=== PATIENT | male | born 1965 | race Caucasian/White ===

== ENCOUNTER 2021-02-03 18:02 | Emergency (ER) | payer BC ==
--- OUTSIDE RECORDS SUMMARY | 2021-02-03 18:05 | XMS REPORT | Continuity of Care Document ---
:1965 Author Organization [facility] t Address [address] [place] [address] Care Team Providers Name Role Phone Estela Mccabe Attending Clinician Problems This patient has no known problems. Allergies, Adverse Reactions, Alerts This patient has no known allergies or adverse reactions. Medications This patient has no known medications. Procedures This patient has no known procedures. Encounters Start End Encounter Admission Attending Care Care Encounter Source Date/Time Date/Time Type Type Clinicians Facility Department ID 2021-02-02 2021-02-02 Emergency Patrick Liao [facility] [id number] 11:56:00 13:57:00 Estela Leone [id number] [place] [id number] [place] [id number] Results This patient has no known results.
--- NOTE | 2021-02-03 22:14 | RAD REPORT ---
EXAM DESCRIPTION: RAD - Knee Left 3 View - 02/03/2021 9:54 pm CLINICAL HISTORY: PAIN COMPARISON: No comparisons FINDINGS: Small knee effusion. Mild medial greater than lateral joint space narrowing. Mild patellof emoral compartment spurring. No fracture is seen. IMPRESSION: No acute osseus abnormality involving the left knee. Mild tricompartmental degenerative changes and small nonspecific knee effusion.
--- NOTE | 2021-02-04 00:06 | EDPHYS ---
Physician Documentation [facility] Name: Jean Claude Gonzalez Age: 55 yrs Sex: Male : 1965 Arrival Date: 02/03/2021 Time: 18:05 Bed 13 Private MD: JUAREZ Physician Michele Rodrigues HPI: 02/04 00:01 This 55 yrs old Male presents to ER via Wheelchair with complaints of Knee keshav Pain, Knee Swelling. 00:01 This 55 yrs old Male presents to ER via Wheelchair with complaints of Knee keshav Pain, Knee Swelling. 00:01 The patient presents with decreased range of motion, pain, swelling, tenderness. The keshav complaints affect the lateral aspect of left knee, medial aspect of left knee and left knee. Context: The problem was sustained at an unknown site, resulted from an unknown cause. Onset: The symptoms/episode began/occurred 3 day(s) ago. Modifying factors: The symptoms are alleviated by nothing. elevating leg, the symptoms are aggravated by movement, weight bearing, bending knee. Associated signs and symptoms: The patient has no apparent associated signs or symptoms. Treatment prior to arrival includes: elevation of the extremity, icing the affected extremity. Severity of symptoms: At their worst the symptoms were moderate, in the emergency department the symptoms are unchanged. The patient has not experienced similar symptoms in the past. Historical: - Allergies: 02/03 18:37 No Known Allergies; iw - Immunization history:: Adult Immunizations unknown. - Family history:: not pertinent. - Social history:: Smoking status: unknown. ROS: 02/04 00:01 Constitutional: Negative for fever, chills, and weight loss, Eyes: Negative for injury, keshav pain, redness, and discharge, ENT: Negative for injury, pain, and discharge, Neck: Negative for injury, pain, and swelling, Cardiovascular: Negative for chest pain, palpitations, and edema, Respiratory: Negative for shortness of breath, cough, wheezing, and pleuritic chest pain, Abdomen/GI: Negative for abdominal pain, nausea, vomiting, diarrhea, and constipation, Back: Negative for injury and pain, : Negative for injury, bleeding, discharge, and swelling, Skin: Negative for injury, rash, and discoloration, Neuro: Negative for headache, weakness, numbness, tingling, and seizure, Psych: Negative for depression, anxiety, suicide ideation, homicidal ideation, and hallucinations, Allergy/Immunology: Negative for hives, rash, and allergies, Endocrine: Negative for neck swelling, polydipsia, polyuria, polyphagia, and marked weight changes, Hematologic/Lymphatic: Negative for swollen nodes, abnormal bleeding, and unusual bruising. MS/extremity: Positive for decreased range of motion, pain, swelling, tenderness, of the lateral aspect of left knee, medial aspect of left knee and left knee. Exam: 00:01 Constitutional: This is a well developed, well nourished patient who is awake, alert, keshav and in no acute distress. Head/Face: Normocephalic, atraumatic. Eyes: Pupils equal round and reactive to light, extra-ocular motions intact. Lids and lashes normal. Conjunctiva and sclera are non-icteric and not injected. Cornea within normal limits. Periorbital areas with no swelling, redness, or edema. ENT: Nares patent. No nasal discharge, no septal abnormalities noted. Tympanic membranes are normal and external auditory canals are clear. Oropharynx with no redness, swelling, or masses, exudates, or evidence of obstruction, uvula midline. Mucous membranes moist. Neck: Trachea midline, no thyromegaly or masses palpated, and no cervical lymphadenopathy. Supple, full range of motion without nuchal rigidity, or vertebral point tenderness. No Meningismus. Chest/axilla: Normal chest wall appearance and motion. Nontender with no deformity. No lesions are appreciated. Cardiovascular: Regular rate and rhythm with a normal S1 and S2. No gallops, murmurs, or rubs. Normal PMI, no JVD. No pulse deficits. Respiratory: Lungs have equal breath sounds bilaterally, clear to auscultation and percussion. No rales, rhonchi or wheezes noted. No increased work of breathing, no retractions or nasal flaring. Abdomen/GI: Soft, non-tender, with normal bowel sounds. No distension or tympany. No guarding or rebound. No evidence of tenderness throughout. Back: No spinal tenderness. No costovertebral tenderness. Full range of motion. Male : Normal genitalia with no discharge or lesions. Skin: Warm, dry with normal turgor. Normal color with no rashes, no lesions, and no evidence of cellulitis. Neuro: Awake and alert, GCS 15, oriented to person, place, time, and situation. Cranial nerves II-XII grossly intact. Motor strength 5/5 in all extremities. Sensory grossly intact. Cerebellar exam normal. Normal gait. Psych: Awake, alert, with orientation to person, place and time. Behavior, mood, and affect are within normal limits. 00:01 Musculoskeletal/extremity: ROM: limited active range of motion, limited passive range of motion, limited active range of motion due to pain, limited passive range of motion due to pain, Circulation is intact in all extremities. Sensation intact. Compartment Syndrome exam of affected extremity: is normal. DVT Exam: pain, swelling, tenderness, of the left leg, of the left knee. Vital Signs: 01:40 BP 148 / 106; Pulse 103; Resp 16 S; Temp 97.7(TE); Pulse Ox 99% on R/A; Pain 5/10; bb Procedures: 00:46 Joint Treatment: of left knee using 18 gauge needle, Removed cloudy fluid, yellow keshav fluid, Specimen sent to lab. Dressed with band aid, Patient tolerated well. MDM: 02/03 23:23 Patient medically screened. [facility] 02/04 00:04 Differential diagnosis: closed fracture, contusion, tendonitis. Data reviewed: vital keshav signs, nurses notes, radiologic studies. Data interpreted: tax investigator: rate is 89 beats/min, rhythm is regular, Pulse oximetry: on room air is 98 %. Test interpretation: by ED physician or midlevel provider: plain radiologic studies. Counseling: I had a detailed discussion with the patient and/or guardian regarding: the historical points, exam findings, and any diagnostic results supporting the discharge/admit diagnosis, lab results, radiology results, the need for outpatient follow up, for definitive care, a family practitioner, a orthopedic surgeon. 02/04 00:34 Order name: Body Fluid Culture [facility] 02/04 00:34 Order name: Lactic Dehydrogenase [facility] 02/04 00:34 Order name: Protein, Total [facility] 02/04 00:34 Order name: Gram Stain [facility] 02/04 00:34 Order name: Body Fluid Cell Count [facility] 02/03 20:31 Order name: XRAY Knee LEFT 3 view; Complete Time: 23:10 bb 02/03 23:58 Order name: Dressing - Wound; Complete Time: 00:04 keshav 02/04 00:34 Order name: Body Fluid Crystals [facility] 02/04 00:34 Order name: Uric Acid [facility] 02/03 23:58 Order name: Gloves, Sterile; Complete Time: 00:04 [facility] 02/03 23:58 Order name: Setup Suture Tray; Complete Time: 00:04 [facility] 02/03 23:58 Order name: Crutches; Complete Time: 01:44 [facility] 02/03 23:58 Order name: Knee Immobilizer; Complete Time: 01:15 keshav Administered Medications: 00:05 Drug: Motrin (ibuprofen) 800 mg Route: PO; bb 01:37 Follow up: Response: No adverse reaction bb 00:05 Drug: [place] (HYDROcodone-acetaminophen) 10 mg-325 mg 1 tabs Route: PO; bb 01:37 Follow up: Response: No adverse reaction; RASS: Alert and Calm (0) bb 00:35 Drug: Lidocaine-Epinephrine -1%: (1:100,000) 8 ml {Note: administered by Dr Rodrigues to bb affected area.} Volume: 20 ml; Route: Infiltration; 01:38 Follow up: Response: No adverse reaction bb 01:37 Drug: KeFLEX (cephalexin) 500 mg Route: PO; bb 06:45 Follow up: Response: No adverse reaction; Medication administered at discharge. bb Disposition Summary: 02/04/21 00:06 Discharge Ordered Location: Home keshav Problem: new keshav Symptoms: have improved keshav Condition: Stable keshav Diagnosis - Effusion, knee keshav - Pain in left knee keshav Followup: keshav - With: Private Physician - When: 2 - 3 days - Reason: Recheck today's complaints, Continuance of care, Re-evaluation by your physician Followup: keshav - With: Karel Edmondson MD - When: 2 - 3 days - Reason: Recheck today's complaints, Re-evaluation by your physician Discharge Instructions: - Discharge Summary Sheet keshav - Joint Pain keshav - Arthritis keshav - Knee Effusion keshav - Acute Knee Pain, Adult keshav - How to Use Cold Therapy, Gflm-kz-Gbvx keshav - Knee Effusion, Lwux-of-Sybf keshav - Arthritis, Qtsk-gv-Bfpc keshav - How to Use Cold Therapy keshav - Acute Knee Pain, Adult, Iird-sl-Ixtd keshav - Joint Pain, Insg-fd-Lnom keshav Forms: - Medication Reconciliation Form keshav - Thank You Letter keshav - Antibiotic Education keshav - Prescription Opioid Use keshav Prescriptions: - acetaminophen-codeine 300-15 mg Oral tablet - take 2 tablet by ORAL route every 4-6 hours; 24 tablet; Refills: 0, Product keshav Selection Permitted - cephalexin 500 mg Oral capsule - take 1 capsule by ORAL route 4 times per day; 28 capsule; Refills: 0, Product keshav Selection Permitted - Ibuprofen 600 mg Oral Tablet - take 1 tablet by ORAL route every 6 hours As needed take with food; 30 tablet; keshav Refills: 0, Product Selection Permitted Signatures: Dispatcher [employer] EDMS Michele Rodrigues MD MD cha Mickail, Joel, PA PA jmm Ballard, Brenda, RN RN Diana Melara RN RN iw Corrections: (The following items were deleted from the chart) 01:23 00:34 Body Fluid Cell Count ordered. EDMS EDMS 00:34 Body Fluid Culture ordered. EDMS EDMS 00:34 CSF Glucose ordered. EDMS EDMS : 00:34 Lactic Dehydrogenase ordered. EDMS EDMS 00:34 Protein, Total ordered. EDMS EDMS 00:34 Gram Stain ordered. EDMS EDMS : 00:34 Body Fluid Crystals ordered. EDMS EDMS : 00:34 Uric Acid ordered. EDMS EDMS
--- NOTE | 2021-02-04 00:06 | ER ---
Nurse's Notes [facility] Name: Jean Claude Gonzalez Age: 55 yrs Sex: Male : 1965 Arrival Date: 02/03/2021 Time: 18:05 Bed 13 Private MD: Diagnosis: Effusion, knee;Pain in left knee Presentation: 02/03 18:34 Chief complaint: Patient states: left knee pain and swelling since Friday , was seen at [facility] and [facility], was initially diagnosed with a sprain but did not have an injury, then was told he has arthritis and given anti inflammatories , no his knee is more swollen and is warm to touch , has pain radiating to left foot. Coronavirus screen: At this time, the client does not indicate any symptoms associated with coronavirus-19. Ebola Screen: Patient negative for fever greater than or equal to 101.5 degrees Fahrenheit, and additional compatible Ebola Virus Disease symptoms Patient denies exposure to infectious person. Patient denies travel to an Ebola-affected area in the 21 days before illness onset. No symptoms or risks identified at this time. Initial Sepsis Screen: Does the patient meet any 2 criteria? No. Patient's initial sepsis screen is negative. Does the patient have a suspected source of infection? No. Patient's initial sepsis screen is negative. Risk Assessment: Do you want to hurt yourself or someone else? Patient reports no desire to harm self or others. Onset of symptoms was January 28, 2021. 18:34 Method Of Arrival: Wheelchair 18:34 Acuity: TAMARA 3 iw Triage Assessment: 23:10 General: Appears uncomfortable, Behavior is cooperative. bb Historical: - Allergies: 18:37 No Known Allergies; iw - Immunization history:: Adult Immunizations unknown. - Family history:: not pertinent. - Social history:: Smoking status: unknown. Screenin:10 Abuse screen: Denies threats or abuse. Nutritional screening: No deficits noted. bb Tuberculosis screening: No symptoms or risk factors identified. Fall Risk None identified. Assessment: 23:10 General: Appears in no apparent distress. uncomfortable, Behavior is calm, cooperative. bb Pain: Complains of pain in left knee. Neuro: Level of Consciousness is awake, alert, obeys commands, Oriented to person, place, time, situation. Cardiovascular: Capillary refill < 3 seconds Patient's skin is warm and dry. Respiratory: Respiratory effort is even, unlabored, Respiratory pattern is regular. GI: No signs and/or symptoms were reported involving the gastrointestinal system. Derm: Skin is pink, warm \T\ dry. Musculoskeletal: Circulation, motion, and sensation intact. Swelling present in left knee Reports pain in left knee. 08 01:40 Reassessment: Patient is alert, oriented x 3, equal unlabored respirations, skin bb warm/dry/pink. pt verbalized understanding of and agrees to plan of care states he has used crutches in the past, discharge instructions given pt assisted to car via wheelchair by plant facilities technician with family. Vital Signs: 01:40 BP 148 / 106; Pulse 103; Resp 16 S; Temp 97.7(TE); Pulse Ox 99% on R/A; Pain 5/10; bb ED Course: 02/03 18:05 Patient arrived in ED. mr 18:37 Triage completed. iw 18:37 Arm band placed on. iw 21:53 XRAY Knee LEFT 3 view In Process Unspecified. EDMS 23:10 Patient has correct armband on for positive identification. Call light in reach. bb 23:10 Patient did not have IV access during this emergency room visit. bb 23:23 Michele Rodrigues MD is Attending Physician. [facility] 02/04 00:06 Karel Edmondson MD is Referral Physician. [facility] 00:09 Maria Elena Garcia, JOEL is Primary Nurse. bb 00:30 Assist provider with aspiration of left knee Set up for procedure. Performed by Michele Rodrigues MD Patient tolerated well. Administered Medications: 00:05 Drug: Motrin (ibuprofen) 800 mg Route: PO; bb 01:37 Follow up: Response: No adverse reaction bb 00:05 Drug: [place] (HYDROcodone-acetaminophen) 10 mg-325 mg 1 tabs Route: PO; bb 01:37 Follow up: Response: No adverse reaction; RASS: Alert and Calm (0) bb 00:35 Drug: Lidocaine-Epinephrine -1%: (1:100,000) 8 ml {Note: administered by Dr Rodrigues to bb affected area.} Volume: 20 ml; Route: Infiltration; 01:38 Follow up: Response: No adverse reaction bb 01:37 Drug: KeFLEX (cephalexin) 500 mg Route: PO; bb 06:45 Follow up: Response: No adverse reaction; Medication administered at discharge. chandan Outcome: 00:06 Discharge ordered by . keshav 01:44 Patient left the ED. ole 06:50 Discharged to home via wheelchair, with family. chandan 06:50 Condition: stable 06:50 Discharge instructions given to patient, Instructed on discharge instructions, follow up and referral plans. medication usage, Demonstrated understanding of instructions, follow-up care, medications, Prescriptions given X 3. Signatures: Dispatcher [employer] EDDE Michele Rodrigues MD MD cha Rivera, Maria Elena Walton, RN RN Diana Melara RN RN Hola Smith ds4
[2021-02-04] MEDS ORDERED: HYDROCODONE/APAP 10/325 TAB ONE (00:29)
[2021-02-04] MEDS ORDERED: IBUPROFEN 400 MG TAB ONE (00:29)
[2021-02-04] MEDS ORDERED: LIDOCAINE 1% 20 ML MDV ONE (00:29)
[2021-02-04] MEDS ORDERED: LIDOCAINE 1% W/EPI 1:100,000 MDV 20 ML VIAL ONE (00:29)
[2021-02-04] MEDS ORDERED: CEPHALEXIN 250 MG CAP ONE (01:59)
[2021-02-04 02:13] LABS: Uric Acid 6.5 mg/dL (3.5-7.2)
[2021-02-04 02:32] LABS: Body Fluid WBC 622 /mm^3
[2021-02-04 02:47] LABS: Protein, Total 5.2 g/dL (6.4-8.2)
[2021-02-04 02:56] LABS: Glucose Level 15 mg/dL (74-106)
[2021-02-04 03:38] LABS: Appearance SLT. TURBID (CLEAR); Body Fluid Source PERITONEAL; Color of fluid Yellow (COLORLESS)
== END 2021-02-04 01:44 | disposition home or self-care (01) ==
LOC: ER 18:02
PROC: 0S9D3ZX Drainage of Left Knee Joint, Percutaneous Approach, Diagnostic (ICD-10-PCS; principal; 2021-02-04)
DX: M25.462 Effusion, left knee (principal)
CPT/HCPCS: 36415; 82947; 83615; 84155; 84550; 87070; 87077; 87186; 87205; 89050; 89060; 99284

== ENCOUNTER 2021-02-15 03:39 | Emergency (ER) | payer BC ==
--- OUTSIDE RECORDS SUMMARY | 2021-02-15 03:41 | XMS REPORT | Continuity of Care Document ---
:1965 Author Organization [facility] t Address [address] [place] [address] Care Team Providers Name Role Phone Estela [...] Department ID 2021-02-02 2021-02-02 Emergency Patrick Liao [facility] [id number] 11:56:00 13:57:00 Estela Leone [id number] [place] [id number] [place] [phone] [id number] Results This patient has no known results.
--- NOTE | 2021-02-15 04:58 | ER ---
Nurse's Notes [facility] Name: Jean Claude Gonzalez Age: 55 yrs Sex: Male : 1965 Arrival Date: 02/15/2021 Time: 04:26 Bed DIS11 Private MD: Diagnosis: Effusion, left knee Presentation: 02/15 04:28 Chief complaint: Patient states: Left sided knee pain worse this morning. I am waiting tl1 for approval for an MRI. The pain today is overwhelming. Coronavirus screen: Client denies travel out of the [place] in the last 14 days. At this time, the client does not indicate any symptoms associated with coronavirus-19. Ebola Screen: Patient negative for fever greater than or equal to 101.5 degrees Fahrenheit, and additional compatible Ebola Virus Disease symptoms Patient denies exposure to infectious person. Patient denies travel to an Ebola-affected area in the 21 days before illness onset. Initial Sepsis Screen: Does the patient meet any 2 criteria? No. Patient's initial sepsis screen is negative. Does the patient have a suspected source of infection? No. Patient's initial sepsis screen is negative. Risk Assessment: Do you want to hurt yourself or someone else? Patient reports no desire to harm self or others. Onset of symptoms was February 15, 2021. 04:28 Method Of Arrival: Other tl1 04:28 Acuity: TAMARA 4 tl1 Historical: - Allergies: 04:30 No Known Allergies; tl1 - Home Meds: 04:30 Keflex Oral [Active]; Lisinopril Oral [Active]; tl1 - PMHx: 04:30 hypertension; tl1 - PSHx: 04:30 None; tl1 - Immunization history:: Adult Immunizations up to date, Client reports having NOT received the Covid vaccine. - Social history:: Smoking status: Patient denies any tobacco usage or history of. Patient uses alcohol, but reports only rare drinking. - Family history:: not pertinent. - Hospitalizations: : No recent hospitalization is reported. Screenin:38 Abuse screen: Denies threats or abuse. Denies injuries from another. Has been tl1 threatened or abused. Nutritional screening: No deficits noted. Tuberculosis screening: No symptoms or risk factors identified. Fall Risk Ambulatory Aid- Crutches/Cane/Walker (15 pts). Assessment: 04:37 General: Appears uncomfortable, Behavior is calm, cooperative, appropriate for age. tl1 Pain: Complains of pain in left knee Pain currently is 10 out of 10 on a pain scale. Neuro: Level of Consciousness is awake, alert, obeys commands. Cardiovascular: Reports None. Respiratory: No deficits noted. Airway is patent Trachea midline. GI: No signs and/or symptoms were reported involving the gastrointestinal system. : No signs and/or symptoms were reported regarding the genitourinary system. EENT: No signs and/or symptoms were reported regarding the EENT system. Musculoskeletal: Swelling present in left knee Tenderness present in left knee. 05:22 Reassessment: Patient and/or family updated on plan of care and expected duration. Pain bb level reassessed. Patient is alert, oriented x 3, equal unlabored respirations, skin warm/dry/pink. pt states pain has improved now 6/10 Pt verbalized understanding of and agrees to plan of care discharge instructions given pt to exit via crutches. Vital Signs: 04:32 BP 136 / 105; Pulse 110; Resp 17; Temp 98; Pulse Ox 97% on R/A; Weight 110.68 kg; tl1 Height 6 ft. 2 in. (187.96 cm); Pain 10/10; 05:23 BP 134 / 91; Pulse 109; Resp 18 S; Temp 96.6(TE); Pulse Ox 98% on R/A; Pain 6/10; bb 04:32 Body Mass Index 31.33 (110.68 kg, 187.96 cm) tl1 ED Course: 04:26 Patient arrived in ED. bp1 04:30 Triage completed. tl1 04:31 Arm band placed on right wrist. tl1 04:38 No provider procedures requiring assistance completed. Patient did not have IV access tl1 during this emergency room visit. 04:45 Malcolm Carey MD is Attending Physician. rn 05:22 Maria Elena Garcia RN is Primary Nurse. bb 05:24 Patient has correct armband on for positive identification. bb Administered Medications: 04:52 Drug: Demerol (meperidine) 50 mg Route: IM; Site: right vastus lateralis; tl1 05:22 Follow up: Response: No adverse reaction; Pain is decreased; RASS: Alert and Calm (0) bb 04:52 Drug: Ketorolac 15 mg Route: IM; Site: left vastus lateralis; tl1 05:22 Follow up: Response: No adverse reaction bb 04:52 Drug: Zofran (Ondansetron) 4 mg Route: PO; tl1 05:22 Follow up: Response: No adverse reaction bb Outcome: 04:58 Discharge ordered by . rn 05:24 Discharged to home ambulatory. bb 05:24 Condition: stable 05:24 Discharge instructions given to patient, Instructed on discharge instructions, follow up and referral plans. Demonstrated understanding of instructions, follow-up care. 05:24 Patient left the ED. bb Signatures: Maria Elena Garcia RN RN Malcolm Lafleur MD MD rn Lasagna, Tonya RN RN tl1 Caitlin Ramos
--- NOTE | 2021-02-15 04:58 | EDPHYS ---
Physician Documentation [facility] Name: Jean Claude Gonzalez Age: 55 yrs Sex: Male : 1965 Arrival Date: 02/15/2021 Time: 04:26 Bed DIS11 Private MD: ED Physician Malcolm Carey HPI: 02/15 04:51 This 55 yrs old Male presents to ER via Other with complaints of Knee Pain. rn 04:51 The patient presents with pain. The complaints affect the left knee. Context: resulted rn from an unknown cause, the patient can partially bear weight, the patient is able to ambulate. Onset: The symptoms/episode began/occurred 9 day(s) ago. Modifying factors: The symptoms are alleviated by remaining still, the symptoms are aggravated by movement, weight bearing, bending knee. Associated signs and symptoms: Pertinent positives: swelling, Pertinent negatives fever, warmth, weakness. Severity of symptoms: At their worst the symptoms were moderate, in the emergency department the symptoms have improved. The patient has experienced a previous episode. The patient has been recently seen at the [facility]. Patient reports seen on the third year for swollen left knee, had fluid aspirated and feels much better. Told to follow-up with orthopedics and that the fluid appeared well. Seen by orthopedics a few days ago, discussed results of knee aspiration with orthopedics per patient and told no signs of infection or gout. Ortho recommended MRI but patient waiting on approval from insurance. Reports still having pain but not as bad as originally. No new injury. Historical: - Allergies: 04:30 No Known Allergies; tl1 - Home Meds: 04:30 Keflex Oral [Active]; Lisinopril Oral [Active]; tl1 - PMHx: 04:30 hypertension; tl1 - PSHx: 04:30 None; tl1 - Immunization history:: Adult Immunizations up to date, Client reports having NOT received the Covid vaccine. - Social history:: Smoking status: Patient denies any tobacco usage or history of. Patient uses alcohol, but reports only rare drinking. - Family history:: not pertinent. - Hospitalizations: : No recent hospitalization is reported. ROS: 04:51 Constitutional: Negative for fever, chills, and weight loss, MS/Extremity: Negative for rn injury, positive left knee pain Skin: Negative for injury, rash, and discoloration, Neuro: Negative for weakness, numbness, tingling Exam: 04:51 Constitutional: This is a well developed, well nourished patient who is awake, alert rn MS/ Extremity: Pulses equal, no cyanosis. Neurovascular intact. Minimal left knee effusion. No overlying warmth or redness of knee joint. Mild pain with range of motion, both active and passive. Vital Signs: 04:32 BP 136 / 105; Pulse 110; Resp 17; Temp 98; Pulse Ox 97% on R/A; Weight 110.68 kg; tl1 Height 6 ft. 2 in. (187.96 cm); Pain 10/10; 05:23 BP 134 / 91; Pulse 109; Resp 18 S; Temp 96.6(TE); Pulse Ox 98% on R/A; Pain 6/10; bb 04:32 Body Mass Index 31.33 (110.68 kg, 187.96 cm) tl1 MDM: 04:45 Patient medically screened. rn 04:51 Differential diagnosis: Knee effusion, inflammatory arthritis. Data reviewed: vital rn signs, nurses notes, old medical records, Synovial fluid reviewed from last visit, Gram stain states no organisms and no WBCs and distribution more consistent with inflammatory arthritis. Sensitivities do show staph but unclear if contaminant from skin given no white blood cells and no organisms seen on Gram stain. Does show resistance to cephalosporins and patient is currently on Keflex. and as a result, I will discharge patient. Counseling: I had a detailed discussion with the patient and/or guardian regarding: the historical points, exam findings, and any diagnostic results supporting the discharge/admit diagnosis, the need for outpatient follow up, to return to the emergency department if symptoms worsen or persist or if there are any questions or concerns that arise at home. Response to treatment: the patient's symptoms have mildly improved after treatment, and as a result, I will discharge patient. Special discussion: I discussed with the patient/guardian in detail that at this point there is no indication for admission to the hospital. It is understood, however, that if the symptoms persist or worsen the patient needs to return immediately for re-evaluation. Based on the history and exam findings, there is no indication for further emergent testing or inpatient evaluation. I discussed with the patient/guardian the need to see the orthopedic surgeon for further evaluation of the symptoms. ED course: We will change antibiotics to Bactrim given sensitivities reported, even though might be contaminant given negative Gram stain for organisms or WBC. Patient also states orthopedist went over fluid results with him and did not believe there was infection. Will DC home with Ortho follow-up once again.. Administered Medications: 04:52 Drug: Demerol (meperidine) 50 mg Route: IM; Site: right vastus lateralis; tl1 05:22 Follow up: Response: No adverse reaction; Pain is decreased; RASS: Alert and Calm (0) bb 04:52 Drug: Ketorolac 15 mg Route: IM; Site: left vastus lateralis; tl1 05:22 Follow up: Response: No adverse reaction bb 04:52 Drug: Zofran (Ondansetron) 4 mg Route: PO; tl1 05:22 Follow up: Response: No adverse reaction bb Disposition Summary: 02/15/21 04:58 Discharge Ordered Location: Home rn Problem: an ongoing problem rn Symptoms: have improved rn Condition: Stable rn Diagnosis - Effusion, left knee rn Followup: rn - With: Private Physician - When: 2 - 3 days - Reason: Recheck today's complaints, Re-evaluation by your physician Discharge Instructions: - Discharge Summary Sheet rn - Knee Effusion rn Forms: - Medication Reconciliation Form rn - Thank You Letter rn - Antibiotic international first officer - Prescription Opioid Use rn Prescriptions: - Bactrim DS 800-160 mg Oral Tablet - take 1 tablet by ORAL route every 12 hours for 10 days; 20 tablet; Refills: 0, rn Product Selection Permitted Signatures: Malcolm Carey MD MD rn Lasagna, Tonya RN RN tl1 Maria Elena Garcia RN bb
[2021-02-15] MEDS ORDERED: KETOROLAC 30 MG/ML INJ ONE (05:09)
[2021-02-15] MEDS ORDERED: MEPERIDINE HCL 50 MG/ML ONE (05:09)
[2021-02-15] MEDS ORDERED: ONDANSETRON 4 MG (ODT) TAB ONE (05:09)
[2021-02-15 05:31] VITALS: BP 134/91; TEMP 96.6; O2SAT 98
== END 2021-02-15 05:24 | disposition home or self-care (01) ==
LOC: ER 03:39
DX: M25.462 Effusion, left knee (principal); I10 Essential (primary) hypertension
CPT/HCPCS: 96372; 99283; J2175

== ENCOUNTER 2021-07-03 18:28 | Emergency (ER) | payer BC ==
--- OUTSIDE RECORDS SUMMARY | 2021-07-03 18:30 | XMS REPORT | Continuity of Care Document ---
:1965 Author Organization [facility] t Address [address] [place] [address] Care Team Providers Name Role Phone Barby Burnett Primary Care Physician Tonny ANTON Attending Clinician Unavailable TRI Attending Clinician Unavailable Barby DE LA ROSA Attending Clinician Unavailable Barby Burnett Attending Clinician LUCIUS Attending Clinician Unavailable Cricket MALDONADO Attending Clinician Unavailable Rashad REID Attending Clinician Unavailable Rogelio Attending Clinician Unavailable KNOW Admitting Clinician Unavailable Payers Payer Name Policy Type Policy Number Effective Date Expiration Date S pat [employer] [id number] 2017 [facility] 00:00:00 [employer] HE[employer] SELECT [id number] 2017 00:00:00 Problems Condition Condition Condition Status Onset Resolution Last Treating Co mments Source Name Details Category Date Date Treatment Clinician Date Pyogenic Pyogenic Disease Active Unive rs bacterial bacterial 03-14 [place] of [place] Medical patella, patella, Branch left left Allergies, Adverse Reactions, Alerts Allergy Allergy Status Severity Reaction(s) Onset Inactive Treating Comm ents Source Name Type Date Date Clinician Gabapent Allergy Active Hallucinatio U T in to ns 03-25 Health substan 00:00: e 00 No Known DA Active U [facility] Allergie 8-15 [place] [facility] No Known DA Active U [facility] Allergie 8-15 [place] [facility] Nsaids Allergy Active Other [facility] to 02-03 reaction( Health substan 00:00: s): e 00 NSAIDs ([id number]) ASPIRIN DA Active ID NAUSEA 2008-07 [facility] 07-29 [place] [facility]: d [facility] Aspirin Allergy Active 2008-07 [facility] to 07-29 Health substan 00:00: e 00 NO KNOWN Drug Active Univers ALLERGIE Class ity of S [facility] Social History Social Habit Start Date Stop Date Quantity Comments Source Exposure to Not sure [facility] SARS-CoV-2 (event) Medica l Branch Tobacco use and 2021-02-23 2021-02-23 Never used Universit y [facility] exposure 00:00:00 00:00:00 Medical Branch Sex [facility][birth year] At [birth year] [facility] 00:[facility] 00:[facility]:00 Smoking Status Start Date Stop Date Source Tobacco smoking consumption [facility] Never smoker [facility] Medications Ordered Filled Start Stop Current Ordering Indication Dosage Frequency Signature Comments Components Source Medication Medication Date Date Medication? Clinician (SIG) Name Name TIZANIDINE 2020-07 Yes [id number] 4mg TAKE 1 U nivers 4 mg 2-17 CAPSULE BY ity of capsule 00:00: MOUTH 2 00 (TWO) Medical TIMES Branch DAILY NEEDED FOR MUSCLE SPASMS. pregabalin 2020-07 Yes [id number] 75mg Take 1 U nivers (LYRICA) 75 2-14 capsule by it y of mg capsule 00:00[place] (three) Medical times Branch daily. amitriptyli 2020-07 Yes [id number] 50mg Take 1 Univers ne 50 mg 2-14 tablet by ity of tablet 00:00: mouth at [place] 00 bedtime. Medical Branch AMITRIPTYLI 2020-07- No [id number] TAKE 1 Univers NE 10 mg 08-15 TABLET BY ity o f tablet 00:00: 00:00 MOUTH [place] 00 :00 EVERYDAY Medical AT BEDTIME Branch pregabalin 2020-07- No [id number] 75mg Take 1 Univers 75 mg 07-30 07 capsule by ity of capsule 00:00: 00:00 mouth 2 [place] 00 :00 (two) Medical times Branch daily. tiZANidine 2020-07- No [id number] 4mg Take 1 Univers 4 mg 07-22 capsule by ity of capsule 00:00: 00:00 mouth 2 [place] 00 :00 (two) Medical times Branch daily as needed for Muscle Spasms. gabapentin 2020-07- No [id number] Take four Univers 100 mg 07-09 07 tablets ity of capsule 00:00: 00:00 bid [place] 00 :00 Medical Branch gabapentin 2020-07 Yes [id number] 600mg Q.[id number] Take 1 UT (Neurontin) 0 62672 [id number] tablet Health 600 MG 00:00: 3D (600 mg tablet 00 total) by mouth 3 (three) times a day for 14 days. gabapentin 2020-07- Yes [id number] 600mg Q.[id number] Take 1 UT (Neurontin) 0-05-11 31374 [id number] tablet Health 600 MG 00:00: 04:59 3D (600 mg tablet 00 :00 total) by mouth 3 (three) times a day for 14 days. gabapentin 2020-07- Yes [id number] 600mg Q.[id number] Take 1 UT (Neurontin) 0-05-11 51438 [id number] tablet Health 600 MG 00:00: 04:59 3D (600 mg tablet 00 :00 total) by mouth 3 (three) times a day for 14 days. gabapentin 2020-07- Yes [id number] 600mg Q.[id number] Take 1 UT (Neurontin) 0-05-11 66562 [id number] tablet Health 600 MG 00:00: 04:59 3D (600 mg tablet 00 :00 total) by mouth 3 (three) times a day for 14 days. tiZANidine 2020-07 Yes [id number] 2mg Take 1 UT (Zanaflex) 0-11 02962 tablet (2 Hea lth 2 MG tablet 00:00: mg total) 00 by mouth every 8 (eight) hours if needed for muscle spasms for up to 10 days. gabapentin 2020-07 Yes [id number] 600mg Q.[id number] Take 1 UT (Neurontin) 0-11 02078 [id number] tablet Health 600 MG 00:00: 3D (600 mg tablet 00 total) by mouth 3 (three) times a day for 5 days. tiZANidine 2020-07 Yes [id number] 2mg Take 1 UT (Zanaflex) 0-11 57195 tablet (2 Hea lth 2 MG tablet 00:00: mg total) 00 by mouth every 8 (eight) hours if needed for muscle spasms for up to 10 days. gabapentin 2020-07 Yes [id number] 600mg Q.[id number] Take 1 UT (Neurontin) 0-11 64815 [id number] tablet Health 600 MG 00:00: 3D (600 mg tablet 00 total) by mouth 3 (three) times a day for 5 days. tiZANidine 2020-07 Yes [id number] 2mg Take 1 UT (Zanaflex) 0-11 63387 tablet (2 Hea lth 2 MG tablet 00:00: mg total) 00 by mouth every 8 (eight) hours if needed for muscle spasms for up to 10 days. gabapentin 2020-07 Yes [id number] 600mg Q.[id number] Take 1 UT (Neurontin) 0-11 80534 [id number] tablet Health 600 MG 00:00: 3D (600 mg tablet 00 total) by mouth 3 (three) times a day for 5 days. tiZANidine 2020-07 Yes [id number] 2mg Take 1 UT (Zanaflex) 0-11 81723 tablet (2 Hea lth 2 MG tablet 00:00: mg total) 00 by mouth every 8 (eight) hours if needed for muscle spasms for up to 10 days. gabapentin 2020-07 Yes [id number] 600mg Q.[id number] Take 1 UT (Neurontin) 0-11 21794 [id number] tablet Health 600 MG 00:00: 3D (600 mg tablet 00 total) by mouth 3 (three) times a day for 5 days. tiZANidine 2020-07- Yes [id number] 2mg Take 1 UT (Zanaflex) 04-27 tablet (2 He alth 2 MG tablet 00:00: 04:59 mg total) 00 :00 by mouth every 8 (eight) hours if needed for muscle spasms for up to 10 days. gabapentin 2020-07- Yes [id number] 600mg Q.[id number] Take 1 UT (Neurontin) 04-22 [id number] tablet Health 600 MG 00:00: 04:59 3D (600 mg tablet 00 :00 total) by mouth 3 (three) times a day for 5 days. LISINOPRIL 2020-07 Yes [id number] TAKE 1 U nivers 20 mg 0-05 TABLET BY ity of tablet 00:00: MOUTH [place] 00 EVERY DAY Medical Branch LISINOPRIL 2020-07 Yes [id number] TAKE 1 U nivers 20 mg 0-05 TABLET BY ity of tablet 00:00: MOUTH [place] 00 EVERY DAY Medical Branch naloxone 2021- Yes [id number] .4mg Administer UT (Narcan) 2 04-05 0.4 mL Health MG/2ML 00:00: 04:59 (0.4 mg injection 00 :00 total) into affected nostril(s) if needed for opioid reversal. May repeat every 2-3 minutes as needed until medical assistance available. naloxone 2021- Yes [id number] .4mg Administer UT (Narcan) 2 04-05 0.4 mL Health MG/2ML 00:00: 04:59 (0.4 mg injection 00 :00 total) into affected nostril(s) if needed for opioid reversal. May repeat every 2-3 minutes as needed until medical assistance available. naloxone 2021- Yes [id number] .4mg Administer UT (Narcan) 2 04-05- 0.4 mL Health MG/2ML 00:00: 04:59 (0.4 mg injection 00 :00 total) into affected nostril(s) if needed for opioid reversal. May repeat every 2-3 minutes as needed until medical assistance available. naloxone 2021- Yes [id number] .4mg Administer UT (Narcan) 2 04-05- 0.4 mL Health MG/2ML 00:00: 04:59 (0.4 mg injection 00 :00 total) into affected nostril(s) if needed for opioid reversal. May repeat every 2-3 minutes as needed until medical assistance available. naloxone 2021- Yes [id number] .4mg Administer UT (Narcan) 2 04-05- 0.4 mL Health MG/2ML 00:00: 04:59 (0.4 mg injection 00 :00 total) into affected nostril(s) if needed for opioid reversal. May repeat every 2-3 minutes as needed until medical assistance available. naloxone 2021- Yes [id number] .4mg Administer UT (Narcan) 2 04-05- 0.4 mL Health MG/2ML 00:00: 04:59 (0.4 mg injection 00 :00 total) into affected nostril(s) if needed for opioid reversal. May repeat every 2-3 minutes as needed until medical assistance available. naloxone 2021- Yes [id number] .4mg Administer UT (Narcan) 2 04-05- 0.4 mL Health MG/2ML 00:00: 04:59 (0.4 mg injection 00 :00 total) into affected nostril(s) if needed for opioid reversal. May repeat every 2-3 minutes as needed until medical assistance available. naloxone 2021- Yes [id number] .4mg Administer UT (Narcan) 2 04-05- 0.4 mL Health MG/2ML 00:00: 04:59 (0.4 mg injection 00 :00 total) into affected nostril(s) if needed for opioid reversal. May repeat every 2-3 minutes as needed until medical assistance available. tiZANidine 2020- Yes [id number] 2mg Take 1 UT (Zanaflex) 04-05-11 tablet (2 Hea lth 2 MG tablet 00:00: 04:59 mg total) 00 :00 by mouth every 8 (eight) hours if needed for muscle spasms for up to 10 days. tiZANidine 2020- Yes [id number] 2mg Take 1 UT (Zanaflex) 9-30 10-11 tablet (2 Hea lth 2 MG tablet 00:00: 04:59 mg total) 00 :00 by mouth every 8 (eight) hours if needed for muscle spasms for up to 10 days. tiZANidine 2020- No [id number] 2mg Take 1 UT (Zanaflex) 9-30 10-11 tablet (2 Hea lth 2 MG tablet 00:00: 00:00 mg total) 00 :00 by mouth every 8 (eight) hours if needed for muscle spasms for up to 10 days. tiZANidine 2020- Yes [id number] 2mg Take 1 UT (Zanaflex) 9-30 10-11 tablet (2 Hea lth 2 MG tablet 00:00: 04:59 mg total) 00 :00 by mouth every 8 (eight) hours if needed for muscle spasms for up to 10 days. HYDROcodone 2020- Yes [id number] 1{tbl} Q6H Take 1 UT -acetaminop 9-30 10-08 tablet by He alth hen ([place]) 00:00: 04:59 mouth 5-325 MG 00 :00 every 6 tablet (six) hours if needed for severe pain for up to 7 days. HYDROcodone 2020- Yes [id number] 1{tbl} Q6H Take 1 UT -acetaminop 9-30 10-08 tablet by He alth hen ([place]) 00:00: 04:59 mouth 5-325 MG 00 :00 every 6 tablet (six) hours if needed for severe pain for up to 7 days. HYDROcodone 2020- Yes [id number] 1{tbl} Q6H Take 1 UT -acetaminop 9-30 10-08 tablet by He alth hen ([place]) 00:00: 04:59 mouth 5-325 MG 00 :00 every 6 tablet (six) hours if needed for severe pain for up to 7 days. gabapentin 2020- No [id number] 600mg Q.[id number] Take 1 UT (Neurontin) 9-28 10-13 45469 [id number] tablet Health 600 MG 00:00: 04:59 3D (600 mg tablet 00 :00 total) by mouth 3 (three) times a day for 14 days. gabapentin 2020- No [id number] 600mg Q.[id number] Take 1 UT (Neurontin) 04-03 23145 [id number] tablet Health 600 MG 00:00: 04:59 3D (600 mg tablet 00 :00 total) by mouth 3 (three) times a day for 14 days. gabapentin 2020- No [id number] 600mg Q.[id number] Take 1 UT (Neurontin) 04-03 30455 [id number] tablet Health 600 MG 00:00: 04:59 3D (600 mg tablet 00 :00 total) by mouth 3 (three) times a day for 14 days. gabapentin 2020- No [id number] 600mg Q.[id number] Take 1 UT (Neurontin) 04-03 97414 [id number] tablet Health 600 MG 00:00: 04:59 3D (600 mg tablet 00 :00 total) by mouth 3 (three) times a day for 14 days. gabapentin 2020- No [id number] 600mg Q.[id number] Take 1 UT (Neurontin) 04-03 94762 [id number] tablet Health 600 MG 00:00: 04:59 3D (600 mg tablet 00 :00 total) by mouth 3 (three) times a day for 14 days. acetaminoph 2020- No [id number] 1{tbl} Q6H Take 1 UT en-codeine 04-03 tablet by Kody alth (Tylenol w/ 00:00: 04:59 mouth Codeine #3) 00 :00 every 6 300-30 MG (six) tablet hours if needed for severe pain for up to 5 days. acetaminoph 2020- No [id number] 1{tbl} Q6H Take 1 UT en-codeine 04-03 [id number] tablet by Kody alth (Tylenol w/ 00:00: 04:59 mouth Codeine #3) 00 :00 every 6 300-30 MG (six) tablet hours if needed for severe pain for up to 5 days. acetaminoph 2020- No [id number] 1{tbl} Q6H Take 1 UT en-codeine 04-03 03892 tablet by Kody alth (Tylenol w/ 00:00: 04:59 mouth Codeine #3) 00 :00 every 6 300-30 MG (six) tablet hours if needed for severe pain for up to 5 days. acetaminoph 2020- No [id number] 1{tbl} Q6H Take 1 UT en-codeine 04-03 [id number] tablet by Kody alth (Tylenol w/ 00:00: 04:59 mouth Codeine #3) 00 :00 every 6 300-30 MG (six) tablet hours if needed for severe pain for up to 5 days. HYDROcodone 2020- No [id number] 1{tbl} Q6H Take 1 UT -acetaminop 03-2904 tablet by Anil pelayo ([place]) 00:00: 04:59 mouth 5-325 MG 00 :00 every 6 tablet (six) hours if needed for severe pain for up to 7 days. ondansetron 2020- No [id number] 4mg Take 1 UT ODT (Zofran 9-23 10-01 tablet (4 He alth ODT) 4 MG 00:00: 04:59 mg total) disintegrat 00 :00 by mouth ing tablet every 8 (eight) hours if needed for nausea or vomiting for up to 7 days. ondansetron 2020- No [id number] 4mg Take 1 UT ODT (Zofran 9-23 10-01 tablet (4 He alth ODT) 4 MG 00:00: 04:59 mg total) disintegrat 00 :00 by mouth ing tablet every 8 (eight) hours if needed for nausea or vomiting for up to 7 days. ondansetron 2020- No [id number] 4mg Take 1 UT ODT (Zofran 9-23 10-01 tablet (4 He alth ODT) 4 MG 00:00: 04:59 mg total) disintegrat 00 :00 by mouth ing tablet every 8 (eight) hours if needed for nausea or vomiting for up to 7 days. ondansetron 2020- No [id number] 4mg Take 1 UT ODT (Zofran 9-23 10-01 tablet (4 He alth ODT) 4 MG 00:00: 04:59 mg total) disintegrat 00 :00 by mouth ing tablet every 8 (eight) hours if needed for nausea or vomiting for up to 7 days. HYDROcodone 2020- No [id number] 1{tbl} Q6H Take 1 UT -acetaminop 9-23 10- 34561 tablet by H [employer]altQuantapore hen (Reqlut) 00:00: 04:59 mouth 5-325 MG 00 :00 every 6 tablet (six) hours if needed for severe pain for up to 7 days. ondansetron 2020- No [id number] 4mg Take 1 UT ODT (Zofran 9-23 10-01 tablet (4 He alth ODT) 4 MG 00:00: 04:59 mg total) disintegrat 00 :00 by mouth ing tablet every 8 (eight) hours if needed for nausea or vomiting for up to 7 days. HYDROcodone 2020- No [id number] 1{tbl} Q6H Take 1 UT -acetaminop 9-23 -30 [id number] tablet by H [employer] hen (Reqlut) 00:00: 00:00 mouth 5-325 MG 00 :00 every 6 tablet (six) hours if needed for severe pain for up to 7 days. HYDROcodone 2020- No [id number] 1{tbl} Q6H Take 1 UT -acetaminop 9-23 -30 [id number] tablet by H eaOonair hen (Reqlut) 00:00: 00:00 mouth 5-325 MG 00 :00 every 6 tablet (six) hours if needed for severe pain for up to 7 days. HYDROcodone 2020- No [id number] 1{tbl} Q6H Take 1 UT -acetaminop 9-23 -30 [id number] tablet by H [employer] hen (Reqlut) 00:00: 00:00 mouth 5-325 MG 00 :00 every 6 tablet (six) hours if needed for severe pain for up to 7 days. HYDROcodone 2020- No [id number] 1{tbl} Take 1 UT -acetaminop -03-26 52478 tablet by H ealth hen (Reqlut) 00:00: 04:59 mouth 10-325 MG 00 :00 every 8 tablet (eight) hours if needed for severe pain for up to 10 days. HYDROcodone 2020- No [id number] 1{tbl} Take 1 UT -acetaminop 03-15 [id number] tablet by H ealth hen (Reqlut) 00:00: 04:59 mouth 10-325 MG 00 :00 every 8 tablet (eight) hours if needed for severe pain for up to 10 days. HYDROcodone 2020- No [id number] 1{tbl} Q6H Take 1 UT -acetaminop 9-03-15 tablet by He alth hen (Reqlut) 00:00: 04:59 mouth 5-325 MG 00 :00 every 6 tablet (six) hours if needed for severe pain for up to 5 days. HYDROcodone 2020- No [id number] 1{tbl} Q6H Take 1 UT -acetaminop 9-03-15 tablet by He alth hen (Reqlut) 00:00: 04:59 mouth 5-325 MG 00 :00 every 6 tablet (six) hours if needed for severe pain for up to 5 days. traMADol 2020- No [id number] 50mg Q6H Take 1 UT (Ultram) 50 03-05 [id number] tablet (50 Health MG tablet 00:00: 04:59 mg total) 00 :00 by mouth every 6 (six) hours if needed for severe pain for up to 7 days. traMADol 2020- No [id number] 50mg Q6H Take 1 UT (Ultram) 50 -03-13 89930 tablet (50 Health MG tablet 00:00: 04:59 mg total) 00 :00 by mouth every 6 (six) hours if needed for severe pain for up to 7 days. ONETOUCH Yes USE Univers ULTRA TEST 8 DIRECTED ity o f strip 00:00: MISC TID [place] 00 BEFORE Medical MEALS Branch LANTUS 2021-0 Yes 25U 25 Units Univers U-100 8-27 at ity of INSULIN 100 00:00[place]time. [place] unit/mL 00 Medical solution Branch ONETOUCH Yes USE Univers DELICA 8-27 DIRECTED ity of LANCETS 30 00:00: MISC DAILY [place] gauge Misc 00 Medical Branch TRUEPLUS Yes Univers INSULIN 1 8-27 ity of mL 31 gauge 00:00: [place] x /16 Syrg 00 Medical Branch ONETOUCH Yes USE Univers ULTRA TEST 8-27 DIRECTED ity o f strip 00:00: MISC TID [place] 00 BEFORE Medical MEALS Branch LANTUS Yes 25U 25 Units Univers U-100 8-27 at ity of INSULIN 100 00:00: bedtime. [place] unit/mL 00 Medical solution Branch [facility] Yes USE Univers DELICA 8-27 DIRECTED ity of LANCETS 30 00:00: MISC DAILY [place] gauge Misc Medical Branch TRUEPLUS Yes Univers INSULIN 1 8-27 ity of mL 31 gauge 00:00: [place] x 5/16 Syrg 00 Medical Branch HUMALOG Yes INJECT 8 Univer s U-100 8-26 UNIT SUB Q ity of INSULIN 100 00:00: THREE [place] unit/mL 00 TIMES A Medical solution DAY BEFORE Branc h MEALS HUMALOG Yes INJECT 8 Univer s U-100 8-26 UNIT SUB Q ity of INSULIN 100 00:00: THREE [place] unit/mL 00 TIMES A Medical solution DAY BEFORE Branc h MEALS ELIQUIS 5 0 2020- No TAKE 1 Unive rs mg tablet 03-01 12-14 TABLET BY ity of 00:00: 00:00 MOUTH [place] 00 :00 EVERY 12 Medical HOURS FOR Branch 77 DAYS ,INSTR FOR DEEP VENOUS THROMBOSIS Immunizations Ordered Filled Immunization Date Status Comments Sourc e Immunization Name Name Influenza Virus 2021-05-22 Completed Universit y of Vaccine Quad IM, 00:00:00 [place] Me dical Preserv and ABX Branch Free 6 MO-64 YRS Influenza Virus 2021-05-22 Completed Universit y of Vaccine Quad IM, 00:00:00 [place] Me dical Preserv and ABX Branch Free 6 MO-64 YRS Vital Signs Vital Name Observation Time Observation Value Comments Source Systolic blood 2021-06-19 15:13:00 144 mm[Hg] Univer sity of pressure [facility] Diastolic blood 2021-06-19 15:13:00 95 mm[Hg] Unive rsity of [facility] Heart rate 2021-06-19 15:12:00 114 /min [facility] Respiratory rate 2021-06-19 15:12:00 16 /min [facility] height 2021-06-19 15:12:00 188 cm Universi [facility] Body weight 2021-06-19 15:12:00 100.699 kg [facility] BMI 2021-06-19 15:12:00 28.50 kg/m2 [facility] Body height 2021-05-17 17:31:00 188 cm [facility] Body weight 2021-05-17 17:31:00 105.235 kg [facility] BMI 2021-05-17 17:31:00 29.79 kg/m2 [facility] Systolic blood 2021-05-01 14:03:00 101 mm[Hg] [facility] pressure Diastolic blood 2021-05-01 14:03:00 64 mm[Hg] [facility]th pressure Heart rate 2021-05-01 14:03:00 134 /min [facility] Body temperature 2021-05-01 14:03:00 36.33 [facility]pc[facility] Body height 2021-05-01 14:03:00 188 cm [facility] Body weight 2021-05-01 14:03:00 102.967 kg [facility] BMI 2021-05-01 14:03:00 29.15 kg/m2 [facility] Body height 2021-03-15 18:27:00 188 cm [facility] Body weight 2021-03-15 18:27:00 105.235 kg [facility] BMI 2021-03-15 18:27:00 29.79 kg/m2 [facility] Procedures This patient has no known procedures. Encounters Start End Encounter Admission Attending Care Care Encounter Source Date/Time Date/Time Type Type Clinicians Facility Department ID 2021-06-19 Outpatient DESEAN [facility] [id number] [place] 01:04:40 [facility] 2021-06-17 Outpatient TRI, [facility] [id number] [place] 01:01:35 [facility] 2021-05-25 Outpatient DESEAN, [facility] [id number] [place] 01:03:24 [facility] 2021-05-23 [facility] [id number] [place] 01:03:56 [facility] 2021-05-17 Outpatient DESEAN [facility] [id number] [place] 11:53:10 [facility] 2021-06-19 2021-06-19 Outpatient Chelsy DE LA ROSA [facility] [id number] Univers 09:00:00 10:08:45 [place] [address] of [facility] 2021-06-19 2021-06-19 Office Estrella [facility] 1.2.840.114 [id number] Univers 08:59:26 10:08:45 Visit Palmira Dior FRIENDSWO 350.1.13.10 ity of [place] 4.2.7.2.686 [place] [id number] [facility] AND ADULT [address] [place] [address] SPECIALTY CARE CLINICS 2021-06-16 2021-06-16 [facility] 1.2.840.114 [id number] Univers 00:00:00 00:00:00 [place] Dior FRIENDSWO 350.1.13.10 ity of [place] 4.2.7.2.686 [place] [id number] [facility] AND ADULT [address] [place] [address] [facility] 2021-05-17 2021-05-17 Office Desean [facility] 1.2.840.114 [id number] [place] 10:55:20 11:52:11 Visit Sagar Tonny TRAUMA [id number] Health CLINIC 9.2.7.2.686 [id number] 1 2021-05-01 2021-05-01 Office SUZANNE KAN 6410 1.2.840.114 [id number] [place] 08:46:04 09:16:04 Visit MICHI GRIFFIN 350.1.13.58 Health 9.2.7.2.686 [id number] 2021 2021 Telephone Azra Harley 6410 1.2.84 0.114 [id number] [place] 00:00:00 00:00:[address] 350.1.13.58 Health 9.2.7.2.686 [id number] 2021-04-25 2021-04-25 Refill Desean [facility] 1.2.840.114 [id number] [place] 00:00:00 00:00:00 Sagar [place] TRAUMA 350.1.13.58 Health CLINIC 9.2.7.2.686 [id number] 1 2021-04-16 2021-04-16 Refill Desean [facility] 1.2.840.114 [id number] [place] 00:00:00 00:00:00 Sagar [place] TRAUMA 350.1.13.58 Health CLINIC 9.2.7.2.686 [id number] 1 2021-04-05 2021-04-05 Office SUZANNE Anton 1.2.840.114 [id number] 13:59:26 14:51:50 Visit Sagar [place] TRAUMA 350.1.13.58 CLINIC 9.2.7.2.686 [id number] 1 2021-04-05 2021-04-05 Office Desean [facility] 1.2.840.114 [id number] UT 13:59:26 14:51:50 Visit Sagar [place] TRAUMA 350.1.13.58 Health CLINIC 9.2.7.2.686 [id number] 1 2021-04-03 2021-04-03 Refill Diogo Solorzanomichael [facility] 1.2.840.114 [id number] [place] 00:00:00 00:00:00 Solorzano, Aura TRAUMA 350.1.13.58 Health CLINIC 9.2.7.2.686 [id number] 1 2021-03-29 2021-03-29 Refill Diogo Solorzanoa [facility] 1.2.840.114 [id number] UT 00:00:00 00:00:00 Solorzano, Aura TRAUMA 350.1.13.58 Health CLINIC 9.2.7.2.686 [id number] 1 2021-03-16 2021-03-16 Maskim Harley Azra [facility] 6410 1.2.840. 114 [id number] [place] 00:00:00 00:00:[address] 350.1.13.58 Health 9.2.7.2.686 [id number] 2021-03-15 2021-03-15 Office Desean [facility] 1.2.840.114 [id number] UT 12:41:34 13:47:49 Visit Sagar [place] TRAUMA 350.1.13.58 Health CLINIC 9.2.7.2.686 [id number] 1 2021-03-14 2021-03-14 Telephone Azra Harley [facility] 6410 1.2.84 0.114 [id number] UT 00:00:00 00:00:[address] 350.1.13.58 Health 9.2.7.2.686 [id number] 9 2021-03-09 2021-03-09 Refill Kitty Solorzano [facility] 1.2.840.114 [id number] [place] 00:00:00 00:00:00 Rashad Aurmichael TRAUMA 350.1.13.58 Health CLINIC 9.2.7.2.686 [id number] 1 2021-03-05 2021-03-05 Refill Kitty Solorzano [facility] 1.2.840.114 [id number] [place] 00:00:00 00:00:00 Kitty Solorzano TRAUMA 350.1.13.58 Health CLINIC 9.2.7.2.686 [id number] 1 2021-02-18 2021-02-18 Emergency EM Daniel Mercado [facility] YEISON [id number] [facility] 15:01:00 18:16:00 [id number] [facility] 2021-02-06 2021-02-06 Office LUIS De La Rosa 1.2.840.114 [id number] 13:12:38 14:36:39 Visit Palmira ELIZABETH 350.1.13.10 OD 4.2.7.2.686 PEDIATRIC [id number] AND ADULT [facility] SPECIALTY CARE CLINICS Results This patient has no known results.
[2021-07-03 20:54] LABS: Absolute Lymphocytes (CBC) 1.9 K/uL (0.7-4.9); Hematocrit 35.9 % (39.6-49.0); Lymphocytes % 14.7 % (15.3-44.8); MPV 7.4 fL (7.6-11.3); RBC Red Blood Cell Count 4.31 M/uL (4.33-5.43)
[2021-07-03 21:04] LABS: Protime INR 1.03
--- NOTE | 2021-07-03 21:09 | RAD REPORT ---
EXAM DESCRIPTION: RAD - Chest Single View - 07/03/2021 8:34 pm CLINICAL HISTORY: COUGH COMPARISON: None TECHNIQUE: AP portable chest image was obtained 07/03/2021 8:34 pm . FINDINGS: Lungs are clear. Heart and vasculature are normal. No measurable pleural effusion and no p neumothorax. No acute bony abnormality seen. No acute aortic findings suspected. IMPRESSION: No acute cardiopulmonary process.
--- NOTE | 2021-07-03 21:10 | RAD REPORT ---
EXAM DESCRIPTION: CT - Head Brain Wo Cont - 07/03/2021 8:34 pm CLINICAL HISTORY: DIZZINESS COMPARISON: No comparisons TECHNIQUE: Axial 5 mm thick images of the head were obtained without IV contrast. All CT scans are performed using dose optimization technique as appropriate and may include automated exposure control or mA/KV adjustment according to patient size. FINDINGS: No intracranial hemorrhage, mass, edema or shift of mid-line structures. No acute infarcti on changes seen. No abnormal extra-axial fluid collections. Ventricles are normal. Mastoid air cells are clear. Air-fluid level is present in the right maxillary sinus. Sphenoid and et hmoid air cell mucosal thickening changes are present. No acute bony findings. IMPRESSION: Negative non-contrast CT head examination for acute or significant intracranial finding. Paranasal sinus disease including an acute air-fluid level in the right maxillary sinus
[2021-07-03 21:11] LABS: Potassium 3.4 mmol/L (3.5-5.1); Sodium Level 138 mmol/L (136-145)
[2021-07-03 21:39] LABS: ALT/SGPT 27 U/L (12-78); AST/SGOT 12 U/L (15-37); Alkaline Phosphatase 97 U/L (45-117); BUN Blood Urea Nitrogen 15 mg/dL (7-18); Bicarbonate 27 mmol/L (21-32); Bilirubin Direct < 0.1 mg/dL (0-0.2); Bilirubin Total 0.3 mg/dL (0.2-1.0); Glucose Level 74 mg/dL (74-106); Magnesium 1.8 mg/dL (1.8-2.4); NT PRO-BNP 273 pg/mL (<125); Troponin (Emerg Dept Use Only) < 0.02 ng/mL (0.0-0.045)
[2021-07-03 23:41] LABS: Urine Blood Negative (Negative); Urine Glucose Negative (Negative); Urine Protein Negative (Negative); Urine pH 6.5 (5.0-7.0)
--- NOTE | 2021-07-04 00:17 | EDPHYS ---
Physician Documentation [facility] Name: Jean Claude Gonzalez Age: 56 yrs Sex: Male : 1965 Arrival Date: 07/03/2021 Time: 19:32 Bed 17 Private MD: ED Physician Sean Kate HPI: 07/03 20:20 This 56 yrs old Male presents to ER via Unassigned with complaints of Dizziness. mh7 20:20 The patient presents with dizziness, feeling faint, lightheadedness. Onset: The mh7 symptoms/episode began/occurred today, at 1730. Context: occurred at work, occurred while the patient was standing, just prior to the episode the patient experienced no apparent symptoms. Modifying factors: The symptoms are alleviated by nothing, the symptoms are aggravated by nothing. Associated signs and symptoms: Pertinent negatives: abdominal pain, agitation, ataxia, blurred vision, chest pain, combativeness, confusion, diaphoresis, focal weakness, head injury, headache, nausea, numbness, palpitations, seizure, shortness of breath, syncope, tingling, vomiting. Severity of symptoms: At their worst the symptoms were moderate today, in the emergency department the symptoms have resolved and did so just prior to arrival. Patient's baseline: Neuro: alert and fully oriented, Motor: no deficits, Ambulation: walks without assistance, Speech: normal. Historical: - Home Meds: 23:04 lisinopril Oral [Active]; sv1 - PMHx: 23:04 Hypertension; sv1 - Immunization history:: Adult Immunizations up to date. - Social history:: Smoking status: Patient denies any tobacco usage or history of. ROS: 20:20 Constitutional: Negative for fever, chills, and weight loss, Eyes: Negative for injury, mh7 pain, redness, and discharge, ENT: Negative for injury, pain, and discharge, Neck: Negative for injury, pain, and swelling, Cardiovascular: Negative for chest pain, palpitations, and edema. 20:20 Respiratory: Negative for shortness of breath, cough, wheezing, and pleuritic chest pain, Abdomen/GI: Negative for abdominal pain, nausea, vomiting, diarrhea, and constipation, Back: Negative for injury and pain, : Negative for injury, bleeding, discharge, and swelling, MS/Extremity: Negative for injury and deformity, Skin: Negative for injury, rash, and discoloration, Neuro: Negative for headache, weakness, numbness, tingling, and seizure, Psych: Negative for depression, anxiety, suicide ideation, homicidal ideation, and hallucinations, Allergy/Immunology: Negative for hives, rash, and allergies, Endocrine: Negative for neck swelling, polydipsia, polyuria, polyphagia, and marked weight changes, Hematologic/Lymphatic: Negative for swollen nodes, abnormal bleeding, and unusual bruising. 20:20 Respiratory: Positive for cough, with clear sputum, Negative for dyspnea on exertion, hemoptysis, orthopnea, pleurisy, shortness of breath, wheezing. Exam: 20:20 Constitutional: This is a well developed, well nourished patient who is awake, alert, mh7 and in no acute distress. Head/Face: Normocephalic, atraumatic. Eyes: Pupils equal round and reactive to light, extra-ocular motions intact. Lids and lashes normal. Conjunctiva and sclera are non-icteric and not injected. Cornea within normal limits. Periorbital areas with no swelling, redness, or edema. Neck: Trachea midline, no thyromegaly or masses palpated, and no cervical lymphadenopathy. Supple, full range of motion without nuchal rigidity, or vertebral point tenderness. No Meningismus. Chest/axilla: Normal chest wall appearance and motion. Nontender with no deformity. No lesions are appreciated. Cardiovascular: Regular rate and rhythm with a normal S1 and S2. No gallops, murmurs, or rubs. Normal PMI, no JVD. No pulse deficits. Respiratory: Lungs have equal breath sounds bilaterally, clear to auscultation and percussion. No rales, rhonchi or wheezes noted. No increased work of breathing, no retractions or nasal flaring. Abdomen/GI: Soft, non-tender, with normal bowel sounds. No distension or tympany. No guarding or rebound. No evidence of tenderness throughout. Back: No spinal tenderness. No costovertebral tenderness. Full range of motion. Skin: Warm, dry with normal turgor. Normal color with no rashes, no lesions, and no evidence of cellulitis. MS/ Extremity: Pulses equal, no cyanosis. Neurovascular intact. Full, normal range of motion. Neuro: Awake and alert, GCS 15, oriented to person, place, time, and situation. Cranial nerves II-XII grossly intact. Motor strength 5/5 in all extremities. Sensory grossly intact. Cerebellar exam normal. Normal gait. Psych: Awake, alert, with orientation to person, place and time. Behavior, mood, and affect are within normal limits. Vital Signs: 19:40 BP 118 / 79; Pulse 97; Resp 17; Temp 98.2; Pulse Ox 98% ; Weight 98.88 kg; Height 6 ft. ae4 2 in. (187.96 cm); Pain 4/10; 23:11 BP 125 / 109; Pulse 100; Resp 16; Pulse Ox 100% 0 lpm ; sv1 07/04 00:41 BP 125 / 105; Pulse 103; Resp 16; Pulse Ox 97% 0 lpm ; Pain 0/10; sv1 07/03 19:40 Body Mass Index 27.99 (98.88 kg, 187.96 cm) ae4 MDM: 00:10 Differential diagnosis: cardiac arrhythmia, CVA, generalized weakness, mh7 hyperventilation, hypovolemia, idiopathic dizziness, near-syncope, , sepsis, syncope, TIA, vertigo. Data reviewed: vital signs, nurses notes, EMS record, old medical records, lab test result(s), cardiac enzymes, CBC, electrolytes, urinalysis, EKG, radiologic studies, CT scan, plain films. Data interpreted: Pulse oximetry: on room air is 100 %. Interpretation: normal. Counseling: I had a detailed discussion with the patient and/or guardian regarding: the historical points, exam findings, and any diagnostic results supporting the discharge/admit diagnosis, the presence of at least one elevated blood pressure reading (>120/80) during this emergency department visit, lab results, radiology results, the need for outpatient follow up, to return to the emergency department if symptoms worsen or persist or if there are any questions or concerns that arise at home. Response to treatment: the patient's symptoms have resolved after treatment, the patient's blood pressure is in an acceptable range, mental status has returned to baseline, the patient no longer shows bradycardia, the patient is not short of breath, the patient is not tachycardic, the patient's pain is gone, the patient's temperature has normalized, the patient is now symptom free, patient is well hydrated. 00:16 Patient medically screened. [facility] 07/03 20:17 Order name: Basic Metabolic Panel [facility] 07/03 20:17 Order name: CBC with Diff [facility] 07/03 20:17 Order name: LFT's [facility] 07/03 20:17 Order name: Magnesium [facility] 07/03 20:17 Order name: NT PRO-BNP; Complete Time: 21:46 [facility] 07/03 20:17 Order name: PT-INR; Complete Time: 21:08 [facility] 07/03 20:17 Order name: Troponin (emerg Dept Use Only); Complete Time: 21:46 [facility] 07/03 20:18 Order name: Basic Metabolic Panel; Complete Time: 21:46 [facility] 07/03 20:18 Order name: CBC with Automated Diff; Complete Time: 21:08 [facility] 07/03 20:18 Order name: Liver (Hepatic) Function; Complete Time: 21:46 [facility] 07/03 20:18 Order name: Magnesium; Complete Time: 21:46 [facility] 07/03 20:20 Order name: COVID-19 (Coronavirus) Document "Date of Onset" if Symptomatic [facility] 07/03 20:48 Order name: SARS-COV-2 RT PCR; Complete Time: 21:46 [facility] 07/03 19:36 Order name: EKG - Nurse/Tech; Complete Time: 19:36 [facility] 07/03 20:17 Order name: XRAY Chest (1 view); Complete Time: 21:22 [facility] 07/03 20:17 Order name: EKG; Complete Time: 20:18 [facility] 07/03 20:17 Order name: Cardiac monitoring; Complete Time: 21:21 [facility] 07/03 20:17 Order name: IV Saline Lock; Complete Time: 21:21 [facility] 07/03 20:17 Order name: Labs collected and sent; Complete Time: 21:21 [facility] 07/03 20:17 Order name: O2 Per Protocol; Complete Time: 21:21 [facility] 07/03 20:17 Order name: O2 Sat Monitoring; Complete Time: 21:21 [facility] 07/03 20:17 Order name: Urine Dipstick-Ancillary (obtain specimen) [facility] 07/03 20:18 Order name: CT Head Brain wo Cont; Complete Time: 21:22 [facility] 07/03 20:24 Order name: Orthostatics [facility] 07/03 23:24 Order name: Troponin (emerg Dept Use Only); Complete Time: 00:08 [facility] 07/03 23:40 Order name: Urine Dipstick-Ancillary; Complete Time: 23:55 EDMS Administered Medications: No medications were administered Disposition Summary: 07/04/21 00:16 Discharge Ordered Location: Home [facility] Problem: new [facility] Symptoms: have improved [facility] Condition: Stable [facility] Diagnosis - Dizziness and giddiness [facility] - Acute sinusitis, unspecified 7 Followup: [facility] - With: Private Physician - When: 1 - 2 days - Reason: Worsening of condition, Recheck today's complaints, Continuance of care, Re-evaluation by your physician Followup: [facility] - With: Dana Louis MD - When: 1 - 2 days - Reason: Worsening of condition, Recheck today's complaints Discharge Instructions: - Discharge Summary Sheet [facility] - Sinusitis, Adult, [id number] [facility] - Dizziness, [id number] [facility] Forms: - Medication Reconciliation Form [facility] - Thank You Letter [facility] - Antibiotic Education [facility] - Prescription Opioid Use [facility] Prescriptions: - guaifenesin 200 mg Oral tablet - take 1 tablet by ORAL route every 4 hours As needed as needed; 15 tablet; [facility] Refills: 0, Product Selection Permitted - Augmentin 875-125 mg Oral Tablet - take 1 tablet by ORAL route every 12 hours for 10 days; 20 tablet; Refills: 0, 7 Product Selection Permitted Signatures: Dispatcher [employer] EDWilliam Ryan RN RN ae4 Sean Kate MD MD 7 Karel Bacon RN RN sv1 Corrections: (The following items were deleted from the chart) 07/03 20:48 20:20 CORONAVIRUS ordered. EDDC EDMS
--- NOTE | 2021-07-04 00:17 | ER ---
Nurse's Notes [facility] Name: Jean Claude Gonzalez Age: 56 yrs Sex: Male : 1965 Arrival Date: 07/03/2021 Time: 19:32 Bed 17 Private MD: Diagnosis: Dizziness and giddiness;Acute sinusitis, unspecified Presentation: 07/03 23:02 Chief complaint: Patient states: weakness, dizziness. Coronavirus screen: Vaccine sv1 status: Patient reports being unvaccinated. Client denies travel out of the [place] in the last 14 days. At this time, the client does not indicate any symptoms associated with coronavirus-19. Ebola Screen: No symptoms or risks identified at this time. Initial Sepsis Screen: Does the patient meet any 2 criteria? No. Patient's initial sepsis screen is negative. Risk Assessment: Do you want to hurt yourself or someone else? Patient reports no desire to harm self or others. Onset of symptoms was July 03, 2021 at 18:00. 23:02 Method Of Arrival: EMS: [facility] 1 23:02 Acuity: TAMARA 3 sv1 07/04 00:40 Initial Sepsis Screen: Does the patient have a suspected source of infection? No. sv1 Patient's initial sepsis screen is negative. Triage Assessment: 07/03 19:40 General: Appears ill, well groomed, well developed, well nourished. General: Behavior ae4 is calm, cooperative, appropriate for age. Pain: Complains of pain in left leg. Historical: - Home Meds: 23:04 lisinopril Oral [Active]; sv1 - PMHx: 23:04 Hypertension; sv1 - Immunization history:: Adult Immunizations up to date. - Social history:: Smoking status: Patient denies any tobacco usage or history of. Screenin:05 Abuse screen: none. Nutritional screening: No deficits noted. Tuberculosis screening: sv1 No symptoms or risk factors identified. Fall Risk None identified. Assessment: 23:12 Reassessment: Labs collected and sent. Waiting on the urine dip because the patient is sv1 unable to void. . 07/04 00:41 Reassessment: Lbs and imaging completed. Denies pain. Cleared for discharge to home by sv1 the provider.. Vital Signs: 07/03 19:40 BP 118 / 79; Pulse 97; Resp 17; Temp 98.2; Pulse Ox 98% ; Weight 98.88 kg; Height 6 ft. ae4 2 in. (187.96 cm); Pain 4/10; 23:11 BP 125 / 109; Pulse 100; Resp 16; Pulse Ox 100% 0 lpm ; sv1 07/04 00:41 BP 125 / 105; Pulse 103; Resp 16; Pulse Ox 97% 0 lpm ; Pain 0/10; sv1 07/03 19:40 Body Mass Index 27.99 (98.88 kg, 187.96 cm) ae4 ED Course: 07/03 19:32 Patient arrived in ED. cs9 19:36 William Rowan, JOEL is Primary Nurse. ae4 19:39 EKG done, by instructional technology teacher. reviewed by Sean Kate MD. oe 20:04 Sean Kate MD is Attending Physician. mh7 20:34 XRAY Chest (1 view) In Process Unspecified. EDMS 20:34 CT Head Brain wo Cont In Process Unspecified. EDMS 21:20 SARS-COV-2 RT PCR Sent. sv1 21:20 COVID-19 (Coronavirus) Document "Date of Onset" if Symptomatic Sent. sv1 21:20 Magnesium Sent. sv1 21:21 Liver (Hepatic) Function Sent. sv1 21:21 Basic Metabolic Panel Sent. sv1 21:21 CBC with Diff Sent. sv1 21:21 LFT's Sent. sv1 21:21 Magnesium Sent. sv1 21:21 NT PRO-BNP Sent. sv1 21:22 Troponin (emerg Dept Use Only) Sent. sv1 23:04 Triage completed. sv1 23:04 Arm band placed on right wrist. sv1 23:05 Maintain EMS IV. Dressing intact. Good blood return noted. Site clean \\T\\ dry. Gauge \\T\\ sv 1 site: 18 ga left hand 18 ga right acf. 23:05 Patient has correct armband on for positive identification. Bed in low position. Call sv1 light in reach. Side rails up X2. 07/04 00:14 Dana Louis MD is Referral Physician. mh7 00:40 No provider procedures requiring assistance completed. sv1 00:40 IV discontinued. sv1 Administered Medications: No medications were administered Outcome: 00:16 Discharge ordered by . mh7 00:40 Discharged to home via wheelchair, with family. sv1 00:40 Condition: good sv1 00:40 Discharge instructions given to patient. 00:43 Patient left the ED. sv1 Signatures: Dispatcher [employer] EDMS Ole Grimm Andrea, RN RN ae4 Sean Kate MD MD 7 Kaley Gabriel [facility] Karel Bacon RN RN sv1
[2021-07-04 01:02] VITALS: TEMP 98.2
[2021-07-04 01:06] VITALS: BP 125/105; O2SAT 97
== END 2021-07-04 00:43 | disposition home or self-care (01) ==
LOC: ER 18:28
DX: J01.90 Acute sinusitis, unspecified (principal); I10 Essential (primary) hypertension; Z20.822 Contact with and (suspected) exposure to COVID-19
CPT/HCPCS: 93005; 85025; 80048; 36415; 83735; 85610; 80076; 81003; 84484 ×2; 83880; 70450; 71045; 99284; U0003

== ENCOUNTER 2021-07-18 21:03 | Observation (INO) | payer BC ==
--- OUTSIDE RECORDS SUMMARY | 2021-07-18 21:08 | XMS REPORT | Continuity of Care Document ---
:1965 Author Organization [facility] t Address [address] [place] [address] Care Team Providers Name Role Phone Barby DE LA ROSA Primary Care Physician Unavailable Tonny ANTON Attending Clinician Unavailable TRI Attending Clinician Unavailable ELKIN Attending Clinician Unavailable Isaac ODEN Attending Clinician Barby DE LA ROSA Attending Clinician Unavailable Barby Burnett Attending Clinician LUCIUS Attending Clinician Unavailable Cricket MALDONADO Attending Clinician Unavailable Rashad REID Attending Clinician Unavailable Rogelio Attending Clinician Unavailable KNOW Admitting Clinician Unavailable Payers Payer Name Policy Type Policy Number Effective Date Expiration Date S pat [employer] [id number] 2017 [facility] 00:00:00 [employer] [facility] [id number] 2017 00:00:00 Problems Condition Condition Condition Status [...] Active Hallucinatio U T in to ns 9 Health substanc 00:00: e 00 No Known DA Active U [facility] Allergie 8-15 [place] [facility] No Known DA Active [facility] All[facility]ie 8-15 [place] [facility] Nsaids Allergy Active Other [facility] to 02-03 reaction( Health substanc 00:00: s): e 00 NSAIDs ([id number]) ASPIRIN DA Active [place] NAUSEA 2008-07 [facility] 07-29 [place] 00:[facility]: d [facility] Aspirin Allergy Active 2008-07 Other [facility] to 07-29 reaction( Health substanc 00:00: s): e 00 NAUSEA NO KNOWN Drug Active [facility] [place] [facility] ALLERGIE Class ity of S [facility] Social History Social Habit Start Date Stop Date Quantity Comments Source Exposure to Not sure [facility] SARS-CoV-2 (event) Tobacco use and 2021-02-23 2021-02-23 Never used [facility] [place] exposure 00:00:00 00:00:00 [facility] Sex Ass[birth year] At [birth year] [place] [facility] 00:00:00 00:00:00 Smoking Status Start Date Stop Date Source Tobacco smoking consumption [facility] unknown Never smoker [facility] Medications Ordered Filled Start Stop Current Ordering Indication Dosage Frequency Signature Comments Components Source Medication Medication Date Date Medication? Clinician (SIG) Name Name TIZANIDINE 2020-07 Yes [id number] 4mg TAKE 1 U nivers 4 mg 2-17 CAPSULE BY ity of capsule 00:00: MOUTH 2 00 (TWO) Medical TIMES Branch DAILY NEEDED FOR MUSCLE SPASMS. pregabalin 2020-07 Yes [id number] 75mg Take 1 U nivers (LYRICA) 75 2-14 capsule by it y of mg capsule 00:00[place] (three) Medical times Branch daily. amitriptyli 2020-07 Yes [id number] 50mg Take 1 Univers ne 50 mg 2-14 tablet by ity of tablet 00:00: mouth at [place] 00 bedtime. Medical Branch AMITRIPTYLI 2020-07- No [id number] TAKE 1 Univers NE 10 mg 08-15 TABLET BY ity o f tablet 00:00: 00:00 MOUTH [place] 00 :00 EVERYDAY Medical AT BEDTIME Branch pregabalin 2020-07- No [id number] 75mg Take 1 Univers 75 mg 07-30 07 capsule by ity of capsule 00:00: 00:00 mouth 2 [place] 00 :00 (two) Medical times Branch daily. tiZANidine 2020-07- No [id number] 4mg Take 1 Univers 4 mg 07-22 capsule by ity of capsule 00:00: 00:00 mouth 2 [place] 00 :00 (two) Medical times Branch daily as needed for Muscle Spasms. gabapentin 2020-07- No [id number] Take four Univers 100 mg 07-09 07 tablets ity of capsule 00:00: 00:00 bid [place] 00 :00 Medical Branch gabapentin 2020-07 Yes [id number] 600mg Q.[id number] Take 1 UT (Neurontin) 0-21 62810 [id number] tablet Health 600 MG 00:00: 3D (600 mg tablet 00 total) by mouth 3 (three) times a day for 14 days. gabapentin 2020-07 Yes [id number] 600mg Q.[id number] Take 1 UT (Neurontin) 0-21 28953 [id number] tablet Health 600 MG 00:00: 3D (600 mg tablet 00 total) by mouth 3 (three) times a day for 14 days. gabapentin 2020-07- Yes [id number] 600mg Q.[id number] Take 1 UT (Neurontin) 0-21 11-05 08922 [id number] tablet Health 600 MG 00:00: 04:59 3D (600 mg tablet 00 :00 total) by mouth 3 (three) times a day for 14 days. gabapentin 2020-07- Yes [id number] 600mg Q.[id number] Take 1 UT (Neurontin) 0-21 11-05 36483 [id number] tablet Health 600 MG 00:00: 04:59 3D (600 mg tablet 00 :00 total) by mouth 3 (three) times a day for 14 days. gabapentin 2020-07- Yes [id number] 600mg Q.[id number] Take 1 UT (Neurontin) 0-21 11-05 97746 [id number] tablet Health 600 MG 00:00: 04:59 3D (600 mg tablet 00 :00 total) by mouth 3 (three) times a day for 14 days. tiZANidine 2020-07 Yes [id number] 2mg Take 1 UT (Zanaflex) 0-11 11467 tablet (2 Hea lth 2 MG tablet 00:00: mg total) 00 by mouth every 8 (eight) hours if needed for muscle spasms for up to 10 days. gabapentin 2020-07 Yes [id number] 600mg Q.[id number] Take 1 UT (Neurontin) 0-11 82988 [id number] tablet Health 600 MG 00:00: 3D (600 mg tablet 00 total) by mouth 3 (three) times a day for 5 days. tiZANidine 2020-07 Yes [id number] 2mg Take 1 UT (Zanaflex) 0-11 10928 tablet (2 Hea lth 2 MG tablet 00:00: mg total) 00 by mouth every 8 (eight) hours if needed for muscle spasms for up to 10 days. gabapentin 2020-07 Yes [id number] 600mg Q.[id number] Take 1 UT (Neurontin) 0-11 54331 [id number] tablet Health 600 MG 00:00: 3D (600 mg tablet 00 total) by mouth 3 (three) times a day for 5 days. tiZANidine 2020-07 Yes [id number] 2mg Take 1 UT (Zanaflex) 0-11 97071 tablet (2 Hea lth 2 MG tablet 00:00: mg total) 00 by mouth every 8 (eight) hours if needed for muscle spasms for up to 10 days. gabapentin 2020-07 Yes [id number] 600mg Q.[id number] Take 1 UT (Neurontin) 0-11 04807 [id number] tablet Health 600 MG 00:00: 3D (600 mg tablet 00 total) by mouth 3 (three) times a day for 5 days. tiZANidine 2020-07 Yes [id number] 2mg Take 1 UT (Zanaflex) 0-11 03159 tablet (2 Hea lth 2 MG tablet 00:00: mg total) 00 by mouth every 8 (eight) hours if needed for muscle spasms for up to 10 days. gabapentin 2020-07 Yes [id number] 600mg Q.[id number] Take 1 UT (Neurontin) 0-11 37331 [id number] tablet Health 600 MG 00:00: 3D (600 mg tablet 00 total) by mouth 3 (three) times a day for 5 days. tiZANidine 2020-07 Yes [id number] 2mg Take 1 UT (Zanaflex) 0-11 51244 tablet (2 Hea lth 2 MG tablet 00:00: mg total) 00 by mouth every 8 (eight) hours if needed for muscle spasms for up to 10 days. gabapentin 2020-07 Yes [id number] 600mg Q.[id number] Take 1 UT (Neurontin) 0-11 74930 [id number] tablet Health 600 MG 00:00: 3D (600 mg tablet 00 total) by mouth 3 (three) times a day for 5 days. tiZANidine 2020-07- No [id number] 2mg Take 1 UT (Zanaflex) 004-27 [id number] tablet (2 He alth 2 MG tablet 00:00: 04:59 mg total) 00 :00 by mouth every 8 (eight) hours if needed for muscle spasms for up to 10 days. gabapentin 2020-07- No [id number] 600mg Q.[id number] Take 1 UT (Neurontin) 0-04-22 19101 [id number] tablet Health 600 MG 00:00: 04:59 3D (600 mg tablet 00 :00 total) by mouth 3 (three) times a day for 5 days. LISINOPRIL 2020-07 Yes [id number] TAKE 1 U nivers 20 mg 0-05 TABLET BY ity of tablet 00:00: MOUTH [place] 00 EVERY DAY Medical Branch LISINOPRIL 2020-07 Yes [id number] TAKE 1 U nivers 20 mg 0-05 TABLET BY ity of tablet 00:00: MOUTH [place] 00 EVERY DAY Medical Branch naloxone 2021- No [id number] .4mg Administer UT (Narcan) 2 04-05 0.4 mL Health MG/2ML 00:00: 04:59 (0.4 mg injection 00 :00 total) into affected nostril(s) if needed for opioid reversal. May repeat every 2-3 minutes as needed until medical assistance available. naloxone 2021- No [id number] .4mg Administer UT (Narcan) 2 04-05- 0.4 mL Health MG/2ML 00:00: 04:59 (0.4 mg injection 00 :00 total) into affected nostril(s) if needed for opioid reversal. May repeat every 2-3 minutes as needed until medical assistance available. naloxone 2021- No [id number] .4mg Administer UT (Narcan) 2 04-05- 0.4 mL Health MG/2ML 00:00: 04:59 (0.4 mg injection 00 :00 total) into affected nostril(s) if needed for opioid reversal. May repeat every 2-3 minutes as needed until medical assistance available. naloxone 2021- No [id number] .4mg Administer UT (Narcan) 2 04-05 0.4 mL Health MG/2ML 00:00: 04:59 (0.4 mg injection 00 :00 total) into affected nostril(s) if needed for opioid reversal. May repeat every 2-3 minutes as needed until medical assistance available. naloxone 2021- No [id number] .4mg Administer UT (Narcan) 2 04-05- 0.4 mL Health MG/2ML 00:00: 04:59 (0.4 mg injection 00 :00 total) into affected nostril(s) if needed for opioid reversal. May repeat every 2-3 minutes as needed until medical assistance available. naloxone 2021- No [id number] .4mg Administer UT (Narcan) 2 04-05- 0.4 mL Health MG/2ML 00:00: 04:59 (0.4 mg injection 00 :00 total) into affected nostril(s) if needed for opioid reversal. May repeat every 2-3 minutes as needed until medical assistance available. naloxone 2021- No [id number] .4mg Administer UT (Narcan) 2 04-05- 0.4 mL Health MG/2ML 00:00: 04:59 (0.4 mg injection 00 :00 total) into affected nostril(s) if needed for opioid reversal. May repeat every 2-3 minutes as needed until medical assistance available. naloxone 2021- No [id number] .4mg Administer UT (Narcan) 2 9- 10- 0.4 mL Health MG/2ML 00:00: 04:59 (0.4 mg injection 00 :00 total) into affected nostril(s) if needed for opioid reversal. May repeat every 2-3 minutes as needed until medical assistance available. naloxone 2021- No [id number] .4mg Administer UT (Narcan) 2 04-05 10- 0.4 mL Health MG/2ML 00:00: 04:59 (0.4 mg injection 00 :00 total) into affected nostril(s) if needed for opioid reversal. May repeat every 2-3 minutes as needed until medical assistance available. tiZANidine 2020- No [id number] 2mg Take 1 UT (Zanaflex) 9-30 10-11 tablet (2 Hea lth 2 MG tablet 00:00: 04:59 mg total) 00 :00 by mouth every 8 (eight) hours if needed for muscle spasms for up to 10 days. tiZANidine 2020- No [id number] 2mg Take 1 UT (Zanaflex) 9-30 10-11 tablet (2 Hea lth 2 MG tablet 00:00: 04:59 mg total) 00 :00 by mouth every 8 (eight) hours if needed for muscle spasms for up to 10 days. tiZANidine 2020- No [id number] 2mg Take 1 UT (Zanaflex) 9-30 10-11 tablet (2 Hea lth 2 MG tablet 00:00: 00:00 mg total) 00 :00 by mouth every 8 (eight) hours if needed for muscle spasms for up to 10 days. tiZANidine 2020- No [id number] 2mg Take 1 UT (Zanaflex) 9-30 10-11 tablet (2 Hea lth 2 MG tablet 00:00: 04:59 mg total) 00 :00 by mouth every 8 (eight) hours if needed for muscle spasms for up to 10 days. HYDROcodone 2020- No [id number] 1{tbl} Q6H Take 1 UT -acetaminop 9-30 10-08 tablet by He alth hen ([place]) 00:00: 04:59 mouth 5-325 MG 00 :00 every 6 tablet (six) hours if needed for severe pain for up to 7 days. HYDROcodone 2020- No [id number] 1{tbl} Q6H Take 1 UT -acetaminop 9-30 10-08 tablet by He alth hen ([place]) 00:00: 04:59 mouth 5-325 MG 00 :00 every 6 tablet (six) hours if needed for severe pain for up to 7 days. HYDROcodone 2020- No [id number] 1{tbl} Q6H Take 1 UT -acetaminop 9-30 10-08 tablet by He alth hen ([place]) 00:00: 04:59 mouth 5-325 MG 00 :00 every 6 tablet (six) hours if needed for severe pain for up to 7 days. gabapentin 2020- No [id number] 600mg Q.[id number] Take 1 UT (Neurontin) 04-03 83814 [id number] tablet Health 600 MG 00:00: 04:59 3D (600 mg tablet 00 :00 total) by mouth 3 (three) times a day for 14 days. gabapentin 2020- No [id number] 600mg Q.[id number] Take 1 UT (Neurontin) 04-03 69027 [id number] tablet Health 600 MG 00:00: 04:59 3D (600 mg tablet 00 :00 total) by mouth 3 (three) times a day for 14 days. gabapentin 2020- No [id number] 600mg Q.[id number] Take 1 UT (Neurontin) 04-03 39541 [id number] tablet Health 600 MG 00:00: 04:59 3D (600 mg tablet 00 :00 total) by mouth 3 (three) times a day for 14 days. gabapentin 2020- No [id number] 600mg Q.[id number] Take 1 UT (Neurontin) 04-03 17470 [id number] tablet Health 600 MG 00:00: 04:59 3D (600 mg tablet 00 :00 total) by mouth 3 (three) times a day for 14 days. gabapentin No [id number] 600mg Q.[id number] Take 1 UT (Neurontin) 04-03 24878 [id number] tablet Health 600 MG 00:00: 04:59 3D (600 mg tablet 00 :00 total) by mouth 3 (three) times a day for 14 days. acetaminoph 2020- No [id number] 1{tbl} Q6H Take 1 UT en-codeine 04-03 [id number] tablet by Kody alth (Tylenol w/ 00:00: 04:59 mouth Codeine #3) 00 :00 every 6 300-30 MG (six) tablet hours if needed for severe pain for up to 5 days. acetaminoph 2020- No [id number] 1{tbl} Q6H Take 1 UT en-codeine 04-03 28538 tablet by Kody alth (Tylenol w/ 00:00: 04:59 mouth Codeine #3) 00 :00 every 6 300-30 MG (six) tablet hours if needed for severe pain for up to 5 days. acetaminoph 2020- No [id number] 1{tbl} Q6H Take 1 UT en-codeine 04-03 78855 tablet by Kody alth (Tylenol w/ 00:00: 04:59 mouth Codeine #3) 00 :00 every 6 300-30 MG (six) tablet hours if needed for severe pain for up to 5 days. acetaminoph 2020- No [id number] 1{tbl} Q6H Take 1 UT en-codeine 04-03 [id number] tablet by Kody alth (Tylenol w/ 00:00: 04:59 mouth Codeine #3) 00 :00 every 6 300-30 MG (six) tablet hours if needed for severe pain for up to 5 days. HYDROcodone 2020- No [id number] 1{tbl} Q6H Take 1 UT -acetaminop 9-23 10- 04944 tablet by H ealth hen ([facility]) 00:00: 04:59 mouth 5-325 MG 00 :00 every 6 tablet (six) hours if needed for severe pain for up to 7 days. ondansetron 2020- No [id number] 4mg Take 1 UT ODT (Zofran 9-23 10-01 tablet (4 He alth ODT) 4 MG 00:00: 04:59 mg total) disintegrat 00 :00 by mouth ing tablet every 8 (eight) hours if needed for nausea or vomiting for up to 7 days. ondansetron 2020-2020- No [id number] 4mg Take 1 UT ODT (Zofran 9-23 10-01 tablet (4 He alth ODT) 4 MG 00:00: 04:59 mg total) disintegrat 00 :00 by mouth ing tablet every 8 (eight) hours if needed for nausea or vomiting for up to 7 days. ondansetron 2020- No [id number] 4mg Take 1 UT ODT (Zofran 9-23 10-01 tablet (4 He alth ODT) 4 MG 00:00: 04:59 mg total) disintegrat 00 :00 by mouth ing tablet every 8 (eight) hours if needed for nausea or vomiting for up to 7 days. ondansetron 2020- No [id number] 4mg Take 1 UT ODT (Zofran 9-23 10-01 tablet (4 He alth ODT) 4 MG 00:00: 04:59 mg total) disintegrat 00 :00 by mouth ing tablet every 8 (eight) hours if needed for nausea or vomiting for up to 7 days. HYDROcodone 2020- No [id number] 1{tbl} Q6H Take 1 UT -acetaminop 9-23 10- 47845 tablet by H ealth hen ([facility]) 00:00: 04:59 mouth 5-325 MG 00 :00 every 6 tablet (six) hours if needed for severe pain for up to 7 days. ondansetron 2020- No [id number] 4mg Take 1 UT ODT (Zofran 9-23 10-01 tablet (4 He alth ODT) 4 MG 00:00: 04:59 mg total) disintegrat 00 :00 by mouth ing tablet every 8 (eight) hours if needed for nausea or vomiting for up to 7 days. HYDROcodone 2020- No [id number] 1{tbl} Q6H Take 1 UT -acetaminop -04-05 92721 tablet by H ealth hen ([facility]) 00:00: 00:00 mouth 5-325 MG 00 :00 every 6 tablet (six) hours if needed for severe pain for up to 7 days. HYDROcodone 2020- No [id number] 1{tbl} Q6H Take 1 UT -acetaminop 9-29 03- 32619 tablet by H ealt hen ([facility]) 00:00: 00:00 mouth 5-325 MG 00 :00 every 6 tablet (six) hours if needed for severe pain for up to 7 days. HYDROcodone 2020- No [id number] 1{tbl} Q6H Take 1 UT -acetaminop -04-05 52919 tablet by H ealt hen ([facility]) 00:00: 00:00 mouth 5-325 MG 00 :00 every 6 tablet (six) hours if needed for severe pain for up to 7 days. HYDROcodone 2020- No [id number] 1{tbl} Take 1 UT -acetaminop 03-15 63045 tablet by H ealt hen ([facility]) 00:00: 04:59 mouth 10-325 MG 00 :00 every 8 tablet (eight) hours if needed for severe pain for up to 10 days. HYDROcodone 2020- No [id number] 1{tbl} Take 1 UT -acetaminop -03-26 31760 tablet by H ealt hen ([facility]) 00:00: 04:59 mouth 10-325 MG 00 :00 every 8 tablet (eight) hours if needed for severe pain for up to 10 days. HYDROcodone 2020- No [id number] 1{tbl} Q6H Take 1 UT -acetaminop 03-09 tablet by luiz hen ([facility]) 00:00: 04:59 mouth 5-325 MG 00 :00 every 6 tablet (six) hours if needed for severe pain for up to 5 days. HYDROcodone 2020- No [id number] 1{tbl} Q6H Take 1 UT -acetaminop 03-09 tablet by He luiz pelayo ([place]) 00:00: 04:59 mouth 5-325 MG 00 :00 every 6 tablet (six) hours if needed for severe pain for up to 5 days. traMADol 2020- No [id number] 50mg Q6H Take 1 UT (Ultram) 50 03-05 00072 tablet (50 Health MG tablet 00:00: 04:59 mg total) 00 :00 by mouth every 6 (six) hours if needed for severe pain for up to 7 days. traMADol 2020- No [id number] 50mg Q6H Take 1 UT (Ultram) 50 03-05 33445 tablet (50 Health MG tablet 00:00: 04:59 mg total) 00 :00 by mouth every 6 (six) hours if needed for severe pain for up to 7 days. [facility] Yes USE Univers ULTRA TEST 8-27 DIRECTED ity o f strip 00:00: MISC TID [place] BEFORE Medical MEALS Branch [facility] Yes 25U 25 Units Univers U-100 8-27 at ity of INSULIN 100 00:00[place]time. [place] unit/mL 00 Medical solution [facility] Yes USE Univers DELICA 8-27 DIRECTED ity of LANCETS 30 00:00: MISC DAILY [place] gauge Misc 00 Medical Branch TRUEPLUS Yes Univers INSULIN 1 8-27 ity of mL 31 gauge 00:00: [place] x 5/16 Syrg 00 Medical Branch [facility] Yes USE Univers ULTRA TEST 8-27 DIRECTED ity o f strip 00:00: MISC TID [place] BEFORE Medical [facility] 25 Units Univers U-100 8-27 at ity of INSULIN 100 00:00: [place]. [place] unit/mL 00 Medical solution [facility] Yes USE Univers DELICA 8-27 DIRECTED ity of LANCETS 30 00:00: MISC DAILY [place] gauge Misc 00 Medical Branch TRUEPLUS Yes Univers INSULIN 1 8-27 ity of mL 31 gauge 00:00: [place] x 11/19 Syrg 00 Medical Branch HUMALOG Yes INJECT [...] DAY BEFORE Branc h MEALS ELIQUIS 5 2020- No TAKE 1 Unive rs mg tablet 03-0114 TABLET BY ity of 00:00: 00:00 MOUTH [place] 00 :00 EVERY 12 Medical HOURS FOR Branch 77 DAYS ,INSTR FOR DEEP VENOUS THROMBOSIS Immunizations Ordered Filled Immunization Date Status Comments Sour e Immunization Name Name Influenza Virus 2021-05-22 Completed Universit y of Vaccine Quad IM, 00:00:00 [place] Me dical Preserv and ABX Branch Free 6 MO-64 YRS Influenza Virus 2021-05-22 Completed Universit y of Vaccine Quad IM, 00:00:00 [place] Me dical Preserv and ABX Branch Free 6 MO-64 YRS Vital Signs Vital Name Observation Time Observation Value Comments Source Systolic blood 2021-06-19 15:13:00 144 mm[Hg] Univer sity of pressure [facility] Diastolic blood 2021-06-19 15:13:00 95 mm[Hg] Unive rsity of pressure [facility] Heart rate 2021-06-19 15:12:00 114 /min [facility] Respiratory rate 2021-06-19 15:12:00 16 /min Univ ersity of [facility] Body height 2021-06-19 15:12:00 188 cm [facility] Body weight 2021-06-19 15:12:00 100.699 kg [facility] BMI 2021-06-19 15:12:00 28.50 kg/m2 [facility] Body height 2021-05-17 17:31:00 188 cm [place] [facility] Body weight 2021-05-17 17:31:00 105.235 kg [facility] BMI 2021-05-17 17:31:00 29.79 kg/m2 [facility] Systolic blood 2021-05-01 14:03:00 101 mm[Hg] [facility] He[facility] lt pressure Diastolic blood 2021-05-01 14:03:00 64 mm[Hg] [...] Clinicians Facility Department ID 2021-06-19 Outpatient [facility] [id number] [place] 01:04:40 Critical access hospital 2021-06-17 Outpatient [facility] [id number] [place] 01:01:35 [facility] 2021-05-25 Outpatient [facility] [id number] [place] 01:03:24 Critical access hospital 2021-05-23 Outpatient [facility] [id number] [place] 01:03:56 Critical access hospital 2021-05-17 Outpatient [facility] [id number] [place] 11:53:10 Critical access hospital 2021-07-18 2021-07-[address] [facility] [id number] Univers 19:45:00 19:45:00 Shantell cabral of [facility] 2021-07-18 2021-07-[address] [facility] [id number] Univers 19:45:00 19:45:00 DEANA tripathi [facility] 2021-07-12 2021-07-12 Office IsaacSUZANNE 6414 1.2.840.114 [id number] [place] 12:45:00 13:54:23 Visit Kendra GRIFFIN [id number] [facility] 9.2.7.2.686 [id number] 1 2021-07-11 2021-07-[address] DE LA [facility] [id number] Univers 09:00:00 09:00:00 PAL[place] [id number] ity [facility] 2021-07-11 2021-07-11 [address] [facility] [id number] Univers 09:00:00 09:00:00 PALMIRA cabral [facility] 2021-06-19 2021-06-19 [address] DE [facility] [id number] Univers 09:00:00 10:08:45 PALMIRA cabral [facility] 2021-06-19 2021-06-19 [facility] 1.2.840.114 [id number] [facility] [place] [facility] 08:59:26 10:08:45 Visit Palmira BURGOSO 350.1.13.10 ity of [place] 4[place]2.[place].2.686 [place] [id number] Ia dical AND ADULT [facility] 2021-06-16 2021-06-16 [facility] 1.2.840.114 [id number] Univers 00:00:00 00:00:00 Palmira D FRIENDSWO 350.1.13.10 ity of [place] 4.2.7.2.686 [place] [id number] Ia dical AND ADULT 314 Branch [facility] 2021-05-17 2021-05-17 Office SUZANNE Anton 1.2.840.114 [id number] [place] 10:55:20 11:52:11 Visit Sagar [place] TRAUMA [id number] Health CLINIC 9.2.7.2.686 [id number] 1 2021-05-01 2021-05-01 Office SUZANNE KAN 6410 1.2.840.114 [id number] [place] 08:46:04 09:16:[address] [id number] Health 9.2.7.2.686 [id number] 2021 2021 Telephone Azra Harley UTP 6410 1.2.84 0.114 [id number] [place] 00:00:00 00:00:[address] [id number] Health 9.2.7.2.686 [id number] 9 2021-04-25 2021-04-25 Refill Desean UTP 1.2.840.114 [id number] [place] 00:00:00 00:00:00 Sagar [place] TRAUMA [id number] Health CLINIC 9.2.7.2.686 [id number] 1 2021-04-16 2021-04-16 Refill Desean UTP 1.2.840.114 [id number] [place] 00:00:00 00:00:00 Sagar [place] TRAUMA [id number] Health CLINIC 9.2.7.2.686 [id number] 1 2021-04-05 2021-04-05 Office SUZANNE Anton 1.2.840.114 [id number] 13:59:26 14:51:50 Visit Sagar [place] TRAUMA [id number] CLINIC 9.2.7.2.686 [id number] 1 2021-04-05 2021-04-05 Office Desean UTP 1.2.840.114 [id number] [place] 13:59:26 14:51:50 Visit Sagar [place] TRAUMA [id number] Health CLINIC 9.2.7.2.686 [id number] 1 2021-04-03 2021-04-03 Refill SolorzanoKitty justice UTP 1.2.840.114 [id number] [place] 00:00:00 00:00:00 Kitty Solorzano TRAUMA 350.1.13.58 Health CLINIC 9.2.7.2.686 [id number] 1 2021-03-29 2021-03-29 Refill Kitty Solorzano UTP 1.2.840.114 [id number] [place] 00:00:00 00:00:00 Kitty Solorzano TRAUMA [id number] Health CLINIC 9.2.7.2.686 [id number] 1 2021-03-16 2021-03-16 Orders Azra Harley UTP 6410 1.2.840. 114 [id number] [place] 00:00:00 00:00:[address] [id number] Health 9.2.7.2.686 [id number] 2021-03-15 2021-03-15 Office Desean SUZANNE 1.2.840.114 [id number] [place] 12:41:34 13:47:49 Visit Sagar [place] TRAUMA [id number] Health CLINIC 9.2.7.2.686 [id number] 1 2021-03-14 2021-03-14 Telephone Azra Harley UTP 6410 1.2.84 0.114 [id number] [place] 00:00:00 00:00:[address] 350.1.13.58 Health 9.2.7.2.686 [id number] 9 2021-03-09 2021-03-09 Refill Kitty Solorzano UTP 1.2.840.114 [id number] [place] 00:00:00 00:00:00 Solorzano, Aura TRAUMA [id number] Health CLINIC 9.2.7.2.686 [id number] 1 2021-03-05 2021-03-05 Refill Kitty Solorzano UTP 1.2.840.114 [id number] [place] 00:00:00 00:00:00 Solorzano, Aura TRAUMA 350.1.13.58 Health CLINIC 9.2.7.2.686 [id number] 1 2021-02-18 2021-02-18 Emergency EM Daniel Mercado [facility] E123 [id number] [facility] 15:01:00 18:16:00 [id number] [facility] 2021-02-06 2021-02-06 Office LUIS De La Rosa 1.2.840.114 [id number] 13:12:38 14:36:39 Visit Palmira D FRIENDSWO 350.1.13.10 OD 4.2.7.2.686 PEDIATRIC [id number] AND ADULT 314 [facility] Results This patient has no known results.
[2021-07-18] MEDS ORDERED: ONDANSETRON 4 MG/2 ML VIAL ONE (21:33)
[2021-07-18] MEDS ORDERED: HYDROMORPHONE HCL 1 MG/ML INJ ONE (21:33)
[2021-07-18] MEDS ORDERED: NA CHLORIDE 0.9% 1,000 ML ONE ×2 (21:34→22:54)
[2021-07-18 21:41] LABS: Absolute Lymphocytes (CBC) 2.8 K/uL (0.7-4.9); Hematocrit 40.1 % (39.6-49.0); Lymphocytes % 24.7 % (15.3-44.8); MPV 8.4 fL (7.6-11.3); RBC Red Blood Cell Count 4.77 M/uL (4.33-5.43)
[2021-07-18 21:59] LABS: Protime INR 0.93
[2021-07-18 22:00] LABS: Albumin 3.7 g/dL (3.4-5.0); Bilirubin Direct 0.1 mg/dL (0-0.2); Bilirubin Total 0.6 mg/dL (0.2-1.0); Potassium 3.6 mmol/L (3.5-5.1); Protein, Total 7.7 g/dL (6.4-8.2); Troponin High Sensitivity 6.4 pg/mL (<58.9)
--- NOTE | 2021-07-18 22:13 | RAD REPORT ---
EXAM DESCRIPTION: CTAngio Aorta For Dissection - 07/18/2021 9:53 pm CLINICAL HISTORY: PAIN COMPARISON: No comparisonsNo comparisons TECHNIQUE: CT of the chest, abdomen, and pelvis was performed. All CT scans are performed using dose optimization technique as appropriate and may include automated exposure control or mA/KV adjustment according to patient size. FINDINGS: Thorax: Chest Wall: No abnormal mass Lungs: No acute abnormality. Pleura: No effusions or pneumothorax. Mirta/Mediastinum: No lymphadenopathy. Aorta/Pulmonary Arteries: No aneurysm or dissection. Heart: Normal size. Multi-vessel coronary artery disease. Abdomen/Pelvis: Liver: No acute abnormality or suspicious lesions. Biliary: Cholecystectomy. Stomach: No significant focal abnormality. Duodenum: No significant focal abnormality. Pancreas: No significant abnormality. Spleen: No significant abnormality. Adrenal: No suspicious lesions. Kidney/ureter: Large right renal lesions, the largest is along the lower pole measuring 9.8 cm and is consistent with a minimally complicated cyst. Upper pole lesion is also likely a cyst. No suspicious renal lesions. No renal calculi. Retroperitoneum: Reactive sized retroperitoneal lymph nodes. Vascular: Mild atherosclerosis. No aortic aneurysm or dissection. Bowel: Mild colonic wall thickening involving the descending and proximal sigmoid colon. Normal appen monika. Peritoneum: No ascites or free air. Bladder: Circumferential bladder wall thickening. Reproductive: No adnexal masses. Bones: Fused right sacroiliac joint. No fracture is seen. Sebaceous cyst in the right posterior chest wall. Other: n/a IMPRESSION: 1. No evidence of aortic aneurysm or dissection. Mild atherosclerotic changes including multi-vessel coronary artery disease. 2. Multiple air-fluid levels in the colon with wall thickening extending from the splenic flexure to the proximal sigmoid. This is suspicious for colitis, possibly chronic. 3. Circumferential bladder wall thickening which may be secondary to chronic bladder outlet obstructi on. Correlate with urinalysis to exclude cystitis. 4. No acute findings are present within the chest.
[2021-07-18] MEDS ORDERED: Levofloxacin500mg IV 500 MG/100 ML BAG IV ONE (23:03)
[2021-07-18] MEDS ORDERED: METRONIDAZOLE 500mg IVPB 500 MG/100 ML BAG IV ONE (23:03)
--- NOTE | 2021-07-18 23:45 | EDPHYS ---
Physician Documentation [facility] Name: Jean Claude Gonzalez Age: 56 yrs Sex: Male : 1965 Arrival Date: 07/18/2021 Time: 21:14 Bed 20 Private MD: ED Physician Ozzy Wilson HPI: 07/18 21:39 This 56 yrs old Male presents to ER via Unassigned with complaints of Doesn't Feel sp3 Right. 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 Patient denies fever, headache, URI symptoms, chest pain, shortness of breath, nausea, vomiting, diarrhea, rash, known sick contacts, extremity pain, or any other symptoms on ROS at this time. He did say he feels "cool and clammy" and feels like he is going to pass out if he stands up. He activated EMS to transport him to him here. Per EMS, his blood pressure was "all over the place". Pain is described as deep and constant. Patient has no pertinent surgical history. Approximately 6 months ago he did have knee surgery in the left side which gave him MRSA infection but he is no longer on any treatment for that.. Historical: - Allergies: 21:30 No Known Allergies; kd3 - Home Meds: 21:30 lisinopril 20 mg oral tab 1 tab once daily for hypertension [Active]; gabapentin 600 mg kd3 oral tab 1 tab 3 times per day [Active]; - PMHx: 21:30 Hypertension; kd3 - PSHx: 21:30 None; kd3 - Immunization history:: Adult Immunizations up to date. - Social history:: Smoking status: Patient denies any tobacco usage or history of. ROS: 21:43 Constitutional: Negative for fever, chills, and weight loss, Eyes: Negative for injury, sp3 pain, redness, and discharge, ENT: Negative for injury, pain, and discharge, Neck: Negative for injury, pain, and swelling, Respiratory: Negative for shortness of breath, cough, wheezing, and pleuritic chest pain, MS/Extremity: Negative for injury and deformity, Skin: Negative for injury, rash, and discoloration, Neuro: Negative for headache, weakness, numbness, tingling, and seizure, Psych: Negative for depression, anxiety, suicide ideation, homicidal ideation, and hallucinations, Allergy/Immunology: Negative for hives, rash, and allergies, Endocrine: Negative for neck swelling, polydipsia, polyuria, polyphagia, and marked weight changes. 21:43 All other systems are negative. Exam: 21:43 Constitutional: This is a well developed, well nourished patient who is awake, alert, sp3 and in no acute distress. Head/Face: Normocephalic, atraumatic. Eyes: Pupils equal round and reactive to light, extra-ocular motions intact. Lids and lashes normal. Conjunctiva and sclera are non-icteric and not injected. Cornea within normal limits. Periorbital areas with no swelling, redness, or edema. ENT: Nares patent. No nasal discharge, no septal abnormalities noted. External auditory canals are clear. Oropharynx with no redness, swelling, or masses, exudates, or evidence of obstruction, uvula midline. Mucous membranes moist. Neck: Trachea midline, no thyromegaly or masses palpated, and no cervical lymphadenopathy. Supple, full range of motion without nuchal rigidity, or vertebral point tenderness. No Meningismus. Chest/axilla: Normal chest wall appearance and motion. Nontender with no deformity. No lesions are appreciated. Respiratory: Lungs have equal breath sounds bilaterally, clear to auscultation and percussion. No rales, rhonchi or wheezes noted. No increased work of breathing, no retractions or nasal flaring. Back: No spinal tenderness. No costovertebral tenderness. Full range of motion. Skin: Warm, dry with normal turgor. Normal color with no rashes, no lesions, and no evidence of cellulitis. MS/ Extremity: Pulses equal, no cyanosis. Neurovascular intact. Full, normal range of motion. Neuro: Awake and alert, GCS 15, oriented to person, place, time, and situation. Cranial nerves II-XII grossly intact. Motor strength 5/5 in all extremities. Sensory grossly intact. Cerebellar exam normal. Normal gait. Psych: Awake, alert, with orientation to person, place and time. Behavior, mood, and affect are within normal limits. 21:43 Cardiovascular: Patient is hypotensive with mean arterial pressures ranging in the 60-70 range. Heart rate is 110 bpm. Patient does say that he is still producing urine and he denies any fever.. 21:43 Abdomen/GI: SupraAbdomen is tender to palpation weekly which also yields pain radiating straight through to the back. Patient states that his back pain starts from his mid upper back and extends down to his lower back. No rebound or tenderness or other peritoneal signs noted. Bowel sounds are present.. Vital Signs: 23:57 BP 91 / 61; Pulse 98; Resp 16; Temp 97.2; Pulse Ox 100% on R/A; kd3 07/19 00:34 BP 107 / 58; Pulse 99; Resp 18; Pulse Ox 99% ; kd3 01:11 Weight 98.88 kg; Height 6 ft. 2 in. (187.96 cm); kd3 01:35 BP 105 / 57; Pulse 93; Resp 16; Pulse Ox 100% ; kd3 01:11 Body Mass Index 27.99 (98.88 kg, 187.96 cm) kd3 MDM: 07/18 21:18 Patient medically screened. sp3 21:45 Data reviewed: vital signs, nurses notes. ED course: At this time we will extensively sp3 worked this patient up with laboratory values, CT scan of the chest abdomen and pelvis, urine analysis, administer Dilaudid and Zofran for his pain as well as 2 L normal saline. We will treat this as a sepsis resuscitation and work patient up accordingly. COVID is pending as well.. 22:48 ED course: Stool sample was negative for guaiac. CT scan demonstrates colitis type sp3 pattern in the descending and sigmoid colon consistent with where the patient is having pain. Blood pressure continues to be low. We will fluid resuscitate to urine output and then add secondary pressor if needed. Renal blood work is not significantly remarkable the exact cause of the patient's dramatic hypotension is not yet fully appreciated. Large renal cysts are also noted on his CT but are simple in nature and do not explain patient's symptoms. No other significant findings were noted in the chest and vasculature. I reviewed the images myself as well and do not see any other abnormalities. We will start antibiotics, continue fluid resuscitation, and and admit patient to the hospital.. 07/18 21:17 Order name: Basic Metabolic Panel sp3 07/18 21:17 Order name: CBC with Diff; Complete Time: 22:13 sp3 07/18 21:17 Order name: LFT's sp3 07/18 21:17 Order name: Magnesium sp3 07/18 21:17 Order name: NT PRO-BNP; Complete Time: 22:13 sp3 07/18 21:17 Order name: PT-INR; Complete Time: 22:13 sp3 07/18 21:17 Order name: Troponin HS; Complete Time: 22:13 3 07/18 21:17 Order name: SARS-COV-2 RT PCR (Document "Date of Onset" if Symptomatic); Complete Time: sp3 22:44 07/18 21:17 Order name: Procalcitonin 3 07/18 21:17 Order name: Lactate; Complete Time: 22:13 sp3 07/18 21:18 Order name: Basic Metabolic Panel; Complete Time: 22:13 EDMS 07/18 21:18 Order name: Liver (Hepatic) Function; Complete Time: 22:13 EDMS 07/18 21:18 Order name: Magnesium; Complete Time: 22:13 EDMS 07/18 23:21 Order name: Glucose, Ancillary Testing EDMS 07/18 21:17 Order name: XRAY Chest (1 view) 3 07/18 21:17 Order name: EKG; Complete Time: 21:18 sp3 07/18 21:17 Order name: Cardiac monitoring; Complete Time: 22:19 3 07/18 21:17 Order name: EKG - Nurse/Tech; Complete Time: 22:19 3 07/18 21:17 Order name: IV Saline Lock; Complete Time: 22:19 3 07/18 21:17 Order name: Labs collected and sent; Complete Time: 22:19 sp3 07/18 21:49 Order name: Angio Aorta For Dissection; Complete Time: 22:44 EDMS 07/18 21:17 Order name: O2 Per Protocol; Complete Time: 22:19 sp3 07/18 21:17 Order name: O2 Sat Monitoring; Complete Time: 22:19 sp3 07/18 22:51 Order name: Misc. Order: Strict I's and O's; Complete Time: 23:56 sp3 Administered Medications: 22:18 Drug: NS 0.9% 1000 ml Route: IV; Rate: 1 bolus; Site: left antecubital; kd3 22:18 Drug: Dilaudid (HYDROmorphone) 1 mg Route: IVP; Site: left forearm; kd3 22:18 Drug: Zofran (Ondansetron) 4 mg Route: IVP; Site: left forearm; kd3 22:18 Drug: NS 0.9% 1000 ml Route: IV; Rate: 1 bolus; Site: right forearm; kd3 22:52 Not Given (Physician Discretion): Zosyn (piperacillin-tazobactam) 3.375 grams IVPB once sp3 over 60 mins; (mix in NS 100 mL) 23:11 Drug: NS 0.9% 1000 ml Route: IV; Rate: 1 bolus; Site: left antecubital; kd3 23:22 Drug: Flagyl (metroNIDAZOLE) 500 mg Volume: 100 ml; Route: IVPB; Rate: 200 ml/hr; kd3 Infused Over: 30 mins; Site: right antecubital; 07/19 01:37 Follow up: IV Status: Completed infusion kd3 07/18 23:44 Drug: levofloxacin 500 mg Volume: 100 ml; Route: IVPB; Infused Over: 60 mins; Site: kd3 right antecubital; 07/19 01:37 Follow up: IV Status: Completed infusion kd3 Disposition Summary: 07/18/21 23:44 Hospitalization Ordered Hospitalization Status: Inpatient Admission sp3 Provider: Bennie Nolen sp3 [facility] sp[facility] Condition: Stable sp3 Problem: new sp3 Symptoms: are unchanged sp3 Bed/Room Type: Standard sp3 Room Assignment: 220(07/19/21 00:51) eb1 Diagnosis - Colitis, dehydration, hypoperfusion, sepsis sp3 Forms: - Medication Reconciliation Form sp3 - SBAR form sp3 Signatures: Dispatcher [employer] EDMS Christine Grimes RN RN eb1 Ozzy Wilson MD MD sp3 Diana Li RN RN kd3 Corrections: (The following items were deleted from the chart) 07/18 21:49 21:29 Chest Abdomen Pelvis W Con+CT.RAD.BRZ ordered. EDMS EDMS 07/19 00:03 07/18 21:30 Allergies: gabapentin [Inactive]; kd3 kd3 07/19 00:03 00:00 Immunization history: Adult Immunizations up to date, kd3 kd3 00:35 07/18 23:44 sp3 eb1 07/19 00:51 00:35 219 eb1 eb1
[2021-07-19] MEDS ORDERED: NA CHLORIDE 0.9% 1,000 ML ONE ×2 (00:15→01:14)
--- NOTE | 2021-07-19 01:58 | ER ---
Nurse's Notes [facility] Name: Jean Claude Gonzalez Age: 56 yrs Sex: Male : 1965 Arrival Date: 07/18/2021 Time: 21:14 Bed 20 Private MD: Diagnosis: Colitis, dehydration, hypoperfusion, sepsis Presentation: 07/18 23:57 Chief complaint: EMS states: abdominal pain, dizziness, nausea and vomiting. exposed to kd3 COVID. zofran given in route. Coronavirus screen: Vaccine status: Patient reports being unvaccinated. Ebola Screen: No symptoms or risks identified at this time. Initial Sepsis Screen: Does the patient meet any 2 criteria? RR > 20 per min. Systolic BP < 90 mmHg. Mean Arterial Pressure (MAP) < 65. HR > 90 bpm. Does the patient have a suspected source of infection? No. Patient's initial sepsis screen is negative. Risk Assessment: Do you want to hurt yourself or someone else? Patient reports no desire to harm self or others. Onset of symptoms was July 19, 2021. 23:57 Method Of Arrival: EMS: [facility] kd3 23:57 Acuity: TAMARA 3 kd3 Triage Assessment: 21:30 General: Appears uncomfortable, ill, Behavior is calm, cooperative, appropriate for kd3 age. Pain: Complains of pain in right lower quadrant and left lower quadrant. 21:30 EENT: No deficits noted. Neuro: Level of Consciousness is awake, alert, obeys commands, kd3 Oriented to person, place, time, situation. Cardiovascular: Heart tones S1 S2 present Capillary refill < 3 seconds diaphoresis . Respiratory: No deficits noted. Airway is patent Respiratory effort is even, unlabored. GI: Bowel sounds hyperactive in right upper quadrant, left upper quadrant, right lower quadrant and left lower quadrant. : No deficits noted. Derm: Skin is clammy, diaphoretic, Skin is pale. Musculoskeletal: No deficits noted. Historical: - Allergies: 21:30 No Known Allergies; kd3 - Home Meds: 21:30 lisinopril 20 mg oral tab 1 tab once daily for hypertension [Active]; gabapentin 600 mg kd3 oral tab 1 tab 3 times per day [Active]; - PMHx: 21:30 Hypertension; kd3 - PSHx: 21:30 None; kd3 - Immunization history:: Adult Immunizations up to date. - Social history:: Smoking status: Patient denies any tobacco usage or history of. Screenin:30 Abuse screen: Denies threats or abuse. Denies injuries from another. Nutritional kd3 screening: No deficits noted. Tuberculosis screening: No symptoms or risk factors identified. Fall Risk Assessment: 21:30 Reassessment: see triage notes. kd3 07/19 00:07 Reassessment: Patient and/or family updated on plan of care and expected duration. Pain kd3 level reassessed. PT REPORTS FEELING BETTER. 3 LITERS FLUID ADMINISTERED. ALERT AND ORIENTED. General: Appears in no apparent distress. comfortable, Behavior is calm, cooperative, appropriate for age. Neuro: Level of Consciousness is awake, alert, obeys commands. Respiratory: Airway is patent Respiratory effort is even, unlabored. GI: Stools are reported to be diarrhea. Vital Signs: 07/18 23:57 BP 91 / 61; Pulse 98; Resp 16; Temp 97.2; Pulse Ox 100% on R/A; kd3 07/19 00:34 BP 107 / 58; Pulse 99; Resp 18; Pulse Ox 99% ; kd3 01:11 Weight 98.88 kg; Height 6 ft. 2 in. (187.96 cm); kd3 01:35 BP 105 / 57; Pulse 93; Resp 16; Pulse Ox 100% ; kd3 01:11 Body Mass Index 27.99 (98.88 kg, 187.96 cm) kd3 ED Course: 07/18 21:14 Patient arrived in ED. bb 21:15 Ozzy Wilson MD is Attending Physician. sp3 21:21 Diana Li, JOEL is Primary Nurse. kd3 21:30 Arm band placed on right wrist. kd3 21:53 Angio Aorta For Dissection In Process Unspecified. EDMS 22:19 Basic Metabolic Panel Sent. kd3 22:19 LFT's Sent. kd3 22:19 Magnesium Sent. kd3 22:28 XRAY Chest (1 view) In Process Unspecified. EDMS 23:44 Bennie Nolen is Hospitalizing Provider. sp3 07/19 00:00 Triage completed. kd3 00:06 Patient has correct armband on for positive identification. Bed in low position. Call kd3 light in reach. Side rails up X2. Administered Medications: 07/18 22:18 Drug: NS 0.9% 1000 ml Route: IV; Rate: 1 bolus; Site: left antecubital; kd3 22:18 Drug: Dilaudid (HYDROmorphone) 1 mg Route: IVP; Site: left forearm; kd3 22:18 Drug: Zofran (Ondansetron) 4 mg Route: IVP; Site: left forearm; kd3 22:18 Drug: NS 0.9% 1000 ml Route: IV; Rate: 1 bolus; Site: right forearm; kd3 22:52 Not Given (Physician Discretion): Zosyn (piperacillin-tazobactam) 3.375 grams IVPB once sp3 over 60 mins; (mix in NS 100 mL) 23:11 Drug: NS 0.9% 1000 ml Route: IV; Rate: 1 bolus; Site: left antecubital; kd3 23:22 Drug: Flagyl (metroNIDAZOLE) 500 mg Volume: 100 ml; Route: IVPB; Rate: 200 ml/hr; kd3 Infused Over: 30 mins; Site: right antecubital; 07/19 01:37 Follow up: IV Status: Completed infusion kd3 07/18 23:44 Drug: levofloxacin 500 mg Volume: 100 ml; Route: IVPB; Infused Over: 60 mins; Site: kd3 right antecubital; 07/19 01:37 Follow up: IV Status: Completed infusion kd3 Intake: 00:34 PO: 841ml; IV: 3000ml; Total: 3841ml. kd3 01:38 PO: 850ml (Juice); IV: 1000ml; Total: 5691ml. kd3 Output: 00:34 Stool: 1500 (Loose Stool) ; Total: 0ml. kd3 01:38 Stool: 800 (Loose Stool) ; Total: 0ml. kd3 Outcome: 07/18 23:44 Decision to Hospitalize by Provider. sp3 07/19 01:57 Patient left the ED. kd3 Signatures: Dispatcher [employer] EDMS Maria Elena Garcia RN RN Ozzy Batista MD MD sp3 Diana Li RN RN kd3 Corrections: (The following items were deleted from the chart) 00:03 07/18 21:30 Allergies: gabapentin [Inactive]; kd3 kd3 01/13 00:03 00:00 Immunization history: Adult Immunizations up to date, kd3 kd3
[2021-07-19 02:04] VITALS: O2SAT 100
[2021-07-19] MEDS ORDERED: FENTANYL CITR 100 MCG/2 ML IV PRN (02:05)
[2021-07-19] MEDS ORDERED: ACETAMINOPHEN 500 MG TAB PO PRN (02:05)
[2021-07-19] MEDS ORDERED: NA CHLORIDE 0.9% 500 ML IV ONE (02:05)
[2021-07-19 02:32] VITALS: BMI 28.0
[2021-07-19] MEDS: NA CHLORIDE 0.9% 1,000 ML IV SCH ×5 (02:46→16:14)
[2021-07-19] MEDS ORDERED: ONDANSETRON 4 MG/2 ML VIAL IV PRN (03:00)
--- NOTE | 2021-07-19 03:16 | P.HP ---
Certification for Inpatient Patient admitted to: Inpatient With expected LOS: <2 Midnights Patient will require the following post-hospital care: None Practitioner: I am a practitioner with admitting privileges, knowledge of patient current condition, hospital course, and medical plan of care. Services: Services provided to patient in accordance with Admission requirements found in Title 42 Section 412.3 of the Code of Federal Regulations Patient History Date of Service: 07/19/21 Reason for admission: colitis, dehydration History of Present Illness: Mr. Gonzalez is a 56 yo M with HTN who presents with lower abdominal pain and back pain beginning today. He says he trejo to feel dizzy, fuzzy, and like he was 'dehydrated'. He had a cool and clammy sensation. He also reports malaise, diarrhea today. He says this last happened two weeks ago and he was told he was dehydrated. CTAP showed colitis. He received 4L of normal saline in the ED for low blood pressure. He received levaquin and flagyl. At bedside, pain has improved and he is asymptomatic. WBC 11.5 BUN 22 Cr 1.41 GFR 52 Allergies No Known Allergies Allergy (Unverified 02/04/21 00:04) Home Medications: Gabapentin 600 mg PO DAILY 07/19/21 Lisinopril [Zestril] 20 mg PO DAILY 07/19/21 - Past Medical/Surgical History Has patient received pneumonia vaccine in the past: No Diabetic: No -: HTN -: Left knee sx 03/2021 - Family History Father Notes: Parkinson Mother -: Cancer Notes: Brain - Social History Smoking Status: Never smoker Alcohol use: No CD- Drugs: No Caffeine use: No Place of Residence: Home Review of Systems 10-point ROS is otherwise unremarkable General: Malaise Eyes: Unremarkable ENT: Unremarkable Respiratory: Unremarkable Cardiovascular: Unremarkable Gastrointestinal: Abdominal Pain, Diarrhea Genitourinary: Unremarkable Musculoskeletal: Back Pain Integumentary: Unremarkable Neurological: Unremarkable Lymphatics: Unremarkable Physical Examination - Vital Signs Temperature: 97.2 F Blood Pressure: 105/57 Pulse: 93 Respirations: 16 - Physical Exam General: Alert, In no apparent distress HEENT: Atraumatic, PERRLA, Mucous membr. moist/pink, EOMI, Sclerae nonicteric Neck: Supple, 2+ carotid pulse no bruit, No LAD, Without JVD or thyroid abnormality Respiratory: Clear to auscultation bilaterally, Normal air movement Cardiovascular: No edema, Regular rate/rhythm, Normal S1 S2 Gastrointestinal: Normal bowel sounds, Soft and benign, Non-distended, No ascites, No masses, No rebound, No guarding, Tenderness Musculoskeletal: No tenderness Integumentary: No rashes Neurological: Normal speech, Normal strength at 5/5 x4 extr, Normal tone, Normal affect Lymphatics: No axilla or inguinal lymphadenopathy - Studies Laboratory Data (last 24 hrs) 07/18/21 21:10: PT 10.7, INR 0.93 07/18/21 21:10: WBC 11.50 H, Hgb 13.5 L, Hct 40.1, Plt Count 337 07/18/21 21:10: Sodium 138, Potassium 3.6, BUN 22 H, Creatinine 1.41 H, Glucose 128 H, Magnesium 3.0 H D, Total Bilirubin 0.6, AST 14 L, ALT 26, Alkaline Phosphatase 95 Assessment and Plan - Problems (Diagnosis) (1) Colitis Current Visit: Yes Status: Acute (2) Dehydration Current Visit: Yes Status: Acute (3) SHAD (acute kidney injury) Current Visit: Yes Status: Acute - Plan on tele continue IV fluid hydration continue levaquin and flagyl monitor BP, monitor BMP for improvement continue pain management as needed UA pending, CPK and uric acid pending DVT ppx Discharge Plan: Home Plan to discharge in: 24 Hours - Advance Directives Does patient have a Living Will: No Does patient have a Durable POA for Healthcare: No - Code Status/Comfort Care Code Status Assessed: Yes (full code ) Critical Care: No Time Spent Managing Pts Care (In Minutes): 70
[2021-07-19 03:33] LABS: Thyroid Stimulating Hormone 2.92 uIU/mL (0.360-3.740); Uric Acid 5.6 mg/dL (3.5-7.2)
[2021-07-19] MEDS ORDERED: POTASSIUM 25 MEQ EFFERV TAB PO ONE (05:36)
[2021-07-19 05:37] LABS: Urine Appearance CLEAR (Clear); Urine Bilirubin NEGATIVE (Negative); Urine Blood NEGATIVE (Negative); Urine Color YELLOW (Yellow); Urine Glucose NEGATIVE (Negative); Urine Microscopic Reflex NO UMIC; Urine Protein NEGATIVE (Negative); Urine Specific Gravity 1.025 (1.005-1.030)
[2021-07-19 06:09] LABS: Phosphorus 3.1 mg/dL (2.5-4.9)
[2021-07-19] MEDS ORDERED: ENOXAPARIN 40 MG/0.4 ML SQ SCH (09:00)
[2021-07-19] MEDS ORDERED: METRONIDAZOLE 500mg IVPB 500 MG/100 ML BAG IV SCH (09:00)
--- NOTE | 2021-07-19 09:57 | RAD REPORT ---
EXAM DESCRIPTION: RAD - Chest Single View - 07/18/2021 10:29 pm CLINICAL HISTORY: SOB Chest pain. COMPARISON: Chest Single View dated 07/03/2021 FINDINGS: Portable technique limits examination quality. Mild interstitial lung opacities are present bilaterally likely representing a mild viral infection. The heart is upper limit of normal in size. No displaced fractures.
--- NOTE | 2021-07-19 10:23 | P.DS ---
Admission Date: 07/19/21 Discharge Date: 07/19/21 Disposition: ROUTINE DISCHARGE Discharge Condition: FAIR Reason for Admission: colitis, dehydration - Problems (1) SHAD (acute kidney injury) Current Visit: Yes Status: Acute (2) Colitis Current Visit: Yes Status: Acute (3) Dehydration Current Visit: Yes Status: Acute Brief History of Present Illness: Mr. Gonzalez is a 56 yo M with HTN who presented with lower abdominal pain and back pain beginning today. He reported feel dizziness. He also reported malaise, diarrhea today. He says this last happened two weeks ago and he was told he was dehydrated. CTAP showed colitis. He received 4L of normal saline in the ED for low blood pressure. He received levaquin and flagyl. Patient became asymptomatic. WBC 11.5 BUN 22 Cr 1.41 GFR 52. He was admitted for further m anagement. Hospital Course: Patient admitted to the medical floor and treated with IV Levaquin and Flagyl. He was asymptomatic during period of stay in the hospital. Blood pressure was stable. Patient tolerated diet, denied any abdominal pain. Stated the diarrhea has stopped. No nausea or vomiting. Patient is discharged with oral antibiotics to continue treatment for the colitis. Vital Signs/Physical Exam: Temp Pulse Resp BP Pulse Ox 97.6 F 91 H 20 100/63 100 07/19/21 08:00 07/19/21 08:00 07/19/21 08:00 07/19/21 08:00 07/19/21 08:00 General: Alert, In no apparent distress, Oriented x3 HEENT: Mucous membr. moist/pink Neck: JVD not distended Respiratory: Clear to auscultation bilaterally, Normal air movement Cardiovascular: No edema, Regular rate/rhythm, Normal S1 S2, No murmurs Gastrointestinal: Normal bowel sounds, Soft and benign, Non-distended, No tenderness Musculoskeletal: No swelling Integumentary: No rashes Neurological: Normal strength at 5/5 x4 extr Laboratory Data at Discharge: WBC 11.50 K/uL (4.3-10.9) H 07/18/21 21:10 Hgb 13.5 g/dL (13.6-17.9) L 07/18/21 21:10 Hct 40.1 % (39.6-49.0) 07/18/21 21:10 Plt Count 337 K/uL (152-406) 07/18/21 21:10 PT 10.7 SECONDS (9.5-12.5) 07/18/21 21:10 INR 0.93 07/18/21 21:10 Sodium 138 mmol/L (136-145) 07/18/21 21:10 Potassium 3.6 mmol/L (3.5-5.1) 07/18/21 21:10 BUN 22 mg/dL (7-18) H 07/18/21 21:10 Creatinine 1.41 mg/dL (0.55-1.3) H 07/18/21 21:10 Glucose 128 mg/dL (74-106) H 07/18/21 21:10 Uric Acid 5.6 mg/dL (3.5-7.2) 07/19/21 02:34 Phosphorus 3.1 mg/dL (2.5-4.9) 07/19/21 02:34 Magnesium 3.0 mg/dL (1.8-2.4) H D 07/18/21 21:10 Total Bilirubin 0.6 mg/dL (0.2-1.0) 07/18/21 21:10 AST 14 U/L (15-37) L 07/18/21 21:10 ALT 26 U/L (12-78) 07/18/21 21:10 Alkaline Phosphatase 95 U/L (45-117) 07/18/21 21:10 Triglycerides 254 mg/dL (<150) H 07/19/21 02:34 Cholesterol 163 mg/dL (<200) 07/19/21 02:34 HDL Cholesterol 26 mg/dL (40-60) L 07/19/21 02:34 Cholesterol/HDL Ratio 6.27 07/19/21 02:34 Home Medications: Ciprofloxacin HCl 500 mg PO BID #10 tablet 07/19/21 Gabapentin 600 mg PO DAILY 07/19/21 Lisinopril [Zestril] 20 mg PO DAILY 07/19/21 metroNIDAZOLE [Flagyl] 500 mg PO Q8H #15 tablet 07/19/21 New Medications: Ciprofloxacin HCl 500 mg PO BID #10 tablet metroNIDAZOLE [Flagyl] 500 mg PO Q8H #15 tablet Followup: Unknown,U [Primary Care Provider] - Time spent managing pt's care (in minutes): 28
[2021-07-19] MEDS ORDERED: metroNIDAZOLE 500 MG TABLET PO SCH (14:00)
[2021-07-19 16:03] VITALS: BP 141/79; TEMP 97.9
[2021-07-19] MEDS ORDERED: levoFLOXacin 750 MG TAB PO SCH (21:00)
[2021-07-19] MEDS ORDERED: Levofloxacin 750mg IV 750 MG/150 ML BAG IV SCH (23:00)
== END 2021-07-19 17:44 | disposition home or self-care (01) ==
LOC: ER 21:03 → ERHOLD 07-19 00:14 → INTOOBSV 07-19 00:14 → 2ND 07-19 01:44
PROVIDERS: ADMIT Internal Medicine; ATTEND Internal Medicine
DX: K52.9 Noninfective gastroenteritis and colitis, unspecified (principal); E86.0 Dehydration; N17.9 Acute kidney failure, unspecified; I10 Essential (primary) hypertension; Z20.822 Contact with and (suspected) exposure to COVID-19; Z80.8 Family history of malignant neoplasm of other organs or systems; Z82.0 Family history of epilepsy and other diseases of the nervous system
CPT/HCPCS: 96365; 93005; 87040 ×2; 85025; 80048; 36415; 83735; 82550; 84100; 85610; 80061; 82565; 82947 ×4; 80076; 84550; 83605; 84443; 81003; 84484; 84439; 84145; 83880 ×2; 71275; 74175; 71045; 94760 ×2; 96375; 99284; U0003; Q9967; J1650; J1170; J7030 ×6; J2405; G0378 ×2; J7040

== ENCOUNTER 2024-08-02 14:52 | Emergency (ER) | payer BC ==
[2024-08-02 15:27] LABS: Absolute Eosinophils 0.1 K/uL (0-0.5); Absolute Lymphocytes (CBC) 0.6 K/uL (0.7-4.9); Absolute Monocytes 0.7 K/uL (0.1-1.3); Absolute Neutrophil 8.9 K/uL (1.8-8.0); Basophils % 0.2 % (0-1.3); Eosinophils % 0.9 % (0-4.4); Hematocrit 52.5 % (39.6-49.0); Hemoglobin 18.3 g/dL (13.6-17.9); Lymphocytes % 6.1 % (15.3-44.8); MCH 30.6 pg (27.0-35.0); MCHC 34.9 g/dL (32.0-36.0); MCV 87.7 fL (80-100); MPV 7.6 fL (7.6-11.3); Monocytes % 6.5 % (3.3-12.3); Neutrophils % 86.3 % (41.7-73.7); Nucleated Red Blood Cells % 0.2 % (0-0); Platelets 276 thou/uL (152-406); RBC Red Blood Cell Count 5.98 M/uL (4.33-5.43); Red Cell Distribution Width 12.9 % (12.1-15.2)
[2024-08-02 15:41] LABS: Albumin 3.5 g/dL (3.4-5.0); Albumin/Globulin Ratio 0.7 (1.1-1.8); Anion Gap 13.3 mEq/L (5.0-15.0); Bilirubin Total 0.9 mg/dL (0.2-1.0); Globulin 4.8 g/dL (2.3-3.5); Potassium 4.3 mEq/L (3.5-5.1); Protein, Total 8.3 g/dL (6.4-8.2)
[2024-08-02] MEDS ORDERED: ONDANSETRON 4 MG/2 ML VIAL ONE (16:36)
[2024-08-02] MEDS ORDERED: NA CHLORIDE 0.9% 1,000 ML ONE ×2 (16:36→17:31)
[2024-08-02] MEDS ORDERED: KETOROLAC 30 MG/ML INJ ONE (16:36)
[2024-08-02 16:37] LABS: SARS-CoV-2 Antigen CONTROL BLUE LINE VIS/BG OK; SARS-CoV-2 Antigen Rapid Res Negative (Negative)
[2024-08-02 17:27] LABS: Blood Morphology Comment NOT SEEN (NOT SEEN); Platelet Estimate ADEQ; White Blood Cell Scan OK (OK)
[2024-08-02 17:50] LABS: Specific Gravity > 1.030 (1.005-1.030); Sqamous Epithelial None Seen /HPF (None Seen); Urine Bacteria None Seen /HPF (<20); Urine Bilirubin NEGATIVE (Negative); Urine Blood Negative (Negative); Urine Clarity Clear (Clear); Urine Color Yellow (Yellow); Urine Culture Reflex Order NOT NEEDED; Urine Glucose TRACE (Negative); Urine Ketones 1+ (Negative); Urine Microscopic Reflex YN ORDER UMIC; Urine Mucus Slight /HPF (None Seen); Urine Nitrite NEGATIVE (Negative); Urine Protein 1+ (Negative); Urine RBC <5 /HPF (None Seen); Urine Urobilinogen Normal (Normal); Urine WBC <5 /HPF (<5); Urine pH 5.5 (5.0-7.0)
--- NOTE | 2024-08-02 17:56 | EDPHYS ---
Physician Documentation [facility] Name: Jean Claude Gonzalez Age: 59 yrs Sex: Male : 1965 Arrival Date: 08/02/2024 Time: 14:52 Bed DX1 Private MD: ED Physician Michele Rodrigues HPI: 08/02 19:24 This 59 yrs old Male presents to ER via Ambulatory with complaints of dr5 Vomiting/Diarrhea - Body aches. 19:24 The patient presents to the emergency department with nausea, that is mild, vomiting, 3 dr5 times today. Onset: The symptoms/episode began/occurred acutely. Patient is a 59-year-old male with history of hypertension coming in with nausea and vomiting that occurred after eating oysters yesterday. Patient denies chest pain, shortness of breath, fever. Patient denies abdominal pain, diarrhea, or melena. Historical: - Allergies: 15:03 No Known Allergies; ap3 - Home Meds: 15:03 lisinopril 20 mg Oral tab 1 tab once daily for Hypertension [Active]; ap3 - PMHx: 15:03 Hypertension; ap3 - Immunization history:: Client reports having NOT received the Covid vaccine. Flu vaccine is not up to date. - Infectious Disease History:: Denies. - Social history:: Smoking status: Patient denies any tobacco usage or history of. ROS: 19:24 Constitutional: as per hpi dr5 Exam: 19:24 Constitutional: This is a well developed, well nourished patient who is awake, alert, dr5 and in no acute distress. Head/Face: Normocephalic, atraumatic. Eyes: Pupils equal round and reactive to light, extra-ocular motions intact. Lids and lashes normal. Conjunctiva and sclera are non-icteric and not injected. Cornea within normal limits. Periorbital areas with no swelling, redness, or edema. Chest/axilla: Normal chest wall appearance and motion. Nontender with no deformity. No lesions are appreciated. Cardiovascular: Regular rate and rhythm with a normal S1 and S2. Normal PMI, no JVD. No pulse deficits. Respiratory: Lungs have equal breath sounds bilaterally, clear to auscultation. No rales, rhonchi or wheezes noted. No increased work of breathing, no retractions or nasal flaring. Abdomen/GI: Soft, non-tender, non-distended Skin: Warm, dry with normal turgor. Normal color with no rashes, no lesions, and no evidence of cellulitis. MS/ Extremity: Pulses equal, no cyanosis. Neurovascular intact. Full, normal range of motion. Neuro: Awake and alert, GCS 15, oriented to person, place, time, and situation. Cranial nerves II-XII grossly intact. Motor strength 5/5 in all extremities. Sensory grossly intact. Cerebellar exam normal. Normal gait. Vital Signs: 15:02 BP 129 / 93; Pulse 130; Resp 17; Temp 98.6; Pulse Ox 100% on R/A; Weight 106.59 kg; ap3 Height 6 ft. 2 in. ; Pain 10/10; 18:14 Pulse 108; ss 15:02 Body Mass Index 30.17 (106.59 kg, 187.96 cm) ap3 15:02 Pain Scale: Adult ap3 MDM: 14:58 Medical Screening Exam initiated dr5 19:24 Differential diagnosis: Nonspecific abd pain, gastritis, cholecystitis, viral dr5 gastroenteritis, gastroenteritis. Data reviewed: vital signs, nurses notes, lab test result(s). I considered the following discharge prescriptions or medication management in the emergency department Medications were administered in the Emergency Department. See MAR. Care significantly affected by the following chronic conditions: Hypertension. Care significantly affected by the following Social Determinants of Health: Poor access to healthcare and/or lack of insurance, Poor access to transportation, Problems related to employment. Counseling: I had a detailed discussion with the patient and/or guardian regarding the historical points, exam findings, and any diagnostic results supporting the discharge/admit diagnosis, the presence of at least one elevated blood pressure reading (>120/80) during this emergency department visit, lab results, the need for outpatient follow up, for definitive care, a family practitioner, to return to the emergency department if symptoms worsen or persist or if there are any questions or concerns that arise at home. Medication response: Zofran relieved the patient's nausea. Response to treatment: the patient's symptoms have resolved after treatment. ED course: 2 L of fluid given to patient in ER. Zofran IV given. Patient reports resolution of nausea. Will have patient follow with primary care doctor this week. Will send patient home with Zofran to take as needed for nausea. Alternate Tylenol Motrin as needed for pain. Return to ER for worsening conditions.. 08/02 15:10 Order name: CBC with Diff; Complete Time: 17:28 [facility] 08/02 15:10 Order name: CMP; Complete Time: 15:55 [facility] 08/02 15:10 Order name: Lipase; Complete Time: 15:55 [facility] 08/02 15:10 Order name: Urinalysis w/ reflexes; Complete Time: 17:55 [facility] 08/02 15:21 Order name: SARS RAPID; Complete Time: 16:38 [facility] 08/02 15:21 Order name: Influenza Screen (a \T\ B); Complete Time: 16:38 [facility] 08/02 17:28 Order name: CBC Smear Scan; Complete Time: 17:28 [facility] 08/02 15:10 Order name: IV Saline Lock; Complete Time: 15:17 [facility] 08/02 15:10 Order name: Labs collected and sent; Complete Time: 15:17 dr5 Administered Medications: 16:44 Drug: Ondansetron IVP 4 mg IVP once; over 2 minutes Route: IVP; Site: left antecubital; ss 18:18 Follow up: Response: No adverse reaction; Nausea is decreased ss 16:45 Drug: NS 0.9% IV 1000 ml IV at 1 bolus Per protocol; to be given as a bolus over 60 ss minutes Route: IV; Rate: 1 bolus; Site: left antecubital; 18:15 Follow up: IV Status: Completed infusion ss 16:49 Not Given (Other Intervention Used): [id number] mg IVP once ss 16:49 Drug: Ketorolac IVP 15 mg IVP once Route: IVP; Site: left antecubital; ss 18:15 Follow up: Response: No adverse reaction; Pain is decreased ss Disposition: 08/03 14:20 Co-signature as Attending Physician, Michele Rodrigues MD I agree with the assessment and keshav plan of care. Disposition Summary: 08/02/24 17:56 Discharge Ordered Notes: Location: Home dr5 Condition: Stable dr5 Diagnosis - Dehydration dr5 - Other specified noninfective gastroenteritis and colitis dr5 Followup: dr5 - With: Emergency Department - When: As needed - Reason: Worsening of condition Followup: dr5 - With: Private Physician - When: 1 - 2 days - Reason: Recheck today's complaints, Continuance of care, Re-evaluation by your physician Discharge Instructions: - Discharge Summary Sheet dr5 - Dehydration, Adult dr5 Forms: - Work release form dr5 - Medication Reconciliation Form dr5 - Patient Portal Instructions dr5 - Leadership Thank You Letter dr5 Prescriptions: - Zofran 4 mg Oral Tablet - take 1 tablet ORAL route every 12 hours As needed; 20 tablet; Refills: 0, dr5 Product Selection Permitted Signatures: Dispatcher [employer] EDMS Michele Rodrigues MD MD cha Blanchard, Shelby, RN RN ss Jeri Mckeon RN RN ap3 Sherman Kang, BATCHER OPERATOR-C BATCHER OPERATOR-Cdr5 Corrections: (The following items were deleted from the chart) 08/02 15:10 15:10 CBC+H.LAB.BRZ ordered. EDMS EDMS 15:10 15:10 COMPREHENSIVE METABOLIC PANEL+C.LAB.BRZ ordered. EDMS EDMS 15:10 15:10 LIPASE+C.LAB.BRZ ordered. EDMS EDMS 15:10 15:10 Urinalysis+U.LAB.BRZ ordered. EDMS EDMS
--- NOTE | 2024-08-02 17:56 | ER ---
Nurse's Notes [facility] Name: Jean Claude Gonzalez Age: 59 yrs Sex: Male : 1965 Arrival Date: 08/02/2024 Time: 14:52 Bed DX1 Private MD: Diagnosis: Dehydration;Other specified noninfective gastroenteritis and colitis Presentation: 08/02 15:02 Chief complaint: Patient states: he has been having nausea, vomiting and diarrhea that ap3 started yesterday. patient also reports body aches and a headache. patient currently rates his pain as a 10/10 on the pain scale. Coronavirus screen: Client presents with at least one sign or symptom that may indicate coronavirus-19. Ebola Screen: No symptoms or risks identified at this time. Initial Sepsis Screen: Does the patient meet any 2 criteria? HR > 90 bpm. Does the patient have a suspected source of infection? No. Patient's initial sepsis screen is negative. Risk Assessment: Do you want to hurt yourself or someone else? Patient reports no desire to harm self or others. Onset of symptoms was August 01, 2024. 15:02 Method Of Arrival: Ambulatory ap3 15:02 Acuity: TAMARA 3 ap3 Triage Assessment: 15:04 General: Appears ill, Behavior is calm, cooperative, appropriate for age, Reports ap3 feeling ill for. Pain: Complains of pain in abdomen. Pain: Complains of pain in generalized body aches. Neuro: Level of Consciousness is awake, alert, obeys commands, Oriented to person, place, time, situation. Cardiovascular: Patient's skin is warm and dry. Respiratory: Airway is patent Respiratory effort is even, unlabored, Respiratory pattern is regular, symmetrical. GI: Reports diarrhea, nausea, vomiting. Historical: - Allergies: 15:03 No Known Allergies; ap3 - Home Meds: 15:03 lisinopril 20 mg Oral tab 1 tab once daily for Hypertension [Active]; ap3 - PMHx: 15:03 Hypertension; ap3 - Immunization history:: Client reports having NOT received the Covid vaccine. Flu vaccine is not up to date. - Infectious Disease History:: Denies. - Social history:: Smoking status: Patient denies any tobacco usage or history of. Screenin:04 [facility] ED Fall Risk Assessment (Adult) History of falling in the last 3 months, ap3 including since admission No falls in past 3 months (0 pts) Confusion or Disorientation No (0 pts) Intoxicated or Sedated No (0 pts) Impaired Gait No (0 pts) Mobility Assist Device Used No (0 pt) Altered Elimination No (0 pt) Score/Fall Risk Level 0 - 2 = Low Risk Oriented to surroundings, Maintained a safe environment, Educated pt \T\ family on fall prevention, incl call for assistance when getting out of bed, Assessed \T\ reinforced patient's understanding of fall precautions, Hourly rounding (assess needs \T\ fall precautionary measures) done, Used ambulatory aids as needed (educated on \T\ assisted with), Used gait belt as appropriate. Abuse screen: Denies threats or abuse. Nutritional screening: No deficits noted. Tuberculosis screening: No symptoms or risk factors identified. Assessment: 18:12 Reassessment: Patient appears in no apparent distress at this time. Patient and/or ss family updated on plan of care and expected duration. Pain level reassessed. Patient is alert, oriented x 3, equal unlabored respirations, skin warm/dry/pink. Patient states feeling better. Patient states symptoms have improved. Vital Signs: 15:02 BP 129 / 93; Pulse 130; Resp 17; Temp 98.6; Pulse Ox 100% on R/A; Weight 106.59 kg; ap3 Height 6 ft. 2 in. ; Pain 10/10; 18:14 Pulse 108; ss 15:02 Body Mass Index 30.17 (106.59 kg, 187.96 cm) ap3 15:02 Pain Scale: Adult ap3 ED Course: 14:55 Patient arrived in ED. ra3 14:57 Sherman Kang FNP-C [facility] dr5 14:57 Michele Rodrigues MD is Attending Physician. dr5 15:03 Triage completed. ap3 15:05 Arm band placed on right wrist. ap3 15:17 Initial lab(s) drawn, by me, sent to lab. Inserted saline lock: 20 gauge in left ld1 antecubital area, using aseptic technique. Blood collected. Flushed with 10 mL NS. 15:17 CBC with Diff Sent. ld1 15:17 CMP Sent. ld1 15:17 Lipase Sent. ld1 16:48 Neena Sterling, RN is Primary Nurse. ss 18:12 Patient has correct armband on for positive identification. ss 18:12 No provider procedures requiring assistance completed. IV discontinued, intact, ss bleeding controlled, No redness/swelling at site. Pressure dressing applied. Administered Medications: 16:44 Drug: Ondansetron IVP 4 mg IVP once; over 2 minutes Route: IVP; Site: left antecubital; ss 18:18 Follow up: Response: No adverse reaction; Nausea is decreased ss 16:45 Drug: NS 0.9% IV 1000 ml IV at 1 bolus Per protocol; to be given as a bolus over 60 ss minutes Route: IV; Rate: 1 bolus; Site: left antecubital; 18:15 Follow up: IV Status: Completed infusion ss 16:49 Not Given (Other Intervention Used): [id number] mg IVP once ss 16:49 Drug: Ketorolac IVP 15 mg IVP once Route: IVP; Site: left antecubital; ss 18:15 Follow up: Response: No adverse reaction; Pain is decreased ss Medication: 18:12 VIS not applicable for this client. ss Outcome: 17:56 Discharge ordered by . dr5 18:12 Discharged to home ambulatory, ss 18:12 Condition: good 18:12 Discharge instructions given to patient, Instructed on discharge instructions, follow up and referral plans. medication usage, Demonstrated understanding of instructions, follow-up care, medications, Prescriptions given X 1, 18:15 Patient left the ED. Signatures: Neena Sterling RN RN Jeri Mckeon RN RN ap3 Bettye De La Cruz RN RN Teresa Person Dustin, SHOP ESTIMATOR-C SHOP ESTIMATOR-Cdr5
[2024-08-02 21:41] VITALS: BP 129/93; TEMP 98.6; O2SAT 100
--- OUTSIDE RECORDS SUMMARY | 2024-08-04 01:48 | XMS REPORT | Continuity of Care Document ---
Author Name Unknown Address [address] [facility] [address] [place] [address] [facility] Address [address] [facility] [address] [place] [address] Care Team Providers Care Reservation Sales Agent Name Role Phone Jennifer Lea MD Primary Care Physician [phone] HAMZAH ANTON Attending Clinician Unavaila SYDNI Riddle Attending Clinician Unavailable MICHI KAN Attending Clinician Unavailwander bagley Doctor Unassigned, [place] Attending Clinician U Palmira Dang Attending Clinician [phone] PALMIRA LOWERY Attending Clinician Unavailable Neena Byrne DO Attending Clinician [phone] ALI, ISRAA B. Attending Clinician Unavailable Doctor Unassigned, [place] Attending Clinician U [place] Carter Attending Clinician Unavailabl kevyn Peterson RN, Myrtle Feliciano Attending Clinician + [phone] KENDRICK LAWS Attending Clinician Unavailable CLAYTON JAY Attending Clinician Unavailable Pierre ALVA, Clayton Attending Clinician [phone] TONE ANNE Attending Clinician Unavailable Mariah ALVA, Tone Attending Clinician [phone] Perez ALVA, Leah Mckeon Attending Clinician [phone] DARRYL HUBBARD Attending Clinician Unavailab SAÚL Warren Attending Clinician Unavailwander Jamil MD, Saúl Luther Attending Clinician + [phone] SANGEETA KNIGHT Attending Clinician Unavailable NETTIE ALEXANDRA Attending Clinician UnavailNETTIE Mcbride Attending Clinician UnavailDONALD Kaye Attending Clinician Unavailabl kevyn [facility] Attending Clinician Unavailable Bennie Askew MD Attending Clinician + [phone] BENNIE ASKEW Attending Clinician Unavailhoma Lovell MD, Roberto Rose Attending Clinician [phone] Julieta Desir MD Attending Clinician [phone] [facility] Sleep Attending Clinician [phone] Mary Ann Whitney MD Attending Clinician [phone] [facility] Attending Clinician UnavailNettie Mcbride MD Attending Clinician + [phone] MARY ANN WHITNEY Attending Clinician Unavailable LOLIS HAYDEN Attending Clinician Unavailable Li, Cardiology - Clear Attending Clinician Rosina franchesca Arnold MD, Donald Ma Attending Clinician [phone] Flaco Weems MD Attending Clinician [phone] ANIVAL BENTLEY Attending Clinician Unavailabl ANIVAL Randall Attending Clinician Unavailabl e [facility] Attending Clinicia n Unavailable Pob, Ad[facility] Lab Main Attending Clinician UnavailERICA Soliman Attending Clinician Unavailable Aki ALVA, Erica Attending Clinician [phone] Kendra Maldonado Attending Clinician [phone] DA GOLD Attending Clinician Unavailable James Masters DO Attending Clinician [phone] Da Gold MD Attending Clinician [phone] DEANA GRANGER Attending Clinician Unavailwander Harley RN, Azra Attending Clinician Unavaila Kitty Coleman MA Attending Clinician Unavailable Daniel Mercado Attending Clinician Unavailable Cam Stevens MD Attending Clinician [phone] Patrick Mccabe Attending Clinician +[phone] KENDRICK LAWS Admitting Clinician Unavailable SAÚL JAMIL Admitting Clinician UnavailPALMIRA Guerrero Admitting Clinician Unavailable DA GOLD Admitting Clinician Unavailable Da Gold MD Admitting Clinician [phone] KNOW, DOES_NOT Admitting Clinician Unavailable Payers Payer Name Policy Type Policy Number Effective Date Expirati on Date Source [facility] [id number] 2017 00:00:00 [facility] [id number] 00:00:00 Problems Condition Name Condition Details Condition Category Status Onset Date Resolution Date Last Treatment Date Treating Clinician Comments Source Obesity (BMI 30-39.9) Obesity (BMI 30-39.9) Disease Active 4-14 00:00: 00 [facility] PERRY (obstructi ve sleep apnea) PERRY (obstructi ve sleep apnea) Disease Active -22 00:00: 00 [facility] Type 2 diabetes mellitus with hyperosmol arity without coma, with long-term current use of insulin Type 2 diabetes mellitus with hyperosmol arity without coma, with long-term current use of insulin Disease Active 02-26 00:00: 00 [facility] Excessive weight gain Excessive weight gain Disease Active 02-26 00:00: 00 [facility] Elevated alkaline phosphatas e level Elevated alkaline phosphatas e level Disease Active 02-26 00:00: 00 [facility] Type 2 diabetes mellitus with hyperosmol arity without coma, with long-term current use of insulin Type 2 diabetes mellitus with hyperosmol arity without coma, with long-term current use of insulin Disease Active 02-26 00:00: 00 [facility] Morbid obesity with body mass index of 50 or higher Morbid obesity with body mass index of 50 or higher Disease Active 07-26 00:00: 00 [facility] Hypotensio n Hypotensio n Disease Active 07-25 00:00: 00 [facility] Pyogenic bacterial arthritis of patella, left Pyogenic bacterial arthritis of patella, left Disease Active 08 00:00: 00 [facility] Allergies, Adverse Reactions, Alerts Allergy Name Allergy Type Status Severity Reaction(s) Onset Date Inactive Date Treating Clinician Comments Source Gabapent in Allergy to substanc e Active Hallucinatio ns 03-25 00:00: 00 [facility] No Known Allergie s DA Active U 02-18 00:00: 00 [facility] [place] No Known Allergie s DA Active U 15 00:00: 00 [facility] [place] Nsaids Allergy to substanc e Active 02-03 00:00: 00 Other reaction( s): NSAIDs ([id number]) [facility] ASPIRIN DRUG INGREDI Active N/V 2008-07 00:00: 00 [facility] Aspirin Drug Allergy Active Nausea and/or Vomiting 2008-07 00:00: 00 Other reaction( s): NAUSEA [facility] Aspirin Allergy to substanc e Active 2008-07 00:00: 00 Other reaction( s): NAUSEA [facility] ASPIRIN DA Active DE NAUSEA 2008-07 00:00: 00 [facility] [place] NO KNOWN ALLERGIE S Drug Class Active [facility] Social History Social Habit Start Date Stop Date Quantity Comments Source Gender identity [facility] Tobacco use and exposure 2023-10-01 00:00:00 2023-10-01 00:00:00 Smokeless tobacco non-user [facility] History of Social function 2023-06-17 00:00:00 2023-06-17 00:00:00 [facility] Exposure to SARS-CoV-2 (event) 2022-10-21 00:00:00 2022-10-31 07:14:00 Not sure [facility] Sex Assigned At 1965 00:00:00 1965 00:00:00 [facility] Smoking Status Start Date Stop Date Source Never smoked tobacco [facility] Tobacco smoking consumption unknown [facility] Medications Ordered Medication Name Filled Medication Name Start Date Stop Date Current Medication? Ordering Clinician Indication Dosage Frequency Signature (SIG) Comments Components Source lisinopriL 20 mg tablet 02-02 00:00: 00 Yes [id number] 20mg Take 1 tablet by mouth every morning. [facility] lisinopriL 20 mg tablet 01-25 00:00: 00 02-02 00:00 :00 No [id number] 20mg TAKE 1 TABLET BY MOUTH EVERY DAY IN THE MORNING [facility] metFORMIN 500 mg tablet 12-24 00:00: 00 Yes [id number] TAKE 1 TABLET BY MOUTH TWICE A DAY WITH FOOD [facility] lisinopriL 20 mg tablet 12-09 00:00: 00 01-25 00:00 :00 No [id number] 20mg TAKE 1 TABLET BY MOUTH EVERY DAY IN THE MORNING [facility] enoxaparin (LOVENOX) injection 30 mg 10-17 13:00: 00 Yes 30mg 30 mg, Subcutaneo us, Q12H, First dose on 10/18/23 at 0800, Until Discontinu ed, Routine [facility] methocarbam oL 500 mg tablet 10-17 00:00: 00 11-01 04:59 :00 No [id number] 500mg Take 1 tablet by mouth 4 (four) times daily for 14 days. [facility] acetaminoph en 500 mg tablet 10-17 00:00: 00 10-28 04:59 :00 No [id number] 500mg Take 1 tablet by mouth every 6 (six) hours as needed for Pain for up to 10 days. [facility] HYDROcodone -acetaminop hen 5-325 mg tablet 10-17 00:00: 00 10-25 04:59 :00 No [id number] 1{tbl} Take 1 tablet by mouth every 6 (six) hours as needed for Pain (scale 7-10) for up to 7 days. Indication s: acute pain [facility] ibuprofen 400 mg tablet 10-17 00:00: 00 10-21 04:59 :00 No [id number] 400mg Take 1 tablet by mouth every 6 (six) hours for 3 days. [facility] pantoprazol e (PROTONIX) EC tablet 40 mg 10-16 14:00: 00 Yes 40mg 40 mg, Oral, DAILY, First dose on Fri10/17/23 at 0900, Until Discontinu ed, Routine
Indicatio n for use: None of the above [facility] magnesium sulfate in water 4 gram/50 mL (8 %) IV Piggyback 4 g 10-16 12:00: 00 10-16 13:45 :00 No 4g 4 g, IV Piggyback, at 25 mL/hr Administer over 120 Minutes, ONCE, 1 dose, On Fri10/17/23 at 0700, Routine [facility] ibuprofen (IBU) tablet 400 mg 10-16 05:00: 00 Yes 400mg 400 mg, Oral, Q6H, First dose on Fri10/17/23 at 0000, Until Discontinu ed, Routine [facility] methocarbam oL (ROBAXIN) tablet 500 mg 10-16 01:45: 00 Yes 500mg 500 mg, Oral, QID, First dose on Fri10/16/23 at 2044, Until Discontinu ed, Routine [facility] FENTanyl PF (SUBLIMAZE (PF)) injection 50 mcg 10-16 01:37: 31 Yes 50ug 50 mcg, Slow IV Push, Q4HPRN, Starting on Fri10/16/23 at 2036, Until Discontinu ed, Routine, Pain (scale 7-10) [facility] acetaminoph en (TYLENOL) tablet 1,000 mg 10-16 01:00: 00 Yes 1000mg 1,000 mg, Oral, TID, First dose on Fri10/16/23 at 2000, Until Discontinu ed, Routine [facility] enoxaparin (LOVENOX) injection 30 mg 10-16 01:00: 00 10-16 12:46 :07 No 30mg 30 mg, Subcutaneo us, Q12H, First dose on Fri10/16/23 at 2000, Until Discontinu ed, Routine [facility] lactated ringers IV infusion 1,000 mL 10-15 22:45: 00 10-16 18:10 :20 No 1000mL at 100 mL/hr, 1,000 mL, IV Infusion, CONTINUOUS , Starting on Fri10/16/23 at 1745, Until Fri10/17/23 at 1310, Routine [facility] Sliding Scale Insulin - Lispro (HumaLOG) 10-15 22:00: 00 Yes Subcutaneo us, TID MEALS+HS, First dose on Fri10/16/23 at 1700, Until Discontinu ed, Routine [facility] glucagon (GLUCAGEN DIAGNOSTIC KIT) injection 1 mg 10-15 21:52: 24 Yes 1mg 1 mg, Intramuscu lar, PRN, Starting on Fri10/16/23 at 1652, Until Discontinu ed, JUAN JOSE, Blood Glucose < or = 70 mg/dL and patient is NPO, unable to swallow or has mental changes. [facility] dextrose 50 % in water (D50W) injection 25 mL 10-15 21:52: 24 Yes 25mL 25 mL, Slow IV Push, PRN, Starting on Fri10/16/23 at 1652, Until Discontinu ed, JUAN JOSE, Blood Glucose < or = 70 mg/dL and patient is NPO, unable to swallow or has mental status changes. [facility] ondansetron (ZOFRAN (PF)) injection 4 mg 10-15 21:40: 24 Yes 4mg 4 mg, Slow IV Push, Q6HPRN, Starting on Fri10/16/23 at 1640, Until Discontinu ed, Routine, Nausea and Vomiting (N/V) [facility] morpHINE (2 mg/mL) injection 2 mg 10-15 21:40: 12 10-16 01:37 :52 No 2mg 2 mg, Slow IV Push, Q2HPRN, Starting on Fri10/16/23 at 1640, Until Fri10/16/23 at 2037, Routine, Pain (scale 7-10), Pain unrelieved by scheduled analgesics [facility] HYDROcodone -acetaminop hen (NORCO 5) 5-325 mg tablet 1 tablet 10-15 21:40: 08 Yes 1{tbl} 1 tablet, Oral, Q6HPRN, Starting on Fri10/16/23 at 1640, Until Discontinu ed, Routine, Pain (scale 4-6) [facility] FENTanyl PF (SUBLIMAZE (PF)) injection 75 mcg 10-15 20:30: 00 10-15 19:31 :00 No 75ug 75 mcg, Slow IV Push, ONCE, 1 dose, On Fri10/16/23 at 1530, Routine [facility] ondansetron (ZOFRAN (PF)) injection 4 mg 10-15 20:00: 00 10-15 19:58 :00 No 4mg 4 mg, Slow IV Push, ONCE, 1 dose, On Fri10/16/23 at 1500, JUAN JOSE [facility] iopamidol (ISOVUE 300-500 mL) injection 88 mL 10-15 19:00: 00 10-15 19:00 :00 No [id number] 88mL 88 mL, Intravenou s, ONCE, 1 dose, On Fri10/16/23 at 1400, Routine [facility] ondansetron (ZOFRAN (PF)) injection 4 mg 10-15 18:30: 00 10-15 18:23 :00 No 4mg 4 mg, Slow IV Push, ONCE, 1 dose, On Polly 10/16/23 at 1330, JUAN JOSE [facility] morpHINE (4 mg/mL) injection 4 mg 10-15 18:30: 00 10-15 18:23 :00 No 4mg 4 mg, Slow IV Push, ONCE, 1 dose, On Polly 10/16/23 at 1330, STAT [facility] amitriptyli ne 50 mg tablet 09-30 00:00: 00 Yes [id number] 50mg Take 1 tablet by mouth every morning and evening. [facility] semaglutide (OZEMPIC) 2 mg/dose (8 mg/3 mL) PnIj 09-30 00:00: 00 Yes [id number] 2mg inject 2 mg under the skin weekly. [facility] atorvastati n 40 mg tablet 09-30 00:00: 00 Yes [id number] 40mg Take 1 tablet by mouth at bedtime. [facility] pregabalin 150 mg capsule 09-30 00:00: 00 02-02 00:00 :00 No [id number] TAKE 1 CAPSULE BY MOUTH IN THE MORNING AND IN THE EVENING [facility] LISINOPRIL 20 mg tablet 09-14 00:00: 00 12-09 00:00 :00 No [id number] 20mg TAKE 1 TABLET BY MOUTH EVERY DAY IN THE MORNING [facility] semaglutide (OZEMPIC) 1 mg/dose (4 mg/3 mL) PnIj 2-20 00:00: 00 09-30 00:00 :00 No [id number] INJECT 1 MG SUBCUTANEO USLY WEEKLY [facility] metFORMIN 500 mg tablet 18 00:00: 00 Yes [id number] TAKE 1 TABLET BY MOUTH TWICE DAILY WITH MEALS [facility] acetaminoph en (TYLENOL) tablet 650 mg 07-19 21:45: 00 07-19 21:54 :00 No 650mg 650 mg, Oral, ONCE, 1 dose, On 07/19/23 at 1545, [facility] ipratropium -albuteroL (DUONEB) 0.5 mg-3 mg(2.5 mg base)/3 mL nebulizer solution 3 mL 07-19 21:45: 00 07-19 21:00 :00 No 3mL 3 mL, Inhalation , ONCE NOW, 1 dose, On 07/19/23 at 1545, [facility] dexamethaso ne sod phos PF injection 10 mg 07-19 21:00: 00 07-19 21:07 :00 No 10mg 10 mg, Slow IV Push, ONCE, 1 dose, On 07/19/23 at 1500, 1 mL [facility] iopamidol (ISOVUE 370-500 mL) injection 100 mL 07-19 21:00: 00 07-19 21:00 :00 No [id number] 100mL 100 mL, Intravenou s, ONCE, 1 dose, On 07/19/23 at 1500, Routine [facility] morpHINE (4 mg/mL) injection 4 mg 07-19 19:15: 00 07-19 19:15 :00 No 4mg 4 mg, Slow IV Push, ONCE, 1 dose, On 07/19/23 at 1315, Routine [facility] ondansetron (ZOFRAN (PF)) injection 4 mg 07-19 18:30: 00 07-19 18:43 :00 No 4mg 4 mg, Slow IV Push, ONCE, 1 dose, On 07/19/23 at 1230, [facility] butalbital- acetaminoph en-caff (ESGIC) 50-325-40 mg tablet 1 tablet 07-19 18:30: 00 07-19 18:51 :00 No 1{tbl} 1 tablet, Oral, ONCE, 1 dose, On 07/19/23 at 1230, [facility] diphenhydrA MINE (BENADRYL) injection 25 mg 07-19 18:30: 00 07-19 18:45 :00 No 25mg 25 mg, Slow IV Push, ONCE, 1 dose, On 07/19/23 at 1230, STAT [facility] metoclopram marty HCl (REGLAN) injection 10 mg 07-19 18:30: 00 07-19 18:44 :00 No 10mg 10 mg, Slow IV Push, ONCE, 1 dose, On 07/19/23 at 1230, JUAN JOSE [facility] NaCl 0.9% (NS) bolus infusion 1,000 mL 07-19 18:30: 00 07-19 20:58 :00 No 1000mL at 999 mL/hr, 1,000 mL, IV Infusion, ONCE, 1 dose, On 07/19/23 at 1230, STAT [facility] nirmatrelvi r-ritonavir (PAXLOVID) 300 mg (150 mg x 2)-100 mg tablet 07-19 00:00: 00 09-30 00:00 :00 No [id number] 3{tbl} Take 3 tablets by mouth in the morning and 3 tablets in the evening. [facility] predniSONE 20 mg tablet 07-19 00:00: 00 09-30 00:00 :00 No [id number] Take 40 mg (2 tablets) daily for 5 days [facility] Butalbital- Acetaminoph en-Caff (FIORICET) 50-300-40 mg per capsule 07-19 00:00: 00 07-25 05:59 :00 No [id number] 1{capsu le} Take 1 capsule by mouth 3 (three) times daily as needed for Pain (scale 4-6) for up to 5 days. [facility] ondansetron 4 mg disintegrat ing tablet 07-19 00:00: 00 07-25 05:59 :00 No [id number] 4mg Take 1 tablet by mouth every 8 (eight) hours as needed for Nausea and Vomiting (N/V) for up to 5 days. [facility] albuterol 90 mcg/actuati on inhaler 00:00: 00 07-25 05:59 :00 No [id number] 2{puff} Inhale 2 Puffs every 6 (six) hours as needed for Wheezing or Shortness of Breath for up to 5 days. [facility] semaglutide (OZEMPIC) 1 mg/dose (4 mg/3 mL) PnIj - 00:00: 00 08-26 00:00 :00 No [id number] 1mg inject 1 mg under the skin weekly. [facility] LISINOPRIL 20 mg tablet 2022-07- 00:00: 00 09-14 00:00 :00 No [id number] 20mg TAKE 1 TABLET BY MOUTH EVERY DAY IN THE MORNING [facility] LANTUS U-100 INSULIN 100 unit/mL solution 2022-07- 00:00: 00 Yes [id number] INJECT 35 UNITS UNDER THE SKIN AT BEDTIME. [facility] metFORMIN 500 mg tablet 2022-07 00:00: 00 07-24 00:00 :00 No [id number] TAKE 1/2 TABLET BY MOUTH EVERY DAY FOR 10 DAYS, THEN TAKE 1 TABLET BY MOUTH DAILY FOR 10 DAYS, THEN TAKE 1 TABLET BY MOUTH TWICE DAILY WITH MEAL [facility] PREGABALIN 150 mg capsule 2022-07 00:00: 00 09-30 00:00 :00 No [id number] TAKE 1 CAPSULE BY MOUTH IN THE MORNING AND IN THE EVENING [facility] AMITRIPTYLI NE 50 mg tablet 04-03 00:00: 00 09-30 00:00 :00 No [id number] 50mg TAKE 1 TABLET BY MOUTH IN THE MORNING AND IN THE EVENING [facility] semaglutide (OZEMPIC) 2 mg/dose (8 mg/3 mL) PnIj 03-28 00:00: 00 06-15 05:59 :00 No [id number] 2mg inject 2 mg under the skin weekly for 12 doses. [facility] metFORMIN 500 mg tablet 03-28 00:00: 00 04-28 00:00 :00 No [id number] Half tablet qd x 10 days then 1 tab qd x 10 days then 1 tab bid with meal [facility] LISINOPRIL 20 mg tablet 920 00:00: 00 06-17 00:00 :00 No [id number] 20mg TAKE 1 TABLET BY MOUTH EVERY DAY IN THE MORNING [facility] semaglutide (OZEMPIC) 1 mg/dose (4 mg/3 mL) [facility] 02-04 00:00: 00 09-30 00:00 :00 No [id number] 1mg inject 1 mg under the skin weekly. [facility] semaglutide (OZEMPIC) 0.25 mg or 0.5 mg(2 mg/1.5 mL) [facility] 10-25 00:00: 00 09-30 00:00 :00 No [id number] .5mg inject 0.5 mg under the skin weekly. [facility] lisinopriL 20 mg tablet 10-25 00:00: 00 10-31 00:00 :00 No [id number] 20mg Take 1 tablet by mouth in the morning. [facility] insulin glargine (LANTUS U-100 INSULIN) 100 unit/mL injection 09-27 00:00: 00 05-12 00:00 :00 No [id number] 35U inject 35 Units under the skin at bedtime. [facility] pregabalin 150 mg capsule 09-27 00:00: 00 04-18 00:00 :00 No 150mg Take 1 capsule by mouth in the morning and 1 capsule in the evening. [facility] amitriptyli ne 50 mg tablet 09-27 00:00: 00 04-03 00:00 :00 No [id number] 50mg Take 1 tablet by mouth in the morning and 1 tablet in the evening. [facility] lisinopriL 20 mg tablet 24 00:00: 00 03-26 00:00 :00 No [id number] 20mg Take 1 tablet by mouth in the morning. [facility] levoFLOXaci n (LEVAQUIN) 500 mg tablet 09-25 00:00: 00 03-28 00:00 :00 No [id number] 500mg Take 1 tablet by mouth every 24 (twenty-fo ur) hours. [facility] semaglutide (OZEMPIC) 0.25 mg or 0.5 mg(2 mg/1.5 mL) PnIj 09-25 00:00: 00 10-25 00:00 :00 No [id number] .25mg inject 0.25 mg under the skin weekly. [facility] AMITRIPTYLI NE 50 mg tablet 09-11 00:00: 00 09-27 00:00 :00 No [id number] TAKE 1 TABLET BY MOUTH TWICE A DAY [facility] pregabalin 150 mg capsule 09-09 00:00: 00 09-27 00:00 :00 No [id number] 150mg Take 1 capsule by mouth in the morning and 1 capsule in the evening. [facility] AMITRIPTYLI NE 50 mg tablet 1 00:00: 00 09-11 00:00 :00 No [id number] TAKE 1 TABLET BY MOUTH TWICE A DAY [facility] FUROSEMIDE 20 mg tablet 07-16 00:00: 00 Yes [id number] TAKE 1 TABLET BY MOUTH 2 TIMES DAILY FOR 60 DAYS. [facility] HUMALOG U-100 INSULIN 100 unit/mL solution 2021-07 00:00: 00 Yes [id number] INJECT 8 UNIT SUB Q THREE TIMES A DAY BEFORE MEALS [facility] insulin lispro, human, (HUMALOG U-100 INSULIN) 100 unit/mL injection 2021-07 0 00:00: 00 05-16 00:00 :00 No [id number] 12U inject 12 Units under the skin in the morning and 12 Units at noon and 12 Units in the evening. inject before meals. [facility] FUROSEMIDE 20 mg tablet 2021-07 0-07 00:00: 07-16 00:00 :00 No [id number] TAKE 1 TABLET BY MOUTH 2 TIMES DAILY FOR 60 DAYS. [facility] LISINOPRIL 10 mg tablet 04-03 00:00: 00 09-27 00:00 :00 No [id number] TAKE 2 TABLETS BY MOUTH EVERY MORNING [facility] FUROSEMIDE 20 mg tablet 13 00:00: 00 04-12 00:00 :00 No [id number] TAKE 1 TABLET BY MOUTH 2 TIMES DAILY FOR 60 DAYS. [facility] dulaglutide (TRULICITY) 0.75 mg/0.5 mL PnIj 03-11 00:00: 00 09-24 00:00 :00 No [id number] Inject 0.75 mg weekly [facility] flash glucose scanning reader (FREESTYLE GISEL 2 READER) Misc 03-08 00:00: 00 09-30 00:00 :00 No [id number] 1{each} 1 Each 4 (four) times daily. [facility] flash glucose sensor (FREESTYLE GISEL 2 SENSOR) Kit 03-08 00:00: 00 09-30 00:00 :00 No [id number] 1{each} 1 Each every 14 (fourteen) days. [facility] insulin glargine (LANTUS U-100 INSULIN) 100 unit/mL injection 03-08 00:00: 00 09-27 00:00 :00 No [id number] 35U inject 35 Units under the skin at bedtime. [facility] insulin lispro, human, (HUMALOG U-100 INSULIN) 100 unit/mL injection 03-08 00:00: 00 04-30 00:00 :00 No [id number] 12U inject 12 Units under the skin in the morning and 12 Units at noon and 12 Units in the evening. inject before meals. [facility] PREGABALIN 150 mg capsule 8-16 00:00: 00 09-09 00:00 :00 No [id number] TAKE 1 CAPSULE BY MOUTH TWICE A DAY [facility] AMITRIPTYLI NE 50 mg tablet 8-03 00:00: 00 08-05 00:00 :00 No [id number] TAKE 1 TABLET BY MOUTH TWICE A DAY [facility] lisinopriL 10 mg tablet 7- 00:00: 00 04-03 00:00 :00 No [id number] 20mg Take 2 tablets by mouth in the morning. [facility] furosemide (LASIX) 20 mg tablet 01-14 00:00: 00 03-19 00:00 :00 No [id number] 20mg Take 1 tablet by mouth in the morning and 1 tablet in the evening. [facility] insulin glargine (LANTUS U-100 INSULIN) 100 unit/mL injection 01-14 00:00: 00 03-08 00:00 :00 No [id number] 25U inject 25 Units under the skin at bedtime. [facility] insulin lispro, human, (HUMALOG U-100 INSULIN) 100 unit/mL injection 01-14 00:00: 00 03-08 00:00 :00 No [id number] INJECT 8 UNIT SUB Q THREE TIMES A DAY BEFORE MEALS [facility] ketorolac 10 mg tablet 6-06 00:00: 00 10-17 00:00 :00 No TAKE 1 TABLET BY MOUTH EVERY 6 HOURS NEEDED WITH FOOD [facility] HYDROcodone -acetaminop hen 5-325 mg tablet 5-31 00:00: 00 09-24 00:00 :00 No TAKE 1 TABLET BY MOUTH FOUR TIMES A DAY--NOT COVERED [facility] gabapentin (Neurontin) 600 MG tablet 2020-07 0 00:00: 00 05-11 04:59 :00 No [id number] 600mg Q.[id number] 3D Take 1 tablet (600 mg total) by mouth 3 (three) times a day for 14 days. [facility] tiZANidine (Zanaflex) 2 MG tablet 2020-07 0 00:00: 04-27 04:59 :00 No [id number] 2mg Take 1 tablet (2 mg total) by mouth every 8 (eight) hours if needed for muscle spasms for up to 10 days. [facility] gabapentin (Neurontin) 600 MG tablet 2020-07 00:00: 00 04-22 04:59 :00 No [id number] 600mg Q.[id number] 3D Take 1 tablet (600 mg total) by mouth 3 (three) times a day for 5 days. [facility] naloxone (Narcan) 2 MG/2ML injection 04-05 00:00: 00 04-06 04:59 :00 No [id number] .4mg Administer 0.4 mL (0.4 mg total) into affected nostril(s) if needed for opioid reversal. May repeat every 2-3 minutes as needed until medical assistance available. [facility] tiZANidine (Zanaflex) 2 MG tablet 04-05 00:00: 04-16 00:00 :00 No [id number] 2mg Take 1 tablet (2 mg total) by mouth every 8 (eight) hours if needed for muscle spasms for up to 10 days. [facility] HYDROcodone -acetaminop hen ([place]) 5-325 MG tablet 04-05 00:00: 00 04-13 04:59 :00 No [id number] 1{tbl} Q6H Take 1 tablet by mouth every 6 (six) hours if needed for severe pain for up to 7 days. [facility] gabapentin (Neurontin) 600 MG tablet 04-03 00:00: 00 04-18 04:59 :00 No [id number] 600mg Q.[id number] 3D Take 1 tablet (600 mg total) by mouth 3 (three) times a day for 14 days. [facility] acetaminoph en-codeine (Tylenol w/ Codeine #3) 300-30 MG tablet 04-03 00:00: 00 04-09 04:59 :00 No [id number] 1{tbl} Q6H Take 1 tablet by mouth every 6 (six) hours if needed for severe pain for up to 5 days. [facility] ondansetron ODT (Zofran ODT) 4 MG disintegrat ing tablet 03-29 00:00: 04-06 04:59 :00 No [id number] 4mg Take 1 tablet (4 mg total) by mouth every 8 (eight) hours if needed for nausea or vomiting for up to 7 days. [facility] HYDROcodone -acetaminop hen ([place]) 5-325 MG tablet 03-29 00:00: 00 04-05 00:00 :00 No [id number] 1{tbl} Q6H Take 1 tablet by mouth every 6 (six) hours if needed for severe pain for up to 7 days. [facility] HYDROcodone -acetaminop hen ([place]) 10-325 MG tablet 03-15 00:00: 03-26 04:59 :00 No [id number] 1{tbl} Take 1 tablet by mouth every 8 (eight) hours if needed for severe pain for up to 10 days. [facility] HYDROcodone -acetaminop hen ([place]) 5-325 MG tablet 03-09 00:00: 00 03-15 04:59 :00 No [id number] 1{tbl} Q6H Take 1 tablet by mouth every 6 (six) hours if needed for severe pain for up to 5 days. [facility] traMADol (Ultram) 50 MG tablet 03-05 00:00: 00 03-13 04:59 :00 No [id number] 50mg Q6H Take 1 tablet (50 mg total) by mouth every 6 (six) hours if needed for severe pain for up to 7 days. [facility] ONETOUCH ULTRA TEST strip 03-02 00:00: 00 Yes USE DIRECTED MISC TID BEFORE MEALS [facility] ONETOUCH ULTRA TEST strip 03-02 00:00: 00 Yes USE DIRECTED MISC TID BEFORE MEALS [facility] ONETOUCH DELICA LANCETS 30 gauge Misc 03-02 00:00: 00 Yes USE DIRECTED MISC DAILY [facility] TRUEPLUS INSULIN 1 mL 31 gauge x /16 Syrg 0 8-27 00:00: 00 Yes [facility] Immunizations Ordered Immunization Name Filled Immunization Name Date Status Comments Source Influenza Virus Vaccine Quad IM, Preserv and ABX Free 6 MO-64 YRS 2021-05-22 00:00:00 Completed [facility] Influenza Virus Vaccine Quad IM, Preserv and ABX Free 6 MO-64 YRS 2021-05-22 00:00:00 Completed [facility] Influenza Virus Vaccine Quad IM, Preserv and ABX Free 6 MO-64 YRS 2021-05-22 00:00:00 Completed [facility] Influenza Virus Vaccine Quad IM, Preserv and ABX Free 6 MO-64 YRS 2021-05-22 00:00:00 Completed [facility] Influenza Virus Vaccine Quad IM, Preserv and ABX Free 6 MO-64 YRS 2021-05-22 00:00:00 Completed [facility] Influenza Virus Vaccine Quad IM, Preserv and ABX Free 6 MO-64 YRS 2021-05-22 00:00:00 Completed [facility] Influenza Virus Vaccine Quad IM, Preserv and ABX Free 6 MO-64 YRS 2021-05-22 00:00:00 Completed [facility] Influenza Virus Vaccine Quad IM, Preserv and ABX Free 6 MO-64 YRS 2021-05-22 00:00:00 Completed [facility] Influenza Virus Vaccine Quad IM, Preserv and ABX Free 6 MO-64 YRS 2021-05-22 00:00:00 Completed [facility] Influenza Virus Vaccine Quad IM, Preserv and ABX Free 6 MO-64 YRS 2021-05-22 00:00:00 Completed [facility] Influenza Virus Vaccine Quad IM, Preserv and ABX Free 6 MO-64 YRS 2021-05-22 00:00:00 Completed [facility] Influenza Virus Vaccine Quad IM, Preserv and ABX Free 6 MO-64 YRS 2021-05-22 00:00:00 Completed [facility] Influenza Virus Vaccine Quad IM, Preserv and ABX Free 6 MO-64 YRS 2021-05-22 00:00:00 Completed [facility] Influenza Virus Vaccine Quad IM, Preserv and ABX Free 6 MO-64 YRS 2021-05-22 00:00:00 Completed [facility] Influenza Virus Vaccine Quad IM, Preserv and ABX Free 6 MO-64 YRS 2021-05-22 00:00:00 Completed [facility] Influenza Virus Vaccine Quad IM, Preserv and ABX Free 6 MO-64 YRS 2021-05-22 00:00:00 Completed [facility] Influenza Virus Vaccine Quad IM, Preserv and ABX Free 6 MO-64 YRS 2021-05-22 00:00:00 Completed [facility] Influenza Virus Vaccine Quad IM, Preserv and ABX Free 6 MO-64 YRS 2021-05-22 00:00:00 Completed [facility] Influenza Virus Vaccine Quad IM, Preserv and ABX Free 6 MO-64 YRS 2021-05-22 00:00:00 Completed [facility] Influenza Virus Vaccine Quad IM, Preserv and ABX Free 6 MO-64 YRS 2021-05-22 00:00:00 Completed [facility] Influenza Virus Vaccine Quad IM, Preserv and ABX Free 6 MO-64 YRS 2021-05-22 00:00:00 Completed [facility] Influenza Virus Vaccine Quad IM, Preserv and ABX Free 6 MO-64 YRS 2021-05-22 00:00:00 Completed [facility] Influenza Virus Vaccine Quad IM, Preserv and ABX Free 6 MO-64 YRS 2021-05-22 00:00:00 Completed [facility] Influenza Virus Vaccine Quad IM, Preserv and ABX Free 6 MO-64 YRS 2021-05-22 00:00:00 Completed [facility] Influenza Virus Vaccine Quad IM, Preserv and ABX Free 6 MO-64 YRS 2021-05-22 00:00:00 Completed [facility] Influenza Virus Vaccine Quad IM, Preserv and ABX Free 6 MO-64 YRS 2021-05-22 00:00:00 Completed [facility] Influenza Virus Vaccine Quad IM, Preserv and ABX Free 6 MO-64 YRS 2021-05-22 00:00:00 Completed [facility] Influenza Virus Vaccine Quad IM, Preserv and ABX Free 6 MO-64 YRS 2021-05-22 00:00:00 Completed [facility] Influenza Virus Vaccine Quad IM, Preserv and ABX Free 6 MO-64 YRS 2021-05-22 00:00:00 Completed [facility] Influenza Virus Vaccine Quad IM, Preserv and ABX Free 6 MO-64 YRS 2021-05-22 00:00:00 Completed [facility] Influenza Virus Vaccine Quad IM, Preserv and ABX Free 6 MO-64 YRS 2021-05-22 00:00:00 Completed [facility] Influenza Virus Vaccine Quad IM, Preserv and ABX Free 6 MO-64 YRS 2021-05-22 00:00:00 Completed [facility] Influenza Virus Vaccine Quad IM, Preserv and ABX Free 6 MO-64 YRS 2021-05-22 00:00:00 Completed [facility] Influenza Virus Vaccine Quad IM, Preserv and ABX Free 6 MO-64 YRS (FLUCELVAX) Unknown Completed [facility] Influenza Virus Vaccine Quad IM, Preserv and ABX Free 6 MO-64 YRS (FLUCELVAX) Unknown Completed [facility] Influenza Virus Vaccine Quad IM, Preserv and ABX Free 6 MO-64 YRS (FLUCELVAX) Unknown Completed [facility] Influenza Virus Vaccine Quad IM, Preserv and ABX Free 6 MO-64 YRS (FLUCELVAX) Unknown Completed [facility] Influenza Virus Vaccine Quad IM, Preserv and ABX Free 6 MO-64 YRS (FLUCELVAX) Unknown Completed [facility] Influenza Virus Vaccine Quad IM, Preserv and ABX Free 6 MO-64 YRS (FLUCELVAX) Unknown Completed [facility] Influenza Virus Vaccine Quad IM, Preserv and ABX Free 6 MO-64 YRS (FLUCELVAX) Unknown Completed [facility] Influenza Virus Vaccine Quad IM, Preserv and ABX Free 6 MO-64 YRS (FLUCELVAX) Unknown Completed [facility] Influenza Virus Vaccine Quad IM, Preserv and ABX Free 6 MO-64 YRS (FLUCELVAX) Unknown Completed [facility] Influenza Virus Vaccine Quad IM, Preserv and ABX Free 6 MO-64 YRS (FLUCELVAX) Unknown Completed [facility] Influenza Virus Vaccine Quad IM, Preserv and ABX Free 6 MO-64 YRS (FLUCELVAX) Unknown Completed [facility] Influenza Virus Vaccine Quad IM, Preserv and ABX Free 6 MO-64 YRS (FLUCELVAX) Unknown Completed [facility] Influenza Virus Vaccine Quad IM, Preserv and ABX Free 6 MO-64 YRS (FLUCELVAX) Unknown Completed [facility] Influenza Virus Vaccine Quad IM, Preserv and ABX Free 6 MO-64 YRS (FLUCELVAX) Unknown Completed [facility] Influenza Virus Vaccine Quad IM, Preserv and ABX Free 6 MO-64 YRS (FLUCELVAX) Unknown Completed [facility] Influenza Virus Vaccine Quad IM, Preserv and ABX Free 6 MO-64 YRS (FLUCELVAX) Unknown Completed [facility] Influenza Virus Vaccine Quad IM, Preserv and ABX Free 6 MO-64 YRS (FLUCELVAX) Unknown Completed [facility] Influenza Virus Vaccine Quad IM, Preserv and ABX Free 6 MO-64 YRS (FLUCELVAX) Unknown Completed [facility] Influenza Virus Vaccine Quad IM, Preserv and ABX Free 6 MO-64 YRS (FLUCELVAX) Unknown Completed [facility] Influenza Virus Vaccine Quad IM, Preserv and ABX Free 6 MO-64 YRS (FLUCELVAX) Unknown Completed [facility] Influenza Virus Vaccine Quad IM, Preserv and ABX Free 6 MO-64 YRS (FLUCELVAX) Unknown Completed [facility] Influenza Virus Vaccine Quad IM, Preserv and ABX Free 6 MO-64 YRS (FLUCELVAX) Unknown Completed [facility] Influenza Virus Vaccine Quad IM, Preserv and ABX Free 6 MO-64 YRS (FLUCELVAX) Unknown Completed [facility] Influenza Virus Vaccine Quad IM, Preserv and ABX Free 6 MO-64 YRS (FLUCELVAX) Unknown Completed [facility] Influenza Virus Vaccine Quad IM, Preserv and ABX Free 6 MO-64 YRS (FLUCELVAX) Unknown Completed [facility] Influenza Virus Vaccine Quad IM, Preserv and ABX Free 6 MO-64 YRS (FLUCELVAX) Unknown Completed [facility] Influenza Virus Vaccine Quad IM, Preserv and ABX Free 6 MO-64 YRS (FLUCELVAX) Unknown Completed [facility] Influenza Virus Vaccine Quad IM, Preserv and ABX Free 6 MO-64 YRS (FLUCELVAX) Unknown Completed [facility] Influenza Virus Vaccine Quad IM, Preserv and ABX Free 6 MO-64 YRS (FLUCELVAX) Unknown Completed [facility] Influenza Virus Vaccine Quad IM, Preserv and ABX Free 6 MO-64 YRS (FLUCELVAX) Unknown Completed [facility] Vital Signs Vital Name Observation Time Observation Value Comments S ource Systolic blood pressure 2021-05-01 14:03:00 101 mm[Hg] [facility] Diastolic blood pressure 2021-05-01 14:03:00 64 mm[Hg] [facility] Heart rate 2021-05-01 14:03:00 134 /min [facility] Body temperature 2021-05-01 14:03:00 36.33 [place] [facility] Body height 2021-05-01 14:03:00 188 [facility] Body weight 2021-05-01 14:03:00 102.967 [facility] BMI 2021-05-01 14:03:00 29.15 kg[facility]m2 [facility] Systolic blood pressure 2024-02-03 15:44:00 128 mm[Hg] [facility] Diastolic blood pressure 2024-02-03 15:44:00 90 mm[Hg] [facility] Heart rate 2024-02-03 15:43:00 98 /min [facility] Body temperature 2024-02-03 15:43:00 36.78 [place] [facility] Respiratory rate 2024-02-03 15:43:00 20 /min [facility] Body weight 2024-02-03 15:43:[address] [facility] BMI 2024-02-03 15:43:00 33.64 kg/m2 [facility] Systolic blood pressure 2023-10-18 18:00:00 123 mm[Hg] [facility] Diastolic blood pressure 2023-10-18 18:00:00 96 mm[Hg] [facility] Heart rate 2023-10-18 18:00:00 82 /min [facility] Oxygen saturation in Arterial blood by Pulse oximetry 2023-10-18 18:00:00 97 /min [facility] Body temperature 2023-10-18 13:00:00 36.61 [place] [facility] Respiratory rate 2023-10-18 12:00:00 16 /min [facility] Body height 2023-10-16 21:31:[address] [facility] Body weight 2023-10-16 21:31:[address] [facility] BMI 2023-10-16 21:31:06 30.81 kg/m2 [facility] Heart rate 2023-10-16 19:50:00 99 /min [facility] Body temperature 2023-10-16 19:50:00 36.72 [place] [facility] Respiratory rate 2023-10-16 19:50:00 15 /min [facility] Oxygen saturation in Arterial blood by Pulse oximetry 2023-10-16 19:50:00 94 /min [facility] Systolic blood pressure 2023-10-16 19:40:00 126 mm[Hg] [facility] Diastolic blood pressure 2023-10-16 19:40:00 98 mm[Hg] [facility] Body height 2023-10-16 17:43:[address] [facility] Body weight 2023-10-16 17:43:[address] [facility] BMI 2023-10-16 17:43:00 30.17 kg/m2 [facility] Systolic blood pressure 2023-10-01 13:04:00 111 mm[Hg] [facility] Diastolic blood pressure 2023-10-01 13:04:00 78 mm[Hg] [facility] Heart rate 2023-10-01 13:04:00 88 /min [facility] Body temperature 2023-10-01 13:04:00 36.11 [place] [facility] Respiratory rate 2023-10-01 13:04:00 16 /min [facility] Body height 2023-10-01 13:04:[address] [facility] Body weight 2023-10-01 13:04:[address] [facility] BMI 2023-10-01 13:04:00 34.96 kg/m2 [facility] Oxygen saturation in Arterial blood by Pulse oximetry 2023-10-01 13:04:00 97 /min [facility] Oxygen saturation in Arterial blood by Pulse oximetry 2023-07-19 21:27:00 93 /min [facility] Systolic blood pressure 2023-07-19 21:08:00 114 mm[Hg] [facility] Diastolic blood pressure 2023-07-19 21:08:00 87 mm[Hg] [facility] Heart rate 2023-07-19 21:08:00 105 /min [facility] Respiratory rate 2023-07-19 21:08:00 20 /min [facility] Body temperature 2023-07-19 19:05:13 37.72 [place] [facility] Body height 2023-07-19 18:14:[address] [facility] Body weight 2023-07-19 18:14:[address] [facility] BMI 2023-07-19 18:14:00 18.87 kg/m2 [facility] Heart rate 2023-06-17 19:35:00 92 /[facility] BMI 2023-06-17 19:04:00 35.12 kg/m2 [facility] Oxygen saturation in Arterial blood by Pulse oximetry 2023-06-17 19:04:00 98 /min [facility] Systolic blood pressure 2023-06-17 19:04:00 126 mm[Hg] [facility] Diastolic blood pressure 2023-06-17 19:04:00 88 mm[Hg] [facility] Body temperature 2023-06-17 19:04:00 36.61 [place] [facility] Respiratory rate 2023-06-17 19:04:00 16 /min [facility] Body height 2023-06-17 19:04:[address] [facility] Body weight 2023-06-17 19:04:[address] [facility] Systolic blood pressure 2023-03-28 16:14:00 135 mm[Hg] [facility] Diastolic blood pressure 2023-03-28 16:14:00 90 mm[Hg] [facility] Heart rate 2023-03-28 16:14:00 102 /min [facility] Respiratory rate 2023-03-28 16:14:00 20 /min [facility] Body height 2023-03-28 16:14:[address] [facility] Body weight 2023-03-28 16:14:[address] [facility] BMI 2023-03-28 16:14:00 36.46 kg/m2 [facility] Systolic blood pressure 2022-10-31 12:33:00 135 mm[Hg] [facility] Diastolic blood pressure 2022-10-31 12:33:00 90 mm[Hg] [facility] Heart rate 2022-10-31 12:33:00 112 /min [facility] Body temperature 2022-10-31 12:33:00 37.06 [place] [facility] Respiratory rate 2022-10-31 12:33:00 18 /min [facility] Body height 2022-10-31 12:33:[address] [facility] Body weight 2022-10-31 12:33:[address] [facility] BMI 2022-10-31 12:33:00 34.42 kg/m2 [facility] Oxygen saturation in Arterial blood by Pulse oximetry 2022-10-31 12:33:00 98 /min [facility] Systolic blood pressure 2022-09-24 15:04:00 130 mm[Hg] [facility] Diastolic blood pressure 2022-09-24 15:04:00 88 mm[Hg] [facility] Heart rate 2022-09-24 15:04:00 114 /min [facility] Respiratory rate 2022-09-24 15:04:00 20 /min [facility] Body height 2022-09-24 15:04:[address] [facility] Body weight 2022-09-24 15:04:[address] [facility] BMI 2022-09-24 15:04:00 33.77 kg/m2 [facility] Systolic blood pressure 2022-04-23 14:15:00 140 mm[Hg] [facility] Diastolic blood pressure 2022-04-23 14:15:00 99 mm[Hg] [facility] Heart rate 2022-04-23 14:15:00 89 /min [facility] Respiratory rate 2022-04-23 14:15:00 18 /min [facility] Oxygen saturation in Arterial blood by Pulse oximetry 2022-04-23 14:15:00 96 /min [facility] Body temperature 2022-04-23 14:13:00 36.61 [place] [facility] Body height 2022-04-23 14:13:[address] [facility] Body weight 2022-04-23 14:13:[address] [facility] BMI 2022-04-23 14:13:00 36.35 kg/m2 [facility] Systolic blood pressure 2022-03-08 21:05:00 138 mm[Hg] [facility] Diastolic blood pressure 2022-03-08 21:05:00 89 mm[Hg] [facility] Heart rate 2022-03-08 21:05:00 115 /min [facility] Body weight 2022-03-08 21:05:[address] [facility] BMI 2022-03-08 21:05:00 34.37 kg/m2 [facility] Oxygen saturation in Arterial blood by Pulse oximetry 2022-03-08 21:05:00 95 /min [facility] Body weight 2021-05-17 17:31:[facility] 2021-05-17 17:31:00 29[facility]79 [facility] Body height 2021-05-17 17:31:00 188 cm [facility] Systolic blood pressure 2021-05-01 14:03:00 101 mm[Hg] [facility] Diastolic blood pressure 2021-05-01 14:03:00 64 mm[Hg] [facility] Heart rate 2021-05-01 14:03:00 134 /min [facility] Body temperature 2021-05-01 14:03:00 36.33 [place] [facility] Body height 2021-05-01 14:03:00 188 [facility] Body weight 2021-05-01 14:03:00 [facility]967 [facility] BMI 2021-05-01 14:03:00 29.15 kg[facility]m2 [facility] Body height 2021-03-15 18:27:00 188 cm [facility] Body weight 2021-03-15 18:27:00 105[facility]235 [facility] BMI 2021-03-15 18:27:00 29.79 kg[facility]m2 [facility] Body height 2021-03-15 18:27:00 188 cm [facility] Body weight 2021-03-15 18:27:00 [facility]235 [facility] BMI 2021-03-15 18:27:00 29.79 [facility] Procedures Procedure Date / Time Performed Performing Clinician Source POCT GLUCOSE (AUTOMATED) 2023-10-18 12:56[facility] 08:11:00 Kelly Sanchez [facility] MAGNESIUM 2023-10-18 08:11:[address] Gal [address] [facility] BASIC METABOLIC PANEL (NA, K, CL, CO2, GLUCOSE, BUN, CREATININE, CA) 2023-10-18 08:11:00 Gal Clark [facility] CBC WITHOUT DIFF 2023-10-18 08:11:00 Gal Clark [facility] POCT GLUCOSE (AUTOMATED) 2023-10-18 01:08[facility] 2023-10-17 21:41:00 Fr Ernie [facility] POCT GLUCOSE (AUTOMATED) 2023-10-17 17:07:00 Fr Ernie [facility] MR THORACIC SPINE WO CONTRAST 2023-10-17 15:41:08 Edwina Albarado [facility] MR LUMBAR SPINE WO CONTRAST 2023-10-17 15:39:46 Verena Edwina Anya [facility] POCT GLUCOSE (AUTOMATED) 2023-10-17 13:22:00 Fr neftaly Laws [facility] XR ELBOW <3 VW RIGHT 2023-10-17 11:45:54 Olga Cihldress [facility] PHOSPHORUS 2023-10-17 08:33:00 Kelly Sanchez [facility] MAGNESIUM 2023-10-17 08:33:00 Kelly Sanchez [facility] BASIC METABOLIC PANEL (NA, K, CL, CO2, GLUCOSE, BUN, CREATININE, CA) 2023-10-17 08:33:00 Kelly Sanchez [facility] CBC WITH DIFF 2023-10-17 08:33:00 [facility] 2023-10-17 02:00:00 Fr neftaly Laws [facility] POCT GLUCOSE (AUTOMATED) 2023-10-16 23:20:00 Fr neftaly Laws [facility] LIPASE 2023-10-16 21:32:00 Ramu Blackwell [facility] COMP. METABOLIC PANEL ([id number]) 2023-10-16 21:32:00 Ramu Blackwell [facility] ETHANOL 2023-10-16 21:32:00 Ramu Blackwell [facility] CBC WITHOUT DIFF 2023-10-16 21:32:[address] [facility] PROTHROMBIN TIME / INR 2023-10-16 21:32:00 Braden Blackwell [facility] ACTIVATED PARTIAL THRMPLAS GA 2023-10-16 21:32:[address] [facility] HB ABO GROUPING 2023-10-16 21:32:[address] [facility] URINALYSIS 2023-10-16 19:26:00 Clayton Jay [facility] URINE DRUG (IMMUNOASSAY) - COMPREHENSIVE DRUG SCREEN W/O REFLEX 2023-10-16 19:26:00 Clayton Jay [facility] CT ABDOMEN PELVIS W CONTRAST 2023-10-16 18:13:25 Clayton Jay [facility] CT LUMBAR SPINE WO CONTRAST 2023-10-16 18:13:25 Clayton Jay [facility] CT THORACIC SPINE WO CONTRAST 2023-10-16 18:13:25 Clayton Jay [facility] CT THORAX W CONTRAST 2023-10-16 18:13:25 Pili Jay [facility] CT CERVICAL SPINE WO CONTRAST 2023-10-16 18:10:33 Clayton Jay [facility] CT HEAD WO CONTRAST 2023-10-16 18:10:33 Tory Jay [facility] CREATINE KINASE 2023-10-16 18:06:00 [facility]-10-16 18:06:00 Clayton Jay [facility] TROPONIN I 2023-10-16 18:06:00 Clayton Jay [facility] COMP. METABOLIC PANEL (38986) 2023-10-16 18:06:00 Clayton Jay [facility] ETHANOL 2023-10-16 18:06:00 Clayton Jay [facility] CBC WITH DIFF 2023-10-16 18:06:[address] [facility] N-TERMINAL PRO-BNP 2023-10-16 18:06:00 Clayton Jay [facility] POCT HEMOGLOBIN A1C TEST 2023-10-01 13:30:00 Angelic Anne [facility] XR CHEST 1 VW 2023-07-19 21:06:41 [facility] 2023-07-19 20:06:06 Saúl Jamil [facility] CT HEAD WO CONTRAST 2023-07-19 20:05:38 Alec Jamil [facility] COMP. METABOLIC PANEL (09965) 2023-07-19 18:43:00 Saúl Jamil [facility] CBC WITH DIFF 2023-07-19 18:43:00 [facility] 2023-07-19 18:43:00 Alec Jamil [facility] COVID-19 (ID NOW RAPID TESTING) 2023-07-19 18:43:00 Saúl Jamil [facility] CONSENT/REFUSAL FOR DIAGNOSIS AND TREATMENT 2023-07-19 18:09:38 Doctor Unassigned, [place] [facility] CONSENT/REFUSAL FOR DIAGNOSIS AND TREATMENT 2023-06-17 18:32:19 Doctor Unassigned, [place] [facility] US ABDOMEN LIMITED 2022-09-27 18:53:10 Palmira Lowery [facility] CONSENT/REFUSAL FOR DIAGNOSIS AND TREATMENT 2022-09-27 18:23:39 Doctor Unassigned, [place] [facility] ASSIGNMENT OF BENEFITS 2022-09-27 18:23:22 Docto r Unassigned, [place] [facility] AMYLASE 2022-09-24 16:11:[address] [facility] LIPASE 2022-09-24 16:11:[address] [facility] PROSTATIC SPECIFIC ANTIGEN SCREEN 2022-09-24 16:11:00 Palmira Lowery [facility] THYROID STIMULATING HORMONE 2022-09-24 16:11:00 Palmira Lowery [facility] COMP. METABOLIC PANEL ([id number]) 2022-09-24 16:11:00 Palmira Lowery [facility] CBC WITHOUT DIFF 2022-09-24 16:11:00 Palmira Lowery [facility] GLYCOSYLATED HEMOGLOBIN (A1C) 2022-09-24 16:11:[address] [facility] PATIENT FINANCIAL POLICY 2022-09-24 15:00:46 Doctor Unassigned, [place] [facility] POCT URINALYSIS 2022-09-24 00:00:00 Palmira Lowery [facility] SLEEP STUDY DATA REPORT 2022-05-02 05:01:00 Doct or Unassigned, [place] [facility] Encounters Start Date/Time End Date/Time Encounter Type Admission Type Attending Clinicians Care Facility Care Department Encounter ID Source 2021-08-17 14:18:21 Outpatient [facility] [id number] [facility] 2021-06-19 01:04:40 Outpatient HAMZAH ANTON [facility] [id number] [facility] 2021-06-17 01:01:35 Outpatient SYDNI BARTLETT [facility] [id number] [facility] 2021-05-25 01:03:24 Outpatient HAMZAH ANTON [facility] [id number] [facility] 2021-05-23 01:03:56 Outpatient HAMZAH ANTON [facility] [id number] [facility] 2021-05-17 11:53:10 Outpatient HAMZAH ANTON [facility] [id number] [facility] 2021-05-07 15:35:[address] [facility] [id number] [facility] 2021-04-05 12:53:47 Outpatient [facility] [id number] [facility] 2021-03-29 11:06:42 Outpatient MICHI KAN [facility] [id number] [facility] 2021-03-16 09:57:02 Outpatient MICHI KAN [facility] [id number] [facility] 2021-03-15 13:48:38 Outpatient HAMZAH ANTON [facility] [id number] [facility] 2024-02-10 00:00:00 2024-03-13 18:20:45 Patient Secure Msg Doctor Unassigned, [place] Doctor Unassigned, [place] [facility] 1.840.114 350.1.13.10 4.2.7.2.686 [id number] [facility] 2024-02-04 00:00:00 2024-02-04 15:51:30 Telephone Palmira Lowery [facility] 1.840.114 350.1.13.10 4.2.7.2.686 [id number] [facility] 2024-02-04 00:00:00 2024-02-04 11:47:25 Letter (Out) [facility] 1.2840.114 350.1.13.10 4.2.7.2.686 [id number] [facility] 2024-02-03 11:00:00 2024-02-03 11:16:52 Outpatient R PALMIRA LOWERY [facility] [id number] [facility] 2024-02-03 11:00:00 2024-02-03 11:16:52 Office Visit Palmira Lowery [facility] 1.840.114 350.1.13.10 4.2.7.2.686 [id number] [facility] 2024-01-25 00:00:00 2024-01-27 14:20:26 Refana luisa Byrne Neena [facility] 1.0.114 350.1.13.10 4.2.7.2.686 [id number] [facility] 2024-01-05 16:00:00 2024-01-05 16:00:00 Outpatient R JASPREET CRUZ [facility] [id number] [facility] 2023-12-23 00:00:00 2023-12-23 09:56:55 David Byrne Neena [facility] 1.0.114 350.1.13.10 4.2.7.2.686 [id number] [facility] 2023-12-10 00:00:00 2023-12-16 13:40:20 David Byrne Neena [facility] 1.2840.114 350.1.13.10 4.2.7.2.686 [id number] [facility] 2023-10-20 00:00:00 2023-11-22 18:08:14 Patient Secure Msg Doctor Unassigned, [place] [facility] 1.840.114 350.1.13.10 4.2.7.2.686 [id number] [facility] 2023-11-21 10:45:00 2023-11-21 10:45:00 Outpatient [place] RIVERS [facility] [id number] [facility] 2023-10-22 16:00:00 2023-10-22 16:00:00 Outpatient PALMIRA HARRISON [facility] [id number] [facility] 2023-10-21 00:00:00 2023-10-21 00:00:00 Transition of Care Myrtle Peterson 1.2840.114 350.1.13.10 4.2.7.2.686 [id number] [facility] 2023-10-16 16:22:00 2023-10-18 17:37:00 Inpatient T KENDRICK LAWS [facility] STR [id number] [facility] 2023-10-16 16:22:00 2023-10-18 17:37:00 Hospital Encounter Kendrick Laws [facility] 1.2840.114 350.1.13.10 4.2.7.2.686 [id number] [facility] 2023-10-16 12:49:00 2023-10-16 15:37:00 Emergency X [facility] ERT [id number] [facility] 2023-10-16 12:49:00 2023-10-16 15:37:00 Emergency Clayton Jay [facility] 1.840.114 350.1.13.10 4.2.7.2.686 [id number] [facility] 2023-10-01 08:20:00 2023-10-01 09:55:21 Outpatient TONE DOMINGO [facility] [id number] General acute hospital 2023-10-01 08:20:00 2023-10-01 08:40:00 Office Visit Tone Anen [facility] 1.2840.114 350.1.13.10 4.2.7.2.686 [id number] [facility] 2023-09-25 08:00:00 2023-09-25 08:00:00 Outpatient R TONE ANNE [facility] [id number] General acute hospital 2023-09-15 00:00:00 2023-09-15 00:00:00 Leah Strong [facility] 1.840.114 350.1.13.10 4.2.7.2.686 [id number] [facility] 2023-08-21 00:00:00 2023-08-21 00:00:00 Palmira Warren [facility] 1.2840.114 350.1.13.10 4.2.7.2.686 [id number] [facility] 2023-07-29 09:00:00 2023-07-29 09:00:00 Outpatient DARRYL CARTY [facility] [id number] [facility] 2023-07-23 00:00:00 2023-07-23 00:00:00 Palmira Warren [facility] 1.840.114 350.1.13.10 4.2.7.2.686 [id number] [facility] 2023-07-19 12:16:00 2023-07-19 15:56:00 Emergency X [facility] ERT [id number] [facility] 2023-07-19 12:16:00 2023-07-19 15:56:00 Emergency BehSaúl sheppard A [facility] 1.2.840.114 350.1.13.10 4.2.7.2.686 [id number] [facility] 2023-07-16 00:00:00 2023-07-16 00:00:00 Palmira Warren [facility] 1.2840.114 350.1.13.10 4.2.7.2.686 [id number] [facility] 2023-06-26 13:30:00 2023-06-26 13:30:00 Outpatient R [facility] [id number] [facility] 2023-06-24 13:30:00 2023-06-24 13:30:00 Outpatient R SANGEETA KNIGHT [facility] [id number] [facility] 2023-06-19 00:00:00 2023-06-19 00:00:00 Patient Secure Msg Doctor Unassigned, [place] [facility] 1.2.840.114 350.1.13.10 4.2.7.2.686 [id number] [facility] 2023-06-19 00:00:00 2023-06-19 00:00:00 Patient Secure Msg Doctor Unassigned, [place] [facility] 1.2.840.114 350.1.13.10 4.2.7.2.686 [id number] [facility] 2023-06-17 13:00:00 2023-06-17 14:32:46 Outpatient R PALMIRA LOWERY [facility] [id number] [facility] 2023-06-17 13:00:00 2023-06-17 14:32:46 Office Visit Palmira Lowery [facility] 1.2840.114 350.1.13.10 4.2.7.2.686 [id number] [facility] 2023-06-17 00:00:00 2023-06-17 00:00:00 Orders Only Doctor Unassigned, [place] [facility] 1.2.840.114 350.1.13.10 4.2.7.2.686 [id number] [facility] 2023-06-17 00:00:00 2023-06-17 00:00:00 Palmira Warren [facility] 1.2.840.114 350.1.13.10 4.2.7.2.686 [id number] [facility] 2023-05-11 00:00:00 2023-05-11 00:00:00 Palmira Warren [facility] 1.2.840.114 350.1.13.10 4.2.7.2.686 [id number] [facility] 2023-04-27 00:00:00 2023-04-27 00:00:00 Palmira Warren [facility] 1.2.840.114 350.1.13.10 4.2.7.2.686 [id number] [facility] 2023-04-23 00:00:00 2023-04-23 00:00:00 Palmira Warren [facility] 1.2.840.114 350.1.13.10 4.2.7.2.686 [id number] [facility] 2023-04-11 00:00:00 2023-04-11 00:00:00 Palmira Warren [facility] 1.2.840.114 350.1.13.10 4.2.7.2.686 [id number] [facility] 2023-04-03 00:00:00 2023-04-03 00:00:00 Refill Palmira Lowery [facility] 1.840.114 350.1.13.10 4.2.7.2.686 [id number] [facility] 2023-03-28 11:30:00 2023-03-28 16:22:07 Outpatient R PALMIRA LOWERY [facility] [id number] [facility] 2023-03-28 11:30:00 2023-03-28 12:00:00 Office Visit Palmira Lowery [facility] 1.840.114 350.1.13.10 4.2.7.2.686 [id number] [facility] 2023-03-28 00:00:00 2023-03-28 00:00:00 Letter (Out) Doctor Unassigned, [place] [facility] 1.840.114 350.1.13.10 4.2.7.2.686 [id number] [facility] 2023-03-26 00:00:00 2023-03-26 00:00:00 Palmira Warren [facility] 1.840.114 350.1.13.10 4.2.7.2.686 [id number] [facility] 2023-03-24 09:30:00 2023-03-24 09:30:00 Outpatient R PALMIRA LWOERY [facility] [id number] [facility] 2023-02-04 00:00:00 2023-02-04 00:00:00 Telephone Palmira Lowery [facility] 1.0.114 350.1.13.10 4.2.7.2.686 [id number] [facility] 2023-02-03 00:00:00 2023-02-03 00:00:00 RefPalmira Mcdonald [facility] GAMA[facility]toinette [facility] 1.114 350.1.13.10 4.2.7.2.686 [id number] [facility] 2022-11-27 13:00:00 2022-11-27 13:00:00 Outpatient NETTIE OG STRAHIL [facility] [id number] [facility] 2022-11-01 10:30:00 2022-11-01 10:30:00 Outpatient DONALD HU [facility] [id number] [facility] 2022-10-31 08:30:00 2022-10-31 08:45:00 Poured Pipe Maker Visit [facility] Priest [facility] 1.114 350.1.13.10 4.2.7.2.686 [id number] [facility] 2022-10-31 08:30:00 2022-10-31 08:30:00 Outpatient BENNIE CANTRELL [facility] [id number] [facility] 2022-10-31 07:30:00 2022-10-31 08:00:00 Office Visit Roberto Lovell [facility] 1.114 350.1.13.10 4.2.7.2.686 [id number] [facility] 2022-10-25 00:00:00 2022-10-25 00:00:00 Palmira Warren [facility] GAMA[facility]toinette [facility] 1.114 350.1.13.10 4.2.7.2.686 [id number] [facility] 2022-10-01 00:00:00 2022-10-01 00:00:00 Telephone Palmira Lowery [facility] 1.2.840.114 350.1.13.10 4.2.7.2.686 [id number] [facility] 2022-09-27 13:26:02 2022-09-27 23:59:00 Outpatient R PALMIRA LOWERY [facility] [id number] [facility] 2022-09-27 13:26:02 2022-09-27 23:59:00 Hospital Encounter Palmira Lowery [facility] 1.2.840.114 350.1.13.10 4.2.7.2.686 [id number] [facility] 2022-09-27 00:00:00 2022-09-27 00:00:00 Refill Palmira Lowery [facility] 1.2.840.114 350.1.13.10 4.2.7.2.686 [id number] [facility] 2022-09-25 00:00:00 2022-09-25 00:00:00 Telephone Palmira Lowery [facility] 1.2.840.114 350.1.13.10 4.2.7.2.686 [id number] [facility] 2022-09-25 00:00:00 2022-09-25 00:00:00 Telephone Palmira Lowery [facility] 1.2.840.114 350.1.13.10 4.2.7.2.686 [id number] [facility] 2022-09-24 10:30:00 2022-09-24 10:54:59 Outpatient R PALMIRA LOWERY [facility] [id number] [facility] 2022-09-24 10:30:00 2022-09-24 10:54:59 Office Visit Palmira Lowery [facility] 1.840.114 350.1.13.10 4.2.7.2.686 [id number] [facility] 2022-09-24 00:00:00 2022-09-24 00:00:00 Orders Only Doctor Unassigned, [place] [facility] 1.840.114 350.1.13.10 4.2.7.2.686 [id number] [facility] 2022-09-24 00:00:00 2022-09-24 00:00:00 Telephone Julieta Desir [facility] 1..114 350.1.13.10 4.2.7.2.686 [id number] [facility] 2022-09-23 07:30:00 2022-09-23 07:30:00 Outpatient PALMIRA HARRISON [facility] [id number] [facility] 2022-09-17 08:30:00 2022-09-17 08:30:00 Outpatient PALMIRA HARRISON [facility] [id number] [facility] 2022-09-11 00:00:00 2022-09-11 00:00:00 Palmira Warren [facility] 1.840.114 350.1.13.10 4.2.7.2.686 [id number] [facility] 2022-09-05 00:00:00 2022-09-05 00:00:00 Palmira Warren [facility] 1.840.114 350.1.13.10 4.2.7.2.686 [id number] [facility] 2022-07-25 00:00:00 2022-07-25 00:00:00 Palmira Warren [facility] 1.2.840.114 350.1.13.10 4.2.7.2.686 [id number] [facility] 2022-07-16 00:00:00 2022-07-16 00:00:00 Palmira Warren [facility] 1.2.840.114 350.1.13.10 4.2.7.2.686 [id number] [facility] 2022-06-19 10:30:00 2022-06-19 10:30:00 Outpatient NETTIE OG STRAHIL [facility] [id number] [facility] 2022-06-01 00:00:00 2022-06-01 00:00:00 Palmira Warren [facility] 1.840.114 350.1.13.10 4.2.7.2.686 [id number] [facility] 2022-05-13 00:00:00 2022-05-13 00:00:00 Palmira Warren [facility] 1.840.114 350.1.13.10 4.2.7.2.686 [id number] [facility] 2022-05-10 00:00:00 2022-05-10 00:00:00 Letter (Out) Clinic, [facility] Sleep [facility] 1.2840.114 350.1.13.10 4.2.7.2.686 [id number] [facility] 2022-05-10 00:00:00 2022-05-10 00:00:00 Telephone Mary Ann Whitney [facility] N[facility] 1.2840.114 350.1.13.10 4.2.7.2.686 [id number] [facility] 2022-05-02 14:00:00 2022-05-02 14:15:00 Poured Pipe Maker Visit [facility] Sleep Lab Nettie Alexandra [facility] 1.2.840.114 350.1.13.10 4.2.7.2.686 [id number] [facility] 2022-05-02 14:00:00 2022-05-02 14:00:00 Outpatient NETTIE OG STRADEBhargav [facility] [id number] [facility] 2022-05-02 00:00:00 2022-05-02 00:00:00 Letter (Out) Doctor Unassigned, [place] [facility] 1.2.840.114 350.1.13.10 4.2.7.2.686 [id number] [facility] 2022-05-02 00:00:00 2022-05-02 00:00:00 Orders Only Doctor Unassigned, [place] [facility] 1.2.840.114 350.1.13.10 4.2.7.2.686 [id number] [facility] 2022 00:00:00 2022 00:00:00 Case Management Palmira Lowery [facility] 1.840.114 350.1.13.10 4.2.7.2.686 [id number] [facility] 2022-04-26 00:00:00 2022-04-26 00:00:00 Refill Palmira Lowery [facility] 1.2840.114 350.1.13.10 4.2.7.2.686 [id number] [facility] 2022-04-23 09:20:00 2022-04-23 16:25:19 Outpatient R MARY ANN WHITNEY [facility] [id number] [facility] 2022-04-23 09:20:00 2022-04-23 16:25:19 [facility] 1.0.114 350.1.13.10 4.2.7.2.686 [id number] [facility] 2022-04-22 12:30:00 2022-04-22 12:30:00 Outpatient R LOLIS HAYDEN [facility] [id number] [facility] 2022-04-11 00:00:00 2022-04-11 00:00:00 RefPalmira Mcdonald [facility] 1.0.114 350.1.13.10 4.2.7.2.686 [id number] [facility] 2022-03-28 00:00:00 2022-03-28 00:00:00 RefLeah Lutz [facility] 1.0.114 350.1.13.10 4.2.7.2.686 [id number] [facility] 2022-03-20 00:00:00 2022-03-20 00:00:00 Telephone Palmira Lowery [facility] 1.0.114 350.1.13.10 4.2.7.2.686 [id number] [facility] 2022-03-20 00:00:00 2022-03-20 00:00:00 Letter (Out) [facility] MED[facility] OFF[facility] BUILD[facility] 1.0.114 350.1.13.10 4.2.7.2.686 [id number] [facility] 2022-03-15 00:00:00 2022-03-15 00:00:00 Telephone Az Loweryika D [facility] 1..114 350.1.13.10 4.2.7.2.686 [id number] [facility] 2022-03-14 00:00:00 2022-03-14 00:00:00 Telephone Estrella, Palmira Barby [facility] 1..114 350.1.13.10 4.2.7.2.686 [id number] [facility] 2022-03-13 00:00:00 2022-03-13 00:00:00 Telephone Az Loweryika Barby [facility] 1.114 350.1.13.10 4.2.7.2.686 [id number] [facility] 2022-03-08 16:00:00 2022-03-08 17:09:55 Outpatient R DONALD ARNOLD [facility] [id number] [facility] 2022-03-08 16:00:00 2022-03-08 17:09:55 Outpatient R DONALD ARNOLD [facility] [id number] [facility] 2022-03-08 16:00:00 2022-03-08 17:09:55 Office Visit Donald Arnold [facility] 1.84.114 350.1.13.10 4.2.7.2.686 [id number] [facility] 2022-03-08 00:00:00 2022-03-08 00:00:00 Donald Jackson [facility] 1.84.114 350.1.13.10 4.2.7.2.686 [id number] [facility] 2022-03-06 09:27:51 2022-03-06 23:59:00 Outpatient R PALMIRA LOWERY [facility] [id number] [facility] 2022-03-06 09:27:51 2022-03-06 23:59:00 Hospital Encounter Palmira Lowery [facility] 1.2.840.114 350.1.13.10 4.2.7.2.686 [id number] [facility] 2022-03-01 00:00:00 2022-03-01 00:00:00 Outpatient R PALMIRA LOWERY [facility] [id number] [facility] 2022-03-01 00:00:00 2022-03-01 00:00:00 Outpatient R PALMIRA LOWERY [facility] [id number] [facility] 2022-02-26 09:45:00 2022-02-26 23:59:00 Hospital Encounter Palmira Lowery [facility] 1.2.840.114 350.1.13.10 4.2.7.2.686 [id number] [facility] 2022-02-26 09:30:00 2022-02-26 11:26:22 Office Visit Palmira Lowery [facility] 1.2.840.114 350.1.13.10 4.2.7.2.686 [id number] [facility] 2022-02-26 09:30:00 2022-02-26 11:26:22 Outpatient R PALMIRA LOWERY [facility] [id number] [facility] 2022-02-26 09:30:00 2022-02-26 11:26:22 Outpatient R PALMIRA LOWERY [facility] [id number] [facility] 2022-02-26 09:30:00 2022-02-26 11:26:22 Outpatient R PALMIRA LOWERY [facility] [id number] [facility] 2022-02-26 09:30:00 2022-02-26 11:26:22 Office Visit Palmira Lowery [facility] 1.2.840.114 350.1.13.10 4.2.7.2.686 [id number] [facility] 2022-02-26 09:30:00 2022-02-26 11:26:22 Outpatient R PALMIRA LOWERY [facility] [id number] [facility] 2022-02-26 09:45:00 2022-02-26 09:45:00 Outpatient R PALMIRA LOWERY [facility] [id number] [facility] 2022-02-26 00:00:00 2022-02-26 00:00:00 Telephone Flaco Weems [facility] 1.2.840.114 350.1.13.10 4.2.7.2.686 [id number] [facility] 2022-02-26 00:00:00 2022-02-26 00:00:00 Telephone Flaco Weems [facility] 1.2.840.114 350.1.13.10 4.2.7.2.686 [id number] [facility] 2022-02-20 00:00:00 2022-02-20 00:00:00 Palmira Warren [facility] 1.2.840.114 350.1.13.10 4.2.7.2.686 [id number] [facility] 2022-02-15 00:00:00 2022-02-15 00:00:00 Palmira Warren [facility] 1.2.840.114 350.1.13.10 4.2.7.2.686 [id number] [facility] 2022-01-29 00:00:00 2022-01-29 00:00:00 Refill Palmira Lowery [facility] 1.2.840.114 350.1.13.10 4.2.7.2.686 [id number] [facility] 2022-01-16 00:00:00 2022-01-16 00:00:00 Refill Palmira Lowery [facility] 1.2840.114 350.1.13.10 4.2.7.2.686 [id number] [facility] 2022-01-15 12:30:00 2022-01-15 12:30:00 Outpatient Chelsy BENTLEY, ANIVAL LYON [facility] [id number] [facility] 2022-01-14 00:00:00 2022-01-14 00:00:00 Refill Palmira Lowery [facility] 1.2840.114 350.1.13.10 4.2.7.2.686 [id number] [facility] 2022-01-14 00:00:00 2022-01-14 00:00:00 Telephone Palmira Lowery [facility] 1.20.114 350.1.13.10 4.2.7.2.686 [id number] [facility] 2022-01-14 00:00:00 2022-01-14 00:00:00 Telephone Palmira Lowery [facility] 1.2840.114 350.1.13.10 4.2.7.2.686 [id number] [facility] 2022-01-01 00:00:00 2022-01-01 00:00:00 Case Management Palmira Lowery [facility] 1.2.840.114 350.1.13.10 4.2.7.2.686 [id number] [facility] 2021-12-31 00:00:00 2021-12-31 00:00:00 Telephone Team, [facility] 1.2.840.114 350.1.13.10 4.2.7.2.686 [id number] [facility] 2021-12-27 09:30:00 2021-12-27 09:45:00 Poured Pipe Maker Visit Pob, Adc Lab Main Palmira Lowery [facility] 1..840.114 350.1.13.10 4.2.7.2.686 [id number] [facility] 2021-12-27 09:30:00 2021-12-27 09:30:00 Outpatient R PALMIRA LOWERY [facility] [id number] [facility] 2021-12-26 00:00:00 2021-12-26 00:00:00 Telephone Palmira Lowery [facility] 1.2.840.114 350.1.13.10 4.2.7.2.686 [id number] [facility] 2021-12-26 00:00:00 2021-12-26 00:00:00 Telephone Palmira Lowery [facility] 1.2840.114 350.1.13.10 4.2.7.2.686 [id number] [facility] 2021-12-25 09:30:00 2021-12-25 23:59:00 Hospital Encounter Palmira Lowery [facility] 1.2.840.114 350.1.13.10 4.2.7.2.686 [id number] [facility] 2021-12-25 09:00:00 2021-12-25 12:45:28 Office Visit Palmira Lowery [facility] 1..114 350.1.13.10 4.2.7.2.686 [id number] [facility] 2021-12-25 09:00:00 2021-12-25 12:45:28 Outpatient R PALMIRA LOWERY [facility] [id number] [facility] 2021-12-25 09:00:00 2021-12-25 12:45:28 Outpatient R PALMIRA LOWERY [facility] [id number] [facility] 2021-12-25 09:30:00 2021-12-25 09:30:00 Outpatient R PALMIRA LOWERY [facility] [id number] [facility] 2021-12-25 09:00:00 2021-12-25 09:00:00 Outpatient R PALMIRA LOWERY [facility] [id number] [facility] 2021-12-25 09:00:00 2021-12-25 09:00:00 Outpatient R PALMIRA LOWERY [facility] [id number] [facility] 2021-12-12 14:00:00 2021-12-12 14:00:00 Outpatient R ERICA PRABHAKAR [facility] [id number] [facility] 2021-12-10 00:00:00 2021-12-10 00:00:00 Orders Only Doctor Unassigned, [place] [facility] 1..114 350.1.13.10 4.2.7.2.686 [id number] [facility] 2021-12-10 00:00:00 2021-12-10 00:00:00 Telephone Palmira Lowery [facility] 1..114 350.1.13.10 4.2.7.2.686 [id number] [facility] 2021-11-27 00:00:00 2021-11-27 00:00:00 Refill Palmira Lowery [facility] 1.2.840.114 350.1.13.10 4.2.7.2.686 [id number] [facility] 2021-09-26 11:00:00 2021-09-26 11:30:00 Office Visit Palmira Lowery [facility] 1.840.114 350.1.13.10 4.2.7.2.686 [id number] [facility] 2021-09-26 11:00:00 2021-09-26 11:00:00 Outpatient R PALMIRA LOWERY [facility] [id number] [facility] 2021-09-26 00:00:00 2021-09-26 00:00:00 Telephone Palmira Lowery [facility] 1.0.114 350.1.13.10 4.2.7.2.686 [id number] [facility] 2021-09-26 00:00:00 2021-09-26 00:00:00 Orders Only Doctor Unassigned, [place] [facility] 1.2840.114 350.1.13.10 4.2.7.2.686 [id number] [facility] 2021-09-12 14:00:00 2021-09-12 14:31:58 Outpatient R AKI [facility] [id number] [facility] 2021-09-12 14:00:00 2021-09-12 14:31:58 Office Visit [facility] 1.840.114 350.1.13.10 4.2.7.2.686 [id number] [facility] 2021-09-12 14:00:00 2021-09-12 14:00:00 Outpatient R PRABHAKARERICA [facility] [id number] [facility] 2021-09-12 00:00:00 2021-09-12 00:00:00 Orders Only Doctor Unassigned, [place] [facility] 1.0.114 350.1.13.10 4.2.7.2.686 [id number] [facility] 2021-09-11 00:00:00 2021-09-11 00:00:00 Telephone Palmira Lowery [facility] 1.0.114 350.1.13.10 4.2.7.2.686 [id number] [facility] 2021-09-11 00:00:00 2021-09-11 00:00:00 Telephone Palmira Lowery [facility] 1.0.114 350.1.13.10 4.2.7.2.686 [id number] [facility] 2021-09-10 00:00:00 2021-09-10 00:00:00 Telephone Palmira Lowery [facility] 1.0.114 350.1.13.10 4.2.7.2.686 [id number] [facility] 2021-08-23 13:30:00 2021-08-23 15:37:18 Office Visit Kendra Gray [address] 1..114 350.1.13.58 9.2.7.2.686 [id number] [facility] 2021-08-22 00:00:00 2021-08-22 00:00:00 Telephone Palmira Lowery [facility] 1.2.840.114 350.1.13.10 4.2.7.2.686 [id number] [facility] 2021-08-21 00:00:00 2021-08-21 00:00:00 Orders Only Doctor Unassigned, [place] [facility] 1.840.114 350.1.13.10 4.2.7.2.686 [id number] [facility] 2021-08-17 00:00:00 2021-08-17 00:00:00 Case Management Palmira Lowery [facility] 1.0.114 350.1.13.10 4.2.7.2.686 [id number] [facility] 2021-08-08 14:00:00 2021-08-08 15:14:34 Outpatient R AIK [facility] [id number] [facility] 2021-08-08 14:00:00 2021-08-08 15:14:34 Office Visit [facility] 1.0.114 350.1.13.10 4.2.7.2.686 [id number] [facility] 2021-08-08 14:00:00 2021-08-08 15:14:34 Outpatient R AKI [facility] [id number] [facility] 2021-08-08 14:00:00 2021-08-08 14:00:00 Outpatient R AKI [facility] [id number] [facility] 2021-08-08 00:00:00 2021-08-08 00:00:00 Orders Only Doctor Unassigned, [place] [facility] 1.2840.114 350.1.13.10 4.2.7.2.686 [id number] [facility] 2021-08-07 10:30:00 2021-08-07 12:34:07 Outpatient R PALMIRA LOWERY [facility] [id number] [facility] 2021-08-07 10:30:00 2021-08-07 11:00:00 Office Visit Palmira Lowery [facility] 1.2840.114 350.1.13.10 4.2.7.2.686 [id number] [facility] 2021-08-07 10:30:00 2021-08-07 10:30:00 Outpatient R PALMIRA LOWERY [facility] [id number] [facility] 2021-07-25 14:40:00 2021-07-26 18:55:00 Outpatient X [facility] [id number] [facility] 2021-07-25 14:40:00 2021-07-26 18:55:00 [facility] 1.0.114 350.1.13.10 4.2.7.2.686 [id number] [facility] 2021-07-18 19:45:00 2021-07-18 19:45:00 Outpatient R ELKIN DEANA [facility] [id number] [facility] 2021-07-18 00:00:00 2021-07-18 00:00:00 Palmira Warren [facility] 1.20.114 350.1.13.10 4.2.7.2.686 [id number] [facility] 2021-07-12 12:45:00 2021-07-12 13:54:23 Office Visit Kendra Gray [address] 1.2840.114 350.1.13.58 9.2.7.2.686 [id number] [facility] 2021-07-11 09:00:00 2021-07-11 09:00:00 Outpatient R PALMIRA LOWERY [facility] [id number] [facility] 2021-06-19 09:00:00 2021-06-19 10:08:45 Outpatient R PALMIRA LOWERY [facility] [id number] [facility] 2021-06-19 09:00:00 2021-06-19 10:08:45 Outpatient R PALMIRA LOWERY [facility] [id number] [facility] 2021-06-19 08:59:26 2021-06-19 10:08:45 Office Visit Palmira Lowery [facility] 1.0.114 350.1.13.10 4.2.7.2.686 [id number] [facility] 2021-06-19 00:00:00 2021-06-19 00:00:00 Orders Only Doctor Unassigned, [place] [facility] 1.840.114 350.1.13.10 4.2.7.2.686 [id number] [facility] 2021-06-16 00:00:00 2021-06-16 00:00:00 Refill Palmira Lowery [facility] 1.840.114 350.1.13.10 4.2.7.2.686 [id number] [facility] 2021-06-13 00:00:00 2021-06-13 00:00:00 Refill Palmira Lowery [facility] 1..114 350.1.13.10 4.2.7.2.686 [id number] [facility] 2021-05-30 00:00:00 2021-05-30 00:00:00 Case Management Palmira Lowery [facility] 1..114 350.1.13.10 4.2.7.2.686 [id number] [facility] 2021-05-29 00:00:00 2021-05-29 00:00:00 Telephone Palmira Lowery [facility] 1.2.840.114 350.1.13.10 4.2.7.2.686 [id number] [facility] 2021-05-22 10:00:58 2021-05-22 10:31:08 Office Visit Palmira Lowery [facility] 1.2.840.114 350.1.13.10 4.2.7.2.686 [id number] [facility] 2021-05-22 10:00:00 2021-05-22 10:31:08 Outpatient PALMIRA HARRISON [facility] [id number] [facility] 2021-05-17 10:55:20 2021-05-17 11:52:11 Office Visit Hamzah Anton [facility] 1.2.840.114 350.1.13.58 9.2.7.2.686 [id number] [facility] 2021-05-09 09:13:18 2021-05-09 09:43:18 Office Visit Palmira Lowery [facility] 1.2.840.114 350.1.13.10 4.2.7.2.686 [id number] [facility] 2021-05-09 09:30:00 2021-05-09 09:30:00 Outpatient PALMIRA HARRISON [facility] [id number] [facility] 2021-05-09 09:30:00 2021-05-09 09:30:00 Outpatient PALMIRA HARRISON [facility] [id number] [facility] 2021-05-09 09:30:2021-05-09 09:30:00 Outpatient R PALMIRA LOWERY [facility] [id number] [facility] 2021-05-01 08:46:04 2021-05-01 09:16:04 Office Visit MARCELLOCHELSEA MICHI [facility] [address] 1.2.840.114 350.1.13.58 9.2.7.2.686 [id number] [facility] 2021-05-01 00:00:00 2021-05-01 00:00:00 Telephone Palmira Lowery [facility] 1.2.840.114 350.1.13.10 4.2.7.2.686 [id number] [facility] 2021 00:00:00 2021 00:00:00 Telephone Azra Harley Elena [facility] [address] [facility] 1.2.840.114 350.1.13.58 9.2.7.2.686 [id number] [facility] 2021-04-26 00:00:00 2021-04-26 00:00:00 RefPalmira Mcdonald [facility] 1.2.840.114 350.1.13.10 4.2.7.2.686 [id number] [facility] 2021-04-25 00:00:00 2021-04-25 00:00:00 Hamzah Judd [facility] 1.2.840.114 350.1.13.58 9.2.7.2.686 [id number] [facility] 2021-04-25 00:00:00 2021-04-25 00:00:00 Palmira Warren [facility] 1.2.840.114 350.1.13.10 4.2.7.2.686 [id number] [facility] 2021-04-18 00:00:00 2021-04-18 00:00:00 Case Management Palmira Lowery [facility] 1.2.840.114 350.1.13.10 4.2.7.2.686 [id number] [facility] 2021-04-16 00:00:00 2021-04-16 00:00:00 Refill Hamzah Anton [facility] 1.2.840.114 350.1.13.58 9.2.7.2.686 [id number] [facility] 2021-04-06 09:46:34 2021-04-06 10:36:12 Office Visit Palmira Lowery [facility] 1.2.840.114 350.1.13.10 4.2.7.2.686 [id number] [facility] 2021-04-06 09:30:00 2021-04-06 09:30:00 Outpatient R PALMIRA LOWERY [facility] [id number] [facility] 2021-04-06 00:00:00 2021-04-06 00:00:00 Refill Palmira Lowery [facility] 1.2.840.114 350.1.13.10 4.2.7.2.686 [id number] [facility] 2021-04-05 13:59:26 2021-04-05 14:51:50 Office Visit Hamzah Anton [facility] 1.2.840.114 350.1.13.58 9.2.7.2.686 [id number] 2021-04-05 13:59:26 2021-04-05 14:51:50 Office Visit Hamzah Anton [facility] 1.2.840.114 350.1.13.58 9.2.7.2.686 [id number] 1 [id number] [facility] 2021-04-05 00:00:00 2021-04-05 00:00:00 Telephone Palmira Lowery [facility] 1.2.840.114 350.1.13.10 4.2.7.2.686 [id number] [facility] 2021-04-03 00:00:00 2021-04-03 00:00:00 Orders Only Doctor Unassigned, [place] [facility] 1.2.840.114 350.1.13.10 4.2.7.2.686 [id number] [facility] 2021-04-03 00:00:00 2021-04-03 00:00:00 Refana luisa ElkinsaKittya, Aura [facility] 1.2.840.114 350.1.13.58 9.2.7.2.686 [id number] [facility] 2021-04-03 00:00:00 2021-04-03 00:00:00 Refill Solorzano, Aura Solorzano, [facility] 1.2.840.114 350.1.13.58 9.2.7.2.686 [id number] [facility] 2021-03-29 00:00:00 2021-03-29 00:00:00 Refill Solorzano, Aura Solorzano, [facility] 1.2.840.114 350.1.13.58 9.2.7.2.686 [id number] [facility] 2021-03-29 00:00:00 2021-03-29 00:00:00 Refill Solorzano, Aura Solorzano, [facility] 1.2.840.114 350.1.13.58 9.2.7.2.686 [id number] [facility] 2021-03-23 09:30:00 2021-03-23 09:30:00 Outpatient PALMIRA HARRISON [facility] [id number] [facility] 2021-03-23 00:00:00 2021-03-23 00:00:00 Case Management Palmira Lowery [facility] 1.2.840.114 350.1.13.10 4.2.7.2.686 [id number] [facility] 2021-03-23 00:00:00 2021-03-23 00:00:00 Orders Only Doctor Unassigned, [place] [facility] 1.2.840.114 350.1.13.10 4.2.7.2.686 [id number] [facility] 2021-03-23 00:00:00 2021-03-23 00:00:00 Case Management Palmira Lowery [facility] 1.2.840.114 350.1.13.10 4.2.7.2.686 [id number] [facility] 2021-03-21 00:00:00 2021-03-21 00:00:00 Telephone Palmira Lowery [facility] 1.2.840.114 350.1.13.10 4.2.7.2.686 [id number] [facility] 2021-03-16 00:00:00 2021-03-16 00:00:00 Orders Only Azra Harley [facility] [id number] 1.2.840.114 350.1.13.58 9.2.7.2.686 [id number] [facility] 2021-03-16 00:00:00 2021-03-16 00:00:00 Orders Only Azra Harley [facility] [address] 1.2.840.114 350.1.13.58 9.2.7.2.686 [id number] [facility] 2021-03-15 12:41:34 2021-03-15 13:47:49 Office Visit Hamzah Anton [facility] 1.2840.114 350.1.13.58 9.2.7.2.686 [id number] [facility] 2021-03-15 12:41:34 2021-03-15 13:47:49 Office Visit Hamzah Anton [facility] 1.2840.114 350.1.13.58 9.2.7.2.686 [id number] [facility] 2021-03-14 08:10:52 2021-03-14 09:26:01 Office Visit Palmira Lowery [facility] 1.2.114 350.1.13.10 4.2.7.2.686 [id number] [facility] 2021-03-14 08:00:00 2021-03-14 08:00:00 Outpatient R PALMIRA LOWERY [facility] [id number] [facility] 2021-03-14 00:00:00 2021-03-14 00:00:00 Telephone Palmira Lowery [facility] 1.2.114 350.1.13.10 4.2.7.2.686 [id number] [facility] 2021-03-14 00:00:00 2021-03-14 00:00:00 Telephone Azra Harley Elena [facility] [id number] 1.20.114 350.1.13.58 9.2.7.2.686 [id number] [facility] 2021-03-14 00:00:00 2021-03-14 00:00:00 Telephone Azra Harley [facility] [address] 1.2840.114 350.1.13.58 9.2.7.2.686 [id number] [facility] 2021-03-09 00:00:00 2021-03-09 00:00:00 Refill Kitty Solorzano [facility] 1.2.840.114 350.1.13.58 9.2.7.2.686 [id number] [facility] 2021-03-09 00:00:00 2021-03-09 00:00:00 Refill iKtty Solorzano [facility] 1.20.114 350.1.13.58 9.2.7.2.686 [id number] [facility] 2021-03-07 13:40:00 2021-03-07 13:40:00 Outpatient TONE DOMINGO [facility] [id number] General acute hospital 2021-03-06 13:40:00 2021-03-06 13:40:00 Outpatient TONE DOMINGO [facility] [id number] General acute hospital 2021-03-05 00:00:00 2021-03-05 00:00:00 Refill Kitty Solorzano [facility] 1.0.114 350.1.13.58 9.2.7.2.686 [id number] [facility] 2021-03-05 00:00:00 2021-03-05 00:00:00 RefKitty Arteaga [facility] 1.2.114 350.1.13.58 9.2.7.2.686 [id number] [facility] 2021-03-02 00:00:00 2021-03-02 00:00:00 Telephone Palmira Lowery [facility] 1.20.114 350.1.13.10 4.2.7.2.686 [id number] [facility] 2021-03-02 00:00:00 2021-03-02 00:00:00 Telephone Palmira Lowery [facility] 1.2.840.114 350.1.13.10 4.2.7.2.686 [id number] [facility] 2021-02-27 00:00:00 2021-02-27 00:00:00 Telephone Palmira Lowery [facility] 1.2.840.114 350.1.13.10 4.2.7.2.686 [id number] [facility] 2021-02-27 00:00:00 2021-02-27 00:00:00 Telephone Palmira Lowery [facility] 1.2.840.114 350.1.13.10 4.2.7.2.686 [id number] [facility] 2021-02-19 08:30:00 2021-02-19 08:30:00 Outpatient R PALMIRA LOWERY [facility] [id number] [facility] 2021-02-19 00:00:00 2021-02-19 00:00:00 Telephone Palmira Lowery [facility] 1.2.840.114 350.1.13.10 4.2.7.2.686 [id number] [facility] 2021-02-19 00:00:00 2021-02-19 00:00:00 Telephone Palmira Lowery [facility] 1.2.840.114 350.1.13.10 4.2.7.2.686 [id number] [facility] 2021-02-18 15:01:00 2021-02-18 18:16:00 Emergency Daniel Art [facility] [id number] [facility] [place] 2021-02-17 23:15:00 2021-02-18 02:09:00 Emergency [facility] 1.2.840.114 350.1.13.10 4.2.7.2.686 [id number] [facility] 2021-02-06 13:12:38 2021-02-06 14:36:39 Office Visit Palmira Lowery [facility] 1.2.840.114 350.1.13.10 4.2.7.2.686 [id number] 2021-02-06 13:12:38 2021-02-06 14:36:39 Office Visit Palmira Lowery [facility] 1.2.840.114 350.1.13.10 4.2.7.2.686 [id number] [facility] 2021-02-06 14:00:00 2021-02-06 14:00:00 Outpatient R PALMIRA LOWERY [facility] [id number] [facility] 2021-02-02 11:56:00 2021-02-02 13:57:00 Emergency Patrick [facility] 1.2.840.114 350.1.13.10 4.2.7.2.686 [id number] [facility] 2021-02-02 11:56:00 2021-02-02 11:56:00 Emergency [facility] ERT [id number] [facility] Results Test Description Test Time Test Comments Results Result Co mments Source [facility] GLUCOSE (AUTOMATED)2023-10-18 01:13:38* Test Item Value Reference Range Interpretation Comme [facility] POCT GLU (test code = 4623428139) 200 mg/dL 70-110 H Lab Interpretation (test cod e = 20772-7) Abnormal [facility] GLUCOSE (AUTOMATED)2023-10-17 21:43:09* Test Item Value Reference Range Interpretation Comme [facility] POCT GLU (test code = 6650491375) 183 mg/dL 70-110 H Lab Interpretation (test cod e = 25411-6) [facility] VW [id number] 21:26:00XR ELBOW <3 VW RIGHT INDICATION: trauma COMPARISON: None FINDINGS: Olecranon enthesophyte formation with overlying soft tissue swelling. Noacute fracture or dislocation.[facility]2023-10-17 17:10:24* Test Item Value Reference Range Interpretation Comme nts POCT GLU (test code = 5255268185) 154 mg/dL 70-110 H Lab Interpretation (test cod e = 03973-1) Abnormal [facility] L[facility] SP[facility] WO [id number] 16:18:30 EXAM: MR THORACIC SPINE WO CONTRAST, MR LUMBAR SPINE WO CONTRAST HISTORY: trauma TECHNIQUE: Multiplanar multisequence MRI of the thoracic and lumbar spinewas obtained without IV contrast. COMPARISON:CT of the thoracic and lumbar spine 10/16/2023. FINDINGS: THORACIC SPINE: There is normal thoracic kyphosis. There is a nondisplaced split fracture of T9 vertebral body involving theanterior cortex without significant vertebral body height loss. Minimally displaced fracture of the spinous process ofT7 vertebral body isbetter characterized on recent CT study. The vertebral bodies are otherwise normal in height and alignment. Thethoracic cord is normal in caliber and signal. Disc osteophyte complex at T6-T7 result in mild spinal canal stenosis. Nohigh-grade canal stenosis or neuroforaminal narrowing is seen at any level. The paraspinal soft tissues are unremarkable. LUMBAR SPINE: Transitional anatomy with partial lumbarization of S1 segment. The lumbar curvature is normal. Minimal anterolisthesis of L5 over S1.Chronic bilateral pars interarticularis defects are noted at bilaterally atL4-L5 and L5-S1.The vertebral bodies are normal in height and otherwise normal alignment.The conus medullaris terminates at the level of L1. The cauda equina nerveroots are unremarkable. Disc desiccationand moderate disc height loss with associated degenerativeendplate changes is noted at L5-S1. SmallL3 vertebral body intraosseoushemangioma. The background marrow signal is unremarkable. L1- L2: No significant spinal canal stenosis or neural foraminal narrowing. L2-L3: No significant spinal canal stenosis or neural foraminal narrowing. L3-L4: No significant spinal canal stenosis or neural foraminal narrowing. L4-L5: Disc bulge and facet arthrosis result in moderate to severeforaminal narrowing b ilaterally. No significant spinal canal stenosis. L5-S1: Disc bulge and facet arthrosis result in moderate to severeforaminal narrowing bilaterally. No significant spinal canal stenosis. Partially visualized large right renal cyst. [facility] THORACIC SPINE WO [id number] 16:18:30EXAM: MR THORACIC SPINE WO CONTRAST, MR LUMBAR SPINE WO CONTRAST HISTORY: trauma TECHNIQUE: Multiplanar multisequence MRI of the thoracic and lumbar spinewas obtained without IV contrast. COMPARISON:CT of the thoracic and lumbar spine 10/16/2023. FINDINGS: THORACIC SPINE: There is normal thoracic ky phosis. There is a nondisplaced split fracture of T9 vertebral body involving theanterior cortex without significant vertebral body height loss. Minimally displaced fracture of the spinous process ofT7 vertebral body isbetter characterized on recent CT study. The vertebral bodies are otherwise normal in height and alignment. Thethoracic cord is normal in caliber and signal. Disc osteophyte complex at T6-T7 result in mild spinal canal stenosis. Nohigh-grade canal stenosis or neuroforaminal narrowing is seen at any level. The paraspinal soft tissues are unremarkable. LUMBAR SPINE: Transitionalanatomy with partial lumbarization of S1 segment. The lumbar curvature is normal. Minimal anterolist hesis of L5 over S1.Chronic bilateral pars interarticularis defects are noted at bilaterally atL4-L5 and L5-S1.The vertebral bodies are normal in height and otherwise normal alignment.The conus medullaris terminates at the level of L1. The cauda equina nerveroots are unremarkable. Disc desiccation and moderate disc height loss with associated degenerativeendplate changes is noted at L5-S1. Small L3 vertebral body intraosseoushemangioma. The background marrow signal is unremarkable. L1-L2: No significant spinal canal stenosis or neural foraminal narrowing. L2-L3: No significant spinal canal stenosis or neural foraminal narrowing. L3-L4: No significant spinal canal stenosis or neural foraminal narrowing. L4-L5: Disc bulge and facet arthrosis result in moderate to severeforaminal narrowing bilaterally. No significant spinal canal stenosis. L5- S1: Disc bulge and facet arthrosis result in moderate to severeforaminal narrowing bilaterally. No significant spinal canal stenosis. Partially visu alized large right renal cyst.[facility] GLUCOSE (AUTOMATED)2023-10-17 13:23:42* Test Item Value Reference Range Interpretation Comme nts POCT GLU (test code = 9176071185) 203 mg/dL 70-110 H Lab Interpretation (test cod e = 95152-8) Abnormal [facility] GLUCOSE (AUTOMATED)2023-10-17 02:01:28* Test Item Value Reference Range Interpretation Comme nts POCT GLU (test code = 1542702293) 198 mg/dL 70-110 H Lab Interpretation (test cod e = 61595-1) Abnormal [facility] GLUCOSE (AUTOMATED)2023-10-16 23:22:00* Test Item Value Reference Range Interpretation Comme [facility] POCT GLU (test code = 0569736469) 195 mg/dL 70-110 H Lab Interpretation (test cod e = 24156-2) Abnormal [facility] - For all patients >16 years old 2023-10-16 22:08:18ALCOHOL<10mg/dL10/16/2023 5:08 PM TUT LABORATORY SERVICESToxic Greater than or equal to 80 mg/dL. NOTE: Whole blood values are approximately 10% to 15% lower than serum and plasma.[facility]oundCMP2024-04-11 22:04:10* Test Item Value Reference Range Interpretation Comme nts NA (test code = 8264024001) 130 mmol/L 135-145 L K (test code = 2234751906) 4.7 mmol/L 3.5-5.0 CL (test code = 1473730608) 98 mmol/L 98-108 CO2 TOTAL (test code = 6183654947) 27 mmol/L 23-31 AGAP (test code = 2260736992) 5 2-16 BUN (test code = 1404166210) 17 mg/dL 7-23 GLUCOSE (test code = 2496674157) 247 mg/dL 70-110 H CREATININE (test code = 2160-0) 0.86 mg/dL 0.60-1.25 TOTAL BILI (test code = 5847387239) 0.7 mg/dL 0.1-1.1 CALCIUM (test code = 9682146628) 9.2 mg/dL 8.6-10.6 T PROTEIN (test code = 4930254963) 7.4 g/dL 6.3-8.2 ALBUMIN (test code = 5133991949) 4.1 g/dL 3.5-5.0 ALK PHOS (test code = 6072078333) 118 U/L 34-122 ALTv (test code = 1742-6) 33 U/L 5-50 AST(SGOT) (test code = 7977836342) 29 U/L 13-40 eGFR (test code = 05065-6) 101.0 mL/min/1.73m2 CKD-EPI eGFR (2020). Assuming creatinine has been stable day-to-day for at least three months, the eGFR indicates Category G1 (>= 90 mL/min/1.73 m2) Lab Interpretation (test code = 59118-8) Abnormal [facility]Lipase2024-04-11 22:04:10* Test Item Value Reference Range Interpretation Comme nts LIPASE (test code = 5877682647) 103 U/L 0-220 Lab Interpretation (test cod e = 36766-3) Normal [facility]oundType and Screen - The Type and Screen expires at midnight on the 3rd day after it was drawn. A current Type and Screen is required when RBCs are requested. For all other blood products, a Type and Scr een performed during the current hospitalizati...2023-10-16 21:50:00* Test Item Value Reference Range Interpretation Comme nts ABO & RH (test code = 20) O POSITIVE IAT (test code = 1185) Negative [facility] MoundProthrombin Time / [id number] 21:47:43* Test Item Value Reference Range Interpretation Comme nts PROTIME PATIENT (test code = 5964-2) 10.9 10.1-12.6 INR (test code = 6301-6) 1.0 Normal INR <1.1; Warfarin Therapeutic range 2.0 to 3.0 or 2.5 to 3.5, depending upon the indications. Lab Interpretation (test code = 82755-3) Normal [facility] MoundaPTT2024-04-11 21:47:43* Test Item Value Reference Range Interpretation Comme nts APTT Patient (test code = 3173-2) 30 26-36 Lab Interpretation (test cod e = 78659-6) Normal [facility]oundCBC Without [id number] 21:41:46* Test Item Value Reference Range Interpretation Comme nts WBC (test code = 6690-2) 10.69 4.20-10.70 RBC (test code = 789-8) 5.32 4.26-5.52 HGB (test code = 718-7) 15.5 g/dL 12.2-16.4 HCT (test code = 4544-3) 44.8 % 38.4-49.3 MCH (test code = 785-6) 29.1 pg 26.1-32.7 MCV (test code = 787-2) 84.2 fL 81.7-95.6 MCHC (test code = 786-4) 34.6 g/dL 31.2-35.0 PLT (test code = 777-3) 261 150-328 MPV (test code = 41245-2) 9.7 fL 9.8-13.0 L RDW-CV (test code = 788-0) 12.5 % 12.1-15.4 RDW-SD (test code = 32724-8) 38.1 fL 38.5-51.6 L NRBC x10^3 (test code = 5072376438) See_Comment [Automated messa ge] The system which generated this result transmitted reference range: 10*3/?L. The reference range was not used to interpret this result as normal/abnormal. NRBC/100 WBC (test code = 3767313941) 0.0 0.0-10.0 IPF % (test code = 0412825307) Lab Interpretation (test code = 60337-1) Abnormal [facility]oundCT THORAX W [id number] 19:23:04 PROCEDURE: CT CHEST WITHOUT CONTRAST - CHEST PROTOCOL CLINICAL INDICATION: Unspecified injury s/p trauma "fall" Comparison: ?07/25/2021 TECHNIQUE: Volumetric images of the chest were acquired (from lung apicesto bases) without contrast. Images were reconstructed at 2.5 mm slicethickness. MIP axial images, coronal and sagittal reformats were alsosubmitted for interpretation. FINDINGS: LUNGS AND PLEURA: Asymmetric lung volumes with moderate elevation of theright diaphragm, chronic. Mild dependent partial atelectasis. Small granuloma in the right lower lobe. There is a 4 mm nodular density inthe right middle lobe image 92 series 8, along with a couple of tinypunctate or branching nodules on image 90 series 8. LYMPH NODES: Scattered small lymph nodes on both sides of the mediastinumand hilar regions. No evidence of intrathoracic lymphadenopathy. MEDIASTINUM AND LOWER NECK: No central airway lesions are detected. Theesophagus is within normal limits. The included thyroid gland appearsnormal. HEART AND GREAT VESSELS: The heart is normal in size. No pericardialabnormalities are identified. The RV to LV is normal. Unremarkable greatvessels. Mild atherosclerotic calcifications of the coronary vessels. VISUALIZED UPPER ABDOMEN: Postcholecystectomy findings. Partially imagedcystic attenuation lesion in the right renal fossa, perhaps a renal cyst.This is at least 5.9 cm. OSSEOUS STRUCTURESAND SOFT TISSUES: There is a horizontally orientedlucent line extending from the anterior body of the T11 vertebral body. Fracture deformity suspected on the spinous process of T7. Mild compression deformity at T5, with depression of the superior endplate. A buckling of the anterior cortex at the po sterior aspect of the ninth leftrib Questionable focal buckling of the anterior fourth left rib questionablefor acute fracture. Small sclerotic focus along the anterior aspect of the first left rib,perhaps a bone island.[facility]oundCT LUMBAR SPINE WO [id number] 18:34:26CT THORACIC SPINE WO CONTRAST, CT LUMBAR SPINE WO CONTRAST HISTORY: Male 58 years Unspecified injury s/p trauma CT TRAUMA ASSESSMENT COMPARISON: None TECHNIQUE: CT thoracic and lumbar spine studies were reconstructed fromconcurrently obtained CT chest abdomen/pelvis FINDINGS: CT thoracic spine: Thevertebral bodies are normal in height and in normal alignment. No facetfracture or subluxation is present. Diffuse mild degenerative changes. CT lumbar spine: Transitional lumbosacral anatomy with partial lumbarization of S1. Grade 1 anterolisthesis of L5 over S1. The vertebral bodies are normal inheight and in otherwise normal alignment. Chronic bilateral parsinterarticularis defects are noted at both L4-L5 and L5- S1. Moderate spondylosis is seen at L5-S1 with minimal degenerative changes atthe remaining lumbar levels. A sclerotic focus in the left iliac wing is benign in appearance, probablya bone island, chronic infarct or nonossifying fibroma. Large right renal cysts are partially visualized.[facility] THORACIC SPINE WO [id number] 18:34:26CT THORACIC SPINE WO CONTRAST, CT LUMBAR SPINE WO CONTRAST HISTORY: Male 58 years Unspecified injury s/p trauma CT TRAUMA ASSESSMENT COMPARISON: None TECHNIQUE: CT thoracic and lumbar spine studies were reconstructed fromconcurrently obtained CT chest abdomen/pelvis FINDINGS: CT thoracic spine: Thevertebral bodies are normal in height and in normal alignment. No facetfracture or subluxation is present. Diffuse mild degenerative changes. CT lumbar spine: Transitional lumbosacral anatomy with partial lumbarization of S1. Grade 1 anterolisthesis of L5 over S1. The vertebral bodies are normal inheight and in otherwise normal alignment. Chronic bilateral parsinterarticularis defects are noted at both L4-L5 and L5- S1. Moderate spondylosis is seen at L5-S1 with minimal degenerative changes atthe remaining lumbar levels. A sclerotic focus in the left iliac wing is benign in appearance, probablya bone island, chronic infarct or nonossifying fibroma. Large right renal cysts are partially visualized.[facility]CT ABDOMEN PELVIS W [id number] 18:25:32CT Abdomen and Pelvis with intravenous contrast. CLINICAL HISTORY: Trauma. DOSE: Up-to-date CT equipment and radiation dose reduction techniques wereemployed. CTDIvol: ?16.63+22.8 mGy. DLP: 564.20+1497 mGy-cm. TECHNIQUE : Contiguous axial imaging from the level of the lung basesthrough the pubic symphysis were performed after the uncomplicatedadministration of nonionic contrast material. ?Coronaland sagittalreconstructions were obtained. Auto mA and/or iterative reconstruction wereused to reduce radiation dose. FINDINGS: ?Comparison has been made with 03/06/2022 CT studies. Lower lungs: Small6 mm nodule in the right costophrenic sinus region ofthe lung is unchanged. No pleural effusion or pericardial effusion. Nodefinite hiatal hernia but they have noted in the lower esophagus whichcouldbe a sign of gastroesophageal reflux. Right hemidiaphragm iselevated, slightly more than in the previous study without any apparentcause. Liver, Gallbladder and Spleen: Liver is 15.8 cm in length andshowed milddiffuse fatty infiltration. Gallbladder has been removed. Common bile ductis slightly dilated, likely secondary to cholecystectomy. Pancreatic ductis not dilated. Spleen appears normal. Peritoneum: ?No free air or free fluid. No lymphadenopathy. Pancreas and Adrenals: ?Unremarkable pancreas and adrenal glands. Kidneys and Ureters: ?No visible calculi in the renal collecting systems. Nohydroureter or hydronephrosis. 2 large cysts noted, 7.5 x 7.1 cm at theupper pole (Bosniak type I and 11 x 9.8 cm size of the lower pole withcalcification in the capsule noted (Bosniak type II).Both of these cysticlesions have slightly increased in size since February 2022 study. Noenhancing kidney lesions are seen. Vessels: Minimal atherosclerosis of aorta and iliac arteries. Retroperitoneum: No abnormal fluid or lymphadenopathy. Bowel: ?Unremarkable. Bladder and Reproductive Organs: ?Grossly unremarkable under distendedurinary bladder. Calcifications in the vas deferens could be a sign ofchronic poorly controlled diabetes. Bones: Schmorl's nodes throughout lower thoracic and lumbar vertebralendplates, moderate to severe degenerative disc disease at L5-S1 withminimal spondylolisthesis of L5 over S1. Bilateral spondylolysis noted atboth L4 and L5 levels. Loss of height of T6, T7, T8, T9 vertebral body isnoted, likely chronic.Slightly irregular shaped 14 mm lesion is seen in the left iliac body,unchanged since February 2022 study. Soft tissues: Bilateral fat-containing direct type inguinal hernias withoutany complications. CONCLUSION: No acute intra-abdominal or pelvic findings.[facility]CT HEAD WO [id number] 18:15:30CT CERVICAL SPINE WO CONTRAST, CT HEAD WO CONTRAST HISTORY: Male 58 years Unspecified injury s/p trauma CT TRAUMA ASSESSMENT COMPARISON: None TECHNIQUE: Routine CT head and CT cervical spine were obtained without IVcontrast FINDINGS: CT head: The ventricles and cerebral sulci are normal in caliber and configuration.No hydrocephalus, midline shift or pathological extra axial fluidcollection is present. The basal cisterns are unremarkable. A smallretrocerebellar CSF density collection posterior to the right cerebellarhemisphere likely represents an incidental posterior fossa arachnoid cyst. No acute intracranial hemorrhage or mass effect is present. The winslow- whitematter differentiation is preserved. No significant parenchymal attenuationabnormality is present. The calvarium and skull base are unremarkable. The mastoid air cells andvisualized paranasal air sinuses are clear. CT cervical spine: Subsegmental lordosis. The vertebral bodies are normal in height and innormal alignment. The craniocervical junction is intact. The prevertebralsoft tissues are unremarkable. Severe degenerative changes are present at C5-C6 with minimal degenerativechanges at the remaining cervical levels.[facility] CERVICAL SPINE WO [id number] 18:15:30CT CERVICAL SPINE WO CONTRAST, CT HEAD WO CONTRAST HISTORY: Male 58 years Unspecified injury s/p trauma CT TRAUMA ASSESSMENT COMPARISON: None TECHNIQUE: Routine CT head and CT cervical spine were obtained without IVcontrast FINDINGS: CT head: The ventricles and cerebral sulci are normal in caliber and configuration.No hydrocephalus, midline shift or pathological extra axial fluidcollection is present. The basal cisterns are unremarkable. A smallretrocerebellar CSF density collection posterior to the right cerebellarhemisphere likely represents an incidental posterior fossa arachnoid cyst. No acute intracranial hemorrhage or mass effect is present. The winslow- whitematter differentiation is preserved. No significant parenchymal attenuationabnormality is present. The calvarium and skull base are unremarkable. The mastoid air cells andvisualized paranasal air sinuses are clear. CT cervical spine: Subsegmental lordosis. The vertebral bodies are normal in height and innormal alignment. The craniocervical junction is intact. The prevertebralsoft tissues are unremarkable. Severe degenerative changes are present at C5-C6 with minimal degenerativechanges at the remaining cervical levels.[facility] Hemoglobin A1C [id number] 13:40:00* Test Item Value Reference Range Interpretation Comme [facility] POCT HBA1C (test code = 4548-4) 11.7 % 4-6 A Lab Interpretation (test cod e = 68823-3) Abnormal [facility] 1 [id number] 21:28:19EXAM: XR CHEST 1 07/19/2023 2:58 PM HISTORY: 58 years-old Male with covid eval for pneumonia . TECHNIQUE: Portable AP view of the chest. COMPARISON: 02/26/2022 FINDINGS: Lines and tubes: None. Cardiomediastinal: The cardiomediastinal silhouette is unremarkable. Lungs and pleura: Elevated right hemidiaphragm again noted. Some increasinglinear opacities in the lower lungs suggest increasing subsegm entalatelectasis superimposed on right lower lung subsegmental atelectasis orscarring. Included osseous structures show no acute abnormality.[facility] ANGIOGRAM [id number] 20:40:30CT ANGIOGRAM HEAD HISTORY: Male 58 years eval for aneurysm. COMPARISON: None TECHNIQUE: CT angiographic images of the head were obtained afteradministration of IV contrast. Multiplanar reformats including maximumintensity projection images submitted for review. FINDINGS: The PICA origin is visualized bilaterally. The basilar artery is normal incaliber. The superior cerebellar arteries are unremarkable. The posteriorcerebral arteries are unremarkable. The distal cervical, petrous, cavernous and supraclinoid internal carotidarteries are patent. The anterior and middle cerebral arteries are unremarkable. An anteriorcommunicating artery is visualized. Dural venous sinuses are opacified. [facility] [id number] 20:34:11EXAM: CT HEAD WO CONTRAST HISTORY: Headache, eval for ICH. Patient presented with headache andvomiting. TECHNIQUE: Axial CT of the head was performed and reconstructed at 5 mmintervals. Coronal and sagittal reformatted images were generated. COMPARISON: None FINDINGS: The ventricles and cerebral sulci are normal in caliber and configuration.No midline shift or pathological extra-axial fluid collection is present.The basal cisterns are unremarkable. No acute intracranial hemorrhage or significant mass effect is visualized.No parenchymal attenuation abnormality is seen. The winslow-white matterdifferentiation is preserved. The mastoid air cells and paranasal air sinuses are clear. The calvariumand central skull base are unremarkable. Incidentally noted small rightretrocerebellar arachnoid cyst.[facility]. Metabolic Panel ([id number])2023-07-19 19:46:10* Test Item Value Reference Range Interpretation Comme nts NA (test code = 8788378362) 130 mmol/L 135-145 L K (test code = 1134674200) 4.1 mmol/L 3.5-5.0 CL (test code = 8839212635) 94 mmol/L 98-108 L CO2 TOTAL (test code = 3536371764) 28 mmol/L 23-31 AGAP (test code = 5729868706) 8 2-16 BUN (test code = 6009728031) 18 mg/dL 7-23 GLUCOSE (test code = 4677559126) 396 mg/dL 70-110 H CREATININE (test code = 6683331563) 1.00 mg/dL 0.60-1.25 TOTAL BILI (test code = 5168825750) 0.8 mg/dL 0.1-1.1 CALCIUM (test code = 1359033474) 9.6 mg/dL 8.6-10.6 T PROTEIN (test code = 4702997488) 9.0 g/dL 6.3-8.2 H ALBUMIN (test code = 6793700922) 4.6 g/dL 3.5-5.0 ALK PHOS (test code = 9091518471) 155 U/L 34-122 H ALTv (test code = 1742-6) 44 U/L 5-50 AST(SGOT) (test code = 5381334119) 40 U/L 13-40 eGFR (test code = 31508-1) 87.8 mL/min/1.73m2 CKD-EPI eGFR (2020). Assuming creatinine has been stable day-to-day for at least three months, the eGFR indicates Category G2 (60 - 89 mL/min/1.73 m2) Lab Interpretation (test code = 29323-0) Abnormal [facility] with [id number] 19:31:26* Test Item Value Reference Range Interpretation Comme nts WBC (test code = 6690-2) 7.20 See_Comment [Automated [employer]tiitoo] The system which generated this result transmitted reference range: 4.20 - 10.70 10*3/?L. The reference range was not used to interpret this result as normal/abnormal. RBC (test code = 789-8) 5.68 See_Comment H [Automated [employer]] The system which generated this result transmitted reference range: 4.26 - 5.52 10*6/?L. The reference range was not used to interpret this result as normal/abnormal. HGB (test code = 718-7) 16.3 g/dL 12.2-16.4 HCT (test code = 4544-3) 47.4 % 38.4-49.3 MCV (test code = 787-2) 83.5 fL 81.7-95.6 MCH (test code = 785-6) 28.7 pg 26.1-32.7 MCHC (test code = 786-4) 34.4 g/dL 31.2-35.0 RDW-SD (test code = 89355-5) 36.6 fL 38.5-51.6 L RDW-CV (test code = 788-0) 12.1 % 12.1-15.4 PLT (test code = 777-3) 237 See_Comment [Automated messa ge] The system which generated this result transmitted reference range: 150 - 328 10*3/?L. The reference range was not used to interpret this result as normal/abnormal. MPV (test code = 31059-8) 10.1 fL 9.8-13.0 NRBC/100 WBC (test code = 3199964344) 0.0 See_Comment [Automated [employer] ssage] The system which generated this result transmitted reference range: 0.0 - 10.0 /100 WBCs. The reference range was not used to interpret this result as normal/abnormal. NRBC x10^3 (test code = 6233288606) See_Comment [Automated [employer] System[employer] ge] The system which generated this result transmitted reference range: 10*3/?L. The reference range was not used to interpret this result as normal/abnormal. GRAN MAT (NEUT) % (test code = 770-8) 77.7 % IMM GRAN % (test code = 8054933625) 0.80 % LYMPH % (test code = 736-9) 10.6 % MONO % (test code = 5905-5) 9.4 % EOS % (test code = 713-8) 0.8 % BASO % (test code = 706-2) 0.7 % GRAN MAT x10^3(ANC) (test code = 5725357801) 5.59 10*3/uL 1.99-6.95 IMM GRAN x10^3 (test code = 4546266591) 0.06 10*3/uL 0.00-0.06 LYMPH x10^3 (test code = 731-0) 0.76 10*3/uL 1.09-3.23 L MONO x10^3 (test code = 742-7) 0.68 10*3/uL 0.36-1.02 EOS x10^3 (test code = 711-2) 0.06 10*3/uL 0.06-0.53 BASO x10^3 (test code = 704-7) 0.05 10*3/uL 0.01-0.09 Lab Interpretation (test code = 91963-9) Abnormal [facility] URINALYSIS W SPECIFIC [id number] 16:02:00* Test Item Value Reference Range Interpretation Comme nts POCT U SP GRAV (test code = 3255) 1.020 mg/dl 1.005-1.025 POCT PH U (test code = 3254) 6 mg/dl 5-8 POCT U LEUK EST (test code = 3263) 2+ Negative - Negative POCT U NIT (test code = 3262) neg Negative - Negati ve POCT U PROT (test code = 3259) neg Negative - Negative POCT U GLU (test code = 3256) 500 Negative - Negati ve POCT U KETONE (test code = 3258) 1+ Negative - Negative POCT U UROBILI (test code = 3260) 0.2 mg/dl 0.2-1 POCT U BILI (test code = 3261) neg Negative - Negative POCT U BLD (test code = 3257) 250 Negative - Negati ve POCT U COLOR (test code = 3266) yel POCT U APPEAR (test code = 3267) cloudy Lab Interpretation (test cod e = 45614-9) Abnormal [facility] URINALYSIS W SPECIFIC [id number] 16:02:00* Test Item Value Reference Range Interpretation Comme nts POCT U SP GRAV (test code = 3255) 1.020 mg/dl 1.005-1.025 POCT PH U (test code = 3254) 6 mg/dl 5-8 POCT U LEUK EST (test code = 3263) 2+ Negative - Negative POCT U NIT (test code = 3262) neg Negative - Negati ve POCT U PROT (test code = 3259) neg Negative - Negative POCT U GLU (test code = 3256) 500 Negative - Negati ve POCT U KETONE (test code = 3258) 1+ Negative - Negative POCT U UROBILI (test code = 3260) 0.2 mg/dl 0.2-1 POCT U BILI (test code = 3261) neg Negative - Negative POCT U BLD (test code = 3257) 250 Negative - Negati ve POCT U COLOR (test code = 3266) yel POCT U APPEAR (test code = 3267) cloudy Lab Interpretation (test cod e = 59505-9) Abnormal [facility] URINALYSIS W SPECIFIC [id number] 16:02:00* Test Item Value Reference Range Interpretation Comme nts POCT U SP GRAV (test code = 3255) 1.020 mg/dl 1.005-1.025 POCT PH U (test code = 3254) 6 mg/dl 5-8 POCT U LEUK EST (test code = 3263) 2+ Negative - Negative POCT U NIT (test code = 3262) neg Negative - Negati ve POCT U PROT (test code = 3259) neg Negative - Negative POCT U GLU (test code = 3256) 500 Negative - Negati ve POCT U KETONE (test code = 3258) 1+ Negative - Negative POCT U UROBILI (test code = 3260) 0.2 mg/dl 0.2-1 POCT U BILI (test code = 3261) neg Negative - Negative POCT U BLD (test code = 3257) 250 Negative - Negati ve POCT U COLOR (test code = 3266) yel POCT U APPEAR (test code = 3267) cloudy Lab Interpretation (test cod e = 91885-4) Abnormal [facility] URINALYSIS W SPECIFIC [id number] 16:02:00* Test Item Value Reference Range Interpretation Comme nts POCT U SP GRAV (test code = 3255) 1.020 mg/dl 1.005-1.025 POCT PH U (test code = 3254) 6 mg/dl 5-8 POCT U LEUK EST (test code = 3263) 2+ Negative - Negative POCT U NIT (test code = 3262) neg Negative - Negati ve POCT U PROT (test code = 3259) neg Negative - Negative POCT U GLU (test code = 3256) 500 Negative - Negati ve POCT U KETONE (test code = 3258) 1+ Negative - Negative POCT U UROBILI (test code = 3260) 0.2 mg/dl 0.2-1 POCT U BILI (test code = 3261) neg Negative - Negative POCT U BLD (test code = 3257) 250 Negative - Negati ve POCT U COLOR (test code = 3266) yel POCT U APPEAR (test code = 3267) cloudy Lab Interpretation (test cod e = 33875-4) Abnormal [facility] Consult Notes Date/Time Note Provider Source 2023-10-18 10:03:00 Associated Order(s): CONSULT ADULT OCCUPATIONAL THERAPY OT GENERAL EVALUATION Consult received via [employer] EMR reviewed and evaluation completed 10/18/23. Patient referred to occupational therapy for evaluation and treatment secondary to presentation for Trauma [T14.90XA] Patient is seen s/p fall at work and patient with acute split fracture of the T9 posterior column without significant height loss and a minimally displaced T7 spinous process fracture,potential buckling of the anterior post cortex of the posterior ninth left rib . Patient agreeable to participate in occupational therapy. Discharge Recommendations: Therapy Needs and Potential:Not applicable as no further skilled acute care OT needs at this time. Challenges to Home Transition:- Increased risk of falls Equipment Recommendations:Raised commode seat, Shower chair, Grab bars, and Hand held shower PLAN OF CARE: Discharge from OT services Precautions: Weight bearing status: NA General: PPE Utilized: Gloves Bracing: N/A Current Occupational Performance and/or Treatment: AM-PAC 6 Clicks (Raw Score 0=Dependent, 24=Independent; Low function Raw Score 0= Dependent, 32=Independent): Feeding: Independent, per patient report Grooming: Independent, per patient report Bathing: Independent, OT recommends utilization of shower chair, grab bars, and HH shower to increase safety with bathing task UB Dressing: Independent LB Dressing: Independent, patient independent with donning/doffing socks and shorts Tub/Shower Transfer: Independent, OT recommends utilization of shower chair, grab bars to increase safety with shower transfer Toilet Transfer: Independent, OT recommends utilization of toilet riser to increase safety and independence with toilet transfer Toileting Hygiene: Independent Functional Mobility: Patient independent with ambulating to/from bathroom for self care needs. Patient/caregiver educated on:Adaptive equipment , ADL training, Compensatory techniques/adaptive strategies, and Fall prevention Patient left sitting upright in bedside chair with call melendrez in reach. . Please, see full evaluation below for more detail. OT EVALUATION: 58 year old male Admit date: 10/16/2023 Date of onset: 10/16/2023 Admit Diagnosis: Trauma [T14.90XA] OT Diagnosis: Impaired IADL independence and increased risk of falls during IADLs PMH: Past Medical History: Diagnosis Date Diabetes Fatty liver Hypertension MRSA infection post op RTK PSH: Past Surgical History: Procedure Laterality Date JOINT SURGERY Right PTERYGIUM EXCISION Right PAIN: Did not appear to be in pain based on lack of grimacing, withdrawal and/or change in vital signs before or after session. OCCUPATIONAL ROLES/HOME ENVIRONMENT: Home environment: Lives alone. 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 Function prior to admission: Household ambulation, Community ambulation, Independent with BADLs, and Independent with IADLs Suspected ischemic or hemorraghic stroke patient: No Equipment prior to admission: Grab bars, Hand held shower, raised commode seat, Shower chair PERFORMANCE SKILLS/FACTORS: UE Muscle Tone: bilateral WNL UE ROM: bilateral AROM WFL UE Strength: JAN UE WFL Hand dominance: right Dexterity/Coordination: bilateral Fine motor skills Intact Endurance - Sitting: Excellent Standing: Excellent Sitting Balance - Static: Excellent Dynamic: Excellent Standing: Balance - Static Excellent Dynamic: Good Dizziness: Yes Skin Integrity: defer full skin assessment to nursing Sensation: bilateral Intact to light touch Oral Motor: WFL Communication: Able to verbalize needs Yes Other: N/A Vision: WFL Yes Other: N/A Hearing: good; no issues reported COGNITION: Orientation: person, place, date/time, and situation Follows Commands: 1-step Yes Multi-step Yes Inconsistencies No Safety Awareness/Judgment: Good PROBLEM LIST: increased risk of falls REHAB POTENTIAL/PROGNOSIS: NA as no further therapy needs PATIENT/FAMILY GOALS: "to get better" TREATMENT/INTERVENTION PLAN: Functional motor treatment, Patient/Caregiver Education, Equipment recommendations, Daily living activities, and Therapeutic exercises PATIENT-FAMILY TEACHING Patient provided with preferred teaching of verbal information on Adaptive equipment , ADL training, Compensatory techniques/adaptive strategies, Fall prevention, and Role of OT. Shows readiness to learn. Verbal instruction teaching provided. Individual is able to read and verbalizes understanding of teaching provided. SHANELL Tidwell, OTR/L Pager: [phone] Total Timed Treatment Codes: 8 Min Total Treatment Time: 17 Min Patient Complexity Level Low - An occupational therapy evaluation of low complexity was completed using the above tests and measures. The following information was obtained: An occupational profile and medical and therapy history, including a brief history with review of medical and/or therapy records related to the presenting problem. Various standardized and non-standardized assessments were used to identify at least 1-3 performance deficits related to physical, cognitive, or psychosocial skills that result in activity limitations and/or participation restrictions. Clinical decision making of low complexity may have been utilized, which includes an analysis of the occupational profile, analysis of data from problem-focused assessment(s), and consideration of a limited number of treatment options. Patient may presents with no comorbidities that affect occupational performance. Modification of tasks or assistance (e.g., physical or verbal) with assessment(s) may not have been necessary to enable completion of evaluation component. Lashonda Ackerman OT [facility] 2023-10-18 09:36:00 Associated Order(s): CONSULT ADULT PHYSICAL THERAPY Patient agreeable to working with physical therapy. Patient met semi reclined in bed.Patient vitals as follows HR; 85 bpm, spo2: 95 % on room air, BP: 131/95. Recommend nursing staff utilize independent with no AD to safely assist patient with mobility out of the bed or chair. PHYSICAL THERAPY EVALUATION Consult received, chart reviewed and evaluation complete this date. Patient is referred to PT for evaluation and treatment. Patient is a 58 year old male who presents to hospital for Trauma [T14.90XA] Patient is seen s/p fall at work and patient with acute split fracture of the T9 posterior column without significant height loss and a minimally displaced T7 spinous process fracture,potential buckling of the anterior post cortex of the posterior ninth left rib . Discharge Recommendations: Therapy Needs and Potential: Patient without any skilled PT needs at this time. Challenges to Home Transition: None Equipment recommendations: no device Current Functional Status and/or Treatment: AM-PAC 6 Clicks (Raw Score 0=Dependent, 24=Independent; Low function Raw Score 0= Dependent, 32=Independent): Raw Score - Basic Mobility : 24 T-Scale Score - Basic Mobility : 57.68 Bed Mobility: Rolling: Independent , sitting at the edge of bed: independent, Dizziness Yes however resolved after few min Transfers: Sit to stand: Independent using no device. Stand to sit: Independent using no device. Dizziness No Ambulation: Assisted patient with ambulation as follows: 300 feet using no device. and Independent. Patient with steady gait and no loss of balance noted Dizziness No Therapeutic exercise: instructed patient in the following: ankle pumps, heel slides, hip abduction/adduction, long arc quads 10x Functional Outcome Measures: (Values within the past 12 hours) Tinetti Gait Score- # / 12 Initiation of gait: No hesitancy Step length: On both sides, swing foot passes stance foot Foot clearance: Both feet completely clear floor Step Symmetry: Step lengths equal Step continuity: Stopping/dis-continuous steps Path: Straight without AD Trunk: No sway, no flexion, no use of arms, no use of AD Walking: Heels apart Tinetti Gait Score: 10 Tinetti Gait Score Interpretation: >= 7 - Low risk for falls After session, patient up in chair. Call button provided. RN notified of patient status PLAN OF CARE: PT signs off. See below for complete details. Admit Date: 10/16/2023 Hospital Diagnosis:Trauma [T14.90XA] PT Diagnosis: Difficulty walking and Weakness Weight Bearing Precaution: NA General Precautions: PPE used:Gloves, General, Fall,IV peripheral , icu lines Bracing/Cast present or required:N/A PMH: Past Medical History: Diagnosis Date Diabetes Fatty liver Hypertension MRSA infection post op RTK PSH: Past Surgical History: Procedure Laterality Date JOINT SURGERY Right PTERYGIUM EXCISION Right Prior Living Situation: lives with his girl friend in a single story house with no steps to enter , DME: Single Point Cane, Axillary Crutches, Rolling Walker Prior level of Mobility: independent Suspected ischemic or hemorraghic stroke:No Subjective: Patient states that he was independent prior to hospitalization Patient/Family Goals: to get better Patient/Family verbalizes understanding of condition: Yes PAIN: denies pain before and after session COMMUNICATION Primary Language: Romanian Able to Verbalize needs: Yes Vision:reading glasses Hearing:good; no issues reported ORIENTATION/COGNITION: Oriented to: person, place, date/time, and situation Awake: Yes Alert: Yes Dizzy: No Follows Commands: Yes 1-Step Yes Multi-Step Yes Inconsistent: No NEUROLOGICAL Light Touch: within functional limits bilateral LE Tone: normal BALANCE: Sitting: Static: Good Dynamic: Good Standing: Static: Fair+ Dynamic: fair + RANGE OF MOTION: within functional limits bilateral LE STRENGTH: 4/5 (Good), bilateral LE ENDURANCE: Fair, Room air SKIN INTEGRITY: defer to nursing notes PROBLEM LIST: patient has no acute PT needs at this time ASSESSMENT: Patient is a 58 year old male seen secondary to the above listed diagnosis. No further inpatient PT needs identified at this time. Rehabilitation Potential: fair Goals: The following goals are to maximize independence and safety with functional mobility to eventually return to prior living situation and prior functional status. Defer as no PT needs. Treatment Plan: Evaluation only and Discharge from PT PATIENT EDUCATION: Patient provided with preferred teaching of verbal information on role of PT, plan of care. Shows readiness to learn. Verbal instruction teaching provided. Individual verbalizes understanding of teaching provided. Total Time Tx Codes in Minutes: 0 min Total Treatment Time in Minutes: 22 min Cody Rios PT, DPT,CMSR Cody Rios PT [facility] 2023-10-17 01:34:10 Associated Order(s): CONSULT NEUROSURGERY NEUROSURGERY CONSULTATION HISTORY AND PHYSICAL Attending Neurosurgeon: Gildardo Chaney MD HPI: Sharon Mckinnon is a 58 year old male with a history of HTN and DMII. Comes to the ER after falling from his boat. No LOC. Since then, refers leg paresthesias. PE: Fully conscious. Afebrile. Stable. Gross motor and CN functions conserved. Paresthesias in lower limbar. Sphincter functions conserved. Past Medical History: Past Medical History: Diagnosis Date Diabetes Fatty liver Hypertension MRSA infection post op RTK Past Surgical History: Past Surgical History: Procedure Laterality Date JOINT SURGERY Right PTERYGIUM EXCISION Right Family History: not pertinent to this encounter Social History: not pertinent to this encounter ROS A 10 system ROS was negative apart from the pertinent positives noted in the HPI above. Physical Exam Vitals: Vitals: 10/16/23 2315 10/16/23 2318 10/17/23 0000 10/17/23 0100 BP: 111/80 111/80 105/80 114/84 Pulse: 89 89 86 94 Resp: 18 25 15 28 Temp: 36.6 ?C (97.9 ?F) TempSrc: Tympanic SpO2: 94% 95% 96% 96% Weight: Height: Labs: Hemogram Recent Labs 10/16/23 1306 10/16/23 1632 WBC 7.84 10.69 HGB 15.7 15.5 HCT 45.7 44.8 PLT 243 261 Chemistry Recent Labs 10/16/23 1306 10/16/23 1632 NA 130* 130* K 4.6 4.7 CL 98 98 TCO2 23 27 BUN 18 17 CREAT 0.95 0.86 GLU 351* 247* MG 1.8 -- CA 9.4 9.2 Coagulation Profile Recent Labs 10/16/23 1632 PTPAT 10.9 PTINR 1.0 APTTPAT 30 Imaging: CT THORAX W CONTRAST Addendum Date: 10/16/2023 PROCEDURE: CT CHEST WITH CONTRAST - CHEST PROTOCOL TECHNIQUE: Volumetric images of the chest were acquired (from lung apices to bases) following administration of IV contrast. Images were reconstructed at 2.5 mm slice thickness. MIP axial images, coronal and sagittal reformats were also submitted for interpretation. Result Date: 10/16/2023 IMPRESSION: 1. Mild dependent atelectasis. Occasional visible millimeter right middle lobe small nodules, statistically benign as an isolated finding. No acute lung disease. No pneumothorax. 2. Suspicion for a nondisplaced potentially acute linear fracture at the anterior column of T9, mildly displaced spinous process of T7 and potential buckling of the anterior post cortex of the posterior ninth left rib. Dr. Jay notified at 2:[address] Person. 3. Mild atherosclerotic ossifications of the coronary vessels. 4. Possible left renal cyst, partially imaged CT LUMBAR SPINE WO CONTRAST Result Date: 10/16/2023 No acute osseous abnormality is present in the thoracic or lumbar spine. Incidentally noted chronic bilateral pars interarticularis defects at both L4-L5 and L5-S1. CT THORACIC SPINE WO CONTRAST Result Date: 10/16/2023 No acute osseous abnormality is present in the thoracic or lumbar spine. Incidentally noted chronic bilateral pars interarticularis defects at both L4-L5 and L5-S1. CT HEAD WO CONTRAST Result Date: 10/16/2023 No acute intracranial abnormality No acute fracture or traumatic malalignment within the cervical spine. Incidentally noted advanced degenerative changes at C5-C6. CT CERVICAL SPINE WO CONTRAST Result Date: 10/16/2023 No acute intracranial abnormality No acute fracture or traumatic malalignment within the cervical spine. Incidentally noted advanced degenerative changes at C5-C6. Assessment: Sharon Mckinnon is a 58 year old male with a linear fracture of the T9 vertebral body. Stable. Recommendations: Thoracolumbar MRI without contrast. Neurosurgery re-consult if MRI shows any pathologies such as epidural hematoma, ligamentous strain, etc. Richar Vinson MD Neurosurgery Resident Associated attestation - Shiv Ewing MD - 10/18/2023 11:33 AM CDT I personally evaluated and am primary in decision making on, Sharon Mckinnon, and I agree with the documentation by Neurosurgery resident Richar Vinson MD. [facility] - Health History and Physical Notes Date/Time Note Provider Source 2023-10-16 16:28:00 TRAUMA SURGERY HISTORY AND PHYSICAL Date of Service: 10/16/2023 16:28 Chief Complaint: Fall from boat TRAUMA STAT HPI/MECHANISM OF INJURY Date of Injury- 10/16/23 Time of Injury- 11 am Transport details: EMS Details: Sharon Mckinnon is a 58 year old male presenting as a trauma activation for boat fall at work, hitting head on concrete. +LOC, no blood thinners. Fell 5-6 feet high. Allergic to aspirin. Fell onto right side and hitting his head. C-collar in place. T7 and T9 fractures per EMS. Tingling and numbness to lower extremities knee down, bilateral. Pre-hospital interventions: Medications given: Fentanyl 50, Zofran 4 and Interventions: [facility] imaging from [facility] PRIMARY SURVEY Vitals: There were no vitals filed for this visit. Airway: Patent Breathing: bilateral breath sounds present Circulation: Bilateral radial pulses present and Bilateral DP/PT pulses present Disability: Glascow Coma Scale: Glascow Coma Scale Eye Openin Best Verbal Response: 5 Best Motor Response: 6 TOTAL: 15 Pupils: Equal/reactive and 3 mm Rectal exam: not performed. Exposure: see physical exam findings FAST Exam: was not performed Chest XR: not obtained Pelvic XR: not obtained ALLERGIES: Allergies Allergen Reactions Aspirin Nausea and/or Vomiting Other reaction(s): NAUSEA MEDICATIONS: Home Medications: (Not in a hospital admission) Hospital Medications: No current facility-administered medications for this encounter. Current Outpatient Medications Medication Sig Dispense Refill amitriptyline 50 mg tablet Take 1 tablet by mouth every morning and evening. 180 tablet 1 atorvastatin 40 mg tablet Take 1 tablet by mouth at bedtime. 90 tablet 2 pregabalin 150 mg capsule TAKE 1 CAPSULE BY MOUTH IN THE MORNING AND IN THE EVENING 180 capsule 0 semaglutide (OZEMPIC) 2 mg/dose (8 mg/3 mL) PnIj inject 2 mg under the skin weekly. 6 mL 1 LISINOPRIL 20 mg tablet TAKE 1 TABLET BY MOUTH EVERY DAY IN THE MORNING 90 tablet 0 metFORMIN 500 mg tablet TAKE 1 TABLET BY MOUTH TWICE DAILY WITH MEALS 180 tablet 1 LANTUS U-100 INSULIN 100 unit/mL solution INJECT 35 UNITS UNDER THE SKIN AT BEDTIME. 40 mL 2 FUROSEMIDE 20 mg tablet TAKE 1 TABLET BY MOUTH 2 TIMES DAILY FOR 60 DAYS. 180 tablet 0 HUMALOG U-100 INSULIN 100 unit/mL solution INJECT 8 UNIT SUB Q THREE TIMES A DAY BEFORE MEALS 10 mL 1 ketorolac 10 mg tablet TAKE 1 TABLET BY MOUTH EVERY 6 HOURS NEEDED WITH FOOD ONETOUCH DELICA LANCETS 30 gauge Misc USE DIRECTED MISC DAILY ONETOUCH ULTRA TEST strip USE DIRECTED MISC TID BEFORE MEALS TRUEPLUS INSULIN 1 mL 31 gauge x 5/16 Syrg PAST SURGICAL HISTORY: Past Surgical History: Procedure Laterality Date JOINT SURGERY Right PTERYGIUM EXCISION Right PAST MEDICAL HISTORY: Past Medical History: Diagnosis Date Diabetes Fatty liver Hypertension MRSA infection post op RTK SOCIAL HISTORY: Social History Socioeconomic History Marital status: Tobacco Use Smoking status: Never Passive exposure: Never Smokeless tobacco: Never Substance and Sexual Activity Drug use: Never Social History Narrative Single 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 [employer] FAMILY HISTORY: Family History Problem Relation Age of Onset Hypertension Mother REVIEW OF SYSTEMS 14-point Review of Systems conducted; positives are noted per HPI PHYSICAL EXAM HEAD SCALP Grossly normal, no wounds, no tenderness to palpation FOREHEAD Grossly normal, no wounds, no tenderness to palpation EYES Visual acuity grossly normal, extraocular movements intact, normal external eye, corneas clear, conjunctiva and sclera normal EARS Hearing grossly intact, no wounds, external ear normal NOSE Grossly normal, septum intact, no wounds, no bleeding, no discharge MIDFACE Grossly normal, stable and no tenderness to palpation MOUTH Lips grossly normal, mucous membranes moist, no wounds intraorally MANDIBLE Grossly normal, no wounds, no tenderness to palpation NECK ANTERIOR NECK Grossly normal, no wounds, no JVD, no tenderness to palpation, no subcutaneous emphysema TRACHEA Midline POSTERIOR NECK Grossly normal, no wounds, no tenderness to palpation, no subcutaneous emphysema CHEST ANTERIOR CHEST No wounds, no tenderness to palpation, no subcutaneous emphysema CHEST WALL MOVEMENT Normal; no paradoxical chest wall movement. Non-labored respirations. CHEST WALL STABILITY Stable with palpation AUSCULTATION Regular rate and rhythm, lung sounds as noted above ABDOMEN/PELVIS INSPECTION No wounds. Grossly normal external appearance. PALPATION Soft, non-tender, non-distended. No rebound tenderness or guarding. No peritoneal signs. PELVIS STABILITY Stable with compression. MUSCULOSKELETAL RIGHT UPPER EXTREMITY No gross deformity. No tenderness to palpation. Neurovascularly intact. No pain with range of motion. LEFT UPPER EXTREMITY No gross deformity. No tenderness to palpation. Neurovascularly intact. No pain with range of motion. RIGHT LOWER EXTREMITY No gross deformity. No tenderness to palpation, no sensation at all on exam. Neurovascularly intact. No pain with range of motion. LEFT LOWER EXTREMITY No gross deformity. No tenderness to palpation, no sensation at all on exam. Neurovascularly intact. No pain with range of motion. GENITALIA, PERINEUM, RECTUM GENITALIA Not examined. PERINEUM Not examined. RECTUM Not examined. BACK CERVICAL SPINE No tenderness to palpation. No wounds. THORACIC SPINE No tenderness to palpation. No wounds. LUMBAR SPINE No tenderness to palpation. No wounds. SACRUM No tenderness to palpation. No wounds. Neurologic Exam: Right Left Comment Upper Extremity Strength Exam 5/5 5/5 Lower Extremity Strength Exam 5/5 5/5 Sensation: abnormal: no sensation bilateral lower extremities, knee down LABORATORY RESULTS Chemistry CBC LFTs Coags, other 130 (L) 98 18 351 (H) 7.84 15.7 243 AST: 34 ALT: 37 PT: - INR: - 4.6 23 0.95 45.7 AP: 145 (H) T Jan: 0.9 PTT: - eGFR: 93.4 Ca: 9.4 % Harpal: 67.9 Prot: 8.2 Alb: 4.3 Lact: - Procal: - M.8 PO4: - ANC: 5.33 pBNP: <20 Trop I: 0.002 ABG PH (no units) Date Value 07/25/2021 7.40 PCO2 (mmHg) Date Value 07/25/2021 33 (L) PO2 (mmHg) Date Value 07/25/2021 77 (L) %O2HB (%) Date Value 07/25/2021 94.3 NA (mmol/L) Date Value 07/25/2021 135 K+ (mmol/L) Date Value 07/25/2021 4.0 AC CA IONZ (mg/dL) Date Value 07/25/[address] THORAX W CONTRAST Addendum Date: 10/16/2023 PROCEDURE: CT CHEST WITH CONTRAST - CHEST PROTOCOL TECHNIQUE: Volumetric images of the chest were acquired (from lung apices to bases) following administration of IV contrast. Images were reconstructed at 2.5 mm slice thickness. MIP axial images, coronal and sagittal reformats were also submitted for interpretation. Result Date: 10/16/2023 PROCEDURE: CT CHEST WITHOUT CONTRAST - CHEST PROTOCOL CLINICAL INDICATION: Unspecified injury s/p trauma "fall" Comparison: 07/25/2021 TECHNIQUE: Volumetric images of the chest were acquired (from lung apices to bases) without contrast. Images were reconstructed at 2.5 mm slice thickness. MIP axial images, coronal and sagittal reformats were also submitted for interpretation. FINDINGS: LUNGS AND PLEURA: Asymmetric lung volumes with moderate elevation of the right diaphragm, chronic. Mild dependent partial atelectasis. Small granuloma in the right lower lobe. There is a 4 mm nodular density in the right middle lobe image 92 series 8, along with a couple of tiny punctate or branching nodules on image 90 series 8. LYMPH NODES: Scattered small lymph nodes on both sides of the mediastinum and hilar regions. No evidence of intrathoracic lymphadenopathy. MEDIASTINUM AND LOWER NECK: No central airway lesions are detected. The esophagus is within normal limits. The included thyroid gland appears normal. HEART AND GREAT VESSELS: The heart is normal in size. No pericardial abnormalities are identified. The RV to LV is normal. Unremarkable great vessels. Mild atherosclerotic calcifications of the coronary vessels. VISUALIZED UPPER ABDOMEN: Postcholecystectomy findings. Partially imaged cystic attenuation lesion in the right renal fossa, perhaps a renal cyst. This is at least 5.9 cm. OSSEOUS STRUCTURES AND SOFT TISSUES: There is a horizontally oriented lucent line extending from the anterior body of the T11 vertebral body. Fracture deformity suspected on the spinous process of T7. Mild compression deformity at T5, with depression of the superior endplate. A buckling of the anterior cortex at the posterior aspect of the ninth left rib Questionable focal buckling of the anterior fourth left rib questionable for acute fracture. Small sclerotic focus along the anterior aspect of the first left rib, perhaps a bone island. IMPRESSION: 1. Mild dependent atelectasis. Occasional visible millimeter right middle lobe small nodules, statistically benign as an isolated finding. No acute lung disease. No pneumothorax. 2. Suspicion for a nondisplaced potentially acute linear fracture at the anterior column of T9, mildly displaced spinous process of T7 and potential buckling of the anterior post cortex of the posterior ninth left rib. Dr. Jay notified at 2:[address] Person. 3. Mild atherosclerotic ossifications of the coronary vessels. 4. Possible left renal cyst, partially imaged CT LUMBAR SPINE WO CONTRAST Result Date: 10/16/2023 CT THORACIC SPINE WO CONTRAST, CT LUMBAR SPINE WO CONTRAST HISTORY: Male 58 years Unspecified injury s/p trauma CT TRAUMA ASSESSMENT COMPARISON: None TECHNIQUE: CT thoracic and lumbar spine studies were reconstructed from concurrently obtained CT chest abdomen/pelvis FINDINGS: CT thoracic spine: The vertebral bodies are normal in height and in normal alignment. No facet fracture or subluxation is present. Diffuse mild degenerative changes. CT lumbar spine: Transitional lumbosacral anatomy with partial lumbarization of S1. Grade 1 anterolisthesis of L5 over S1. The vertebral bodies are normal in height and in otherwise normal alignment. Chronic bilateral pars interarticularis defects are noted at both L4-L5 and L5-S1. Moderate spondylosis is seen at L5-S1 with minimal degenerative changes at the remaining lumbar levels. A sclerotic focus in the left iliac wing is benign in appearance, probably a bone island, chronic infarct or nonossifying fibroma. Large right renal cysts are partially visualized. No acute osseous abnormality is present in the thoracic or lumbar spine. Incidentally noted chronic bilateral pars interarticularis defects at both L4-L5 and L5-S1. CT THORACIC SPINE WO CONTRAST Result Date: 10/16/2023 CT THORACIC SPINE WO CONTRAST, CT LUMBAR SPINE WO CONTRAST HISTORY: Male 58 years Unspecified injury s/p trauma CT TRAUMA ASSESSMENT COMPARISON: None TECHNIQUE: CT thoracic and lumbar spine studies were reconstructed from concurrently obtained CT chest abdomen/pelvis FINDINGS: CT thoracic spine: The vertebral bodies are normal in height and in normal alignment. No facet fracture or subluxation is present. Diffuse mild degenerative changes. CT lumbar spine: Transitional lumbosacral anatomy with partial lumbarization of S1. Grade 1 anterolisthesis of L5 over S1. The vertebral bodies are normal in height and in otherwise normal alignment. Chronic bilateral pars interarticularis defects are noted at both L4-L5 and L5-S1. Moderate spondylosis is seen at L5-S1 with minimal degenerative changes at the remaining lumbar levels. A sclerotic focus in the left iliac wing is benign in appearance, probably a bone island, chronic infarct or nonossifying fibroma. Large right renal cysts are partially visualized. No acute osseous abnormality is present in the thoracic or lumbar spine. Incidentally noted chronic bilateral pars interarticularis defects at both L4-L5 and L5-S1. CT ABDOMEN PELVIS W CONTRAST Result Date: 10/16/2023 CT Abdomen and Pelvis with intravenous contrast. CLINICAL HISTORY: Trauma. DOSE: Up-to-date CT equipment and radiation dose reduction techniques were employed. CTDIvol: 16.63+22.8 mGy. DLP: 564.20+1497 mGy-cm. TECHNIQUE : Contiguous axial imaging from the level of the lung bases through the pubic symphysis were performed after the uncomplicated administration of nonionic contrast material. Coronal and sagittal reconstructions were obtained. Auto mA and/or iterative reconstruction were used to reduce radiation dose. FINDINGS: Comparison has been made with 03/06/2022 CT studies. Lower lungs: Small 6 mm nodule in the right costophrenic sinus region of the lung is unchanged. No pleural effusion or pericardial effusion. No definite hiatal hernia but they have noted in the lower esophagus which could be a sign of gastroesophageal reflux. Right hemidiaphragm is elevated, slightly more than in the previous study without any apparent cause. Liver, Gallbladder and Spleen: Liver is 15.8 cm in length and showed mild diffuse fatty infiltration. Gallbladder has been removed. Common bile duct is slightly dilated, likely secondary to cholecystectomy. Pancreatic duct is not dilated. Spleen appears normal. Peritoneum: No free air or free fluid. No lymphadenopathy. Pancreas and Adrenals: Unremarkable pancreas and adrenal glands. Kidneys and Ureters: No visible calculi in the renal collecting systems. No hydroureter or hydronephrosis. 2 large cysts noted, 7.5 x 7.1 cm at the upper pole (Bosniak type I and 11 x 9.8 cm size of the lower pole with calcification in the capsule noted (Bosniak type II).Both of these cystic lesions have slightly increased in size since February 2022 study. No enhancing kidney lesions are seen. Vessels: Minimal atherosclerosis of aorta and iliac arteries. Retroperitoneum: No abnormal fluid or lymphadenopathy. Bowel: Unremarkable. Bladder and Reproductive Organs: Grossly unremarkable under distended urinary bladder. Calcifications in the vas deferens could be a sign of chronic poorly controlled diabetes. Bones: Schmorl's nodes throughout lower thoracic and lumbar vertebral endplates, moderate to severe degenerative disc disease at L5-S1 with minimal spondylolisthesis of L5 over S1. Bilateral spondylolysis noted at both L4 and L5 levels. Loss of height of T6, T7, T8, T9 vertebral body is noted, likely chronic. Slightly irregular shaped 14 mm lesion is seen in the left iliac body, unchanged since February 2022 study. Soft tissues: Bilateral fat-containing direct type inguinal hernias without any complications. CONCLUSION: No acute intra-abdominal or pelvic findings. CT HEAD WO CONTRAST Result Date: 10/16/2023 CT CERVICAL SPINE WO CONTRAST, CT HEAD WO CONTRAST HISTORY: Male 58 years Unspecified injury s/p trauma CT TRAUMA ASSESSMENT COMPARISON: None TECHNIQUE: Routine CT head and CT cervical spine were obtained without IV contrast FINDINGS: CT head: The ventricles and cerebral sulci are normal in caliber and configuration. No hydrocephalus, midline shift or pathological extra axial fluid collection is present. The basal cisterns are unremarkable. A small retrocerebellar CSF density collection posterior to the right cerebellar hemisphere likely represents an incidental posterior fossa arachnoid cyst. No acute intracranial hemorrhage or mass effect is present. The winslow-white matter differentiation is preserved. No significant parenchymal attenuation abnormality is present. The calvarium and skull base are unremarkable. The mastoid air cells and visualized paranasal air sinuses are clear. CT cervical spine: Subsegmental lordosis. The vertebral bodies are normal in height and in normal alignment. The craniocervical junction is intact. The prevertebral soft tissues are unremarkable. Severe degenerative changes are present at C5-C6 with minimal degenerative changes at the remaining cervical levels. No acute intracranial abnormality No acute fracture or traumatic malalignment within the cervical spine. Incidentally noted advanced degenerative changes at C5-C6. CT CERVICAL SPINE WO CONTRAST Result Date: 10/16/2023 CT CERVICAL SPINE WO CONTRAST, CT HEAD WO CONTRAST HISTORY: Male 58 years Unspecified injury s/p trauma CT TRAUMA ASSESSMENT COMPARISON: None TECHNIQUE: Routine CT head and CT cervical spine were obtained without IV contrast FINDINGS: CT head: The ventricles and cerebral sulci are normal in caliber and configuration. No hydrocephalus, midline shift or pathological extra axial fluid collection is present. The basal cisterns are unremarkable. A small retrocerebellar CSF density collection posterior to the right cerebellar hemisphere likely represents an incidental posterior fossa arachnoid cyst. No acute intracranial hemorrhage or mass effect is present. The winslow-white matter differentiation is preserved. No significant parenchymal attenuation abnormality is present. The calvarium and skull base are unremarkable. The mastoid air cells and visualized paranasal air sinuses are clear. CT cervical spine: Subsegmental lordosis. The vertebral bodies are normal in height and in normal alignment. The craniocervical junction is intact. The prevertebral soft tissues are unremarkable. Severe degenerative changes are present at C5-C6 with minimal degenerative changes at the remaining cervical levels. No acute intracranial abnormality No acute fracture or traumatic malalignment within the cervical spine. Incidentally noted advanced degenerative changes at C5-C6. ASSESSMENT/PLAN: Sharon Mckinnon is a 58 year old male presenting as a trauma activation following fall from boat, found to have the following injuries: T7 and T9 fractures with numbness and tingling of bilateral lower extremities Plan: Consult neurosurgery NPO, CBC, BMP, coag profile, type and screen, fluids Thoracic-lumbar MRI for epidural hematoma Admit to the floor Tertiary in the AM Rib fractures: Absent Incidental findings: Asymmetric lung volumes with moderate elevation of the right diaphragm, chronic. Mild dependent partial atelectasis. Small granuloma in the right lower lobe. There is a 4 mm nodular density in the right middle lobe image 92 series 8, along with a couple of tiny punctate or branching nodules on image 90 series 8. There is a horizontally oriented lucent line extending from the anterior body of the T11 vertebral body. Mild compression deformity at T5, with depression of the superior endplate. A buckling of the anterior cortex at the posterior aspect of the ninth left rib Questionable focal buckling of the anterior fourth left rib questionable for acute fracture. Small sclerotic focus along the anterior aspect of the first left rib, perhaps a bone island. Mild atherosclerotic ossifications of the coronary vessels. Possible left renal cyst, partially imaged Olga Barber MD 10/16/2023 16:28 Department of Trauma/Acute Care Surgery Associated attestation - Kendrick Laws MD - 10/16/2023 6:08 PM CDT Attending I personally examined the patient on 10/16/23 and agree with the Resident note by Dr. Wilson as written. I actively participated in the decision-making process. Please see the note for additional details. The history and physical exam and medical decision making was directed by me. Briefly, 58 year old male presenting as a trauma activation for boat fall at work, hitting head on concrete. +LOC. He sustained: nondisplaced potentially acute linear fracture at the anterior column of T9, mildly displaced spinous process of T7 potential buckling of the anterior post cortex of the posterior ninth left rib PROBLEMS: Acute fall complicated by injuries as above Review and interpretation of tests New tests ordered Discussed with NS (external provider) High (H) risk indicated by IV pain medication (H) Other extenuating risks including need for MRI imaging, numbness of lower extremities (major)(H) History of/underlying Past Medical History: Diagnosis Date Diabetes Fatty liver Hypertension MRSA infection post op RTK PLAN: T7 and T9 fractures with numbness and tingling of bilateral lower extremities Plan: Consult neurosurgery NPO, CBC, BMP, coag profile, type and screen, fluids Thoracic-lumbar MRI for epidural hematoma Admit to the ICU Tertiary in the AM CPT: 14292 Kendrick Laws MD Trauma/Acute Care Surgery [facility]
== END 2024-08-02 18:15 | disposition home or self-care (01) ==
LOC: ER 14:52
DX: E86.0 Dehydration (principal); K52.89 Other specified noninfective gastroenteritis and colitis; Z11.52 Encounter for screening for COVID-19; I10 Essential (primary) hypertension
CPT/HCPCS: 96361; 85025; 81001; 36415; 83690; 80053; 87804 ×2; 96375; 96374; 99284; 87811; J2405; J7030 ×2

== ENCOUNTER 2025-02-11 10:34 | Emergency (ER) | payer BC ==
--- OUTSIDE RECORDS SUMMARY | 2025-02-11 11:03 | XMS REPORT | Continuity of Care Document ---
Author Name Unknown Address [address] [place] [address] [facility] Address [address] [place] [address] Care Team Providers Care Rn Care Transition Name Role Phone Jennifer Lea MD Primary Care Physician [phone] HAMZAH ANTON Attending Clinician UnavailSYDNI Clark Attending Clinician Unavailable MICHI KAN Attending Clinician Unavailwander e Doctor Unassigned, Gould Attending Clinician U Emily Dang Attending Clinician [phone] EMILY LOWERY Attending Clinician Unavailable Neena Byrne DO Attending Clinician [phone] ALI, ISRAA B. Attending Clinician Unavailable Doctor Unassigned, Gould Attending Clinician U catrachoyaya LUCAS NAVARRETE Attending Clinician Unavailabl kevyn Peterson RN, Myrtle Feliciano Attending Clinician + [phone] KENDRICK LAWS Attending Clinician Unavailable CLAYTON JAY Attending Clinician Unavailable Pierre ALVA, Clayton Attending Clinician [phone] TONE ANNE Attending Clinician Unavailable Mariah ALVA, Tone Attending Clinician [phone] Perez ALVA, Leah Mckeon Attending Clinician [phone] DARRYL HUBBARD Attending Clinician Unavailab SAÚL Warren Attending Clinician Unavailwander Jamil MD, Saúl Luther Attending Clinician + [phone] SANGEETA KNIGHT Attending Clinician Unavailable NETTIE ALEXANDRA Attending Clinician UnavailNETTIE Mcbride Attending Clinician UnavailDONALD Kaye Attending Clinician Unavailabl kevyn [facility] Attending Clinician Unavailable Bennie Askew MD Attending Clinician + [phone] BENNIE ASKEW Attending Clinician Unavailhoma Lovell MD, Roberto Rose Attending Clinician +[phone] Julieta Desir MD Attending Clinician [phone] [facility] Sleep Attending Clinician [phone] Mary Ann Whitney MD Attending Clinician [phone] [facility] Attending Clinician UnavailNettie Mcbride MD Attending Clinician + [phone] MARY ANN WHITNEY Attending Clinician Unavailable LOLIS HAYDEN Attending Clinician Unavailable Li, Cardiology - Clear Attending Clinician Rosina franchesca Arnold MD, Donald Ma Attending Clinician +[phone] Flaco Weems MD Attending Clinician [phone] ANIVAL BENTLEY Attending Clinician Unavailabl ANIVAL Randall Attending Clinician Unavailabl e [facility] Attending Clinicia n Unavailable Pob, [facility] Main Attending Clinician UnavailERICA Soliman Attending Clinician Unavailable Aki ALVA, Erica Attending Clinician [phone] Kendra Maldonado Attending Clinician +[phone] DA GOLD Attending Clinician Unavailable James Masters DO Attending Clinician [phone] Da Gold MD Attending Clinician [phone] DEANA GRANGER Attending Clinician UnavailAzra Merrill RN Attending Clinician Unavaila Kitty Coleman MA Attending Clinician Unavailable Daniel Mercado Attending Clinician Unavailable Cam Stevens MD Attending Clinician +[phone] Patrick Mccabe Attending Clinician [phone] KENDRICK LAWS Admitting Clinician Unavailable SAÚL JAMIL Admitting Clinician UnavailEMILY Guerrero Admitting Clinician Unavailable DA GOLD Admitting Clinician Unavailable Da Gold MD Admitting Clinician [phone] KNOW, DOES_NOT Admitting Clinician Unavailable Payers Payer Name Policy Type Policy Number Effective Date Expirati on Date Source [facility] [id number] 2017 00:00:00 [facility] [id number] 00:00:00 Problems Condition Name Condition Details Condition Category Status Onset Date Resolution Date Last Treatment Date Treating Clinician Comments Source Obesity (BMI 30-39.9) Obesity (BMI 30-39.9) Disease Active 4-14 00:00: 00 [facility] PERRY (obstructi ve sleep apnea) PERRY (obstructi ve sleep apnea) Disease Active -22 00:00: 00 [facility] Type 2 diabetes mellitus with hyperosmol arity without coma, with long-term current use of insulin Type 2 diabetes mellitus with hyperosmol arity without coma, with long-term current use of insulin Disease Active 02-26 00:00: 00 [facility] Excessive weight gain Excessive weight gain Disease Active 02-26 00:00: 00 [facility] Elevated alkaline phosphatas e level Elevated alkaline phosphatas e level Disease Active 02-26 00:00: 00 [facility] Type 2 diabetes mellitus with hyperosmol arity without coma, with long-term current use of insulin Type 2 diabetes mellitus with hyperosmol arity without coma, with long-term current use of insulin Disease Active 02-26 00:00: 00 [facility] Morbid obesity with body mass index of 50 or higher Morbid obesity with body mass index of 50 or higher Disease Active 07-26 00:00: 00 [facility] Hypotensio n Hypotensio n Disease Active 07-25 00:00: 00 [facility] Pyogenic bacterial arthritis of patella, left Pyogenic bacterial arthritis of patella, left Disease Active 08 00:00: 00 [facility] Allergies, Adverse Reactions, Alerts Allergy Name Allergy Type Status Severity Reaction(s) Onset Date Inactive Date Treating Clinician Comments Source Gabapent in Allergy to substanc e Active Hallucinatio ns 03-25 00:00: 00 [facility] No Known Allergie s DA Active U 02-18 00:00: 00 [facility] No Known Allergie s DA Active U 815 00:00: 00 [facility] Nsaids Allergy to substanc e Active 02-03 00:00: 00 Other reaction( s): NSAIDs ([id number]) [facility] ASPIRIN DA Active [place] NAUSEA 2008-07 00:00: 00 [facility] ASPIRIN DRUG INGREDI Active N/V 2008-07 00:00: 00 [facility] Aspirin Drug Allergy Active Nausea and/or Vomiting 2008-07 00:00: 00 Other reaction( s): NAUSEA [facility] Aspirin Allergy to substanc e Active 2008-07 00:00: 00 Other reaction( s): NAUSEA [facility] NO KNOWN ALLERGIE S Drug Class Active [facility] Social History Social Habit Start Date Stop Date Quantity Comments Source Gender identity [facility] Tobacco use and exposure 2023-10-01 00:00:00 2023-10-01 00:00:00 Smokeless tobacco non-user [facility] History of Social function 2023-06-17 00:00:00 2023-06-17 00:00:00 [facility] Exposure to SARS-CoV-2 (event) 2022-10-21 00:00:00 2022-10-31 07:14:00 Not sure [facility] Sex Assigned At 1965 00:00:00 1965 00:00:00 [facility] Smoking Status Start Date Stop Date Source Never smoked tobacco [facility] Tobacco smoking consumption unknown [facility] Medications Ordered Medication Name Filled Medication Name Start Date Stop Date Current Medication? Ordering Clinician Indication Dosage Frequency Signature (SIG) Comments Components Source lisinopriL 20 mg tablet 02-02 00:00: 00 Yes [id number] 20mg Take 1 tablet by mouth every morning. [facility] lisinopriL 20 mg tablet 01-25 00:00: 00 02-02 00:00 :00 No [id number] 20mg TAKE 1 TABLET BY MOUTH EVERY DAY IN THE MORNING [facility] metFORMIN 500 mg tablet 12-24 00:00: 00 Yes [id number] TAKE 1 TABLET BY MOUTH TWICE A DAY WITH FOOD [facility] lisinopriL 20 mg tablet 05 00:00: 00 01-25 00:00 :00 No [id number] 20mg TAKE 1 TABLET BY MOUTH EVERY DAY IN THE MORNING [facility] enoxaparin (LOVENOX) injection 30 mg 10-17 13:00: 00 Yes 30mg 30 mg, Subcutaneo us, Q12H, First dose on 10/18/23 at 0800, Until Discontinu ed, Routine [facility] methocarbam oL 500 mg tablet 10-17 00:00: 00 11-01 04:59 :00 No [id number] 500mg Take 1 tablet by mouth 4 (four) times daily for 14 days. [facility] acetaminoph en 500 mg tablet 10-17 00:00: 00 10-28 04:59 :00 No [id number] 500mg Take 1 tablet by mouth every 6 (six) hours as needed for Pain for up to 10 days. [facility] HYDROcodone -acetaminop hen 5-325 mg tablet 10-17 00:00: 00 10-25 04:59 :00 No [id number] 1{tbl} Take 1 tablet by mouth every 6 (six) hours as needed for Pain (scale 7-10) for up to 7 days. Indication s: acute pain [facility] ibuprofen 400 mg tablet 10-17 00:00: 00 10-21 04:59 :00 No [id number] 400mg Take 1 tablet by mouth every 6 (six) hours for 3 days. [facility] pantoprazol e (PROTONIX) EC tablet 40 mg 10-16 14:00: 00 Yes 40mg 40 mg, Oral, DAILY, First dose on Fri10/17/23 at 0900, Until Discontinu ed, Routine
Indicatio n for use: None of the above [facility] magnesium sulfate in water 4 gram/50 mL (8 %) IV Piggyback 4 g 10-16 12:00: 00 10-16 13:45 :00 No 4g 4 g, IV Piggyback, at 25 mL/hr Administer over 120 Minutes, ONCE, 1 dose, On Fri10/17/23 at 0700, Routine [facility] 400 mg 10-16 05:00: 00 Yes 400mg 400 mg, Oral, Q6H, First dose on Fri10/17/23 at 0000, Until Discontinu ed, [facility]ine [facility] methocarbam oL (ROBAXIN) tablet 500 mg 10-16 01:45: 00 Yes 500mg 500 mg, Oral, QID, First dose on Fri10/16/23 at 2044, Until Discontinu ed, [facility]ine [facility] FENTanyl PF (SUBLIMAZE (PF)) injection 50 mcg 10-16 01:37: 31 Yes 50ug 50 mcg, Slow IV Push, Q4HPRN, Starting on Fri10/16/23 at 2036, Until Discontinu ed, Routine, Pain (scale 7-10) [facility] acetaminoph en (TYLENOL) tablet 1,000 mg 10-16 01:00: 00 Yes 1000mg 1,000 mg, Oral, TID, First dose on Fri10/16/23 at 2000, Until Discontinu ed, Routine [facility] enoxaparin (LOVENOX) injection 30 mg 10-16 01:00: 00 10-16 12:46 :07 No 30mg 30 mg, Subcutaneo us, Q12H, First dose on Fri10/16/23 at 2000, Until Discontinu ed, Routine [facility] lactated ringers IV infusion 1,000 mL 10-15 22:45: 00 10-16 18:10 :20 No 1000mL at 100 mL/hr, 1,000 mL, IV Infusion, CONTINUOUS , Starting on Fri10/16/23 at 1745, Until Fri10/17/23 at 1310, Routine [facility] Sliding Scale Insulin - Lispro (HumaLOG) 10-15 22:00: 00 Yes Subcutaneo us, TID MEALS+HS, First dose on Fri10/16/23 at 1700, Until Discontinu ed, Routine [facility] glucagon (GLUCAGEN DIAGNOSTIC KIT) injection 1 mg 10-15 21:52: 24 Yes 1mg 1 mg, Intramuscu lar, PRN, Starting on Fri10/16/23 at 1652, Until Discontinu ed, JUAN JOSE, Blood Glucose < or = 70 mg/dL and patient is NPO, unable to swallow or has mental changes. [facility] dextrose 50 % in water (D50W) injection 25 mL 10-15 21:52: 24 Yes 25mL 25 mL, Slow IV Push, PRN, Starting on Fri10/16/23 at 1652, Until Discontinu ed, JUAN JOSE, Blood Glucose < or = 70 mg/dL and patient is NPO, unable to swallow or has mental status changes. [facility] ondansetron (ZOFRAN (PF)) injection 4 mg 10-15 21:40: 24 Yes 4mg 4 mg, Slow IV Push, Q6HPRN, Starting on Fri10/16/23 at 1640, Until Discontinu ed, Routine, Nausea and Vomiting (N/V) [facility] morpHINE (2 mg/mL) injection 2 mg 10-15 21:40: 12 10-16 01:37 :52 No 2mg 2 mg, Slow IV Push, Q2HPRN, Starting on Fri10/16/23 at 1640, Until Fri10/16/23 at 2037, Routine, Pain (scale 7-10), Pain unrelieved by scheduled analgesics [facility] HYDROcodone -acetaminop hen (NORCO 5) 5-325 mg tablet 1 tablet 10-15 21:40: 08 Yes 1{tbl} 1 tablet, Oral, Q6HPRN, Starting on Fri10/16/23 at 1640, Until Discontinu ed, Routine, Pain (scale 4-6) [facility] FENTanyl PF (SUBLIMAZE (PF)) injection 75 mcg 10-15 20:30: 00 10-15 19:31 :00 No 75ug 75 mcg, Slow IV Push, ONCE, 1 dose, On Fri10/16/23 at 1530, Routine [facility] ondansetron (ZOFRAN (PF)) injection 4 mg 10-15 20:00: 00 10-15 19:58 :00 No 4mg 4 mg, Slow IV Push, ONCE, 1 dose, On Fri10/16/23 at 1500, JUAN JOSE [facility] iopamidol (ISOVUE 300-500 mL) injection 88 mL 10-15 19:00: 00 10-15 19:00 :00 No [id number] 88mL 88 mL, Intravenou s, ONCE, 1 dose, On Fri10/16/23 at 1400, Routine [facility] ondansetron (ZOFRAN (PF)) injection 4 mg 10-15 18:30: 00 10-15 18:23 :00 No 4mg 4 mg, Slow IV Push, ONCE, 1 dose, On Polly 10/16/23 at 1330, JUAN JOSE [facility] morpHINE (4 mg/mL) injection 4 mg 10-15 18:30: 00 10-15 18:23 :00 No 4mg 4 mg, Slow IV Push, ONCE, 1 dose, On Polly 10/16/23 at 1330, STAT [facility] amitriptyli ne 50 mg tablet 09-30 00:00: 00 Yes [id number] 50mg Take 1 tablet by mouth every morning and evening. [facility] semaglutide (OZEMPIC) 2 mg/dose (8 mg/3 mL) PnIj 09-30 00:00: 00 Yes [id number] 2mg inject 2 mg under the skin weekly. [facility] atorvastati n 40 mg tablet 09-30 00:00: 00 Yes [id number] 40mg Take 1 tablet by mouth at bedtime. [facility] pregabalin 150 mg capsule 09-30 00:00: 00 02-02 00:00 :00 No [id number] TAKE 1 CAPSULE BY MOUTH IN THE MORNING AND IN THE EVENING [facility] LISINOPRIL 20 mg tablet 09-14 00:00: 00 12-09 00:00 :00 No [id number] 20mg TAKE 1 TABLET BY MOUTH EVERY DAY IN THE MORNING [facility] semaglutide (OZEMPIC) 1 mg/dose (4 mg/3 mL) PnIj 220 00:00: 00 09-30 00:00 :00 No [id number] INJECT 1 MG SUBCUTANEO USLY WEEKLY [facility] metFORMIN 500 mg tablet 07-24 00:00: 00 Yes [id number] TAKE 1 TABLET BY MOUTH TWICE DAILY WITH MEALS [facility] acetaminoph en (TYLENOL) tablet 650 mg 07-19 21:45: 00 07-19 21:54 :00 No 650mg 650 mg, Oral, ONCE, 1 dose, On 07/19/23 at 1545, [facility] ipratropium -albuteroL (DUONEB) 0.5 mg-3 mg(2.5 mg base)/3 mL nebulizer solution 3 mL 07-19 21:45: 00 07-19 21:00 :00 No 3mL 3 mL, Inhalation , ONCE NOW, 1 dose, On 07/19/23 at 1545, [facility] dexamethaso ne sod phos PF injection 10 mg 07-19 21:00: 00 07-19 21:07 :00 No 10mg 10 mg, Slow IV Push, ONCE, 1 dose, On 07/19/23 at 1500, 1 mL [facility] iopamidol (ISOVUE 370-500 mL) injection 100 mL 07-19 21:00: 00 07-19 21:00 :00 No [id number] 100mL 100 mL, Intravenou s, ONCE, 1 dose, On 07/19/23 at 1500, Routine [facility] morpHINE (4 mg/mL) injection 4 mg 07-19 19:15: 00 07-19 19:15 :00 No 4mg 4 mg, Slow IV Push, ONCE, 1 dose, On 07/19/23 at 1315, Routine [facility] ondansetron (ZOFRAN (PF)) injection 4 mg 07-19 18:30: 00 07-19 18:43 :00 No 4mg 4 mg, Slow IV Push, ONCE, 1 dose, On 07/19/23 at 1230, [facility] butalbital- acetaminoph en-caff (ESGIC) 50-325-40 mg tablet 1 tablet 07-19 18:30: 00 07-19 18:51 :00 No 1{tbl} 1 tablet, Oral, ONCE, 1 dose, On 07/19/23 at 1230, [facility] diphenhydrA MINE (BENADRYL) injection 25 mg 07-19 18:30: 00 07-19 18:45 :00 No 25mg 25 mg, Slow IV Push, ONCE, 1 dose, On 07/19/23 at 1230, STAT [facility] metoclopram marty HCl (REGLAN) injection 10 mg 07-19 18:30: 00 07-19 18:44 :00 No 10mg 10 mg, Slow IV Push, ONCE, 1 dose, On 07/19/23 at 1230, JUAN JOSE [facility] NaCl 0.9% (NS) bolus infusion 1,000 mL 07-19 18:30: 00 07-19 20:58 :00 No 1000mL at 999 mL/hr, 1,000 mL, IV Infusion, ONCE, 1 dose, On 07/19/23 at 1230, STAT [facility] nirmatrelvi r-ritonavir (PAXLOVID) 300 mg (150 mg x 2)-100 mg tablet 07-19 00:00: 00 09-30 00:00 :00 No [id number] 3{tbl} Take 3 tablets by mouth in the morning and 3 tablets in the evening. [facility] predniSONE 20 mg tablet 07-19 00:00: 00 09-30 00:00 :00 No [id number] Take 40 mg (2 tablets) daily for 5 days [facility] Butalbital- Acetaminoph en-Caff (FIORICET) 50-300-40 mg per capsule 07-19 00:00: 00 07-25 05:59 :00 No [id number] 1{capsu le} Take 1 capsule by mouth 3 (three) times daily as needed for Pain (scale 4-6) for up to 5 days. [facility] ondansetron 4 mg disintegrat ing tablet 07-19 00:00: 00 07-25 05:59 :00 No [id number] 4mg Take 1 tablet by mouth every 8 (eight) hours as needed for Nausea and Vomiting (N/V) for up to 5 days. [facility] albuterol 90 mcg/actuati on inhaler 07-19 00:00: 00 07-25 05:59 :00 No [id number] 2{puff} Inhale 2 Puffs every 6 (six) hours as needed for Wheezing or Shortness of Breath for up to 5 days. [facility] semaglutide (OZEMPIC) 1 mg/dose (4 mg/3 mL) PnIj - 00:00: 00 08-26 00:00 :00 No [id number] 1mg inject 1 mg under the skin weekly. [facility] LISINOPRIL 20 mg tablet 2022-07- 00:00: 00 09-14 00:00 :00 No [id number] 20mg TAKE 1 TABLET BY MOUTH EVERY DAY IN THE MORNING [facility] LANTUS U-100 INSULIN 100 unit/mL solution 2022-07- 00:00: 00 Yes [id number] INJECT 35 UNITS UNDER THE SKIN AT BEDTIME. [facility] metFORMIN 500 mg tablet 2022-07 00:00: 00 07-24 00:00 :00 No [id number] TAKE 1/2 TABLET BY MOUTH EVERY DAY FOR 10 DAYS, THEN TAKE 1 TABLET BY MOUTH DAILY FOR 10 DAYS, THEN TAKE 1 TABLET BY MOUTH TWICE DAILY WITH MEAL [facility] PREGABALIN 150 mg capsule 2022-07 00:00: 00 09-30 00:00 :00 No [id number] TAKE 1 CAPSULE BY MOUTH IN THE MORNING AND IN THE EVENING [facility] AMITRIPTYLI NE 50 mg tablet 04-03 00:00: 00 09-30 00:00 :00 No [id number] 50mg TAKE 1 TABLET BY MOUTH IN THE MORNING AND IN THE EVENING [facility] semaglutide (OZEMPIC) 2 mg/dose (8 mg/3 mL) PnIj 03-28 00:00: 00 06-15 05:59 :00 No [id number] 2mg inject 2 mg under the skin weekly for 12 doses. [facility] metFORMIN 500 mg tablet 03-28 00:00: 00 04-28 00:00 :00 No [id number] Half tablet qd x 10 days then 1 tab qd x 10 days then 1 tab bid with meal [facility] LISINOPRIL 20 mg tablet 9-20 00:00: 00 06-17 00:00 :00 No [id number] 20mg TAKE 1 TABLET BY MOUTH EVERY DAY IN THE MORNING [facility] semaglutide (OZEMPIC) 1 mg/dose (4 mg/3 mL) [facility] 8 00:00: 00 09-30 00:00 :00 No [id number] 1mg inject 1 mg under the skin weekly. [facility] semaglutide (OZEMPIC) 0.25 mg or 0.5 mg(2 mg/1.5 mL) [facility] - 00:00: 00 09-30 00:00 :00 No [id number] .5mg inject 0.5 mg under the skin weekly. [facility] lisinopriL 20 mg tablet 10-25 00:00: 00 10-31 00:00 :00 No [id number] 20mg Take 1 tablet by mouth in the morning. [facility] insulin glargine (LANTUS U-100 INSULIN) 100 unit/mL injection 09-27 00:00: 00 05-12 00:00 :00 No [id number] 35U inject 35 Units under the skin at bedtime. [facility] pregabalin 150 mg capsule 09-27 00:00: 00 04-18 00:00 :00 No 150mg Take 1 capsule by mouth in the morning and 1 capsule in the evening. [facility] amitriptyli ne 50 mg tablet 24 00:00: 00 04-03 00:00 :00 No [id number] 50mg Take 1 tablet by mouth in the morning and 1 tablet in the evening. [facility] lisinopriL 20 mg tablet 24 00:00: 00 03-26 00:00 :00 No [id number] 20mg Take 1 tablet by mouth in the morning. [facility] levoFLOXaci n (LEVAQUIN) 500 mg tablet 09-25 00:00: 00 03-28 00:00 :00 No [id number] 500mg Take 1 tablet by mouth every 24 (twenty-fo ur) hours. [facility] semaglutide (OZEMPIC) 0.25 mg or 0.5 mg(2 mg/1.5 mL) PnIj 09-25 00:00: 00 10-25 00:00 :00 No [id number] .25mg inject 0.25 mg under the skin weekly. [facility] AMITRIPTYLI NE 50 mg tablet 09-11 00:00: 00 09-27 00:00 :00 No [id number] TAKE 1 TABLET BY MOUTH TWICE A DAY [facility] pregabalin 150 mg capsule 09-09 00:00: 00 09-27 00:00 :00 No [id number] 150mg Take 1 capsule by mouth in the morning and 1 capsule in the evening. [facility] AMITRIPTYLI NE 50 mg tablet 1 00:00: 00 09-11 00:00 :00 No [id number] TAKE 1 TABLET BY MOUTH TWICE A DAY [facility] FUROSEMIDE 20 mg tablet 07-16 00:00: 00 Yes [id number] TAKE 1 TABLET BY MOUTH 2 TIMES DAILY FOR 60 DAYS. [facility] HUMALOG U-100 INSULIN 100 unit/mL solution 2021-07 00:00: 00 Yes [id number] INJECT 8 UNIT SUB Q THREE TIMES A DAY BEFORE MEALS [facility] insulin lispro, human, (HUMALOG U-100 INSULIN) 100 unit/mL injection 2021-07 0 00:00: 00 05-16 00:00 :00 No [id number] 12U inject 12 Units under the skin in the morning and 12 Units at noon and 12 Units in the evening. inject before meals. [facility] FUROSEMIDE 20 mg tablet 2021-07 0-07 00:00: 00 07-16 00:00 :00 No [id number] TAKE 1 TABLET BY MOUTH 2 TIMES DAILY FOR 60 DAYS. [facility] LISINOPRIL 10 mg tablet 04-03 00:00: 00 09-27 00:00 :00 No [id number] TAKE 2 TABLETS BY MOUTH EVERY MORNING [facility] FUROSEMIDE 20 mg tablet 13 00:00: 00 04-12 00:00 :00 No [id number] TAKE 1 TABLET BY MOUTH 2 TIMES DAILY FOR 60 DAYS. [facility] dulaglutide (TRULICITY) 0.75 mg/0.5 mL PnIj 03-11 00:00: 00 09-24 00:00 :00 No [id number] Inject 0.75 mg weekly [facility] flash glucose scanning reader (FREESTYLE GISEL 2 READER) Misc 03-08 00:00: 00 09-30 00:00 :00 No [id number] 1{each} 1 Each 4 (four) times daily. [facility] flash glucose sensor (FREESTYLE GISEL 2 SENSOR) Kit 03-08 00:00: 00 09-30 00:00 :00 No [id number] 1{each} 1 Each every 14 (fourteen) days. [facility] insulin glargine (LANTUS U-100 INSULIN) 100 unit/mL injection 03-08 00:00: 00 09-27 00:00 :00 No [id number] 35U inject 35 Units under the skin at bedtime. [facility] insulin lispro, human, (HUMALOG U-100 INSULIN) 100 unit/mL injection 03-08 00:00: 00 04-30 00:00 :00 No [id number] 12U inject 12 Units under the skin in the morning and 12 Units at noon and 12 Units in the evening. inject before meals. [facility] PREGABALIN 150 mg capsule 8-16 00:00: 00 09-09 00:00 :00 No [id number] TAKE 1 CAPSULE BY MOUTH TWICE A DAY [facility] AMITRIPTYLI NE 50 mg tablet 8-03 00:00: 00 08-05 00:00 :00 No [id number] TAKE 1 TABLET BY MOUTH TWICE A DAY [facility] lisinopriL 10 mg tablet 7- 00:00: 00 04-03 00:00 :00 No [id number] 20mg Take 2 tablets by mouth in the morning. [facility] furosemide (LASIX) 20 mg tablet 01-14 00:00: 00 03-19 00:00 :00 No [id number] 20mg Take 1 tablet by mouth in the morning and 1 tablet in the evening. [facility] insulin glargine (LANTUS U-100 INSULIN) 100 unit/mL injection 01-14 00:00: 00 03-08 00:00 :00 No [id number] 25U inject 25 Units under the skin at bedtime. [facility] insulin lispro, human, (HUMALOG U-100 INSULIN) 100 unit/mL injection 01-14 00:00: 00 03-08 00:00 :00 No [id number] INJECT 8 UNIT SUB Q THREE TIMES A DAY BEFORE MEALS [facility] ketorolac 10 mg tablet 6-06 00:00: 00 10-17 00:00 :00 No TAKE 1 TABLET BY MOUTH EVERY 6 HOURS NEEDED WITH FOOD [facility] HYDROcodone -acetaminop hen 5-325 mg tablet 5-31 00:00: 00 09-24 00:00 :00 No TAKE 1 TABLET BY MOUTH FOUR TIMES A DAY--NOT COVERED [facility] gabapentin (Neurontin) 600 MG tablet 2020-07 0 00:00: 00 05-11 04:59 :00 No [id number] 600mg [id number] 3D Take 1 tablet (600 mg total) by mouth 3 (three) times a day for 14 days. [facility] tiZANidine (Zanaflex) 2 MG tablet 2020-07 00:00: 04-27 04:59 :00 No [id number] 2mg Take 1 tablet (2 mg total) by mouth every 8 (eight) hours if needed for muscle spasms for up to 10 days. [facility] gabapentin (Neurontin) 600 MG tablet 2020-07 00:00: 00 04-22 04:59 :00 No [id number] 600mg Q.[id number] 3D Take 1 tablet (600 mg total) by mouth 3 (three) times a day for 5 days. [facility] naloxone (Narcan) 2 MG/2ML injection 04-05 00:00: 00 04-06 04:59 :00 No [id number] .4mg Administer 0.4 mL (0.4 mg total) into affected nostril(s) if needed for opioid reversal. May repeat every 2-3 minutes as needed until medical assistance available. [facility] tiZANidine (Zanaflex) 2 MG tablet 04-05 00:00: 04-16 00:00 :00 No [id number] 2mg Take 1 tablet (2 mg total) by mouth every 8 (eight) hours if needed for muscle spasms for up to 10 days. [facility] HYDROcodone -acetaminop hen ([place]) 5-325 MG tablet 04-05 00:00: 00 04-13 04:59 :00 No [id number] 1{tbl} Q6H Take 1 tablet by mouth every 6 (six) hours if needed for severe pain for up to 7 days. [facility] gabapentin (Neurontin) 600 MG tablet 04-03 00:00: 00 04-18 04:59 :00 No [id number] 600mg [id number] 3D Take 1 tablet (600 mg total) by mouth 3 (three) times a day for 14 days. [facility] acetaminoph en-codeine (Tylenol w/ Codeine #3) 300-30 MG tablet 04-03 00:00: 04-09 04:59 :00 No [id number] 1{tbl} Q6H Take 1 tablet by mouth every 6 (six) hours if needed for severe pain for up to 5 days. [facility] ondansetron ODT (Zofran ODT) 4 MG disintegrat ing tablet 03-29 00:00: 00 04-06 04:59 :00 No [id number] 4mg Take 1 tablet (4 mg total) by mouth every 8 (eight) hours if needed for nausea or vomiting for up to 7 days. [facility] HYDROcodone -acetaminop hen ([place]) 5-325 MG tablet 03-29 00:00: 00 04-05 00:00 :00 No [id number] 1{tbl} Q6H Take 1 tablet by mouth every 6 (six) hours if needed for severe pain for up to 7 days. [facility] HYDROcodone -acetaminop hen ([place]) 10-325 MG tablet 03-15 00:00: 00 03-26 04:59 :00 No [id number] 1{tbl} Take 1 tablet by mouth every 8 (eight) hours if needed for severe pain for up to 10 days. [facility] HYDROcodone -acetaminop hen ([place]) 5-325 MG tablet 03-09 00:00: 00 03-15 04:59 :00 No [id number] 1{tbl} Q6H Take 1 tablet by mouth every 6 (six) hours if needed for severe pain for up to 5 days. [facility] traMADol (Ultram) 50 MG tablet 03-05 00:00: 00 03-13 04:59 :00 No [id number] 50mg Q6H Take 1 tablet (50 mg total) by mouth every 6 (six) hours if needed for severe pain for up to 7 days. [facility] ONETOUCH ULTRA TEST strip 03-02 00:00: 00 Yes USE DIRECTED MISC TID BEFORE MEALS [facility] ONETOUCH ULTRA TEST strip 03-02 00:00: 00 Yes USE DIRECTED MISC TID BEFORE MEALS [facility] ONETOUCH DELICA LANCETS 30 gauge Misc 03-02 00:00: 00 Yes USE DIRECTED MISC DAILY [facility] TRUEPLUS INSULIN 1 mL 31 gauge x /16 Syrg 0 8-27 00:00: 00 Yes [facility] Immunizations Ordered Immunization Name Filled Immunization Name Date Status Comments Source Influenza Virus Vaccine Quad IM, Preserv and ABX Free 6 MO-64 YRS 2021-05-22 00:00:00 Completed [facility] Influenza Virus Vaccine Quad IM, Preserv and ABX Free 6 MO-64 YRS 2021-05-22 00:00:00 Completed [facility] Influenza Virus Vaccine Quad IM, Preserv and ABX Free 6 MO-64 YRS 2021-05-22 00:00:00 Completed [facility] Influenza Virus Vaccine Quad IM, Preserv and ABX Free 6 MO-64 YRS 2021-05-22 00:00:00 Completed [facility] Influenza Virus Vaccine Quad IM, Preserv and ABX Free 6 MO-64 YRS 2021-05-22 00:00:00 Completed [facility] Influenza Virus Vaccine Quad IM, Preserv and ABX Free 6 MO-64 YRS 2021-05-22 00:00:00 Completed [facility] Influenza Virus Vaccine Quad IM, Preserv and ABX Free 6 MO-64 YRS 2021-05-22 00:00:00 Completed [facility] Influenza Virus Vaccine Quad IM, Preserv and ABX Free 6 MO-64 YRS 2021-05-22 00:00:00 Completed [facility] Influenza Virus Vaccine Quad IM, Preserv and ABX Free 6 MO-64 YRS 2021-05-22 00:00:00 Completed [facility] Influenza Virus Vaccine Quad IM, Preserv and ABX Free 6 MO-64 YRS 2021-05-22 00:00:00 Completed [facility] Influenza Virus Vaccine Quad IM, Preserv and ABX Free 6 MO-64 YRS 2021-05-22 00:00:00 Completed [facility] Influenza Virus Vaccine Quad IM, Preserv and ABX Free 6 MO-64 YRS 2021-05-22 00:00:00 Completed [facility] Influenza Virus Vaccine Quad IM, Preserv and ABX Free 6 MO-64 YRS 2021-05-22 00:00:00 Completed [facility] Influenza Virus Vaccine Quad IM, Preserv and ABX Free 6 MO-64 YRS 2021-05-22 00:00:00 Completed [facility] Influenza Virus Vaccine Quad IM, Preserv and ABX Free 6 MO-64 YRS 2021-05-22 00:00:00 Completed [facility] Influenza Virus Vaccine Quad IM, Preserv and ABX Free 6 MO-64 YRS 2021-05-22 00:00:00 Completed [facility] Influenza Virus Vaccine Quad IM, Preserv and ABX Free 6 MO-64 YRS 2021-05-22 00:00:00 Completed [facility] Influenza Virus Vaccine Quad IM, Preserv and ABX Free 6 MO-64 YRS 2021-05-22 00:00:00 Completed [facility] Influenza Virus Vaccine Quad IM, Preserv and ABX Free 6 MO-64 YRS 2021-05-22 00:00:00 Completed [facility] Influenza Virus Vaccine Quad IM, Preserv and ABX Free 6 MO-64 YRS 2021-05-22 00:00:00 Completed [facility] Influenza Virus Vaccine Quad IM, Preserv and ABX Free 6 MO-64 YRS 2021-05-22 00:00:00 Completed [facility] Influenza Virus Vaccine Quad IM, Preserv and ABX Free 6 MO-64 YRS 2021-05-22 00:00:00 Completed [facility] Influenza Virus Vaccine Quad IM, Preserv and ABX Free 6 MO-64 YRS 2021-05-22 00:00:00 Completed [facility] Influenza Virus Vaccine Quad IM, Preserv and ABX Free 6 MO-64 YRS 2021-05-22 00:00:00 Completed [facility] Influenza Virus Vaccine Quad IM, Preserv and ABX Free 6 MO-64 YRS 2021-05-22 00:00:00 Completed [facility] Influenza Virus Vaccine Quad IM, Preserv and ABX Free 6 MO-64 YRS 2021-05-22 00:00:00 Completed [facility] Influenza Virus Vaccine Quad IM, Preserv and ABX Free 6 MO-64 YRS 2021-05-22 00:00:00 Completed [facility] Influenza Virus Vaccine Quad IM, Preserv and ABX Free 6 MO-64 YRS 2021-05-22 00:00:00 Completed [facility] Influenza Virus Vaccine Quad IM, Preserv and ABX Free 6 MO-64 YRS 2021-05-22 00:00:00 Completed [facility] Influenza Virus Vaccine Quad IM, Preserv and ABX Free 6 MO-64 YRS 2021-05-22 00:00:00 Completed [facility] Influenza Virus Vaccine Quad IM, Preserv and ABX Free 6 MO-64 YRS 2021-05-22 00:00:00 Completed [facility] Influenza Virus Vaccine Quad IM, Preserv and ABX Free 6 MO-64 YRS 2021-05-22 00:00:00 Completed [facility] Influenza Virus Vaccine Quad IM, Preserv and ABX Free 6 MO-64 YRS 2021-05-22 00:00:00 Completed [facility] Influenza Virus Vaccine Quad IM, Preserv and ABX Free 6 MO-64 YRS (FLUCELVAX) Unknown Completed [facility] Influenza Virus Vaccine Quad IM, Preserv and ABX Free 6 MO-64 YRS (FLUCELVAX) Unknown Completed [facility] Influenza Virus Vaccine Quad IM, Preserv and ABX Free 6 MO-64 YRS (FLUCELVAX) Unknown Completed [facility] Influenza Virus Vaccine Quad IM, Preserv and ABX Free 6 MO-64 YRS (FLUCELVAX) Unknown Completed [facility] Influenza Virus Vaccine Quad IM, Preserv and ABX Free 6 MO-64 YRS (FLUCELVAX) Unknown Completed [facility] Influenza Virus Vaccine Quad IM, Preserv and ABX Free 6 MO-64 YRS (FLUCELVAX) Unknown Completed [facility] Influenza Virus Vaccine Quad IM, Preserv and ABX Free 6 MO-64 YRS (FLUCELVAX) Unknown Completed [facility] Influenza Virus Vaccine Quad IM, Preserv and ABX Free 6 MO-64 YRS (FLUCELVAX) Unknown Completed [facility] Influenza Virus Vaccine Quad IM, Preserv and ABX Free 6 MO-64 YRS (FLUCELVAX) Unknown Completed [facility] Influenza Virus Vaccine Quad IM, Preserv and ABX Free 6 MO-64 YRS (FLUCELVAX) Unknown Completed [facility] Influenza Virus Vaccine Quad IM, Preserv and ABX Free 6 MO-64 YRS (FLUCELVAX) Unknown Completed [facility] Influenza Virus Vaccine Quad IM, Preserv and ABX Free 6 MO-64 YRS (FLUCELVAX) Unknown Completed [facility] Influenza Virus Vaccine Quad IM, Preserv and ABX Free 6 MO-64 YRS (FLUCELVAX) Unknown Completed [facility] Influenza Virus Vaccine Quad IM, Preserv and ABX Free 6 MO-64 YRS (FLUCELVAX) Unknown Completed [facility] Influenza Virus Vaccine Quad IM, Preserv and ABX Free 6 MO-64 YRS (FLUCELVAX) Unknown Completed [facility] Influenza Virus Vaccine Quad IM, Preserv and ABX Free 6 MO-64 YRS (FLUCELVAX) Unknown Completed [facility] Influenza Virus Vaccine Quad IM, Preserv and ABX Free 6 MO-64 YRS (FLUCELVAX) Unknown Completed [facility] Influenza Virus Vaccine Quad IM, Preserv and ABX Free 6 MO-64 YRS (FLUCELVAX) Unknown Completed [facility] Influenza Virus Vaccine Quad IM, Preserv and ABX Free 6 MO-64 YRS (FLUCELVAX) Unknown Completed [facility] Influenza Virus Vaccine Quad IM, Preserv and ABX Free 6 MO-64 YRS (FLUCELVAX) Unknown Completed [facility] Influenza Virus Vaccine Quad IM, Preserv and ABX Free 6 MO-64 YRS (FLUCELVAX) Unknown Completed [facility] Influenza Virus Vaccine Quad IM, Preserv and ABX Free 6 MO-64 YRS (FLUCELVAX) Unknown Completed [facility] Influenza Virus Vaccine Quad IM, Preserv and ABX Free 6 MO-64 YRS (FLUCELVAX) Unknown Completed [facility] Influenza Virus Vaccine Quad IM, Preserv and ABX Free 6 MO-64 YRS (FLUCELVAX) Unknown Completed [facility] Influenza Virus Vaccine Quad IM, Preserv and ABX Free 6 MO-64 YRS (FLUCELVAX) Unknown Completed [facility] Influenza Virus Vaccine Quad IM, Preserv and ABX Free 6 MO-64 YRS (FLUCELVAX) Unknown Completed [facility] Influenza Virus Vaccine Quad IM, Preserv and ABX Free 6 MO-64 YRS (FLUCELVAX) Unknown Completed [facility] Influenza Virus Vaccine Quad IM, Preserv and ABX Free 6 MO-64 YRS (FLUCELVAX) Unknown Completed [facility] Influenza Virus Vaccine Quad IM, Preserv and ABX Free 6 MO-64 YRS (FLUCELVAX) Unknown Completed [facility] Influenza Virus Vaccine Quad IM, Preserv and ABX Free 6 MO-64 YRS (FLUCELVAX) Unknown Completed [facility] Vital Signs Vital Name Observation Time Observation Value Comments S ource Systolic blood pressure 2021-05-01 14:03:00 101 mm[Hg] [facility] Diastolic blood pressure 2021-05-01 14:03:00 64 mm[Hg] [facility] Heart rate 2021-05-01 14:03:00 134 /min [facility] Body temperature 2021-05-01 14:03:00 36.33 Concepcion [facility] Body height 2021-05-01 14:03:00 188 [facility] Body weight 2021-05-01 14:03:00 102[facility]967 [facility] BMI 2021-05-01 14:03:00 29.15 kg[facility]m2 [facility] Systolic blood pressure 2024-02-03 15:44:00 128 mm[Hg] [facility] Diastolic blood pressure 2024-02-03 15:44:00 90 mm[Hg] [facility] Heart rate 2024-02-03 15:43:00 98 /min [facility] Body temperature 2024-02-03 15:43:00 36.78 Concepcion [facility] Respiratory rate 2024-02-03 15:43:00 20 /min [facility] Body weight 2024-02-03 15:43:00 118.842 kg [facility] BMI 2024-02-03 15:43:00 33.64 kg/m2 [facility] Systolic blood pressure 2023-10-18 18:00:00 123 mm[Hg] [facility] Diastolic blood pressure 2023-10-18 18:00:00 96 mm[Hg] [facility] Heart rate 2023-10-18 18:00:00 82 /min [facility] Oxygen saturation in Arterial blood by Pulse oximetry 2023-10-18 18:00:00 97 /min [facility] Body temperature 2023-10-18 13:00:00 36.61 Concepcion [facility] Respiratory rate 2023-10-18 12:00:00 16 /min [facility] Body height 2023-10-16 21:31:06 188 cm [facility] Body weight 2023-10-16 21:31:06 108.863 kg [facility] BMI 2023-10-16 21:31:06 30.81 kg/m2 [facility] Heart rate 2023-10-16 19:50:00 99 /min [facility] Body temperature 2023-10-16 19:50:00 36.72 Concepcion [facility] Respiratory rate 2023-10-16 19:50:00 15 /min [facility] Oxygen saturation in Arterial blood by Pulse oximetry 2023-10-16 19:50:00 94 /min [facility] Systolic blood pressure 2023-10-16 19:40:00 126 mm[Hg] [facility] Diastolic blood pressure 2023-10-16 19:40:00 98 mm[Hg] [facility] Body height 2023-10-16 17:43:00 188 cm [facility] Body weight 2023-10-16 17:43:00 106.595 kg [facility] BMI 2023-10-16 17:43:00 30.17 kg/m2 [facility] Systolic blood pressure 2023-10-01 13:04:00 111 mm[Hg] [facility] Diastolic blood pressure 2023-10-01 13:04:00 78 mm[Hg] [facility] Heart rate 2023-10-01 13:04:00 88 /min [facility] Body temperature 2023-10-01 13:04:00 36.11 Concepcion [facility] Respiratory rate 2023-10-01 13:04:00 16 /min [facility] Body height 2023-10-01 13:04:00 188 cm [facility] Body weight 2023-10-01 13:04:00 123.514 kg [facility] BMI 2023-10-01 13:04:00 34.96 kg/m2 [facility] Oxygen saturation in Arterial blood by Pulse oximetry 2023-10-01 13:04:00 97 /min [facility] Oxygen saturation in Arterial blood by Pulse oximetry 2023-07-19 21:27:00 93 /min [facility] Systolic blood pressure 2023-07-19 21:08:00 114 mm[Hg] [facility] Diastolic blood pressure 2023-07-19 21:08:00 87 mm[Hg] [facility] Heart rate 2023-07-19 21:08:00 105 /min [facility] Respiratory rate 2023-07-19 21:08:00 20 /min [facility] Body temperature 2023-07-19 19:05:13 37.72 Concepcion [facility] Body height 2023-07-19 18:14:00 188 cm [facility] Body weight 2023-07-19 18:14:00 66.679 kg [facility] BMI 2023-07-19 18:14:00 18.87 kg/m2 [facility] Heart rate 2023-06-17 19:35:00 92 /min [facility] BMI 2023-06-17 19:04:00 35.12 kg/m2 [facility] Oxygen saturation in Arterial blood by Pulse oximetry 2023-06-17 19:04:00 98 /min [facility] Systolic blood pressure 2023-06-17 19:04:00 126 mm[Hg] [facility] Diastolic blood pressure 2023-06-17 19:04:00 88 mm[Hg] [facility] Body temperature 2023-06-17 19:04:00 36.61 Concepcion [facility] Respiratory rate 2023-06-17 19:04:00 16 /min [facility] Body height 2023-06-17 19:04:00 188 cm [facility] Body weight 2023-06-17 19:04:00 124.059 kg [facility] Systolic blood pressure 2023-03-28 16:14:00 135 mm[Hg] [facility] Diastolic blood pressure 2023-03-28 16:14:00 90 mm[Hg] [facility] Heart rate 2023-03-28 16:14:00 102 /min [facility] Respiratory rate 2023-03-28 16:14:00 20 /min [facility] Body height 2023-03-28 16:14:00 188 cm [facility] Body weight 2023-03-28 16:14:00 128.822 kg [facility] BMI 2023-03-28 16:14:00 36.46 kg/m2 [facility] Systolic blood pressure 2022-10-31 12:33:00 135 mm[Hg] [facility] Diastolic blood pressure 2022-10-31 12:33:00 90 mm[Hg] [facility] Heart rate 2022-10-31 12:33:00 112 /min [facility] Body temperature 2022-10-31 12:33:00 37.06 Concepcion [facility] Respiratory rate 2022-10-31 12:33:00 18 /min [facility] Body height 2022-10-31 12:33:00 188 cm [facility] Body weight 2022-10-31 12:33:00 121.609 kg [facility] BMI 2022-10-31 12:33:00 34.42 kg/m2 [facility] Oxygen saturation in Arterial blood by Pulse oximetry 2022-10-31 12:33:00 98 /min [facility] Systolic blood pressure 2022-09-24 15:04:00 130 mm[Hg] [facility] Diastolic blood pressure 2022-09-24 15:04:00 88 mm[Hg] [facility] Heart rate 2022-09-24 15:04:00 114 /min [facility] Respiratory rate 2022-09-24 15:04:00 20 /min [facility] Body height 2022-09-24 15:04:00 188 cm [facility] Body weight 2022-09-24 15:04:00 119.296 kg [facility] BMI 2022-09-24 15:04:00 33.77 kg/m2 [facility] Systolic blood pressure 2022-04-23 14:15:00 140 mm[Hg] [facility] Diastolic blood pressure 2022-04-23 14:15:00 99 mm[Hg] [facility] Heart rate 2022-04-23 14:15:00 89 /min [facility] Respiratory rate 2022-04-23 14:15:00 18 /min [facility] Oxygen saturation in Arterial blood by Pulse oximetry 2022-04-23 14:15:00 96 /min [facility] Body temperature 2022-04-23 14:13:00 36.61 Concepcion [facility] Body height 2022-04-23 14:13:00 188 cm [facility] Body weight 2022-04-23 14:13:00 128.413 kg [facility] BMI 2022-04-23 14:13:00 36.35 kg/m2 [facility] Systolic blood pressure 2022-03-08 21:05:00 138 mm[Hg] [facility] Diastolic blood pressure 2022-03-08 21:05:00 89 mm[Hg] [facility] Heart rate 2022-03-08 21:05:00 115 /min [facility] Body weight 2022-03-08 21:05:00 121.428 kg [facility] BMI 2022-03-08 21:05:00 34.37 kg/m2 [facility] Oxygen saturation in Arterial blood by Pulse oximetry 2022-03-08 21:05:00 95 /min [facility] Body weight 2021-05-17 17:31:[facility] 2021-05-17 17:31:00 29.79 [facility] Body height 2021-05-17 17:31:00 188 cm [facility] Systolic blood pressure 2021-05-01 14:03:00 101 mm[Hg] [facility] Diastolic blood pressure 2021-05-01 14:03:00 64 mm[Hg] [facility] Heart rate 2021-05-01 14:03:00 134 /min [...] POCT GLUCOSE (AUTOMATED) 2023-10-18 12:56:00 [facility]23-10-18 08:11:00 Kelly Sanchez [facility] MAGNESIUM 2023-10-18 08:11:00 Gal Clark [facility] BASIC METABOLIC PANEL (NA, K, CL, CO2, GLUCOSE, BUN, CREATININE, CA) 2023-10-18 08:11:00 Gal Clark [facility] CBC WITHOUT DIFF 2023-10-18 08:11:00 Gal Clark [facility] POCT GLUCOSE (AUTOMATED) 2023-10-18 01:08:00 [facility]) 2023-10-17 21:41:00 [facility] ([facility]OMATED) 2023-10-17 17:07:00 Fr Ernie [facility] MR THORACIC SPINE WO CONTRAST 2023-10-17 15:41:08 Edwina Albarado [facility] MR LUMBAR SPINE WO CONTRAST 2023-10-17 15:39:46 Verena Edwina Anya [facility] POCT GLUCOSE (AUTOMATED) 2023-10-17 13:22:00 Fr neftaly Laws [facility] XR ELBOW <3 VW RIGHT 2023-10-17 11:45:54 Olga Childress [facility] PHOSPHORUS 2023-10-17 08:33:00 Kelly Sanchez [facility] MAGNESIUM 2023-10-17 08:33:00 Kelly Sanchez [facility] BASIC METABOLIC PANEL (NA, K, CL, CO2, GLUCOSE, BUN, CREATININE, CA) 2023-10-17 08:33:00 Kelly Sanchez [facility] CBC WITH DIFF 2023-10-17 08:33:00 [facility] (AUTOMATED) 2023-10-17 02:00:00 Fr neftaly Laws [facility] POCT GLUCOSE (AUTOMATED) 2023-10-16 23:20:00 Fr neftaly Laws [facility] LIPASE 2023-10-16 21:32:00 Ramu Blackwell [facility] COMP. METABOLIC PANEL ([id number]) 2023-10-16 21:32:00 Ramu Blackwell [facility] ETHANOL 2023-10-16 21:32:00 Ramu Blackwell [facility] CBC WITHOUT DIFF 2023-10-16 21:32:00 Rishi Blanchard [facility] PROTHROMBIN TIME / INR 2023-10-16 21:32:00 Braden Blackwell [facility] ACTIVATED PARTIAL THRMPLAS GA 2023-10-16 21:32:00 Rishi Blanchard [facility] HB ABO GROUPING 2023-10-16 21:32:00 Rishi Blanchard [facility] URINALYSIS 2023-10-16 19:26:00 Clayton Jay [facility] URINE DRUG (IMMUNOASSAY) - COMPREHENSIVE DRUG SCREEN W/O REFLEX 2023-10-16 19:26:00 Clayton Jay [facility] CT ABDOMEN PELVIS W CONTRAST 2023-10-16 18:13:25 Clayton Jay [facility] CT LUMBAR SPINE WO CONTRAST 2023-10-16 18:13:25 Clayton Jay [facility] CT THORACIC SPINE WO CONTRAST 2023-10-16 18:13:25 Clayton Jay [facility] CT THORAX W CONTRAST 2023-10-16 18:13:25 Pili Jay [facility] CT CERVICAL SPINE WO CONTRAST 2023-10-16 18:10:33 Clayton Jay [facility] CT HEAD WO CONTRAST 2023-10-16 18:10:33 Tory Jay [facility] CREATINE KINASE 2023-10-16 18:06:00 [facility] 2023-10-16 18:06:00 Clayton Jya [facility] TROPONIN I 2023-10-16 18:06:00 Clayton Jay [facility] COMP. METABOLIC PANEL ([id number]) 2023-10-16 18:06:00 Clayton Jay [facility] ETHANOL 2023-10-16 18:06:00 Clayton Jay [facility] CBC WITH DIFF 2023-10-16 18:06:00 Clayton Jay [facility] N-TERMINAL PRO-BNP 2023-10-16 18:06:00 Clayton Jay [facility] POCT HEMOGLOBIN A1C TEST 2023-10-01 13:30:00 Angelic Anne [facility] XR CHEST 1 VW 2023-07-19 21:06:41 [facility] 2023-07-19 20:06:06 Saúl Jamil [facility] CT HEAD WO CONTRAST 2023-07-19 20:05:38 Alec Jamil [facility] COMP. METABOLIC PANEL ([id number]) 2023-07-19 18:43:00 Saúl Jamil [facility] CBC WITH DIFF 2023-07-19 18:43:00 [facility]/B 2023-07-19 18:43:00 Alec Jamil [facility] COVID-19 (ID NOW RAPID TESTING) 2023-07-19 18:43:00 Saúl Jamil [facility] CONSENT/REFUSAL FOR DIAGNOSIS AND TREATMENT 2023-07-19 18:09:38 Doctor Unassigned, [facility] CONSENT/REFUSAL FOR DIAGNOSIS AND TREATMENT 2023-06-17 18:32:19 Doctor Unassigned, [facility] US ABDOMEN LIMITED 2022-09-27 18:53:10 Emily Lowery [facility] CONSENT/REFUSAL FOR DIAGNOSIS AND TREATMENT 2022-09-27 18:23:39 Doctor Unassigned, [facility] ASSIGNMENT OF BENEFITS 2022-09-27 18:23:22 Docto r Unassigned, [facility] AMYLASE 2022-09-24 16:11:00 Emily Lowery [facility] LIPASE 2022-09-24 16:11:00 Emily Lowery [facility] PROSTATIC SPECIFIC ANTIGEN SCREEN 2022-09-24 16:11:00 Emily Lowery [facility] THYROID STIMULATING HORMONE 2022-09-24 16:11:00 Emily Lowery [facility] COMP. METABOLIC PANEL ([id number]) 2022-09-24 16:11:00 Emily Lowery [facility] CBC WITHOUT DIFF 2022-09-24 16:11:00 Emily Lowery [facility] GLYCOSYLATED HEMOGLOBIN (A1C) 2022-09-24 16:11:00 Emily Lowery [facility] PATIENT FINANCIAL POLICY 2022-09-24 15:00:46 Doctor Unassigned, [facility] POCT URINALYSIS 2022-09-24 00:00:00 Emily Lowery [facility] SLEEP STUDY DATA REPORT 2022-05-02 05:01:00 Doct or Unassigned, [facility] [facility] Encounters Start Date/Time End Date/Time Encounter Type Admission Type Attending Clinicians Care Facility Care Department Encounter ID Source 2021-08-17 14:18:21 Outpatient [facility] [id number] [facility] 2021-06-19 01:04:40 Outpatient HAMZAH ANTON [facility] [id number] [facility] 2021-06-17 01:01:35 Outpatient SYDNI BARTLETT [facility] [id number] [facility] 2021-05-25 01:03:24 Outpatient HAMZAH ANTON [facility] [id number] [facility] 2021-05-23 01:03:56 Outpatient HAMZAH ANTON [facility] [id number] [facility] 2021-05-17 11:53:10 Outpatient HAMZAH ANTON [facility] [id number] [facility] 2021-05-07 15:35:04 Emergency [facility] [id number] [facility] 2021-04-05 12:53:47 Outpatient [facility] [id number] [facility] 2021-03-29 11:06:42 Outpatient MICHI KAN [facility] [id number] [facility] 2021-03-16 09:57:02 Outpatient MICHI KAN [facility] [id number] [facility] 2021-03-15 13:48:38 Outpatient HAMZAH ANTON [facility] [id number] [facility] 2024-02-10 00:00:00 2024-03-13 18:20:45 Patient Secure Msg Doctor Unassigned, Gould Doctor Unassigned, Gould [facility] 1.840.114 350.1.13.10 4.2.7.2.686 [id number] [facility] 2024-02-04 00:00:00 2024-02-04 15:51:30 Telephone Emily Lowery [facility] 1.840.114 350.1.13.10 4.2.7.2.686 [id number] [facility] 2024-02-04 00:00:00 2024-02-04 11:47:25 Letter (Out) [facility] 1.2840.114 350.1.13.10 4.2.7.2.686 [id number] [facility] 2024-02-03 11:00:00 2024-02-03 11:16:52 Outpatient R EMILY LOWERY [facility] [id number] [facility] 2024-02-03 11:00:00 2024-02-03 11:16:52 Office Visit Emily Lowery [facility] 1.840.114 350.1.13.10 4.2.7.2.686 [id number] [facility] 2024-01-25 00:00:00 2024-01-27 14:20:26 Refana luisa Byrne Neena [facility] 1.0.114 350.1.13.10 4.2.7.2.686 [id number] [facility] 2024-01-05 16:00:00 2024-01-05 16:00:00 Outpatient R JASPREET VILLA [facility] [id number] [facility] 2023-12-23 00:00:00 2023-12-23 09:56:55 David Byrne Neena [facility] 1.0.114 350.1.13.10 4.2.7.2.686 [id number] [facility] 2023-12-10 00:00:00 2023-12-16 13:40:20 David Byrne Neena [facility] 1.2840.114 350.1.13.10 4.2.7.2.686 [id number] [facility] 2023-10-20 00:00:00 2023-11-22 18:08:14 Patient Secure Msg Doctor Unassigned, Gould [facility] 1.2840.114 350.1.13.10 4.2.7.2.686 [id number] [facility] 2023-11-21 10:45:00 2023-11-21 10:45:00 Outpatient LUCAS RIVERS [facility] [id number] [facility] 2023-10-22 16:00:00 2023-10-22 16:00:00 Outpatient EMILY HARRISON [facility] [id number] [facility] 2023-10-21 00:00:00 2023-10-21 00:00:00 Transition of Care Myrtle Peterson 1.2840.114 350.1.13.10 4.2.7.2.686 [id number] [facility] 2023-10-16 16:22:00 2023-10-18 17:37:00 Inpatient KENDRICK FRANK [facility] STR [id number] [facility] 2023-10-16 16:22:00 2023-10-18 17:37:00 Hospital Encounter Kendrick Laws [facility] 1.2840.114 350.1.13.10 4.2.7.2.686 [id number] [facility] 2023-10-16 12:49:00 2023-10-16 15:37:00 Emergency X CLAYTON JAY [facility] ERT [id number] [facility] 2023-10-16 12:49:00 2023-10-16 15:37:00 Emergency Clayton Jay [facility] 1.840.114 350.1.13.10 4.2.7.2.686 [id number] [facility] 2023-10-01 08:20:00 2023-10-01 09:55:21 Outpatient TONE DOMINGO [facility] [id number] [facility] 2023-10-01 08:20:00 2023-10-01 08:40:00 Office Visit Tone Anne [facility] 1.2.840.114 350.1.13.10 4.2.7.2.686 [id number] [facility] 2023-09-25 08:00:00 2023-09-25 08:00:00 Outpatient TONE DOMINGO [facility] [id number] [facility] 2023-09-15 00:00:00 2023-09-15 00:00:00 Leah Strong [facility] 1.2840.114 350.1.13.10 4.2.7.2.686 [id number] [facility] 2023-08-21 00:00:00 2023-08-21 00:00:00 Emily Warren [facility] 1.2840.114 350.1.13.10 4.2.7.2.686 [id number] [facility] 2023-07-29 09:00:00 2023-07-29 09:00:00 Outpatient DARRYL CARTY [facility] [id number] [facility] 2023-07-23 00:00:00 2023-07-23 00:00:00 Emily Warren [facility] 1.2840.114 350.1.13.10 4.2.7.2.686 [id number] [facility] 2023-07-19 12:16:00 2023-07-19 15:56:00 Emergency X SAÚL JAMIL [facility] ERT [id number] [facility] 2023-07-19 12:16:00 2023-07-19 15:56:00 Emergency Saúl Jamil A [facility] 1.2840.114 350.1.13.10 4.2.7.2.686 [id number] 084 [id number] [facility] 2023-07-16 00:00:00 2023-07-16 00:00:00 Emily Warren [facility] 1.2840.114 350.1.13.10 4.2.7.2.686 [id number] [facility] 2023-06-26 13:30:00 2023-06-26 13:30:00 Outpatient R [facility] [id number] [facility] 2023-06-24 13:30:00 2023-06-24 13:30:00 Outpatient R SANGEETA KNIGHT [facility] [id number] [facility] 2023-06-19 00:00:00 2023-06-19 00:00:00 Patient Secure Msg Doctor Unassigned, Gould [facility] 1.2840.114 350.1.13.10 4.2.7.2.686 [id number] [id number] [facility] 2023-06-19 00:00:00 2023-06-19 00:00:00 Patient Secure Msg Doctor Unassigned, Gould [facility] 1.2.840.114 350.1.13.10 4.2.7.2.686 [id number] [id number] [facility] 2023-06-17 13:00:00 2023-06-17 14:32:46 Outpatient R EMILY LOWERY [facility] [id number] [facility] 2023-06-17 13:00:00 2023-06-17 14:32:46 Office Visit Emily Lowery [facility] 1.20.114 350.1.13.10 4.2.7.2.686 [id number] [facility] 2023-06-17 00:00:00 2023-06-17 00:00:00 Orders Only Doctor Unassigned, Gould [facility] 1.2.840.114 350.1.13.10 4.2.7.2.686 [id number] [facility] 2023-06-17 00:00:00 2023-06-17 00:00:00 Emily Warren [facility] 1.2.840.114 350.1.13.10 4.2.7.2.686 [id number] [facility] 2023-05-11 00:00:00 2023-05-11 00:00:00 Emily Warren [facility] 1.2.840.114 350.1.13.10 4.2.7.2.686 [id number] [facility] 2023-04-27 00:00:00 2023-04-27 00:00:00 Emily Warren [facility] 1.2.840.114 350.1.13.10 4.2.7.2.686 [id number] [facility] 2023-04-23 00:00:00 2023-04-23 00:00:00 Emily Warren [facility] 1.2.840.114 350.1.13.10 4.2.7.2.686 [id number] [facility] 2023-04-11 00:00:00 2023-04-11 00:00:00 Emily Warren [facility] 1.2.840.114 350.1.13.10 4.2.7.2.686 [id number] [facility] 2023-04-03 00:00:00 2023-04-03 00:00:00 Refill Emily Lowery [facility] 1.840.114 350.1.13.10 4.2.7.2.686 [id number] [facility] 2023-03-28 11:30:00 2023-03-28 16:22:07 Outpatient R EMILY LOWERY [facility] [id number] [facility] 2023-03-28 11:30:00 2023-03-28 12:00:00 Office Visit Emily Lowery [facility] 1.0.114 350.1.13.10 4.2.7.2.686 [id number] [facility] 2023-03-28 00:00:00 2023-03-28 00:00:00 Letter (Out) Doctor Unassigned, Gould [facility] 1.840.114 350.1.13.10 4.2.7.2.686 [id number] [id number] [facility] 2023-03-26 00:00:00 2023-03-26 00:00:00 Refill Emily Lowery [facility] 1.0.114 350.1.13.10 4.2.7.2.686 [id number] [facility] 2023-03-24 09:30:00 2023-03-24 09:30:00 Outpatient R EMILY LOWERY [facility] [id number] [facility] 2023-02-04 00:00:00 2023-02-04 00:00:00 Telephone Emily Lowery [facility] 1.0.114 350.1.13.10 4.2.7.2.686 [id number] [facility] 2023-02-03 00:00:00 2023-02-03 00:00:00 Refill Emily Lowery [facility] 1.114 350.1.13.10 4.2.7.2.686 [id number] [facility] 2022-11-27 13:00:00 2022-11-27 13:00:00 Outpatient NETTIE OG STRAHIL [facility] [id number] [facility] 2022-11-01 10:30:00 2022-11-01 10:30:00 Outpatient DONALD HU [facility] [id number] [facility] 2022-10-31 08:30:00 2022-10-31 08:45:00 Engagement Liaison Visit [facility] 1.114 350.1.13.10 4.2.7.2.686 [id number] [facility] 2022-10-31 08:30:00 2022-10-31 08:30:00 Outpatient BENNIE CANTRELL [facility] [id number] [facility] 2022-10-31 07:30:00 2022-10-31 08:00:00 Office Visit Roberto Lovell [facility] 1.114 350.1.13.10 4.2.7.2.686 [id number] [facility] 2022-10-25 00:00:00 2022-10-25 00:00:00 Emily Warren [facility] 1.114 350.1.13.10 4.2.7.2.686 [id number] [facility] 2022-10-01 00:00:00 2022-10-01 00:00:00 Telephone Emily Lowery [facility] 1.2.840.114 350.1.13.10 4.2.7.2.686 [id number] [facility] 2022-09-27 13:26:02 2022-09-27 23:59:00 Outpatient R EMILY LOWERY [facility] [id number] [facility] 2022-09-27 13:26:02 2022-09-27 23:59:00 Hospital Encounter Emily Lowery [facility] 1.2.840.114 350.1.13.10 4.2.7.2.686 [id number] [facility] 2022-09-27 00:00:00 2022-09-27 00:00:00 Refill Emily Lowery [facility] 1.2.840.114 350.1.13.10 4.2.7.2.686 [id number] [facility] 2022-09-25 00:00:00 2022-09-25 00:00:00 Telephone Emily Lowery [facility] 1.2.840.114 350.1.13.10 4.2.7.2.686 [id number] [facility] 2022-09-25 00:00:00 2022-09-25 00:00:00 Telephone Emily Lowery [facility] 1.2.840.114 350.1.13.10 4.2.7.2.686 [id number] [facility] 2022-09-24 10:30:00 2022-09-24 10:54:59 Outpatient R EMILY LOWERY [facility] [id number] [facility] 2022-09-24 10:30:00 2022-09-24 10:54:59 Office Visit Emily Lowery [facility] 1.840.114 350.1.13.10 4.2.7.2.686 [id number] [facility] 2022-09-24 00:00:00 2022-09-24 00:00:00 Orders Only Doctor Unassigned, Gould [facility] 1.840.114 350.1.13.10 4.2.7.2.686 [id number] [facility] 2022-09-24 00:00:00 2022-09-24 00:00:00 Telephone Julieta Desir [facility] 1..114 350.1.13.10 4.2.7.2.686 [id number] [facility] 2022-09-23 07:30:00 2022-09-23 07:30:00 Outpatient EMILY HARRISON [facility] [id number] [facility] 2022-09-17 08:30:00 2022-09-17 08:30:00 Outpatient EMILY HARRISON [facility] [id number] [facility] 2022-09-11 00:00:00 2022-09-11 00:00:00 Emily Warren [facility] 1.840.114 350.1.13.10 4.2.7.2.686 [id number] [facility] 2022-09-05 00:00:00 2022-09-05 00:00:00 Emily Warren [facility] 1.840.114 350.1.13.10 4.2.7.2.686 [id number] [facility] 2022-07-25 00:00:00 2022-07-25 00:00:00 Emily Warren [facility] 1.2.840.114 350.1.13.10 4.2.7.2.686 [id number] [facility] 2022-07-16 00:00:00 2022-07-16 00:00:00 Emily Warren [facility] 1.2.840.114 350.1.13.10 4.2.7.2.686 [id number] [facility] 2022-06-19 10:30:00 2022-06-19 10:30:00 Outpatient NETTIE OG STRAHIL [facility] [id number] [facility] 2022-06-01 00:00:00 2022-06-01 00:00:00 Emily Warren [facility] 1.840.114 350.1.13.10 4.2.7.2.686 [id number] [facility] 2022-05-13 00:00:00 2022-05-13 00:00:00 Emily Warren [facility] 1.840.114 350.1.13.10 4.2.7.2.686 [id number] [facility] 2022-05-10 00:00:00 2022-05-10 00:00:00 Letter (Out) Clinic, [facility] Sleep [facility] 1.840.114 350.1.13.10 4.2.7.2.686 [id number] [facility] 2022-05-10 00:00:00 2022-05-10 00:00:00 Telephone Mary Ann Whitney [facility] NAL BUILD[facility] 1.840.114 350.1.13.10 4.2.7.2.686 [id number] [facility] 2022-05-02 14:00:00 2022-05-02 14:15:00 Engagement Liaison Visit [facility] Nettie Alexandra [facility] 1.2.840.114 350.1.13.10 4.2.7.2.686 [id number] [facility] 2022-05-02 14:00:00 2022-05-02 14:00:00 Outpatient NETTIE OG STRASCBhargav [facility] [id number] [facility] 2022-05-02 00:00:00 2022-05-02 00:00:00 Letter (Out) Doctor Unassigned, Gould [facility] 1.2.840.114 350.1.13.10 4.2.7.2.686 [id number] [facility] 2022-05-02 00:00:00 2022-05-02 00:00:00 Orders Only Doctor Unassigned, Gould [facility] 1.840.114 350.1.13.10 4.2.7.2.686 [id number] [facility] 2022 00:00:00 2022 00:00:00 Case Management Emily Lowery [facility] 1.840.114 350.1.13.10 4.2.7.2.686 [id number] [facility] 2022-04-26 00:00:00 2022-04-26 00:00:00 Refill Emily Lowery [facility] 1.840.114 350.1.13.10 4.2.7.2.686 [id number] [facility] 2022-04-23 09:20:00 2022-04-23 16:25:19 Outpatient MARY ANN SHARMA [facility] [id number] [facility] 2022-04-23 09:20:00 2022-04-23 16:25:19 [facility] 1.840.114 350.1.13.10 4.2.7.2.686 [id number] [facility] 2022-04-22 12:30:00 2022-04-22 12:30:00 Outpatient R LOLIS HAYDEN [facility] [id number] [facility] 2022-04-11 00:00:00 2022-04-11 00:00:00 RefEmily Mcdonald [facility] 1.0.114 350.1.13.10 4.2.7.2.686 [id number] [facility] 2022-03-28 00:00:00 2022-03-28 00:00:00 RefLeah Lutz [facility] 1.0.114 350.1.13.10 4.2.7.2.686 [id number] [facility] 2022-03-20 00:00:00 2022-03-20 00:00:00 Telephone Emily Lowery [facility] 1.0.114 350.1.13.10 4.2.7.2.686 [id number] [facility] 2022-03-20 00:00:00 2022-03-20 00:00:00 Letter (Out) Guillermo Cardiology - [facility] MEDICAL OFFICE BUILDING 1.0.114 350.1.13.10 4.2.7.2.686 [id number] [facility] 2022-03-15 00:00:00 2022-03-15 00:00:00 Telephone Emily Lowery [facility] 1..114 350.1.13.10 4.2.7.2.686 [id number] [facility] 2022-03-14 00:00:00 2022-03-14 00:00:00 Telephone Estrella, Emily Barby [facility] 1..114 350.1.13.10 4.2.7.2.686 [id number] [facility] 2022-03-13 00:00:00 2022-03-13 00:00:00 Telephone Az Loweryika Barby [facility] 1.114 350.1.13.10 4.2.7.2.686 [id number] [facility] 2022-03-08 16:00:00 2022-03-08 17:09:55 Outpatient R DONALD ARNOLD [facility] [id number] [facility] 2022-03-08 16:00:00 2022-03-08 17:09:55 Outpatient R DONALD ARNOLD [facility] [id number] [facility] 2022-03-08 16:00:00 2022-03-08 17:09:55 Office Visit Donald Arnold [facility] 1.840.114 350.1.13.10 4.2.7.2.686 [id number] [facility] 2022-03-08 00:00:00 2022-03-08 00:00:00 [facility] 1.840.114 350.1.13.10 4.2.7.2.686 [id number] [facility] 2022-03-06 09:27:51 2022-03-06 23:59:00 Outpatient R EMILY LOWERY [facility] [id number] [facility] 2022-03-06 09:27:51 2022-03-06 23:59:00 Hospital Encounter Emily Lowery [facility] 1.2.840.114 350.1.13.10 4.2.7.2.686 [id number] [facility] 2022-03-01 00:00:00 2022-03-01 00:00:00 Outpatient R EMILY LOWERY [facility] [id number] [facility] 2022-03-01 00:00:00 2022-03-01 00:00:00 Outpatient R EMILY LOWERY [facility] [id number] [facility] 2022-02-26 09:45:00 2022-02-26 23:59:00 Hospital Encounter Emily Lowery [facility] 1.2.840.114 350.1.13.10 4.2.7.2.686 [id number] [facility] 2022-02-26 09:30:00 2022-02-26 11:26:22 Office Visit Emily Lowery [facility] 1.2.840.114 350.1.13.10 4.2.7.2.686 [id number] [facility] 2022-02-26 09:30:00 2022-02-26 11:26:22 Outpatient R EMILY LOWERY [facility] [id number] [facility] 2022-02-26 09:30:00 2022-02-26 11:26:22 Outpatient R EMILY LOWERY [facility] [id number] [facility] 2022-02-26 09:30:00 2022-02-26 11:26:22 Outpatient R EMILY LOWERY [facility] [id number] [facility] 2022-02-26 09:30:00 2022-02-26 11:26:22 Office Visit Emily Lowery [facility] 1.2.840.114 350.1.13.10 4.2.7.2.686 [id number] [facility] 2022-02-26 09:30:00 2022-02-26 11:26:22 Outpatient R EMILY LOWERY [facility] [id number] [facility] 2022-02-26 09:45:00 2022-02-26 09:45:00 Outpatient R EMILY LOWERY [facility] [id number] [facility] 2022-02-26 00:00:00 2022-02-26 00:00:00 Telephone Flaco Weems [facility] 1.2.840.114 350.1.13.10 4.2.7.2.686 [id number] [facility] 2022-02-26 00:00:00 2022-02-26 00:00:00 Telephone Flaco Weems [facility] 1.2.840.114 350.1.13.10 4.2.7.2.686 [id number] [facility] 2022-02-20 00:00:00 2022-02-20 00:00:00 Emily Warren [facility] 1.2.840.114 350.1.13.10 4.2.7.2.686 [id number] [facility] 2022-02-15 00:00:00 2022-02-15 00:00:00 Emily Warren [facility] 1.2.840.114 350.1.13.10 4.2.7.2.686 [id number] [facility] 2022-01-29 00:00:00 2022-01-29 00:00:00 Refill Emily Lowery [facility] 1..114 350.1.13.10 4.2.7.2.686 [id number] [facility] 2022-01-16 00:00:00 2022-01-16 00:00:00 Refill Emily Lowery [facility] 1..114 350.1.13.10 4.2.7.2.686 [id number] [facility] 2022-01-15 12:30:00 2022-01-15 12:30:00 Outpatient Chelsy BENTLEY, ANIVAL LYON [facility] [id number] [facility] 2022-01-14 00:00:00 2022-01-14 00:00:00 Refill Emily Lowery [facility] 1..114 350.1.13.10 4.2.7.2.686 [id number] [facility] 2022-01-14 00:00:00 2022-01-14 00:00:00 Telephone Emily Lowery [facility] 1..114 350.1.13.10 4.2.7.2.686 [id number] [facility] 2022-01-14 00:00:00 2022-01-14 00:00:00 Telephone Emily Lowery [facility] 1..114 350.1.13.10 4.2.7.2.686 [id number] [facility] 2022-01-01 00:00:00 2022-01-01 00:00:00 Case Management Emily Lowery [facility] 1.2.840.114 350.1.13.10 4.2.7.2.686 [id number] [facility] 2021-12-31 00:00:00 2021-12-31 00:00:00 Telephone Team, [facility] 1.2.840.114 350.1.13.10 4.2.7.2.686 [id number] [facility] 2021-12-27 09:30:00 2021-12-27 09:45:00 Engagement Liaison Visit Pob, [facility] Emily Lowery [facility] 1.840.114 350.1.13.10 4.2.7.2.686 [id number] [facility] 2021-12-27 09:30:00 2021-12-27 09:30:00 Outpatient R EMILY LOWERY [facility] [id number] [facility] 2021-12-26 00:00:00 2021-12-26 00:00:00 Telephone Emily Lowery [facility] 1.2840.114 350.1.13.10 4.2.7.2.686 [id number] [facility] 2021-12-26 00:00:00 2021-12-26 00:00:00 Telephone Emily Lowery [facility] 1.2840.114 350.1.13.10 4.2.7.2.686 [id number] [facility] 2021-12-25 09:30:00 2021-12-25 23:59:00 Hospital Encounter Emily Lowery [facility] 1.2.840.114 350.1.13.10 4.2.7.2.686 [id number] [facility] 2021-12-25 09:00:00 2021-12-25 12:45:28 Office Visit Emily Lowery [facility] 1..114 350.1.13.10 4.2.7.2.686 [id number] [facility] 2021-12-25 09:00:00 2021-12-25 12:45:28 Outpatient R EMILY LOWERY [facility] [id number] [facility] 2021-12-25 09:00:00 2021-12-25 12:45:28 Outpatient R EMILY LOWERY [facility] [id number] [facility] 2021-12-25 09:30:00 2021-12-25 09:30:00 Outpatient R EMILY LOWERY [facility] [id number] [facility] 2021-12-25 09:00:00 2021-12-25 09:00:00 Outpatient R EMILY LOWERY [facility] [id number] [facility] 2021-12-25 09:00:00 2021-12-25 09:00:00 Outpatient R EMILY LOWERY [facility] [id number] [facility] 2021-12-12 14:00:00 2021-12-12 14:00:00 Outpatient R ERICA PRABHAKAR [facility] [id number] [facility] 2021-12-10 00:00:00 2021-12-10 00:00:00 Orders Only Doctor Unassigned, Gould [facility] 1..114 350.1.13.10 4.2.7.2.686 [id number] [id number] [facility] 2021-12-10 00:00:00 2021-12-10 00:00:00 Telephone Emily Lowery [facility] 1..114 350.1.13.10 4.2.7.2.686 [id number] [facility] 2021-11-27 00:00:00 2021-11-27 00:00:00 Refill Emily Lowery [facility] 1.2840.114 350.1.13.10 4.2.7.2.686 [id number] [facility] 2021-09-26 11:00:00 2021-09-26 11:30:00 Office Visit Emily Lowery [facility] 1.840.114 350.1.13.10 4.2.7.2.686 [id number] [facility] 2021-09-26 11:00:00 2021-09-26 11:00:00 Outpatient R EMILY LOWERY [facility] [id number] [facility] 2021-09-26 00:00:00 2021-09-26 00:00:00 Telephone Emily Lowery [facility] 1.0.114 350.1.13.10 4.2.7.2.686 [id number] [facility] 2021-09-26 00:00:00 2021-09-26 00:00:00 Orders Only Doctor Unassigned, Gould [facility] 1.840.114 350.1.13.10 4.2.7.2.686 [id number] [id number] [facility] 2021-09-12 14:00:00 2021-09-12 14:31:58 Outpatient R AKI [facility] [id number] [facility] 2021-09-12 14:00:00 2021-09-12 14:31:58 Office Visit [facility] 1.840.114 350.1.13.10 4.2.7.2.686 [id number] [facility] 2021-09-12 14:00:00 2021-09-12 14:00:00 Outpatient R AKIJOHNATHONA [facility] [id number] [facility] 2021-09-12 00:00:00 2021-09-12 00:00:00 Orders Only Doctor Unassigned, Gould [facility] 1.0.114 350.1.13.10 4.2.7.2.686 [id number] [id number] [facility] 2021-09-11 00:00:00 2021-09-11 00:00:00 Telephone Emily Lowery [facility] 1.0.114 350.1.13.10 4.2.7.2.686 [id number] [facility] 2021-09-11 00:00:00 2021-09-11 00:00:00 Telephone Emily Lowery [facility] 1..114 350.1.13.10 4.2.7.2.686 [id number] [facility] 2021-09-10 00:00:00 2021-09-10 00:00:00 Telephone Emily Lowery [facility] 1..114 350.1.13.10 4.2.7.2.686 [id number] [facility] 2021-08-23 13:30:00 2021-08-23 15:37:18 Office Visit Kendra Gray [address] 1..114 350.1.13.58 9.2.7.2.686 [id number] [facility] 2021-08-22 00:00:00 2021-08-22 00:00:00 Telephone Emily Lowery [facility] 1.2.840.114 350.1.13.10 4.2.7.2.686 [id number] [facility] 2021-08-21 00:00:00 2021-08-21 00:00:00 Orders Only Doctor Unassigned, Gould [facility] 1.840.114 350.1.13.10 4.2.7.2.686 [id number] 009 [id number] [facility] 2021-08-17 00:00:00 2021-08-17 00:00:00 Case Management Emily Lowery [facility] 1.0.114 350.1.13.10 4.2.7.2.686 [id number] [facility] 2021-08-08 14:00:00 2021-08-08 15:14:34 Outpatient R AKI [facility] [id number] [facility] 2021-08-08 14:00:00 2021-08-08 15:14:34 [facility] 1..114 350.1.13.10 4.2.7.2.686 [id number] [facility] 2021-08-08 14:00:00 2021-08-08 15:14:34 Outpatient R AKI [facility] [id number] [facility] 2021-08-08 14:00:00 2021-08-08 14:00:00 Outpatient R AKI [facility] [id number] [facility] 2021-08-08 00:00:00 2021-08-08 00:00:00 Orders Only Doctor Unassigned, Gould [facility] 1.2840.114 350.1.13.10 4.2.7.2.686 [id number] [id number] [facility] 2021-08-07 10:30:00 2021-08-07 12:34:07 Outpatient EMILY HARRISON [facility] [id number] [facility] 2021-08-07 10:30:00 2021-08-07 11:00:00 Office Visit Emily Lowery [facility] 1.2840.114 350.1.13.10 4.2.7.2.686 [id number] [facility] 2021-08-07 10:30:00 2021-08-07 10:30:00 Outpatient R EMLIY LOWERY [facility] [id number] [facility] 2021-07-25 14:40:00 2021-07-26 18:55:00 Outpatient X DA GOLD [facility] [id number] [facility] 2021-07-25 14:40:00 2021-07-26 18:55:00 [facility] 1.0.114 350.1.13.10 4.2.7.2.686 [id number] [facility] 2021-07-18 19:45:00 2021-07-18 19:45:00 Outpatient Chelsy DEANA GRANGER [facility] [id number] [facility] 2021-07-18 00:00:00 2021-07-18 00:00:00 Emily Warren [facility] 1.20.114 350.1.13.10 4.2.7.2.686 [id number] [facility] 2021-07-12 12:45:00 2021-07-12 13:54:23 Office Visit Kendra Gray [address] 1.2840.114 350.1.13.58 9.2.7.2.686 [id number] [facility] 2021-07-11 09:00:00 2021-07-11 09:00:00 Outpatient R EMILY LOWERY [facility] [id number] [facility] 2021-06-19 09:00:00 2021-06-19 10:08:45 Outpatient R EMILY LOWERY [facility] [id number] [facility] 2021-06-19 09:00:00 2021-06-19 10:08:45 Outpatient R EMILY LOWERY [facility] [id number] [facility] 2021-06-19 08:59:26 2021-06-19 10:08:45 Office Visit Emily Lower[facility] 1.0.114 350.1.13.10 4.2.7.2.686 [id number] [facility] 2021-06-19 00:00:00 2021-06-19 00:00:00 Orders Only Doctor Unassigned, Gould [facility] 1.840.114 350.1.13.10 4.2.7.2.686 [id number] 009 [id number] [facility] 2021-06-16 00:00:00 2021-06-16 00:00:00 Refill Emily Lowery [facility] 1..114 350.1.13.10 4.2.7.2.686 [id number] [facility] 2021-06-13 00:00:00 2021-06-13 00:00:00 Refill Emily Lowery [facility] 1..114 350.1.13.10 4.2.7.2.686 [id number] [facility] 2021-05-30 00:00:00 2021-05-30 00:00:00 Case Management Emily Lowery [facility] 1.2.840.114 350.1.13.10 4.2.7.2.686 [id number] [facility] 2021-05-29 00:00:00 2021-05-29 00:00:00 Telephone Emily Lowery [facility] 1.2.840.114 350.1.13.10 4.2.7.2.686 [id number] [facility] 2021-05-22 10:00:58 2021-05-22 10:31:08 Office Visit Emily Lowery [facility] 1.2.840.114 350.1.13.10 4.2.7.2.686 [id number] [facility] 2021-05-22 10:00:00 2021-05-22 10:31:08 Outpatient EMILY HARRISON [facility] [id number] [facility] 2021-05-17 10:55:20 2021-05-17 11:52:11 Office Visit Hamzah Anton [facility] 1.2.840.114 350.1.13.58 9.2.7.2.686 [id number] [facility] 2021-05-09 09:13:18 2021-05-09 09:43:18 Office Visit Emily Lowery [facility] 1.2.840.114 350.1.13.10 4.2.7.2.686 [id number] [facility] 2021-05-09 09:30:00 2021-05-09 09:30:00 Outpatient EMILY HARRISON [facility] [id number] [facility] 2021-05-09 09:30:00 2021-05-09 09:30:00 Outpatient EMILY HARRISON [facility] [id number] [facility] 2021-05-09 09:30:00 2021-05-09 09:30:00 Outpatient R EMILY LOWERY [facility] [id number] [facility] 2021-05-01 08:46:04 2021-05-01 09:16:04 Office Visit MARCELLOCHELSEA MICHI [facility] [address] 1.2.840.114 350.1.13.58 9.2.7.2.686 [id number] [facility] 2021-05-01 00:00:00 2021-05-01 00:00:00 Telephone Emily Lowery [facility] 1.2.840.114 350.1.13.10 4.2.7.2.686 [id number] [facility] 2021 00:00:00 2021 00:00:00 Telephone Azra Harley Elena [facility] [address] [facility] 1.2.840.114 350.1.13.58 9.2.7.2.686 [id number] [facility] 2021-04-26 00:00:00 2021-04-26 00:00:00 RefEmily Mcdonald [facility] 1.2.840.114 350.1.13.10 4.2.7.2.686 [id number] [facility] 2021-04-25 00:00:00 2021-04-25 00:00:00 Hamzah Judd [facility] 1.2.840.114 350.1.13.58 9.2.7.2.686 [id number] 1 [id number] [facility] 2021-04-25 00:00:00 2021-04-25 00:00:00 Emily Warren [facility] 1.2.840.114 350.1.13.10 4.2.7.2.686 [id number] [facility] 2021-04-18 00:00:00 2021-04-18 00:00:00 Case Management Emily Lowery [facility] 1.2.840.114 350.1.13.10 4.2.7.2.686 [id number] [facility] 2021-04-16 00:00:00 2021-04-16 00:00:00 Refill Hamzah Anton [facility] 1.2.840.114 350.1.13.58 9.2.7.2.686 [id number] 1 [id number] [facility] 2021-04-06 09:46:34 2021-04-06 10:36:12 Office Visit Emily Lowery [facility] 1.2.840.114 350.1.13.10 4.2.7.2.686 [id number] [facility] 2021-04-06 09:30:00 2021-04-06 09:30:00 Outpatient R EMILY LOWERY [facility] [id number] [facility] 2021-04-06 00:00:00 2021-04-06 00:00:00 Refill Emily Lowery [facility] 1.2.840.114 350.1.13.10 4.2.7.2.686 [id number] [facility] 2021-04-05 13:59:26 2021-04-05 14:51:50 Office Visit Hamzah Anton [facility] 1.2.840.114 350.1.13.58 9.2.7.2.686 [id number] 2021-04-05 13:59:26 2021-04-05 14:51:50 Office Visit Hamzah Anton [facility] 1.2.840.114 350.1.13.58 9.2.7.2.686 [id number] 1 [id number] [facility] 2021-04-05 00:00:00 2021-04-05 00:00:00 Telephone Emily Lowery [facility] 1.2.840.114 350.1.13.10 4.2.7.2.686 [id number] [facility] 2021-04-03 00:00:00 2021-04-03 00:00:00 Orders Only Doctor Unassigned, Gould [facility] 1.2.840.114 350.1.13.10 4.2.7.2.686 [id number] 009 [id number] [facility] 2021-04-03 00:00:00 2021-04-03 00:00:00 Refana luisa ElkinsaKittya, Aura [facility] 1.2.840.114 350.1.13.58 9.2.7.2.686 [id number] 1 [id number] [facility] 2021-04-03 00:00:00 2021-04-03 00:00:00 Refill Solorzano, Aura Solorzano, Aura [facility] 1.2.840.114 350.1.13.58 9.2.7.2.686 [id number] 1 [id number] [facility] 2021-03-29 00:00:00 2021-03-29 00:00:00 Refill Solorzano, Aura Solorzano, Aura [facility] 1.2.840.114 350.1.13.58 9.2.7.2.686 [id number] [facility] 2021-03-29 00:00:00 2021-03-29 00:00:00 Refill Solorzano, Aura Solorzano, Aura [facility] 1.2.840.114 350.1.13.58 9.2.7.2.686 [id number] 1 [id number] [facility] 2021-03-23 09:30:00 2021-03-23 09:30:00 Outpatient EMILY HARRISON [facility] [id number] [facility] 2021-03-23 00:00:00 2021-03-23 00:00:00 Case Management Emily Lowery [facility] 1.2.840.114 350.1.13.10 4.2.7.2.686 [id number] [facility] 2021-03-23 00:00:00 2021-03-23 00:00:00 Orders Only Doctor Unassigned, Gould [facility] 1.2.840.114 350.1.13.10 4.2.7.2.686 [id number] 009 [id number] [facility] 2021-03-23 00:00:00 2021-03-23 00:00:00 Case Management Emily Lowery [facility] 1.2.840.114 350.1.13.10 4.2.7.2.686 [id number] [facility] 2021-03-21 00:00:00 2021-03-21 00:00:00 Telephone Emily Lowery [facility] 1.2.840.114 350.1.13.10 4.2.7.2.686 [id number] 363 [id number] [facility] 2021-03-16 00:00:00 2021-03-16 00:00:00 Orders Only Azra Harley Elena [facility] [address] 1.2.840.114 350.1.13.58 9.2.7.2.686 [id number] [facility] 2021-03-16 00:00:00 2021-03-16 00:00:00 Orders Only Azra Harley Azra [facility] [address] 1.2.840.114 350.1.13.58 9.2.7.2.686 [id number] [facility] 2021-03-15 12:41:34 2021-03-15 13:47:49 Office Visit Hamzah Anton [facility] 1.2840.114 350.1.13.58 9.2.7.2.686 [id number] [facility] 2021-03-15 12:41:34 2021-03-15 13:47:49 Office Visit Hamzah Anton [facility] 1.2840.114 350.1.13.58 9.2.7.2.686 [id number] 1 [id number] [facility] 2021-03-14 08:10:52 2021-03-14 09:26:01 Office Visit Emily Lowery [facility] 1.2.114 350.1.13.10 4.2.7.2.686 [id number] [facility] 2021-03-14 08:00:00 2021-03-14 08:00:00 Outpatient R EMILY LOWERY [facility] [id number] [facility] 2021-03-14 00:00:00 2021-03-14 00:00:00 Telephone Emily Lowery [facility] 1.2.114 350.1.13.10 4.2.7.2.686 [id number] [facility] 2021-03-14 00:00:00 2021-03-14 00:00:00 Telephone Azra Harley Elena [facility] [address] 1.2840.114 350.1.13.58 9.2.7.2.686 [id number] [facility] 2021-03-14 00:00:00 2021-03-14 00:00:00 Telephone Azra Harley Elena [facility] [address] 1.2840.114 350.1.13.58 9.2.7.2.686 [id number] [facility] 2021-03-09 00:00:00 2021-03-09 00:00:00 RefKitty Arteaga, Kitty [facility] 1.2.840.114 350.1.13.58 9.2.7.2.686 [id number] 1 [id number] [facility] 2021-03-09 00:00:00 2021-03-09 00:00:00 RefKitty Arteaga Aura [facility] 1.2840.114 350.1.13.58 9.2.7.2.686 [id number] 1 [id number] [facility] 2021-03-07 13:40:00 2021-03-07 13:40:00 Outpatient TONE DOMINGO [facility] [id number] [facility] 2021-03-06 13:40:00 2021-03-06 13:40:00 Outpatient TONE DOMINGO [facility] [id number] [facility] 2021-03-05 00:00:00 2021-03-05 00:00:00 RefKitty Arteaga Aura [facility] 1.2840.114 350.1.13.58 9.2.7.2.686 [id number] 1 [id number] [facility] 2021-03-05 00:00:00 2021-03-05 00:00:00 RefKitty Arteaga, Kitty [facility] 1.20.114 350.1.13.58 9.2.7.2.686 [id number] [facility] 2021-03-02 00:00:00 2021-03-02 00:00:00 Telephone Emily Lowery [facility] 1.2840.114 350.1.13.10 4.2.7.2.686 [id number] [facility] 2021-03-02 00:00:00 2021-03-02 00:00:00 Telephone Emily Lowery [facility] 1.2.840.114 350.1.13.10 4.2.7.2.686 [id number] [facility] 2021-02-27 00:00:00 2021-02-27 00:00:00 Telephone Emily Lowery [facility] 1.2.840.114 350.1.13.10 4.2.7.2.686 [id number] [facility] 2021-02-27 00:00:00 2021-02-27 00:00:00 Telephone Emily Lowery [facility] 1.2.840.114 350.1.13.10 4.2.7.2.686 [id number] [facility] 2021-02-19 08:30:00 2021-02-19 08:30:00 Outpatient R EMILY LOWERY [facility] [id number] [facility] 2021-02-19 00:00:00 2021-02-19 00:00:00 Telephone Emily Lowery [facility] 1.2.840.114 350.1.13.10 4.2.7.2.686 [id number] [facility] 2021-02-19 00:00:00 2021-02-19 00:00:00 Telephone Emily Lowery [facility] 1.2.840.114 350.1.13.10 4.2.7.2.686 [id number] [facility] 2021-02-18 15:01:00 2021-02-18 18:16:00 Emergency Daniel Art [facility] [id number] [facility] 2021-02-17 23:15:00 2021-02-18 02:09:00 Emergency Cam Stevens S [facility] 1.2.840.114 350.1.13.10 4.2.7.2.686 [id number] [facility] 2021-02-06 13:12:38 2021-02-06 14:36:39 Office Visit Emily Lowery [facility] 1.2.840.114 350.1.13.10 4.2.7.2.686 [id number] [facility] 2021-02-06 13:12:38 2021-02-06 14:36:39 Office Visit Emily Lowery [facility] 1.2.840.114 350.1.13.10 4.2.7.2.686 [id number] 2021-02-06 14:00:00 2021-02-06 14:00:00 Outpatient R EMILY LOWERY [facility] [id number] [facility] 2021-02-02 11:56:00 2021-02-02 13:57:00 Emergency Patrick Liao [facility] 1.2.840.114 350.1.13.10 4.2.7.2.686 [id number] [facility] 2021-02-02 11:56:00 2021-02-02 11:56:00 Emergency X [facility] ERT [id number] [facility] Results Test Description Test Time Test Comments Results Result Co mments Source [facility] GLUCOSE (AUTOMATED)2023-10-18 01:13:38* Test Item Value Reference Range Interpretation Comme [facility] POCT GLU (test code = 7924384084) 200 mg/dL 70-110 H Lab Interpretation (test cod e = 52951-8) Abnormal [facility] GLUCOSE (AUTOMATED)2023-10-17 21:43:09* Test Item Value Reference Range Interpretation Comme [facility] POCT GLU (test code = 8665833075) 183 mg/dL 70-110 H Lab Interpretation (test cod e = 07222-9) [facility] [id number] 21:26:00XR ELBOW <3 VW RIGHT INDICATION: trauma COMPARISON: None FINDINGS: Olecranon enthesophyte formation with overlying soft tissue swelling. Noacute fracture or dislocation.[facility]2023-10-17 17:10:24* Test Item Value Reference Range Interpretation Comme nts POCT GLU (test code = 6598922041) 154 mg/dL 70-110 H Lab Interpretation (test cod e = [id number]) [facility] [id number] 16:18:30 EXAM: MR THORACIC SPINE WO CONTRAST, [...] caliber and signal. Disc osteophyte complex at T6- T7 result in mild spinal canal stenosis. Nohigh-grade [...] arthrosis result in moderate to severeforaminal narrowing bi laterally. No significant spinal canal stenosis. L5-S1: Disc bulge and facet arthrosis result in moderate to severeforaminal narrowing bilaterally. No significant spinal canal stenosis. Partially visualized large right renal cyst. [facility] THORACIC SPINE WO [id number] 16:18:30EXAM: MR THORACIC SPINE WO CONTRAST, MR [...] stenosis. Partially visu alized large right renal cyst.[facility] GLUCOSE (AUTOMATED)2023-10-17 13:23:42* Test Item Value Reference Range Interpretation Comme nts POCT GLU (test code = 7120814670) 203 mg/dL 70-110 H Lab Interpretation (test cod e = 22466-9) Abnormal [facility] GLUCOSE (AUTOMATED)2023-10-17 02:01:28* Test Item Value Reference Range Interpretation Comme nts POCT GLU (test code = 4983577131) 198 mg/dL 70-110 H Lab Interpretation (test cod e = 63964-9) Abnormal [facility] GLUCOSE (AUTOMATED)2023-10-16 23:22:00* Test Item Value Reference Range Interpretation Comme [facility] POCT GLU (test code = 3533634085) 195 mg/dL 70-110 H Lab Interpretation (test cod e = 22611-6) Abnormal [facility] HospitalEthanol - For all patients >16 years old 2023-10-16 22:08:18ALCOHOL<10mg/dL10/16/2023 5:08 PM [facility] LABORATORY SERVICESToxic Greater than or equal to 80 mg/dL. NOTE: Whole blood values are approximately 10% to 15% lower than serum and plasma.[facility] HospitalCMP2024-04-11 22:04:10* Test Item Value Reference Range Interpretation Comme nts NA (test code = 2996444455) 130 mmol/L 135-145 L K (test code = 3451845574) 4.7 mmol/L 3.5-5.0 CL (test code = 3490788081) 98 mmol/L 98-108 CO2 TOTAL (test code = 4869853847) 27 mmol/L 23-31 AGAP (test code = 2458620407) 5 2-16 BUN (test code = 3587382541) 17 mg/dL 7-23 GLUCOSE (test code = 6924846319) 247 mg/dL 70-110 H CREATININE (test code = 2160-0) 0.86 mg/dL 0.60-1.25 TOTAL BILI (test code = 5813720655) 0.7 mg/dL 0.1-1.1 CALCIUM (test code = 0194688491) 9.2 mg/dL 8.6-10.6 T PROTEIN (test code = 8812017517) 7.4 g/dL 6.3-8.2 ALBUMIN (test code = 7011156887) 4.1 g/dL 3.5-5.0 ALK PHOS (test code = 5542311268) 118 U/L 34-122 ALTv (test code = 1742-6) 33 U/L 5-50 AST(SGOT) (test code = 1724161174) 29 U/L 13-40 eGFR (test code = 62654-7) 101.0 mL/min/1.73m2 CKD-EPI eGFR (2020). Assuming creatinine has been stable day-to-day for at least three months, the eGFR indicates Category G1 (>= 90 mL/min/1.73 m2) Lab Interpretation (test code = 89755-0) Abnormal [facility] HospitalLipase2024-04-11 22:04:10* Test Item Value Reference Range Interpretation Comme nts LIPASE (test code = 9355535179) 103 U/L 0-220 Lab Interpretation (test cod e = 89057-2) Normal [facility] HospitalType and Screen - The Type and Screen [...] POSITIVE IAT (test code = 1185) Negative [facility] HospitalProthrombin Time / [id number] 21:47:43* Test Item Value Reference Range Interpretation Comme nts PROTIME PATIENT (test code = 5964-2) 10.9 10.1-12.6 INR (test code = 6301-6) 1.0 Normal INR <1.1; Warfarin Therapeutic range 2.0 to 3.0 or 2.5 to 3.5, depending upon the indications. Lab Interpretation (test code = 99548-9) Normal [facility] [facility]24-[facility] 21:47:43* Test Item Value Reference Range Interpretation Comme nts APTT Patient (test code = 3173-2) 30 26-36 Lab Interpretation (test cod e = 84283-5) [facility] [id number] 21:41:46* Test Item Value Reference Range Interpretation [...] 777-3) 261 150-328 MPV (test code = 55578-3) 9.7 fL 9.8-13.0 L RDW-CV (test code = 788-0) 12.5 % 12.1-15.4 RDW-SD (test code = 55228-6) 38.1 fL 38.5-51.6 L NRBC x10^3 (test code = 7545039840) See_Comment [Automated messa ge] The system which generated this result transmitted reference range: 10*3/?L. The reference range was not used to interpret this result as normal/abnormal. NRBC/100 WBC (test code = 8116728430) 0.0 0.0-10.0 IPF % (test code = 3429757186) Lab Interpretation (test code = 74971-8) Abnormal [facility] TH[facility]AX W [id number] 19:23:04 PROCEDURE: CT CHEST WITHOUT CONTRAST - [...] of the first left rib,perhaps a bone island.[facility] LUMBAR SPINE WO [id number] 18:34:26CT THORACIC SPINE WO CONTRAST, CT LUMBAR [...] fibroma. Large right renal cysts are partially visualized.[facility] TH[facility]IC SPINE WO [id number] 18:34:26CT THORACIC SPINE WO CONTRAST, CT LUMBAR [...] fibroma. Large right renal cysts are partially visualized.[facility] ABDOMEN PELVIS W [id number] 18:25:32CT Abdomen and Pelvis with intravenous contrast. [...] complications. CONCLUSION: No acute intra-abdominal or pelvic findings.[facility] HEAD WO [id number] 18:15:30CT CERVICAL SPINE WO CONTRAST, CT HEAD [...] with minimal degenerativechanges at the remaining cervical levels.[facility] CERVICAL SPINE WO [id number] 18:15:30CT CERVICAL SPINE WO CONTRAST, CT HEAD [...] with minimal degenerativechanges at the remaining cervical levels.[facility] Hemoglobin A1C [id number] 13:40:00* Test Item Value Reference Range Interpretation Comme nts POCT HBA1C (test code = 4548-4) 11.7 % 4-6 A Lab Interpretation (test cod e = 71863-7) [facility]normal [facility] 1 [id number] 21:28:19EXAM: XR CHEST 1 07/19/2023 2:58 PM [...] orscarring. Included osseous structures show no acute abnormality.[facility] ANGIOGRAM [id number] 20:40:30CT ANGIOGRAM HEAD HISTORY: Male 58 years [...] is visualized. Dural venous sinuses are opacified. [facility] WO [id number] 20:34:11EXAM: CT HEAD WO CONTRAST HISTORY: Headache, [...] cyst.[facility]. Metabolic Panel (92344)2023-07-19 19:46:10* Test Item Value Reference Range Interpretation Comme nts NA (test code = 0249918067) 130 mmol/L 135-145 L K (test code = 2057591963) 4.1 mmol/L 3.5-5.0 CL (test code = 3228872445) 94 mmol/L 98-108 L CO2 TOTAL (test code = 3395112972) 28 mmol/L 23-31 AGAP (test code = 7868751790) 8 2-16 BUN (test code = 9480553148) 18 mg/dL 7-23 GLUCOSE (test code = 7433129998) 396 mg/dL 70-110 H CREATININE (test code = 8562251821) 1.00 mg/dL 0.60-1.25 TOTAL BILI (test code = 3396957814) 0.8 mg/dL 0.1-1.1 CALCIUM (test code = 3300626961) 9.6 mg/dL 8.6-10.6 T PROTEIN (test code = 6391666837) 9.0 g/dL 6.3-8.2 H ALBUMIN (test code = 4805956446) 4.6 g/dL 3.5-5.0 ALK PHOS (test code = 5270373135) 155 U/L 34-122 H ALTv (test code = 1742-6) 44 U/L 5-50 AST(SGOT) (test code = 0368185535) 40 U/L 13-40 eGFR (test code = 55477-9) 87.8 mL/min/1.73m2 CKD-EPI eGFR (2020). Assuming creatinine has been stable day-to-day for at least three months, the eGFR indicates Category G2 (60 - 89 mL/min/1.73 m2) Lab Interpretation (test code = 98620-0) Abnormal [facility] with [id number] 19:31:26* Test Item Value Reference Range Interpretation Comme nts WBC (test code = 6690-2) 7.20 See_Comment [Automated [employer] The system which generated this result transmitted reference range: 4.20 - 10.70 10*3/?L. The reference range was not used to interpret this result as normal/abnormal. RBC (test code = 789-8) 5.68 See_Comment H [Automated [employer] The system which generated this result transmitted [...] 34.4 g/dL 31.2-35.0 RDW-SD (test code = 89306-5) 36.6 fL 38.5-51.6 L RDW-CV (test code = 788-0) 12.1 % 12.1-15.4 PLT (test code = 777-3) 237 See_Comment [Automated messa ge] The system which generated this result transmitted reference range: 150 - 328 10*3/?L. The reference range was not used to interpret this result as normal/abnormal. MPV (test code = 15494-3) 10.1 fL 9.8-13.0 NRBC/100 WBC (test code = 6558546320) 0.0 See_Comment [Automated [employer]] The system which generated this result transmitted reference range: 0.0 - 10.0 /100 WBCs. The reference range was not used to interpret this result as normal/abnormal. NRBC x10^3 (test code = 8578446640) See_Comment [Automated messa ge] The system which generated this result transmitted reference range: 10*3/?L. The reference range was not used to interpret this result as normal/abnormal. GRAN MAT (NEUT) % (test code = 770-8) 77.7 % IMM GRAN % (test code = 5170097079) 0.80 % LYMPH % (test code = 736-9) 10.6 % MONO % (test code = 5905-5) 9.4 % EOS % (test code = 713-8) 0.8 % BASO % (test code = 706-2) 0.7 % GRAN MAT x10^3(ANC) (test code = 2738662312) 5.59 10*3/uL 1.99-6.95 IMM GRAN x10^3 (test code = 6565498143) 0.06 10*3/uL 0.00-0.06 LYMPH x10^3 (test code = 731-0) 0.76 10*3/uL 1.09-3.23 L MONO x10^3 (test code = 742-7) 0.68 10*3/uL 0.36-1.02 EOS x10^3 (test code = 711-2) 0.06 10*3/uL 0.06-0.53 BASO x10^3 (test code = 704-7) 0.05 10*3/uL 0.01-0.09 Lab Interpretation (test code = 87254-6) Abnormal [facility] URINALYSIS W SPECIFIC [id number] 16:02:00* Test Item Value Reference Range Interpretation [...] cloudy Lab Interpretation (test cod e = 41497-1) Abnormal [facility] URINALYSIS W SPECIFIC [id number] 16:02:00* Test Item Value Reference Range Interpretation [...] cloudy Lab Interpretation (test cod e = 78262-2) Abnormal [facility] URINALYSIS W SPECIFIC [id number] 16:02:00* Test Item Value Reference Range Interpretation [...] cloudy Lab Interpretation (test cod e = 87204-9) Abnormal [facility] URINALYSIS W SPECIFIC [id number] 16:02:00* Test Item Value Reference Range Interpretation [...] cloudy Lab Interpretation (test cod e = 71910-9) Abnormal [facility] Consult Notes Date/Time Note Provider Source 2023-10-18 10:03:00 Associated Order(s): CONSULT ADULT OCCUPATIONAL THERAPY OT GENERAL EVALUATION Consult received via [employer], EMR reviewed and evaluation completed 10/18/23. 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 SHANELL Tidwell, OTR/L Pager: [phone] Total Timed Treatment Codes: 8 Min Total [...] completion of evaluation component. Lashonda Ackerman OT [facility] 2023-10-18 09:36:00 Associated Order(s): CONSULT ADULT PHYSICAL [...] before and after session COMMUNICATION Primary Language: Tajik Able to Verbalize needs: Yes Vision:reading glasses [...] Cody Rios PT, DPT,CMSR Cody Rios PT [facility] 2023-10-17 01:34:10 Associated Order(s): CONSULT NEUROSURGERY NEUROSURGERY [...] documentation by Neurosurgery resident Richar Vinson MD. 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 [employer] FAMILY HISTORY: Family History Problem Relation Age [...] the ICU Tertiary in the AM CPT: 62953 Kendrick Laws MD Trauma/Acute Care Surgery Faculty [facility] Notes Date/Time Note Provider Source 2024-02-04 15:51:13 Pt has read his [employer] message Lab Results/Recommendations/Referr al Message [id number] From Lanette Lincoln LVN To Sharon Mckinnon Sent and Delivered 02/04/2024 10:07 AM Last Read in [employer] 02/04/2024 10:13 AM by Sharon Mckinnon Lanette Lincoln LVN [facility] 2024-02-04 10:08:06 Attempted to contact pt, but had to leave a message to call back or review his [employer] message. [facility] 2024-02-04 08:45:10 A1c 11.5 remains uncontrolled on glp-1, insulin, lispro tid and metformin A1c increased from September 2023 despite medication compliance and 10 lb weight loss Please refer patient to Debora Shabazz MD in [place] Thank you, Emily Lowery RN, MSN, TRANSLATOR DEAF, BUCKLE ATTACHER-C [facility] 2024-01-27 14:20:00 LV, sent a [employer] message. Irwin Young [facility] 2024-01-26 10:25:32 Requested Prescriptions Pending Prescriptions Disp Refills LISINOPRIL 20 mg tablet [Pharmacy Med Name: LISINOPRIL 20 MG TABLET] 30 tablet 0 Sig: TAKE 1 TABLET BY MOUTH EVERY DAY IN THE MORNING Last refill on 12/10/2023 #30 with 0 refills Has patient had an appointment within the last year? Yes 10/01/2023 Last Lab: K (mmol/L) Date Value 10/18/2023 3.9 CREATININE (mg/dL) Date Value 10/18/2023 0.99 Next office visit scheduled on Pharmacy and allergies verified? Yes Ambulatory guidelines were Not met PT DUE FOR F/U Refill was Approved FOR 14 DAY SUPPLY TO GRADUATE RECRUITER IN SCHEDULING PSS, please schedule pt f/u Thank you! Marixa Spencer MA [facility] 2023-12-23 09:52:22 Requested Prescriptions Pending Prescriptions Disp Refills LISINOPRIL 20 mg tablet [Pharmacy Med Name: LISINOPRIL 20 MG TABLET] 90 tablet 1 Sig: TAKE 1 TABLET BY MOUTH EVERY DAY IN THE MORNING Last refill on 12/10/2023 #30 with 0 refills Has patient had an appointment within the last year? Yes 10/01/2023 Last Lab: K (mmol/L) Date Value 10/18/2023 3.9 CREATININE (mg/dL) Date Value 10/18/2023 0.99 Next office visit scheduled on Future Appointments In 1 week Jaspreet Villa MD [facility], [facility], [facility] Pharmacy and allergies verified? Yes Ambulatory guidelines were Not met Refill was Denied PT NEEDS APPOINTMENT Marixa Spencer MA [facility] 2023-12-16 13:39:33 LVM to call back and schedule Sending mychart msg Deana Centeno [facility] 2023-12-10 08:26:37 Requested Prescriptions Pending Prescriptions Disp Refills LISINOPRIL 20 mg tablet [Pharmacy Med Name: LISINOPRIL 20 MG TABLET] 90 tablet 0 Sig: TAKE 1 TABLET BY MOUTH EVERY DAY IN THE MORNING Last refill on 09/15/2023 #90 with 0 refills Has patient had an appointment within the last year? Yes 10/01/2023 Last Lab: K (mmol/L) Date Value 10/18/2023 3.9 CREATININE (mg/dL) Date Value 10/18/2023 0.99 Next office visit scheduled on Future Appointments In 3 weeks Jaspreet Villa MD [facility], Maribel MALDONADO, DANIEL DIOP Pharmacy and allergies verified? Yes Ambulatory guidelines were Not met PT DUE FOR 3 MONTH F/U Refill was Approved FOR 30 DAY SUPPLY TO GRADUATE RECRUITER IN SCHEDULING PSS, please schedule pt f/u Thank you! Marixa Spencer MA [facility] 2023-10-21 16:38:37 TRANSITIONAL CARE MANAGEMENT ASSESSMENT 10/21/2023 Sharon Mckinnon [id number] Sharon Mckinnon is a 58 year old /White male was admitted on 10/16/[address] He was discharged on 10/18/23 with discharge disposition of HR- Routine Discharge. Admitting Physician: Kendrick Laws Discharge Diagnosis: Fall from boat with T7 & T9 fractures Linked Episodes Type: Episode: Status: Noted: Resolved: Last update: Updated by: TRANSITION OF CARE TCM Active 10/18/2023 10/21/2023 8:11 AM Myrtle Peterson RN Comments:10/18/2023 TCM Xnj-udul-xf-face outreach documentation: Care Transition CM made f/u call to pt post-discharge x2. No response and call went to voicemail. CM left a discreet message with purpose of call and CM's call back information. Discharge Assessment Chart Assessed: 10/21/23 TCM Outreach Completed: 10/21/23 Future Appointments: Future Appointments Provider Department Dept Phone 10/22/2023 4:00 PM Emily Lowery, BUBBA [facility], [place] [phone] 11/21/2023 10:45 AM Lucas Navarrete MD [facility] D[facility], [facility] [phone] 01/05/2024 4:00 PM Jaspreet Villa MD [facility], [facility] [phone] Myrtle Peterson RN [facility] 2023-10-21 08:12:06 Care Transition CM made f/u call to pt post-discharge. No response and call went to voicemail. CM left a discreet message with purpose of call and CM's call back information. Myrtle Peterson RN, BSN Risk Control Officer-Transitions of Care [phone] [email or web address] 2023-10-17 22:55:12 Problem: Respiratory Function - Impaired Goal: Adequate oxygenation Outcome: Progressing as expected Problem: Discharge Planning Goal: Adequate for discharge Outcome: Progressing as expected Goal: Effective communication Outcome: Progressing as expected Problem: Falls, Risk of Goal: Absence of falls Outcome: Progressing as expected Problem: Glucose Control - Initiated in Adult CC Goal: Glucose level within specified parameters Outcome: Progressing as expected Problem: Infection, Risk of or Actual Goal: Absence of infection Outcome: Progressing as expected Problem: Pain Goal: Control of pain at or below patient's documented comfort goal Outcome: Progressing as expected Goal: Reduction in pain sensation Outcome: Progressing as expected Problem: Skin integrity Impaired (Risk or Actual) Goal: Prevention of new skin breakdown Outcome: Progressing as expected Problem: Tissue Perfusion - Altered, Risk of Goal: Hemodynamically stable Outcome: Progressing as expected Problem: Bleeding, Risk of Goal: Absence of impaired coagulation signs and symptoms Outcome: Progressing as expected Goal: Absence of active bleeding Outcome: Progressing as expected [facility] [employer] 2023-10-17 09:33:04 Problem: Respiratory Function - Impaired Goal: Adequate oxygenation Outcome: Progressing as expected Problem: Discharge Planning Goal: Adequate for discharge Outcome: Progressing as expected Goal: Effective communication Outcome: Progressing as expected Problem: Falls, Risk of Goal: Absence of falls Outcome: Progressing as expected Problem: Glucose Control - Initiated in Adult CC Goal: Glucose level within specified parameters Outcome: Progressing as expected Problem: Infection, Risk of or Actual Goal: Absence of infection Outcome: Progressing as expected Problem: Pain Goal: Control of pain at or below patient's documented comfort goal Outcome: Progressing as expected Goal: Reduction in pain sensation Outcome: Progressing as expected Problem: Skin integrity Impaired (Risk or Actual) Goal: Prevention of new skin breakdown Outcome: Progressing as expected Problem: Tissue Perfusion - Altered, Risk of Goal: Hemodynamically stable Outcome: Progressing as expected Problem: Bleeding, Risk of Goal: Absence of impaired coagulation signs and symptoms Outcome: Progressing as expected Goal: Absence of active bleeding Outcome: Progressing as expected T Dejah Valentine RN [facility] 2023-10-16 22:45:33 Problem: Respiratory Function - Impaired Goal: Adequate oxygenation Outcome: Progressing as expected Problem: Discharge Planning Goal: Adequate for discharge Outcome: Progressing as expected Goal: Effective communication Outcome: Progressing as expected Problem: Falls, Risk of Goal: Absence of falls Outcome: Progressing as expected Problem: Glucose Control - Initiated in Adult CC Goal: Glucose level within specified parameters Outcome: Progressing as expected Problem: Infection, Risk of or Actual Goal: Absence of infection Outcome: Progressing as expected Problem: Pain Goal: Control of pain at or below patient's documented comfort goal Outcome: Progressing as expected Goal: Reduction in pain sensation Outcome: Progressing as expected Problem: Skin integrity Impaired (Risk or Actual) Goal: Prevention of new skin breakdown Outcome: Progressing as expected Problem: Tissue Perfusion - Altered, Risk of Goal: Hemodynamically stable Outcome: Progressing as expected Problem: Bleeding, Risk of Goal: Absence of impaired coagulation signs and symptoms Outcome: Progressing as expected Goal: Absence of active bleeding Outcome: Progressing as expected [facility] 2023-10-16 17:02:14 Report given to Ivelisse MALDONADO. ARIC, primary/secondary survey, identified injuries, orders, treatments and infusion verify reviewed. Nataly Brewster RN [facility] 2023-10-16 16:37:28 Images from the original note were not included. ED LBSW Case Note 10/16/2023 4:37 PM 10/16/23 1636 Grief Support - Critical Support Type of intervention Trauma Critical care family support comment This [facility] [address] met with pt at bed side and asked if family has been notified that he's transferred. Pt stated that his will be up to the hospital. 's name is Sindy Rushing. front desk representative notified. LBSW on stand-by. JOAQUINA Ford Principal Archaeologist [facility] - Care Management Office [email or web address] T Pee KUNZ [facility] 2023-10-16 16:37:14 Neurosurgery at bedside [facility] 2023-10-16 16:28:35 Pt upgraded from status of EVAL to STAT per trauma guidelines due to Neurological symptoms secondary to possible spinal cord injury. Trauma team paged at 1628. Trauma faculty arrived at 1629. Nataly Brewster RN [facility] 2023-10-16 16:23:00 Report received from EMS. Trauma protocol initiated. Trauma team members at bedside, primary and secondary survey in progress. Pt placed on continuous cardiac monitoring, pulse oximetry, and serial vital signs. Sharon Mckinnon is a 58 year old male is trauma transfer from [facility], pt fell out of boat on to concrete, +LOC, C-collar in place, T7, T9 and 9th rib fracture. Patient is alert and oriented x4, respirations are even and unlabored, PPPX4, skin warm and dry, skin color appropriate to race. Nataly Brewster RN [facility] 2023-10-16 15:20:23 Nurse Report Report given to Marybel MALDONADO. Chief complaint, assessment findings, infusion verify and orders reviewed. Hailee Tyler RN Hailee Tyler RN [facility] 2023-10-16 15:01:00 Patient transferred to [facility] ED for diagnosis of contusion of back and fall. Patient agrees to transfer, discussed plan of care with patient and family. Patient is awake, A&Ox 4, RR even and unlabored on 2L NC. Color appropriate for race. PIV intact x 2. No adverse reaction to medications administered while in ED. Belongings with patient to unit. T [facility] 2023-10-16 15:00:00 Pt leaving ED, patient care transferred to EMS staff at this time. T [facility] 2023-10-16 14:48:00 [facility] arrived on scene to transport patient to [facility]. Pt report given to EMS staff at this time. T [facility] 2023-10-16 13:03:[address] scan and brought to TR with RN and trauma team. Continuous cardiac monitoring and serial vital signs monitored by JOEL Fuentes. [facility] 2023-10-16 12:51:[address] scan with RN and trauma team. Continuous cardiac monitoring and serial vital signs monitored by JOEL Fuentes. T [facility] 2023-10-16 12:45:00 Pt arrived to ED via [facility] with c/o fall ~9 feet from "safe boat" onto concrete this morning. EMS states that patient fell while at work, then went home and later called a friend who called EMS to transport patient to hospital. Pt reports falling onto his right side, hitting his head. Unknown LOC. Does not take blood thinners. Catalina Marina RN [facility] 2023-10-01 08:20:00 Addended by: VICKEY QUINTEROS LVN on: 10/01/2023 09:32 AM Modules accepted: Orders [facility] 2023-09-15 11:54:13 Requested Prescriptions Pending Prescriptions Disp Refills LISINOPRIL 20 mg tablet [Pharmacy Med Name: LISINOPRIL 20 MG TABLET] 90 tablet 0 Sig: TAKE 1 TABLET BY MOUTH EVERY DAY IN THE MORNING Last refill on 06/17/2023 #90 with 0 refills Has patient had an appointment within the last year? Yes 06/17/2023 Last Lab: K (mmol/L) Date Value 07/19/2023 4.1 CREATININE (mg/dL) Date Value 07/19/2023 1.00 Next office visit scheduled on Future Appointments In 2 months Lucas Navarrete MD [facility] Dermatology, [facility] Pharmacy and allergies verified? Yes Ambulatory guidelines were Met Refill was Approved Marixa Spencer MA [facility] 2023-08-26 14:32:07 LVM to call back and schedule Sending mychart msg LE Centeno [facility] 2023-08-25 11:50:50 Last Office Visit: 06/17/23 Requested Prescriptions Pending Prescriptions Disp Refills OZEMPIC 1 mg/dose (4 mg/3 mL) PnIj [Pharmacy Med Name: OZEMPIC 4 MG/3 ML (1 MG/DOSE)] Sig: INJECT 1 MG SUBCUTANEOUSLY WEEKLY Last refill on 07/16/23 for 3 ml with 0 refills Next office visit scheduled on Future Appointments In 2 months Lucas Navarrete MD [facility] Dermat[facility], [facility], [facility] Pharmacy and allergies verified? Yes Refill request routed to provider for approval. LE Lamas LVN [facility] 2023-07-19 15:55:29 Patient discharged home with written and verbal instructions. Patient was educated on prescriptions and follow up appointment. Patient verbalized understanding. Patient is alert and oriented to name, time, place, and situation. GCS 15. Respiratory rate even and unlabored, skin warm and dry. Vital sings rechecked and documented. Patient denies pain at the moment. Questions about discharge instructions encouraged. Patient has a steady gait out of the ER.Escorted by RN. Virginia Reese RN LE Reese RN [facility] 2023-07-19 15:53:10 Patient discharged home with written and verbal instructions. Patient was educated on prescriptions and follow up appointment. Patient verbalized understanding. Patient is alert and oriented to name, time, place, and situation. GCS 15. Respiratory rate even and unlabored, skin warm and dry. Vital sings rechecked and documented. Patient denies pain at the moment. Questions about discharge instructions encouraged. Patient has a steady gait out of the ER.Escorted by RN. Virginia Reese RN [facility] 2023-07-19 15:20:39 Patient reassessed/rounding made. Patient denies complains at this time and verbalizes no needs. Remains in no acute distress, stable condition. Patient aware of plan of care. Virginia Reese RN [facility] 2023-07-19 14:59:22 Patient Spo2 maintaining above 90% (94-96%) room air. [facility] 2023-07-19 13:44:37 Summary: Waiting on labs 1344 NI Waiting on labs 1344 NI [facility] Rosario Regan [facility] 2023-07-19 13:00:00 Nurse Report Report received from JOEL Delacruz. Chief complaint, assessment findings and medications were discussed. Plan of care discussed with patient, patient aware of plan. Patient in stable condition at time report was received,no distress. Virginia Reese RN [facility] 2023-07-19 12:54:09 Pt reports having sleep apnea. Pt placed on 2 L NC due to lying down post medication administration and O2 dropping into the 88-90's. LE Foster RN [facility] 2023-07-19 12:52:03 Summary: dm Hx of dm waiting on labs [facility] Jeri Spear [facility] 2023-07-19 12:28:19 Summary: IV No iv at 1229 pt not ready [facility] 2023-07-19 12:13:18 Patient states: "I feel like my head is going to explode. It started at 0100 last night" Reports being type 2 diabetic- lantus and ozempic. 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 Pt states he has been vomiting x 6 episodes. PT denies any h/o migraine. PT denies photophobia. PT denies receiving covid vaccine/booster. Past Medical History/Immunizations: Past Medical History: Diagnosis Date Diabetes Fatty liver Hypertension MRSA infection post op RTK Tetanus received in last 5 years: No Childhood immunizations: Up-to-date Allergies: Allergies Allergen Reactions Aspirin Nausea and/or Vomiting Other reaction(s): NAUSEA Past Social History: Tobacco Use Never smoked or used smokeless tobacco. Drug Use Never. Past Surgical History: Past Surgical History: Procedure Laterality Date JOINT SURGERY Right PTERYGIUM EXCISION Right Review of Systems: Review of Systems Constitutional: Negative for fever. HENT: Negative for voice change. Eyes: Negative for photophobia. Gastrointestinal: Positive for nausea and vomiting. Neurological: Positive for headaches. Psychiatric/Behavioral: Negative for confusion. Physical Exam: ED Triage Vitals [07/19/23 1214] Weight 66.7 kg (147 lb) Actual or estimated Estimated by patient/family report Height 1.88 m (6' 2") BP (!) 126/96 Pulse 113 Resp 16 Temp 37.7 ?C (99.9 ?F) Temp source Oral SpO2 97 % Measured on Room air Physical Exam Vitals and nursing note reviewed. Constitutional: Appearance: Normal appearance. HENT: Head: Normocephalic. Comments: No facial asymmetry Eyes: Extraocular Movements: Extraocular movements intact. Pupils: Pupils are equal, round, and reactive to light. Cardiovascular: Rate and Rhythm: Tachycardia present. Pulmonary: Effort: Pulmonary effort is normal. Musculoskeletal: General: Normal range of motion. Neurological: General: No focal deficit present. Mental Status: He is alert and oriented to person, place, and time. Psychiatric: Mood and Affect: Mood normal. Behavior: Behavior normal. Thought Content: Thought content normal. Radiology: XR CHEST 1 VW Final Result EXAM: XR CHEST 1 VW 07/19/2023 2:58 PM HISTORY: 58 years-old Male with covid eval for pneumonia . TECHNIQUE: Portable AP view of the chest. COMPARISON: 02/26/2022 FINDINGS: Lines and tubes: None. Cardiomediastinal: The cardiomediastinal silhouette is unremarkable. Lungs and pleura: Elevated right hemidiaphragm again noted. Some increasing linear opacities in the lower lungs suggest increasing subsegmental atelectasis superimposed on right lower lung subsegmental atelectasis or scarring. Included osseous structures show no acute abnormality. IMPRESSION Bibasilar subsegmental atelectasis, superimposed on right lower lung atelectasis or scarring. CT ANGIOGRAM HEAD Final Result CT ANGIOGRAM HEAD HISTORY: Male 58 years eval for aneurysm. COMPARISON: None TECHNIQUE: CT angiographic images of the head were obtained after administration of IV contrast. Multiplanar reformats including maximum intensity projection images submitted for review. FINDINGS: The PICA origin is visualized bilaterally. The basilar artery is normal in caliber. The superior cerebellar arteries are unremarkable. The posterior cerebral arteries are unremarkable. The distal cervical, petrous, cavernous and supraclinoid internal carotid arteries are patent. The anterior and middle cerebral arteries are unremarkable. An anterior communicating artery is visualized. Dural venous sinuses are opacified. IMPRESSION No large vessel occlusion, flow-limiting stenosis or aneurysm identified within the intracranial vessels. CT HEAD WO CONTRAST Final Result EXAM: CT HEAD WO CONTRAST HISTORY: Headache, eval for ICH. Patient presented with headache and vomiting. TECHNIQUE: Axial CT of the head was performed and reconstructed at 5 mm intervals. Coronal and sagittal reformatted images were generated. COMPARISON: None FINDINGS: The ventricles and cerebral sulci are normal in caliber and configuration. No midline shift or pathological extra-axial fluid collection is present. The basal cisterns are unremarkable. No acute intracranial hemorrhage or significant mass effect is visualized. No parenchymal attenuation abnormality is seen. The winslow-white matter differentiation is preserved. The mastoid air cells and paranasal air sinuses are clear. The calvarium and central skull base are unremarkable. Incidentally noted small right retrocerebellar arachnoid cyst. IMPRESSION No acute intracranial hemorrhage or mass effect. Preliminary Report Dictated by Resident: Paul Kinney MD., have reviewed this study and agree with the above report. Lab Results: Lab Results CBC WITH DIFF - Abnormal Result Value Ref Range WBC 7.20 4.20 - 10.70 10*3/?L RBC 5.68 (*) 4.26 - 5.52 10*6/?L HGB 16.3 12.2 - 16.4 g/dL HCT 47.4 38.4 - 49.3 % MCV 83.5 81.7 - 95.6 fL MCH 28.7 26.1 - 32.7 pg MCHC 34.4 31.2 - 35.0 g/dL RDW-SD 36.6 (*) 38.5 - 51.6 fL RDW-CV 12.1 12.1 - 15.4 % PLT 237 150 - 328 10*3/?L MPV 10.1 9.8 - 13.0 fL NRBC/100 WBC 0.0 0.0 - 10.0 /100 WBCs NRBC x10 3 <0.01 10*3/?L GRAN MAT (NEUT) % 77.7 % IMM GRAN % 0.80 % LYMPH % 10.6 % MONO % 9.4 % EOS % 0.8 % BASO % 0.7 % GRAN MAT x10 3 (ANC) 5.59 1.99 - 6.95 10*3/uL IMM GRAN x10 3 0.06 0.00 - 0.06 10*3/uL LYMPH x10 3 0.76 (*) 1.09 - 3.23 10*3/uL MONO x10 3 0.68 0.36 - 1.02 10*3/uL EOS x10 3 0.06 0.06 - 0.53 10*3/uL BASO x10 3 0.05 0.01 - 0.09 10*3/uL COMP. METABOLIC PANEL (32759) - Abnormal NA 130 (*) 135 - 145 mmol/L K 4.1 3.5 - 5.0 mmol/L CL 94 (*) 98 - 108 mmol/L CO2 TOTAL 28 23 - 31 mmol/L AGAP 8 2 - 16 BUN 18 7 - 23 mg/dL GLUCOSE 396 (*) 70 - 110 mg/dL CREATININE 1.00 0.60 - 1.25 mg/dL TOTAL BILI 0.8 0.1 - 1.1 mg/dL CALCIUM 9.6 8.6 - 10.6 mg/dL T PROTEIN 9.0 (*) 6.3 - 8.2 g/dL ALBUMIN 4.6 3.5 - 5.0 g/dL ALK PHOS 155 (*) 34 - 122 U/L ALTv 44 5 - 50 U/L AST(SGOT) 40 13 - 40 U/L eGFR 87.8 mL/min/1.73m2 COVID-19 (ID NOW RAPID TESTING) - Abnormal SARS-CoV-2 Rapid ID NOW Positive (*) Not Detected RAPID INFLUENZA A/B - Normal Rapid Influenza A Negative Negative Rapid Influenza B Negative Negative EKG: If EKG completed, see Procedure Note. Orders and Treatments: Orders Placed This Encounter Procedures CT HEAD WO CONTRAST CT ANGIOGRAM HEAD XR CHEST 1 VW Cbc with Diff Comp. Metabolic Panel (04451) COVID-19 (ID NOW TESTING) RAPID INFLUENZA A/B Lab Only COVID Interpretation Orders Placed This Encounter Medications NaCl 0.9% (NS) bolus infusion 1,000 mL metoclopramide HCl (REGLAN) injection 10 mg diphenhydrAMINE (BENADRYL) injection 25 mg morpHINE (4 mg/mL) injection 4 mg ioeaidzmna-upopghqhgdbcy-cirx (ESGIC) 50-325-40 mg tablet 1 tablet ondansetron (ZOFRAN (PF)) injection 4 mg iopamidol (ISOVUE 370-500 mL) injection 100 mL dexamethasone sod phos PF injection 10 mg ipratropium-albuteroL (DUONEB) 0.5 mg-3 mg(2.5 mg base)/3 mL nebulizer solution 3 mL First Provider Eval: ED Events Date/Time Event User Comments 07/19/23 1213 Medical Screening Begins SAÚL JAMIL MD -- 07/19/23 1213 First Provider Evaluation SAÚL JAMIL MD -- ED COURSE ED Course as of 07/19/23 1539 Sat Jul 19, 2023 1539 PT feels improved, informed of cxr results. Pt improved s/p decadron, duoneb. PT comfortable with plan and does not want to be admitted. Pt is 93-94% on RA and in respiratory distress. [PB] 1452 PT resting comfortably. Informed of results. Will obtain cxr as pt having cough [PB] 1229 Will obtain labs, ct/cta head. [PB] 1229 PT to receive ivf, analgesia, anti-emetics. [PB] ED Course User Index [PB] Saúl Jamil MD Diagnosis/Impression as of 07/19/23 1539 Acute intractable headache, unspecified headache type Procedures: Procedures MDM: Medical Decision Making 58 yo M presents with headache. Problems Addressed: Acute intractable headache, unspecified headache type: acute illness or injury Details: Ct head neg for ich. Amount and/or Complexity of Data Reviewed Labs: ordered. Details: Covid poistive Radiology: ordered. Risk Prescription drug management. Risk Details: Pt and comfortable with plan. Flowsheet Documentation: Scoring Tools: No data recorded Disposition/Condition: ED Disposition None Discharge Medications: Patient's Medications START taking these medications No medications on file CONTINUE taking these medications which have NOT CHANGED AMITRIPTYLINE 50 MG TABLET TAKE 1 TABLET BY MOUTH IN THE MORNING AND IN THE EVENING FLASH GLUCOSE SCANNING READER (FREESTYLE GISEL 2 READER) MISC 1 Each 4 (four) times daily. FLASH GLUCOSE SENSOR (FREESTYLE GISEL 2 SENSOR) KIT 1 Each every 14 (fourteen) days. FUROSEMIDE 20 MG TABLET TAKE 1 TABLET BY MOUTH 2 TIMES DAILY FOR 60 DAYS. HUMALOG U-100 INSULIN 100 UNIT/ML SOLUTION INJECT 8 UNIT SUB Q THREE TIMES A DAY BEFORE MEALS KETOROLAC 10 MG TABLET TAKE 1 TABLET BY MOUTH EVERY 6 HOURS NEEDED WITH FOOD LANTUS U-100 INSULIN 100 UNIT/ML SOLUTION INJECT 35 UNITS UNDER THE SKIN AT BEDTIME. LISINOPRIL 20 MG TABLET TAKE 1 TABLET BY MOUTH EVERY DAY IN THE MORNING METFORMIN 500 MG TABLET TAKE 1/2 TABLET BY MOUTH EVERY DAY FOR 10 DAYS, THEN TAKE 1 TABLET BY MOUTH DAILY FOR 10 DAYS, THEN TAKE 1 TABLET BY MOUTH TWICE DAILY WITH MEAL ONETOUCH DELICA LANCETS 30 GAUGE MISC USE DIRECTED MISC DAILY ONETOUCH ULTRA TEST STRIP USE DIRECTED MISC TID BEFORE MEALS PREGABALIN 150 MG CAPSULE TAKE 1 CAPSULE BY MOUTH IN THE MORNING AND IN THE EVENING SEMAGLUTIDE (OZEMPIC) 0.25 MG OR 0.5 MG(2 MG/1.5 ML) PNIJ inject 0.5 mg under the skin weekly. SEMAGLUTIDE (OZEMPIC) 1 MG/DOSE (4 MG/3 ML) PNIJ inject 1 mg under the skin weekly. SEMAGLUTIDE (OZEMPIC) 1 MG/DOSE (4 MG/3 ML) PNIJ inject 1 mg under the skin weekly. TRUEPLUS INSULIN 1 ML 31 GAUGE X 5/16 SYRG START taking Modified Medications as Prescribed No medications on file STOP taking these medications No medications on file Follow-up: Electronically signed by: Saúl Jamil MD 07/19/23 1540 [facility] 2023-07-16 07:49:38 Requested Prescriptions Pending Prescriptions Disp Refills semaglutide (OZEMPIC) 1 mg/dose (4 mg/3 mL) PnIj [Pharmacy Med Name: OZEMPIC 8 MG/3 ML (2 MG/DOSE)] Sig: inject 1 mg under the skin weekly. Last refill on 02/04/23 Last Lab: CREATININE (mg/dL) Date Value 06/17/2023 1.00 HGB A1C (%) Date Value 06/17/2023 11.3 (H) Next office visit scheduled on Future Appointments In 1 week Sydni Fisher MD [facility], [facility] Has Diabetes been discussed within the last 6 months? Yes *If insulin complete chart review of last note for dosing instructions. Pharmacy and allergies verified? Yes Ambulatory guidelines were Met Refill was Approved LE Lamas LVN [facility] 2023-02-04 13:17:31 Formatting of this n ote might be different from the original. LVM to call back and schedule Deana Centeno [facility] 2023-02-04 11:29:46 Formatting of this n ote might be different from the original. Please call patient and have him schedule a follow up appt. Needs repeat lab work to check A1c Ozempic refilled Thank you, Emily Lowery RN, MSN, TRANSLATOR DEAF, BUCKLE ATTACHER-C [facility] 2023-02-04 11:04:55 Formatting of this n ote is different from the original. Last Office Visit: 09/24/22 Requested Prescriptions Pending Prescriptions Disp Refills OZEMPIC 0.25 mg or 0.5 mg (2 mg/3 mL) PnIj [Pharmacy Med Name: OZEMPIC 0.25-0.5 MG/DOSE PEN] 1 Sig: INJECT 0.5 MG UNDER THE SKIN WEEKLY Last refill on 10/25/22 Next office visit scheduled on not scheduled Pharmacy and allergies verified? Yes Refill request routed to provider for approval. Artie Lamas LVN [facility] 2021-02-18 15:53:00 [facility] ([facility]) EMERGENCY PROVIDER REPORT REPORT#:[id number] REPORT STATUS: Signed DATE:02/18/21 TIME:1553 PATIENT: SHARON MCKINNON UNIT #: [id number] ROOM/BED: : 66 AGE: 55 SEX: M PCP PHYS: DOES_NOT KNOW SERVICE AUTHOR: Vane Cornejo BUCKLE ATTACHER * ALL edits or amendments must be made on the electronic/computer document * HPI-Knee Prob/Inj Free Text HPI Notes Free Text HPI Notes 55-year-old male presents to the ER with a 3-week history of left knee pain. Patient has already received an x-ray and CT scan of his knee. Patient has been referred to orthopedics and is pending an MRI. Patient reports he called the hospital earlier today, was informed we do MRIs and admitted patient, so he is requesting to be admitted for his knee pain at this time so he may receive an MRI. General Confirmed Patient Yes Patient Type New patient Initial Greet Date/Time 02/18/21 1502 Presentation Chief Complaint Knee pain L Hx Obtained From Patient Review of Systems ROS Statements All systems rev neg except as marked. Focused Review of Systems Musculoskeletal Reports: Joint pain. Denies: Back pain, Extremity pain, Extremity swelling, Joint swelling, Neck pain. Skin Denies: Erythema, Laceration, Swelling. Neurologic Denies: Numbness, Tingling. Past Medical History - Adult Stated Complaint LEFT KNEE LEG PAIN Allergies Coded Allergies: No Known Allergies (02/18/21) Review of Nursing Notes Triage notes reviewed Smoking status: Smoking status for patients 13 years old or older: Never Smoker Physical Exam Vital Signs Vital Signs First Documented: Result Date Time Pulse Ox 97 02/18 1557 B/P 130/88 / 1557 B/P Mean 102 02/18 1557 O2 Delivery Room air 02/18 1557 Temp 36.7 02/18 1557 Pulse 111 / 1557 Resp 18 02/18 1557 Last Documented: Result Date Time Pulse Ox 97 02/18 1557 B/P 130/88 02/18 1557 B/P Mean 102 / 1557 O2 Delivery Room air 02/18 1557 Temp 36.7 02/18 1557 Pulse 111 / 1557 Resp 18 02/18 1557 Review of Vital Signs Reviewed Focused PE General/Const General/Const Awake, Alert, No acute distress, Well appearing, Well developed , Well hydrated, Well nourished, Cooperative, Not toxic appearing Resp/Chest Respiratory/Chest Atraumatic, Breath sounds NL, Breath sounds = bilat, No respiratory distress, No rales, No rhonchi, No wheezing Cardiovascular Cardiovascular Heart rate NL, Cap refill not delayed, Peripheral circulation NL MS Lower Extrem Left Knee Swelling present, Tenderness present (lateral), ROM painful. Negative: Ecchymosis present, Erythema present, ROM reduced, Deformity present, Open fracture present, Pulses distal absent, Pulses distal decreased, Neuro deficit present. Joint above below affected area is NL. Skin Skin No rash, Warm, Dry, Intact Neurologic Neurologic Oriented X3, Speech NL, No motor deficits, No sensory deficits, Gait NL Interpretation Diagnostics Point of Care Testing Pulse Oximetry Pulse Ox % 97 On: Room air Interpretation Interpreted by me, Pulse oximetry normal Re-Evaluation MDM Free Text MDM Notes Free Text MDM Notes Informed patient of need for outpatient follow-up for MRI. Shared decision making for QMP at this time. Instructed to return to the ER with new or worsening symptoms. Stable for DC. ED Course Medication(s) Ordered Medication(s) Ordered: Central Nervous System Agents Sig/Fredi Start time Last Medication Dose Route Stop Time Status Admin Acetaminophen 650 MG X1ED STA 02/18 151 CAN PO 02/18 151 Patient Discharge Departure Vital Signs/Condition Vital Signs First Documented: Result Date Time Pulse Ox 97 02/18 1557 B/P 130/88 02/18 1557 B/P Mean 102 02/18 1557 O2 Delivery Room air 02/18 1557 Temp 36.7 02/18 1557 Pulse 111 02/18 1557 Resp 18 02/18 1557 Last Documented: Result Date Time Pulse Ox 97 02/18 1557 B/P 130/88 02/18 1557 B/P Mean 102 02/18 1557 O2 Delivery Room air 02/18 1557 Temp 36.7 02/18 1557 Pulse 111 02/18 1557 Resp 18 02/18 1557 All vital signs available at the time of this entry have been reviewed. Condition Stable Clinical Impression Clinical Impression Primary Impression: Knee pain Disposition Decision Other )( Time 1600 )( Date 02/18/21 JELANI-screened discharged Yes Quality Measures BP F/U for HTN Referred for BP f/u < 4wk, F/u with PCP/other doc Smoking Cessation Screened, non user at 1745 RPT #: [id number] END OF REPORT [facility] 2021-02-18 15:53:00 [facility] ([facility]) EMERGENCY PROVIDER REPORT REPORT#:[id number] REPORT STATUS: Signed DATE:02/18/21 TIME:1553 PATIENT: SHARON MCKINNON UNIT #: [id number] ROOM/BED: : 66 AGE: 55 SEX: M PCP PHYS: DOES_NOT KNOW SERVICE AUTHOR: Vane Cornejo BUCKLE ATTACHER * ALL edits or amendments must be made on the electronic/computer document * ClementeYasmineVane 02/18/21 1553: HPI-Knee Prob/Inj Free Text HPI Notes Free Text HPI Notes 55-year-old male presents to the ER with a 3-week history of left knee pain. Patient has already received an x-ray and CT scan of his knee. Patient has been referred to orthopedics and is pending an MRI. Patient reports he called the hospital earlier today, was informed we do MRIs and admitted patient, so he is requesting to be admitted for his knee pain at this time so he may receive an MRI. General Confirmed Patient Yes Patient Type New patient Initial Greet Date/Time 02/18/21 1502 Presentation Chief Complaint Knee pain L Hx Obtained From Patient Review of Systems ROS Statements All systems rev neg except as marked. Focused Review of Systems Musculoskeletal Reports: Joint pain. Denies: Back pain, Extremity pain, Extremity swelling, Joint swelling, Neck pain. Skin Denies: Erythema, Laceration, Swelling. Neurologic Denies: Numbness, Tingling. Past Medical History - Adult Stated Complaint LEFT KNEE LEG PAIN Allergies Coded Allergies: No Known Allergies (02/18/21) Review of Nursing Notes Triage notes reviewed Smoking status: Smoking status for patients 13 years old or older: Never Smoker Physical Exam Vital Signs Vital Signs First Documented: Result Date Time Pulse Ox 97 02/18 1557 B/P 130/88 02/18 1557 B/P Mean 102 02/18 1557 O2 Delivery Room air 02/18 155 Temp 98.0 02/18 155 Pulse 111 02/18 1557 Resp 18 02/18 1557 Last Documented: Result Date Time Pulse Ox 97 02/18 1557 B/P 130/88 02/18 1557 B/P Mean 102 02/18 1557 O2 Delivery Room air 02/18 155 Temp 98.0 02/18 155 Pulse 111 02/18 1557 Resp 18 02/18 1557 Review of Vital Signs Reviewed Focused PE General/Const General/Const Awake, Alert, No acute distress, Well appearing, Well developed , Well hydrated, Well nourished, Cooperative, Not toxic appearing Resp/Chest Respiratory/Chest Atraumatic, Breath sounds NL, Breath sounds = bilat, No respiratory distress, No rales, No rhonchi, No wheezing Cardiovascular Cardiovascular Heart rate NL, Cap refill not delayed, Peripheral circulation NL MS Lower Extrem Left Knee Swelling present, Tenderness present (lateral), ROM painful. Negative: Ecchymosis present, Erythema present, ROM reduced, Deformity present, Open fracture present, Pulses distal absent, Pulses distal decreased, Neuro deficit present. Joint above below affected area is NL. Skin Skin No rash, Warm, Dry, Intact Neurologic Neurologic Oriented X3, Speech NL, No motor deficits, No sensory deficits, Gait NL Interpretation Diagnostics Point of Care Testing Pulse Oximetry Pulse Ox % 97 On: Room air Interpretation Interpreted by me, Pulse oximetry normal Re-Evaluation MDM Free Text MDM Notes Free Text MDM Notes Informed patient of need for outpatient follow-up for MRI. Shared decision making for QMP at this time. Instructed to return to the ER with new or worsening symptoms. Stable for DC. ED Course Medication(s) Ordered Medication(s) Ordered: Central Nervous System Agents Sig/Fredi Start time Last Medication Dose Route Stop Time Status Admin Acetaminophen 650 MG X1ED STA 02/18 1513 CAN PO 02/18 1514 Patient Discharge Departure Vital Signs/Condition Vital Signs First Documented: Result Date Time Pulse Ox 97 02/18 1557 B/P 130/88 02/18 1557 B/P Mean 102 02/18 1557 O2 Delivery Room air 02/18 1557 Temp 98.0 02/18 1557 Pulse 111 02/18 1557 Resp 18 02/18 1557 Last Documented: Result Date Time Pulse Ox 97 02/18 1557 B/P 130/88 02/18 1557 B/P Mean 102 02/18 1557 O2 Delivery Room air 02/18 1557 Temp 98.0 02/18 1557 Pulse 111 02/18 1557 Resp 18 02/18 1557 All vital signs available at the time of this entry have been reviewed. Condition Stable Clinical Impression Clinical Impression Primary Impression: Knee pain Disposition Decision Other )( Time 1600 )( Date 02/18/21 JELANI-screened discharged Yes Quality Measures BP F/U for HTN Referred for BP f/u < 4wk, F/u with PCP/other doc Smoking Cessation Screened, non user Daniel Mercado 02/18/21 1747: Patient Discharge Departure Supervising Physician Note MidLv Saw Pt Alone I have reviewed the PA/BUCKLE ATTACHER's note and plan of care. I was available for consultation as needed at all times during the patient's visit in the emergency department. I agree with the clinical impression, plan and disposition. at 2621 at 3071 RPT #: [id number] END OF REPORT [facility]
[2025-02-11] MEDS ORDERED: KETOROLAC 30 MG/ML INJ ONE (11:29)
[2025-02-11] MEDS ORDERED: CYCLOBENZAPRINE 10 MG TAB ONE (11:29)
[2025-02-11] MEDS ORDERED: HYDROCODONE/APAP 5/325 MG TAB ONE (11:30)
--- NOTE | 2025-02-11 13:01 | RAD REPORT ---
EXAMINATION: XR RIGHT SHOUDLER CLINICAL INDICATION: Male, 59 years old. PAIN RIGHT TECHNIQUE: Multiple views of the right shoulder were obtained. COMPARISON: No prior exam. FINDINGS: Moderate AC joint and glenohumeral joint arthritic changes are present. No acute fracture or dislocation.
--- NOTE | 2025-02-11 13:04 | EDPHYS ---
Physician Documentation [facility] Name: Jean Claude Gonzalez Age: 59 yrs Sex: Male : 1965 Arrival Date: 02/11/2025 Time: 10:34 Bed 4 Private MD: ED Physician Jason Gomez HPI: 02/11 11:25 This 59 yrs old Male presents to ER via Ambulatory with complaints of right dr5 shoulder pain. 11:25 Onset: The symptoms/episode began/occurred 2 day(s) ago. Patient is a 59-year-old dr5 gentleman with history of hypertension coming in with right shoulder back pain that is started 2 days ago. Patient reports he was working on his boat when the pain started. Patient reports he has full range of motion and denies numbness or tingling to right arm.. Historical: - Allergies: 11: No Known Allergies; bp - PMHx: 11:02 Hypertension; bp - Immunization history:: Adult Immunizations up to date. - Infectious Disease History:: Denies. - Social history:: Smoking status: Patient denies any tobacco usage or history of. ROS: 11:25 Constitutional: as per hpi dr5 Exam: 11:25 Constitutional: This is a well developed, well nourished patient who is awake, alert, dr5 and in no acute distress. Head/Face: Normocephalic, atraumatic. Eyes: Pupils equal round and reactive to light, extra-ocular motions intact. Lids and lashes normal. Conjunctiva and sclera are non-icteric and not injected. Cornea within normal limits. Periorbital areas with no swelling, redness, or edema. Neck: Trachea midline, no thyromegaly or masses palpated, and no cervical lymphadenopathy. Supple, full range of motion without nuchal rigidity, or vertebral point tenderness. No Meningismus. Chest/axilla: Normal chest wall appearance and motion. Nontender with no deformity. No lesions are appreciated. Cardiovascular: Regular rate and rhythm with a normal S1 and S2. Normal PMI, no JVD. No pulse deficits. Respiratory: Lungs have equal breath sounds bilaterally, clear to auscultation. No rales, rhonchi or wheezes noted. No increased work of breathing, no retractions or nasal flaring. Back: No spinal tenderness. No costovertebral tenderness. Full range of motion. tenderness noted to palpation on right upper shoulder.. Skin: Warm, dry with normal turgor. Normal color with no rashes, no lesions, and no evidence of cellulitis. MS/ Extremity: Pulses equal, no cyanosis. Neurovascular intact. Full, normal range of motion. Neuro: Awake and alert, GCS 15, oriented to person, place, time, and situation. Cranial nerves II-XII grossly intact. Motor strength 5/5 in all extremities. Sensory grossly intact. Cerebellar exam normal. Normal gait. Vital Signs: 11:01 BP 138 / 86; Pulse 105; Resp 18; Temp 98; Pulse Ox 97% ; Weight 106.59 kg; Height 6 ft. bp 2 in. ; 13:08 BP 136 / 84; Pulse 97; Resp 16; Pulse Ox 96% on R/A; iw 11:01 Body Mass Index 30.17 (106.59 kg, 187.96 cm) bp MDM: 10:57 Medical Screening Exam initiated dr5 11:25 ED course: After initial examination, will get right shoulder x-ray to rule out dr5 fracture. Initial thoughts are likely shoulder strain given no numbness or tingling and full range of motion.. 0808 11:05 Order name: Shoulder Right (2 View) XRAY; Complete Time: 13:03 dr5 Administered Medications: 11:48 Drug: Ketorolac IM 30 mg IM once Route: IM; Site: left gluteus; ll1 13:00 Follow up: Response: No adverse reaction; Pain is decreased iw 11:48 Drug: HYDROcodone-acetaminophen PO 5 mg-325 mg 2 tabs PO once {Note: pain 10/10 RASS ll1 0.} Route: PO; 13:05 Follow up: Response: No adverse reaction; Pain is decreased iw 11:48 Drug: Cyclobenzaprine PO 10 mg PO once Route: PO; ll1 13:09 Follow up: Response: No adverse reaction iw Disposition: 13:52 Co-signature as Attending Physician, Jason Gomez MD I agree with the assessment and jr plan of care. Disposition Summary: 02/11/25 13:04 Discharge Ordered Notes: Location: Home dr5 Condition: Stable dr5 Diagnosis - Pain in right shoulder dr5 Followup: dr5 - With: Emergency Department - When: As needed - Reason: Worsening of condition Followup: dr5 - With: Private Physician - When: 1 - 2 days - Reason: Recheck today's complaints, Continuance of care, Re-evaluation by your physician Discharge Instructions: - Discharge Summary Sheet dr5 - Shoulder Pain dr5 Forms: - Medication Reconciliation Form dr5 - Prescription Opioid Use dr5 - Patient Portal Instructions dr5 - Leadership Thank You Letter dr5 Prescriptions: - Ibuprofen 800 mg Oral Tablet - take 1 tablet ORAL route every 12 hours As needed take with food; 20 tablet; dr5 Refills: 0, Product Selection Permitted - Cyclobenzaprine 10 mg Oral Tablet - take 1 tablet ORAL route every 8 hours As needed; 30 tablet; Refills: 0, dr5 Product Selection Permitted - Tramadol 50 mg Oral Tablet - take 1 tablet ORAL route every 8 hours as needed; 12 tablet; Refills: 0, dr5 Product Selection Permitted - Medrol (Alejandro) 4 mg Oral Tablets, Dose Pack - take 1 tablet ORAL route as directed - follow package instructions; 1 packet; dr5 Refills: 0, Product Selection Permitted Signatures: Dispatcher [employer] EDMS Boone Gaets RN RN bp Reina Hou RN RN ll1 Jason Gomez MD MD [id number] Sherman Kang, AMPOULE EXAMINER-C AMPOULE EXAMINER-Cdr5 Diana Carlin RN iw Corrections: (The following items were deleted from the chart) 11:06 11:06 Shoulder Right 2 View+RAD.RAD.BRZ ordered. EDMS EDMS 12:29 12:29 Shoulder Right 2 View+RAD.RAD.BRZ ordered. EDMS EDMS
--- NOTE | 2025-02-11 13:04 | ER ---
Nurse's Notes [facility] Name: Jean Claude Gonzalez Age: 59 yrs Sex: Male : 1965 Arrival Date: 02/11/2025 Time: 10:34 Bed 4 Private MD: Diagnosis: Pain in right shoulder Presentation: 02/11 11:01 Chief complaint: Patient states: SPONTANEOUS POSTERIOR R SHOULDER PAIN x2 DAYS. bp Coronavirus screen: At this time, the client does not indicate any symptoms associated with coronavirus-19. Ebola Screen: No symptoms or risks identified at this time. Initial Sepsis Screen: Does the patient meet any 2 criteria? HR > 90 bpm. No. Patient's initial sepsis screen is negative. Does the patient have a suspected source of infection? No. Patient's initial sepsis screen is negative. Risk Assessment: Do you want to hurt yourself or someone else?. Onset of symptoms is unknown. 11:01 Method Of Arrival: Ambulatory bp 11:01 Acuity: TAMARA 4 bp Historical: - Allergies: 11:02 No Known Allergies; bp - PMHx: 11:02 Hypertension; bp - Immunization history:: Adult Immunizations up to date. - Infectious Disease History:: Denies. - Social history:: Smoking status: Patient denies any tobacco usage or history of. Screenin:[facility] ED Fall Risk Assessment (Adult) History of falling in the last 3 months, ll1 including since admission No falls in past 3 months (0 pts) Confusion or Disorientation No (0 pts) Intoxicated or Sedated No (0 pts) Impaired Gait No (0 pts) Mobility Assist Device Used No (0 pt) Altered Elimination No (0 pt) Score/Fall Risk Level 0 - 2 = Low Risk Maintained a safe environment, Hourly rounding (assess needs \T\ fall precautionary measures) done. Abuse screen: Denies threats or abuse. Nutritional screening: No deficits noted. Tuberculosis screening: No symptoms or risk factors identified. Assessment: 11:48 General: Appears uncomfortable, Behavior is calm, cooperative, appropriate for age. ll1 Pain: Complains of pain in posterior R shoulder. Musculoskeletal: Circulation, motion, and sensation intact. Capillary refill < 3 seconds, in right fingers. 12:52 Reassessment: No changes from previously documented assessment. Patient and/or family ll1 updated on plan of care and expected duration. Pain level reassessed. Patient is alert, oriented x 3, equal unlabored respirations, skin warm/dry/pink. Vital Signs: 11:01 BP 138 / 86; Pulse 105; Resp 18; Temp 98; Pulse Ox 97% ; Weight 106.59 kg; Height 6 ft. bp 2 in. ; 13:08 BP 136 / 84; Pulse 97; Resp 16; Pulse Ox 96% on R/A; iw 11:01 Body Mass Index 30.17 (106.59 kg, 187.96 cm) bp ED Course: 10:50 Patient arrived in ED. bp 10:57 Sherman Kang FNP-C is PHCP. dr5 10:57 Jason Gomez MD is Attending Physician. dr5 11:02 Triage completed. bp 11:02 Arm band placed on. bp 11:27 Kendra Sarmiento, RN is Primary Nurse. hb 11:48 Patient placed in an exam room, on a stretcher. ll1 11:49 Patient has correct armband on for positive identification. Bed in low position. ll1 Provided Education on: ER procedures and process. 12:52 PO fluids given. ll1 12:59 Shoulder Right (2 View) XRAY In Process Unspecified. EDMS 13:08 No provider procedures requiring assistance completed. Patient did not have IV access iw during this emergency room visit. Administered Medications: 11:48 Drug: Ketorolac IM 30 mg IM once Route: IM; Site: left gluteus; ll1 13:00 Follow up: Response: No adverse reaction; Pain is decreased iw 11:48 Drug: HYDROcodone-acetaminophen PO 5 mg-325 mg 2 tabs PO once {Note: pain 10/10 RASS ll1 0.} Route: PO; 13:05 Follow up: Response: No adverse reaction; Pain is decreased iw 11:48 Drug: Cyclobenzaprine PO 10 mg PO once Route: PO; ll1 13:09 Follow up: Response: No adverse reaction iw Medication: 13:09 VIS not applicable for this client. iw Outcome: 13:04 Discharge ordered by . dr5 13:08 Discharged to home ambulatory, iw 13:08 Condition: good 13:08 Discharge instructions given to patient, Instructed on discharge instructions, follow up and referral plans. medication usage, Demonstrated understanding of instructions, follow-up care, medications, Prescriptions given X 4, 13:09 Patient left the ED. iw Signatures: Dispatcher [employer] Diana Luo, RN RN Kendra Sanders, RN RN Boone Soto RN RN bp Lewis, Lynsay, RN RN ll1 Sherman Kang, SENIOR NET SOFTWARE ENGINEER-C SENIOR NET SOFTWARE ENGINEER-Cdr5
[2025-02-11 13:36] VITALS: TEMP 98
[2025-02-11 13:39] VITALS: BP 136/84; O2SAT 96
== END 2025-02-11 13:09 | disposition home or self-care (01) ==
LOC: ER 10:34
DX: M25.511 Pain in right shoulder (principal)
CPT/HCPCS: 96372; 99284

== ENCOUNTER 2025-02-21 11:09 | Emergency (ER) | payer BC ==
--- OUTSIDE RECORDS SUMMARY | 2025-02-21 11:21 | XMS REPORT | Continuity of Care Document ---
Author Name Unknown Address [address] [facility] [place] [address] [facility] Address [address] [facility] [place] [address] Care Team Providers Care Operations Specialist Name Role Phone Jennifer Lea MD Primary Care Physician [phone] HAMZAH ANTON Attending Clinician UnavailSYDNI Clark Attending Clinician Unavailable MICHI KAN Attending Clinician Unavailwander bagley Doctor Unassigned, [employer] Attending Clinician U Emily Dang Attending Clinician [phone] EMILY LOWERY Attending Clinician Unavailable Neena Byrne DO Attending Clinician [phone] JASPREET VILLA Attending Clinician Unavailable Doctor Unassigned, [employer] Attending Clinician U buzz LUCAS NAVARRETE Attending Clinician Unavailabl kevyn Petesron RN, Myrtle Feliciano Attending Clinician + [phone] KENDRICK LAWS Attending Clinician Unavailable CLAYTON JAY Attending Clinician Unavailable Pierre ALVA, Clayton Attending Clinician [phone] TONE ANNE Attending Clinician Unavailable Mariah ALVA, Tone Attending Clinician [phone] Perez ALVA, Leah Mckeon Attending Clinician [phone] DARRYL HUBBARD Attending Clinician Unavailab SAÚL Warren Attending Clinician Unavailwander Jamil MD, Saúl Luther Attending Clinician + [phone] SANGEETA KNIGHT Attending Clinician Unavailable NETTIE ALEXANDRA Attending Clinician UnavailNETTIE Mcbride Attending Clinician UnavailDONALD Kaye Attending Clinician Unavailabl kevyn [facility] Attending Clinician Unavailable Bennie Askew MD Attending Clinician [phone] BENNIE ASKEW Attending Clinician Unavailhoma Lovell MD, Roberto Rose Attending Clinician [phone] Julieta Desir MD Attending Clinician [phone] [facility] Sleep Attending Clinician [phone] Mary Ann Whitney MD Attending Clinician [phone] [facility], [facility] Attending Clinician UnavailNettie Mcbride MD Attending Clinician + [phone] MARY ANN WHITNEY Attending Clinician Unavailable LOLIS HAYDEN Attending Clinician Unavailable [facility] - [facility] Attending Clinician Rosina franchesca Arnold MD, Donald Ma Attending Clinician [phone] Flaco Weems MD Attending Clinician [phone] ANIVAL BENTLEY Attending Clinician Unavailabl ANIVAL Randall Attending Clinician Unavailabl e [facility] Attending Clinicia n Unavailable Po, [facility] Main Attending Clinician UnavailERICA Soliman Attending Clinician Unavailable Erica Prabhakar MD Attending Clinician [phone] Kendra Maldonado Attending Clinician DA GOLD Attending Clinician Unavailable James Masters DO Attending Clinician [phone] Da Gold MD Attending Clinician [phone] DEANA GRANGER Attending Clinician Unavailwander Harley RN, Azra Attending Clinician Unavaila Kitty Coleman MA Attending Clinician Unavailable Daniel Mercado Attending Clinician Unavailable Cam Stevens MD Attending Clinician [phone] Patrick Mccabe Attending Clinician +[phone] KENDRICK LAWS Admitting Clinician Unavailable SAÚL JAMIL Admitting Clinician UnavailEMILY Guerrero Admitting Clinician Unavailable DA GOLD Admitting Clinician Unavailable Da Gold MD Admitting Clinician [phone] KNOW, DOES_NOT Admitting Clinician Unavailable Payers Payer Name Policy Type Policy Number Effective Date Expirati on Date Source [id number] 2017 00:00:00 [facility] [id number] 00:00:00 Problems Condition Name Condition Details Condition Category Status Onset Date Resolution Date Last Treatment Date Treating Clinician Comments Source Obesity (BMI 30-39.9) Obesity (BMI 30-39.9) Disease Active 4-14 00:00: 00 [facility] PERRY (obstructi ve sleep apnea) PERRY (obstructi ve sleep apnea) Disease Active -22 00:00: 00 [facility] Type 2 diabetes mellitus with hyperosmol arity without coma, with long-term current use of insulin Type 2 diabetes mellitus with hyperosmol arity without coma, with long-term current use of insulin Disease Active 02-26 00:00: 00 [facility] Excessive weight gain Excessive weight gain Disease Active 02-26 00:00: 00 [facility] Elevated alkaline phosphatas e level Elevated alkaline phosphatas e level Disease Active 02-26 00:00: 00 [facility] Type 2 diabetes mellitus with hyperosmol arity without coma, with long-term current use of insulin Type 2 diabetes mellitus with hyperosmol arity without coma, with long-term current use of insulin Disease Active 02-26 00:00: 00 [facility] Morbid obesity with body mass index of 50 or higher Morbid obesity with body mass index of 50 or higher Disease Active 07-26 00:00: 00 [facility] Hypotensio n Hypotensio n Disease Active 07-25 00:00: 00 [facility] Pyogenic bacterial arthritis of patella, left Pyogenic bacterial arthritis of patella, left Disease Active 08 00:00: 00 [facility] Allergies, Adverse Reactions, Alerts Allergy Name Allergy Type Status Severity Reaction(s) Onset Date Inactive Date Treating Clinician Comments Source Gabapent in Allergy to substanc e Active Hallucinatio ns 03-25 00:00: 00 [facility] No Known Allergie s DA Active U 02-18 00:00: 00 [facility] No Known Allergie s DA Active U 15 00:00: 00 [facility] Nsaids Allergy to substanc e Active 02-03 00:00: 00 Other reaction( s): NSAIDs ([id number]) [facility] ASPIRIN DA Active HI NAUSEA 2008-07 00:00: 00 [facility] ASPIRIN DRUG INGREDI Active N/V 2008-07 00:00: 00 [facility] Aspirin Drug Allergy Active Nausea and/or Vomiting 2008-07 00:00: 00 Other reaction( s): NAUSEA [facility] Aspirin Allergy to substanc e Active 2008-07 00:00: 00 Other reaction( s): NAUSEA [facility] NO KNOWN ALLERGIE S Drug Class Active [facility] Social History Social Habit Start Date Stop Date Quantity Comments Source [facility] Tobacco use and exposure 2023-10-01 00:00:00 2023-10-01 00:00:00 Smokeless tobacco non-user [facility] History of Social function 2023-06-17 00:00:00 2023-06-17 00:00:00 [facility] Exposure to SARS-CoV-2 (event) 2022-10-21 00:00:00 2022-10-31 07:14:00 Not sure [facility] Sex Assigned At 1965 00:00[birth year]00 1965 00:00:00 [facility] Smoking Status Start Date Stop Date Source Never smoked tobacco [facility] Tobacco smoking consumption unknown [facility] Medications Ordered Medication Name Filled Medication Name Start Date Stop Date Current Medication? Ordering Clinician Indication Dosage Frequency Signature (SIG) Comments Components Source lisinopriL 20 mg tablet 02-02 00:00: 00 Yes [id number] 20mg Take 1 tablet by mouth every morning. [facility] lisinopriL 20 mg tablet 01-25 00:00: 00 02-02 00:00 :00 No [id number] 20mg TAKE 1 TABLET BY MOUTH EVERY DAY IN THE MORNING [facility] metFORMIN 500 mg tablet 20 00:00: 00 Yes [id number] TAKE 1 TABLET BY MOUTH TWICE A DAY WITH FOOD [facility] lisinopriL 20 mg tablet 6-05 00:00: 00 01-25 00:00 :00 No [id number] 20mg TAKE 1 TABLET BY MOUTH EVERY DAY IN THE MORNING [facility] enoxaparin (LOVENOX) injection 30 mg 10-17 13:00: 00 Yes 30mg 30 mg, Subcutaneo us, Q12H, First dose on 10/18/23 at 0800, Until Discontinu ed, Routine [facility] methocarbam oL 500 mg tablet 4-13 00:00: 00 11-01 04:59 :00 No [id number] 500mg Take 1 tablet by mouth 4 (four) times daily for 14 days. [facility] acetaminoph en 500 mg tablet 4-13 00:00: 00 10-28 04:59 :00 No [id number] 500mg Take 1 tablet by mouth every 6 (six) hours as needed for Pain for up to 10 days. [facility] HYDROcodone -acetaminop hen 5-325 mg tablet 10-17 00:00: 00 10-25 04:59 :00 No [id number] 1{tbl} Take 1 tablet by mouth every 6 (six) hours as needed for Pain (scale 7-10) for up to 7 days. Indication s: acute pain [facility] ibuprofen 400 mg tablet 10-17 00:00: 00 10-21 04:59 :00 No [id number] 400mg Take 1 tablet by mouth every 6 (six) hours for 3 days. [facility] pantoprazol e (PROTONIX) EC tablet 40 mg 10-16 14:00: 00 Yes 40mg 40 mg, Oral, DAILY, First dose on Fri10/17/23 at 0900, Until Discontinu ed, Routine
Indicatio n for use: None of the above [facility] magnesium sulfate in water 4 gram/50 mL (8 %) IV Piggyback 4 g 10-16 12:00: 00 10-16 13:45 :00 No 4g 4 g, IV Piggyback, at 25 mL/hr Administer over 120 Minutes, ONCE, 1 dose, On Fri10/17/23 at 0700, Routine [facility] ibuprofen (IBU) tablet 400 mg 10-16 05:00: 00 Yes 400mg 400 mg, Oral, Q6H, First dose on Fri10/17/23 at 0000, Until Discontinu ed, Routine [facility] methocarbam oL (ROBAXIN) tablet 500 mg 10-16 01:45: 00 Yes 500mg 500 mg, Oral, QID, First dose on Fri10/16/23 at 2044, Until Discontinu ed, Routine [facility] FENTanyl PF (SUBLIMAZE (PF)) injection 50 mcg 10-16 01:37: 31 Yes 50ug 50 mcg, Slow IV Push, Q4HPRN, Starting on Fri10/16/23 at 2036, Until Discontinu ed, Routine, Pain (scale 7-10) [facility] acetaminoph en (TYLENOL) tablet 1,000 mg 10-16 01:00: 00 Yes 1000mg 1,000 mg, Oral, TID, First dose on Fri10/16/23 at 1999, Until Discontinu ed, Routine [facility] enoxaparin (LOVENOX) injection 30 mg 10-16 01:00: 00 10-16 12:46 :07 No 30mg 30 mg, Subcutaneo us, Q12H, First dose on Fri10/16/23 at 2000, Until Discontinu ed, Routine [facility] lactated ringers IV infusion 1,000 mL 10-15 22:45: 00 10-16 18:10 :20 No 1000mL at 100 mL/hr, 1,000 mL, IV Infusion, CONTINUOUS , Starting on Fri10/16/23 at 1745, Until Fri10/17/23 at 1310, Routine [facility] Sliding Scale Insulin - Lispro (HumaLOG) 10-15 22:00: 00 Yes Subcutaneo us, TID MEALS+HS, First dose on Fri10/16/23 at 1700, Until Discontinu ed, Routine [facility] glucagon (GLUCAGEN DIAGNOSTIC KIT) injection 1 mg 10-15 21:52: 24 Yes 1mg 1 mg, Intramuscu lar, PRN, Starting on Fri10/16/23 at 1652, Until Discontinu ed, JUAN JOSE, Blood Glucose < or = 70 mg/dL and patient is NPO, unable to swallow or has mental changes. [facility] dextrose 50 % in water (D50W) injection 25 mL 10-15 21:52: 24 Yes 25mL 25 mL, Slow IV Push, PRN, Starting on Fri10/16/23 at 1652, Until Discontinu ed, JUAN JOSE, Blood Glucose < or = 70 mg/dL and patient is NPO, unable to swallow or has mental status changes. [facility] ondansetron (ZOFRAN (PF)) injection 4 mg 10-15 21:40: 24 Yes 4mg 4 mg, Slow IV Push, Q6HPRN, Starting on Fri10/16/23 at 1640, Until Discontinu ed, Routine, Nausea and Vomiting (N/V) [facility] morpHINE (2 mg/mL) injection 2 mg 10-15 21:40: 12 10-16 01:37 :52 No 2mg 2 mg, Slow IV Push, Q2HPRN, Starting on Fri10/16/23 at 1640, Until Fri10/16/23 at 2037, Routine, Pain (scale 7-10), Pain unrelieved by scheduled analgesics [facility] HYDROcodone -acetaminop hen (NORCO 5) 5-325 mg tablet 1 tablet 10-15 21:40: 08 Yes 1{tbl} 1 tablet, Oral, Q6HPRN, Starting on Fri10/16/23 at 1640, Until Discontinu ed, Routine, Pain (scale 4-6) [facility] FENTanyl PF (SUBLIMAZE (PF)) injection 75 mcg 10-15 20:30: 00 10-15 19:31 :00 No 75ug 75 mcg, Slow IV Push, ONCE, 1 dose, On Fri10/16/23 at 1530, Routine [facility] ondansetron (ZOFRAN (PF)) injection 4 mg 10-15 20:00: 00 10-15 19:58 :00 No 4mg 4 mg, Slow IV Push, ONCE, 1 dose, On Fri10/16/23 at 1500, JUAN JOSE [facility] iopamidol (ISOVUE 300-500 mL) injection 88 mL 10-15 19:00: 00 10-15 19:00 :00 No [id number] 88mL 88 mL, Intravenou s, ONCE, 1 dose, On Fri10/16/23 at 1400, Routine [facility] ondansetron (ZOFRAN (PF)) injection 4 mg 10-15 18:30: 00 10-15 18:23 :00 No 4mg 4 mg, Slow IV Push, ONCE, 1 dose, On Fri10/16/23 at 1330, JUAN JOSE [facility] morpHINE (4 mg/mL) injection 4 mg 10-15 18:30: 00 10-15 18:23 :00 No 4mg 4 mg, Slow IV Push, ONCE, 1 dose, On Polly 10/16/23 at 1330, STAT [facility] amitriptyli ne 50 mg tablet 09-30 00:00: 00 Yes [id number] 50mg Take 1 tablet by mouth every morning and evening. [facility] semaglutide (OZEMPIC) 2 mg/dose (8 mg/3 mL) PnIj 09-30 00:00: 00 Yes [id number] 2mg inject 2 mg under the skin weekly. [facility] atorvastati n 40 mg tablet 09-30 00:00: 00 Yes [id number] 40mg Take 1 tablet by mouth at bedtime. [facility] pregabalin 150 mg capsule 09-30 00:00: 00 02-02 00:00 :00 No [id number] TAKE 1 CAPSULE BY MOUTH IN THE MORNING AND IN THE EVENING [facility] LISINOPRIL 20 mg tablet 09-14 00:00: 00 12-09 00:00 :00 No [id number] 20mg TAKE 1 TABLET BY MOUTH EVERY DAY IN THE MORNING [facility] semaglutide (OZEMPIC) 1 mg/dose (4 mg/3 mL) PnIj 2-20 00:00: 00 09-30 00:00 :00 No [id number] INJECT 1 MG SUBCUTANEO USLY WEEKLY [facility] metFORMIN 500 mg tablet 18 00:00: 00 Yes [id number] TAKE 1 TABLET BY MOUTH TWICE DAILY WITH MEALS [facility] acetaminoph en (TYLENOL) tablet 650 mg 07-19 21:45: 00 07-19 21:54 :00 No 650mg 650 mg, Oral, ONCE, 1 dose, On 07/19/23 at 1545, JUAN JOSE [facility] ipratropium -albuteroL (DUONEB) 0.5 mg-3 mg(2.5 mg base)/3 mL nebulizer solution 3 mL 07-19 21:45: 00 07-19 21:00 :00 No 3mL 3 mL, Inhalation , ONCE NOW, 1 dose, On 07/19/23 at 1545, [facility] dexamethaso ne sod phos PF injection 10 mg 07-19 21:00: 00 07-19 21:07 :00 No 10mg 10 mg, Slow IV Push, ONCE, 1 dose, On 07/19/23 at 1500, 1 mL [facility] iopamidol (ISOVUE 370-500 mL) injection 100 mL 07-19 21:00: 00 07-19 21:00 :00 No [id number] 100mL 100 mL, Intravenou s, ONCE, 1 dose, On 07/19/23 at 1500, Routine [facility] morpHINE (4 mg/mL) injection 4 mg 07-19 19:15: 00 07-19 19:15 :00 No 4mg 4 mg, Slow IV Push, ONCE, 1 dose, On 07/19/23 at 1315, Routine [facility] ondansetron (ZOFRAN (PF)) injection 4 mg 07-19 18:30: 00 07-19 18:43 :00 No 4mg 4 mg, Slow IV Push, ONCE, 1 dose, On 07/19/23 at 1230, [facility] butalbital- acetaminoph en-caff (ESGIC) 50-325-40 mg tablet 1 tablet 07-19 18:30: 00 07-19 18:51 :00 No 1{tbl} 1 tablet, Oral, ONCE, 1 dose, On 07/19/23 at 1230, [facility] diphenhydrA MINE (BENADRYL) injection 25 mg 07-19 18:30: 00 07-19 18:45 :00 No 25mg 25 mg, Slow IV Push, ONCE, 1 dose, On 07/19/23 at 1230, STAT [facility] metoclopram marty HCl (REGLAN) injection 10 mg 07-19 18:30: 00 07-19 18:44 :00 No 10mg 10 mg, Slow IV Push, ONCE, 1 dose, On 07/19/23 at 1230, JUAN JOSE [facility] NaCl 0.9% (NS) bolus infusion 1,000 mL 07-19 18:30: 00 07-19 20:58 :00 No 1000mL at 999 mL/hr, 1,000 mL, IV Infusion, ONCE, 1 dose, On 07/19/23 at 1230, STAT [facility] nirmatrelvi r-ritonavir (PAXLOVID) 300 mg (150 mg x 2)-100 mg tablet 07-19 00:00: 00 09-30 00:00 :00 No [id number] 3{tbl} Take 3 tablets by mouth in the morning and 3 tablets in the evening. [facility] predniSONE 20 mg tablet 07-19 00:00: 00 09-30 00:00 :00 No [id number] Take 40 mg (2 tablets) daily for 5 days [facility] Butalbital- Acetaminoph en-Caff (FIORICET) 50-300-40 mg per capsule 07-19 00:00: 00 07-25 05:59 :00 No [id number] 1{capsu le} Take 1 capsule by mouth 3 (three) times daily as needed for Pain (scale 4-6) for up to 5 days. [facility] ondansetron 4 mg disintegrat ing tablet 07-19 00:00: 00 07-25 05:59 :00 No [id number] 4mg Take 1 tablet by mouth every 8 (eight) hours as needed for Nausea and Vomiting (N/V) for up to 5 days. [facility] albuterol 90 mcg/actuati on inhaler 07-19 00:00: 00 07-25 05:59 :00 No [id number] 2{puff} Inhale 2 Puffs every 6 (six) hours as needed for Wheezing or Shortness of Breath for up to 5 days. [facility] semaglutide (OZEMPIC) 1 mg/dose (4 mg/3 mL) PnIj 1- 00:00: 00 08-26 00:00 :00 No [id number] 1mg inject 1 mg under the skin weekly. [facility] LISINOPRIL 20 mg tablet 2022-07- 00:00: 00 09-14 00:00 :00 No [id number] 20mg TAKE 1 TABLET BY MOUTH EVERY DAY IN THE MORNING [facility] LANTUS U-100 INSULIN 100 unit/mL solution 2022-07- 00:00: 00 Yes [id number] INJECT 35 UNITS UNDER THE SKIN AT BEDTIME. [facility] metFORMIN 500 mg tablet 2022-07 00:00: 00 07-24 00:00 :00 No [id number] TAKE 1/2 TABLET BY MOUTH EVERY DAY FOR 10 DAYS, THEN TAKE 1 TABLET BY MOUTH DAILY FOR 10 DAYS, THEN TAKE 1 TABLET BY MOUTH TWICE DAILY WITH MEAL [facility] PREGABALIN 150 mg capsule 2022-07 0- 00:00: 00 09-30 00:00 :00 No [id number] TAKE 1 CAPSULE BY MOUTH IN THE MORNING AND IN THE EVENING [facility] AMITRIPTYLI NE 50 mg tablet 04-03 00:00: 00 09-30 00:00 :00 No [id number] 50mg TAKE 1 TABLET BY MOUTH IN THE MORNING AND IN THE EVENING [facility] semaglutide (OZEMPIC) 2 mg/dose (8 mg/3 mL) PnIj 03-28 00:00: 00 06-15 05:59 :00 No [id number] 2mg inject 2 mg under the skin weekly for 12 doses. [facility] metFORMIN 500 mg tablet 03-28 00:00: 00 04-28 00:00 :00 No [id number] Half tablet qd x 10 days then 1 tab qd x 10 days then 1 tab bid with meal [facility] LISINOPRIL 20 mg tablet 920 00:00: 00 06-17 00:00 :00 No [id number] 20mg TAKE 1 TABLET BY MOUTH EVERY DAY IN THE MORNING [facility] semaglutide (OZEMPIC) 1 mg/dose (4 mg/3 mL) Ij 8 00:00: 00 09-30 00:00 :00 No [id number] 1mg inject 1 mg under the skin weekly. [facility] semaglutide (OZEMPIC) 0.25 mg or 0.5 mg(2 mg/1.5 mL) Ij 10-25 00:00: 00 09-30 00:00 :00 No [id number] .5mg inject 0.5 mg under the skin weekly. [facility] lisinopriL 20 mg tablet 10-25 00:00: 00 10-31 00:00 :00 No [id number] 20mg Take 1 tablet by mouth in the morning. [facility] insulin glargine (LANTUS U-100 INSULIN) 100 unit/mL injection 09-27 00:00: 00 05-12 00:00 :00 No [id number] 35U inject 35 Units under the skin at bedtime. [facility] pregabalin 150 mg capsule 24 00:00: 00 04-18 00:00 :00 No 150mg Take 1 capsule by mouth in the morning and 1 capsule in the evening. [facility] amitriptyli ne 50 mg tablet 24 00:00: 00 04-03 00:00 :00 No [id number] 50mg Take 1 tablet by mouth in the morning and 1 tablet in the evening. [facility] lisinopriL 20 mg tablet 24 00:00: 00 03-26 00:00 :00 No [id number] 20mg Take 1 tablet by mouth in the morning. [facility] levoFLOXaci n (LEVAQUIN) 500 mg tablet 09-25 00:00: 00 03-28 00:00 :00 No [id number] 500mg Take 1 tablet by mouth every 24 (twenty-fo ur) hours. [facility] semaglutide (OZEMPIC) 0.25 mg or 0.5 mg(2 mg/1.5 mL) PnIj 09-25 00:00: 00 10-25 00:00 :00 No [id number] .25mg inject 0.25 mg under the skin weekly. [facility] AMITRIPTYLI NE 50 mg tablet 09-11 00:00: 00 09-27 00:00 :00 No [id number] TAKE 1 TABLET BY MOUTH TWICE A DAY [facility] pregabalin 150 mg capsule 09-09 00:00: 00 09-27 00:00 :00 No [id number] 150mg Take 1 capsule by mouth in the morning and 1 capsule in the evening. [facility] AMITRIPTYLI NE 50 mg tablet 1 00:00: 00 09-11 00:00 :00 No [id number] TAKE 1 TABLET BY MOUTH TWICE A DAY [facility] FUROSEMIDE 20 mg tablet 07-16 00:00: 00 Yes [id number] TAKE 1 TABLET BY MOUTH 2 TIMES DAILY FOR 60 DAYS. [facility] HUMALOG U-100 INSULIN 100 unit/mL solution 2021-07 00:00: 00 Yes [id number] INJECT 8 UNIT SUB Q THREE TIMES A DAY BEFORE MEALS [facility] insulin lispro, human, (HUMALOG U-100 INSULIN) 100 unit/mL injection 2021-07 0-25 00:00: 00 05-16 00:00 :00 No [id number] 12U inject 12 Units under the skin in the morning and 12 Units at noon and 12 Units in the evening. inject before meals. [facility] FUROSEMIDE 20 mg tablet 2021-07 0-07 00:00: 00 07-16 00:00 :00 No [id number] TAKE 1 TABLET BY MOUTH 2 TIMES DAILY FOR 60 DAYS. [facility] LISINOPRIL 10 mg tablet 04-03 00:00: 00 09-27 00:00 :00 No [id number] TAKE 2 TABLETS BY MOUTH EVERY MORNING [facility] FUROSEMIDE 20 mg tablet -13 00:00: 00 04-12 00:00 :00 No [id number] TAKE 1 TABLET BY MOUTH 2 TIMES DAILY FOR 60 DAYS. [facility] dulaglutide (TRULICITY) 0.75 mg/0.5 mL PnIj 03-11 00:00: 00 09-24 00:00 :00 No [id number] Inject 0.75 mg weekly [facility] flash glucose scanning reader (FREESTYLE GISEL 2 READER) Misc 03-08 00:00: 00 09-30 00:00 :00 No [id number] 1{each} 1 Each 4 (four) times daily. [facility] flash glucose sensor (FREESTYLE GISEL 2 SENSOR) Kit 03-08 00:00: 00 09-30 00:00 :00 No [id number] 1{each} 1 Each every 14 (fourteen) days. [facility] insulin glargine (LANTUS U-100 INSULIN) 100 unit/mL injection 03-08 00:00: 00 09-27 00:00 :00 No [id number] 35U inject 35 Units under the skin at bedtime. [facility] insulin lispro, human, (HUMALOG U-100 INSULIN) 100 unit/mL injection 03-08 00:00: 00 04-30 00:00 :00 No [id number] 12U inject 12 Units under the skin in the morning and 12 Units at noon and 12 Units in the evening. inject before meals. [facility] PREGABALIN 150 mg capsule 8-16 00:00: 00 09-09 00:00 :00 No [id number] TAKE 1 CAPSULE BY MOUTH TWICE A DAY [facility] AMITRIPTYLI NE 50 mg tablet 8-03 00:00: 00 08-05 00:00 :00 No [id number] TAKE 1 TABLET BY MOUTH TWICE A DAY [facility] lisinopriL 10 mg tablet 7- 00:00: 00 04-03 00:00 :00 No [id number] 20mg Take 2 tablets by mouth in the morning. [facility] furosemide (LASIX) 20 mg tablet 01-14 00:00: 00 03-19 00:00 :00 No [id number] 20mg Take 1 tablet by mouth in the morning and 1 tablet in the evening. [facility] insulin glargine (LANTUS U-100 INSULIN) 100 unit/mL injection 01-14 00:00: 00 03-08 00:00 :00 No [id number] 25U inject 25 Units under the skin at bedtime. [facility] insulin lispro, human, (HUMALOG U-100 INSULIN) 100 unit/mL injection 01-14 00:00: 00 03-08 00:00 :00 No [id number] INJECT 8 UNIT SUB Q THREE TIMES A DAY BEFORE MEALS [facility] ketorolac 10 mg tablet 6-06 00:00: 00 10-17 00:00 :00 No TAKE 1 TABLET BY MOUTH EVERY 6 HOURS NEEDED WITH FOOD [facility] HYDROcodone -acetaminop hen 5-325 mg tablet 5-31 00:00: 00 09-24 00:00 :00 No TAKE 1 TABLET BY MOUTH FOUR TIMES A DAY--NOT COVERED [facility] gabapentin (Neurontin) 600 MG tablet 2020-07 0- 00:00: 00 05-11 04:59 :00 No [id number] 600mg [id number] 3D Take 1 tablet (600 mg total) by mouth 3 (three) times a day for 14 days. [facility] tiZANidine (Zanaflex) 2 MG tablet 2020-07 0 00:00: 04-27 04:59 :00 No [id number] 2mg Take 1 tablet (2 mg total) by mouth every 8 (eight) hours if needed for muscle spasms for up to 10 days. [facility] gabapentin (Neurontin) 600 MG tablet 2020-07 00:00: 04-22 04:59 :00 No [id number] 600mg [id number] 3D Take 1 tablet (600 mg total) by mouth 3 (three) times a day for 5 days. [facility] naloxone (Narcan) 2 MG/2ML injection 04-05 00:00: 04-06 04:59 :00 No [id number] .4mg Administer 0.4 mL (0.4 mg total) into affected nostril(s) if needed for opioid reversal. May repeat every 2-3 minutes as needed until medical assistance available. [facility] tiZANidine (Zanaflex) 2 MG tablet 04-05 00:00: 04-16 00:00 :00 No [id number] 2mg Take 1 tablet (2 mg total) by mouth every 8 (eight) hours if needed for muscle spasms for up to 10 days. [facility] HYDROcodone -acetaminop hen ([place]) 5-325 MG tablet 04-05 00:00: 00 04-13 04:59 :00 No [id number] 1{tbl} Q6H Take 1 tablet by mouth every 6 (six) hours if needed for severe pain for up to 7 days. [facility] [facility] g[facility] (Neurontin) 600 MG tablet 04-03 00:00: 04-18 04:59 :00 No [id number] 600mg [id number] 3D Take 1 tablet (600 mg total) by mouth 3 (three) times a day for 14 days. [facility] acetaminoph en-codeine (Tylenol w/ Codeine #3) 300-30 MG tablet 04-03 00:00: 04-09 04:59 :00 No [id number] 1{tbl} Q6H Take 1 tablet by mouth every 6 (six) hours if needed for severe pain for up to 5 days. [facility] ondansetron ODT (Zofran ODT) 4 MG disintegrat ing tablet 03-29 00:00: 04-06 04:59 :00 No [id number] 4mg Take 1 tablet (4 mg total) by mouth every 8 (eight) hours if needed for nausea or vomiting for up to 7 days. [facility] HYDROcodone -acetaminop hen ([place]) 5-325 MG tablet 03-29 00:00: 04-05 00:00 :00 No [id number] 1{tbl} Q6H Take 1 tablet by mouth every 6 (six) hours if needed for severe pain for up to 7 days. [facility] HYDROcodone -acetaminop hen ([place]) 10-325 MG tablet 03-15 00:00: 00 03-26 04:59 :00 No [id number] 1{tbl} Take 1 tablet by mouth every 8 (eight) hours if needed for severe pain for up to 10 days. [facility] HYDROcodone -acetaminop hen ([place]) 5-325 MG tablet 03-09 00:00: 00 03-15 04:59 :00 No [id number] 1{tbl} Q6H Take 1 tablet by mouth every 6 (six) hours if needed for severe pain for up to 5 days. [facility] traMADol (Ultr[place]) 50 MG tablet 03-05 00:00: 00 03-13 04:59 :00 No [id number] 50mg Q6H Take 1 tablet (50 mg total) by mouth every 6 (six) hours if needed for severe pain for up to 7 days. [facility] ONETOUCH ULTRA TEST strip 03-02 00:00: 00 Yes USE DIRECTED MISC TID BEFORE MEALS [facility] ONETOUCH ULTRA TEST strip 03-02 00:00: 00 Yes USE DIRECTED MISC TID BEFORE MEALS [facility] ONETOUCH DELICA LANCETS 30 gauge Misc 03-02 00:00: 00 Yes USE DIRECTED MISC DAILY [facility] TRUEPLUS INSULIN 1 mL 31 gauge x 11/19 Syrg 8-27 00:00: 00 Yes [facility] Immunizations Ordered Immunization Name Filled Immunization Name Date Status Comments Source Influenza Virus Vaccine Quad IM, Preserv and ABX Free 6 MO-64 YRS 2021-05-22 00:00:00 Completed [facility] Influenza Virus Vaccine Quad IM, Preserv and ABX Free 6 MO-64 YRS 2021-05-22 00:00:00 Completed [facility] Influenza Virus Vaccine Quad IM, Preserv and ABX Free 6 MO-64 YRS 2021-05-22 00:00:00 Completed [facility] Influenza Virus Vaccine Quad IM, Preserv and ABX Free 6 MO-64 YRS 2021-05-22 00:00:00 Completed [facility] Influenza Virus Vaccine Quad IM, Preserv and ABX Free 6 MO-64 YRS 2021-05-22 00:00:00 Completed [facility] Influenza Virus Vaccine Quad IM, Preserv and ABX Free 6 MO-64 YRS 2021-05-22 00:00:00 Completed [facility] Influenza Virus Vaccine Quad IM, Preserv and ABX Free 6 MO-64 YRS 2021-05-22 00:00:00 Completed [facility] Influenza Virus Vaccine Quad IM, Preserv and ABX Free MO-64 YRS 2021-05-22 00:00:00 Completed [facility] Influenza Virus Vaccine Quad IM, Preserv and ABX Free 6 MO-64 YRS 2021-05-22 00:00:00 Completed [facility] Influenza Virus Vaccine Quad IM, Preserv and ABX Free 6 MO-64 YRS 2021-05-22 00:00:00 Completed [facility] Influenza Virus Vaccine Quad IM, Preserv and ABX Free 6 MO-64 YRS 2021-05-22 00:00:00 Completed [facility] Influenza Virus Vaccine Quad IM, Preserv and ABX Free 6 MO-64 YRS 2021-05-22 00:00:00 Completed [facility] Influenza Virus Vaccine Quad IM, Preserv and ABX Free 6 MO-64 YRS 2021-05-22 00:00:00 Completed [facility] Influenza Virus Vaccine Quad IM, Preserv and ABX Free 6 MO-64 YRS 2021-05-22 00:00:00 Completed [facility] Influenza Virus Vaccine Quad IM, Preserv and ABX Free 6 MO-64 YRS 2021-05-22 00:00:00 Completed [facility] Influenza Virus Vaccine Quad IM, Preserv and ABX Free 6 MO-64 YRS 2021-05-22 00:00:00 Completed [facility] Influenza Virus Vaccine Quad IM, Preserv and ABX Free 6 MO-64 YRS 2021-05-22 00:00:00 Completed [facility] Influenza Virus Vaccine Quad IM, Preserv and ABX Free 6 MO-64 YRS 2021-05-22 00:00:00 Completed [facility] Influenza Virus Vaccine Quad IM, Preserv and ABX Free 6 MO-64 YRS 2021-05-22 00:00:00 Completed [facility] Influenza Virus Vaccine Quad IM, Preserv and ABX Free 6 MO-64 YRS 2021-05-22 00:00:00 Completed [facility] Influenza Virus Vaccine Quad IM, Preserv and ABX Free 6 MO-64 YRS 2021-05-22 00:00:00 Completed [facility] Influenza Virus Vaccine Quad IM, Preserv and ABX Free 6 MO-64 YRS 2021-05-22 00:00:00 Completed [facility] Influenza Virus Vaccine Quad IM, Preserv and ABX Free 6 MO-64 YRS 2021-05-22 00:00:00 Completed [facility] Influenza Virus Vaccine Quad IM, Preserv and ABX Free 6 MO-64 YRS 2021-05-22 00:00:00 Completed [facility] Influenza Virus Vaccine Quad IM, Preserv and ABX Free 6 MO-64 YRS 2021-05-22 00:00:00 Completed [facility] Influenza Virus Vaccine Quad IM, Preserv and ABX Free 6 MO-64 YRS 2021-05-22 00:00:00 Completed [facility] Influenza Virus Vaccine Quad IM, Preserv and ABX Free 6 MO-64 YRS 2021-05-22 00:00:00 Completed [facility] Influenza Virus Vaccine Quad IM, Preserv and ABX Free 6 MO-64 YRS 2021-05-22 00:00:00 Completed [facility] Influenza Virus Vaccine Quad IM, Preserv and ABX Free 6 MO-64 YRS 2021-05-22 00:00:00 Completed [facility] Influenza Virus Vaccine Quad IM, Preserv and ABX Free 6 MO-64 YRS 2021-05-22 00:00:00 Completed [facility] Influenza Virus Vaccine Quad IM, Preserv and ABX Free 6 MO-64 YRS 2021-05-22 00:00:00 Completed [facility] Influenza Virus Vaccine Quad IM, Preserv and ABX Free 6 MO-64 YRS 2021-05-22 00:00:00 Completed [facility] Influenza Virus Vaccine Quad IM, Preserv and ABX Free 6 MO-64 YRS 2021-05-22 00:00:00 Completed [facility] Influenza Virus Vaccine Quad IM, Preserv and ABX Free 6 MO-64 YRS (FLUCELVAX) Unknown Completed [facility] Influenza Virus Vaccine Quad IM, Preserv and ABX Free 6 MO-64 YRS (FLUCELVAX) Unknown Completed [facility] Influenza Virus Vaccine Quad IM, Preserv and ABX Free 6 MO-64 YRS (FLUCELVAX) Unknown Completed [facility] Influenza Virus Vaccine Quad IM, Preserv and ABX Free 6 MO-64 YRS (FLUCELVAX) Unknown Completed [facility] Influenza Virus Vaccine Quad IM, Preserv and ABX Free 6 MO-64 YRS (FLUCELVAX) Unknown Completed [facility] Influenza Virus Vaccine Quad IM, Preserv and ABX Free 6 MO-64 YRS (FLUCELVAX) Unknown Completed [facility] Influenza Virus Vaccine Quad IM, Preserv and ABX Free 6 MO-64 YRS (FLUCELVAX) Unknown Completed [facility] Influenza Virus Vaccine Quad IM, Preserv and ABX Free 6 MO-64 YRS (FLUCELVAX) Unknown Completed [facility] Influenza Virus Vaccine Quad IM, Preserv and ABX Free 6 MO-64 YRS (FLUCELVAX) Unknown Completed [facility] Influenza Virus Vaccine Quad IM, Preserv and ABX Free 6 MO-64 YRS (FLUCELVAX) Unknown Completed [facility] Influenza Virus Vaccine Quad IM, Preserv and ABX Free 6 MO-64 YRS (FLUCELVAX) Unknown Completed [facility] Influenza Virus Vaccine Quad IM, Preserv and ABX Free 6 MO-64 YRS (FLUCELVAX) Unknown Completed [facility] Influenza Virus Vaccine Quad IM, Preserv and ABX Free 6 MO-64 YRS (FLUCELVAX) Unknown Completed [facility] Influenza Virus Vaccine Quad IM, Preserv and ABX Free 6 MO-64 YRS (FLUCELVAX) Unknown Completed [facility] Influenza Virus Vaccine Quad IM, Preserv and ABX Free 6 MO-64 YRS (FLUCELVAX) Unknown Completed [facility] Influenza Virus Vaccine Quad IM, Preserv and ABX Free 6 MO-64 YRS (FLUCELVAX) Unknown Completed [facility] Influenza Virus Vaccine Quad IM, Preserv and ABX Free 6 MO-64 YRS (FLUCELVAX) Unknown Completed [facility] Influenza Virus Vaccine Quad IM, Preserv and ABX Free 6 MO-64 YRS (FLUCELVAX) Unknown Completed [facility] Influenza Virus Vaccine Quad IM, Preserv and ABX Free 6 MO-64 YRS (FLUCELVAX) Unknown Completed [facility] Influenza Virus Vaccine Quad IM, Preserv and ABX Free 6 MO-64 YRS (FLUCELVAX) Unknown Completed [facility] Influenza Virus Vaccine Quad IM, Preserv and ABX Free 6 MO-64 YRS (FLUCELVAX) Unknown Completed [facility] Influenza Virus Vaccine Quad IM, Preserv and ABX Free 6 MO-64 YRS (FLUCELVAX) Unknown Completed [facility] Influenza Virus Vaccine Quad IM, Preserv and ABX Free 6 MO-64 YRS (FLUCELVAX) Unknown Completed [facility] Influenza Virus Vaccine Quad IM, Preserv and ABX Free 6 MO-64 YRS (FLUCELVAX) Unknown Completed [facility] Influenza Virus Vaccine Quad IM, Preserv and ABX Free 6 MO-64 YRS (FLUCELVAX) Unknown Completed [facility] Influenza Virus Vaccine Quad IM, Preserv and ABX Free 6 MO-64 YRS (FLUCELVAX) Unknown Completed [facility] Influenza Virus Vaccine Quad IM, Preserv and ABX Free 6 MO-64 YRS (FLUCELVAX) Unknown Completed [facility] Influenza Virus Vaccine Quad IM, Preserv and ABX Free 6 MO-64 YRS (FLUCELVAX) Unknown Completed [facility] Influenza Virus Vaccine Quad IM, Preserv and ABX Free 6 MO-64 YRS (FLUCELVAX) Unknown Completed [facility] Influenza Virus Vaccine Quad IM, Preserv and ABX Free 6 MO-64 YRS (FLUCELVAX) Unknown Completed [facility] Vital Signs Vital Name Observation Time Observation Value Comments S our Systolic blood pressure 2021-05-01 14:03:00 101 mm[Hg] [facility] Diastolic blood pressure 2021-05-01 14:03:00 64 mm[Hg] [facility] Heart rate 2021-05-01 14:03:00 134 /min [facility] Body temperature 2021-05-01 14:03:00 36.33 [facility] Body height 2021-05-01 14:03:00 188 [facility] Body weight 2021-05-01 14:03:00 102.967 [facility] BMI 2021-05-01 14:03:00 29.15 [facility] Systolic blood pressure 2024-02-03 15:44:00 128 mm[Hg] [facility] Diastolic blood pressure 2024-02-03 15:44:00 90 mm[Hg] [facility] Heart rate 2024-02-03 15:43:00 98 /min [facility] Body temperature 2024-02-03 15:43:00 36.78 Con[place]pcion [facility] Respiratory rate 2024-02-03 15:43:00 20 /min [facility] Body weight 2024-02-03 15:43:00 118.842 kg [facility] BMI 2024-02-03 15:43:00 33.64 kg/m2 [facility] Systolic blood pressure 2023-10-18 18:00:00 123 mm[Hg] [facility] Diastolic blood pressure 2023-10-18 18:00:00 96 mm[Hg] [facility] Heart rate 2023-10-18 18:00:00 82 /min [facility] Oxygen saturation in Arterial blood by Pulse oximetry 2023-10-18 18:00:00 97 /min [facility] Body temperature 2023-10-18 13:00:00 36.61 Con[place]pcion [facility] Respiratory rate 2023-10-18 12:00:00 16 /min [facility] Body height 2023-10-16 21:31:06 188 cm [facility] Body weight 2023-10-16 21:31:06 108.863 kg [facility] BMI 2023-10-16 21:31:06 30.81 kg/m2 [facility] Heart rate 2023-10-16 19:50:00 99 /min [facility] Body temperature 2023-10-16 19:50:00 36.72 Concepcion [facility] Respiratory rate 2023-10-16 19:50:00 15 /min [facility] Oxygen saturation in Arterial blood by Pulse oximetry 2023-10-16 19:50:00 94 /min [facility] Systolic blood pressure 2023-10-16 19:40:00 126 mm[Hg] [facility] Diastolic blood pressure 2023-10-16 19:40:00 98 mm[Hg] [facility] Body height 2023-10-16 17:43:00 188 cm [facility] Body weight 2023-10-16 17:43:00 106.595 kg [facility] BMI 2023-10-16 17:43:00 30.17 kg/m2 [facility] Systolic blood pressure 2023-10-01 13:04:00 111 mm[Hg] [facility] Diastolic blood pressure 2023-10-01 13:04:00 78 mm[Hg] [facility] Heart rate 2023-10-01 13:04:00 88 /min [facility] Body temperature 2023-10-01 13:04:00 36.11 Con[place]pc[place] [facility] Respiratory rate 2023-10-01 13:04:00 16 /min [facility] Body height 2023-10-01 13:04:00 188 cm [facility] Body weight 2023-10-01 13:04:00 123.514 kg [facility] BMI 2023-10-01 13:04:00 34.96 kg/m2 [facility] Oxygen saturation in Arterial blood by Pulse oximetry 2023-10-01 13:04:00 97 /min [facility] Oxygen saturation in Arterial blood by Pulse oximetry 2023-07-19 21:27:00 93 /min [facility] Systolic blood pressure 2023-07-19 21:08:00 114 mm[Hg] [facility] Diastolic blood pressure 2023-07-19 21:08:00 87 mm[Hg] [facility] Heart rate 2023-07-19 21:08:00 105 /min [facility] Respiratory rate 2023-07-19 21:08:00 20 /min [facility] Body temperature 2023-07-19 19:05:13 37.72 Con[place]pcion [facility] Body height 2023-07-19 18:14:00 188 cm [facility] Body weight 2023-07-19 18:14:00 66.679 kg [facility] BMI 2023-07-19 18:14:00 18.87 kg/m2 [facility] Heart rate 2023-06-17 19:35:00 92 /min [facility] BMI 2023-06-17 19:04:00 35.12 kg/m2 [facility] Oxygen saturation in Arterial blood by Pulse oximetry 2023-06-17 19:04:00 98 /min [facility] Systolic blood pressure 2023-06-17 19:04:00 126 mm[Hg] [facility] Diastolic blood pressure 2023-06-17 19:04:00 88 mm[Hg] [facility] Body temperature 2023-06-17 19:04:00 36.61 [place] [facility] Respiratory rate 2023-06-17 19:04:00 16 /min [facility] Body height 2023-06-17 19:04:00 188 cm [facility] Body weight 2023-06-17 19:04:00 124.059 kg [facility] Systolic blood pressure 2023-03-28 16:14:00 135 mm[Hg] [facility] Diastolic blood pressure 2023-03-28 16:14:00 90 mm[Hg] [facility] Heart rate 2023-03-28 16:14:00 102 /min [facility] Respiratory rate 2023-03-28 16:14:00 20 /min [facility] Body height 2023-03-28 16:14:00 188 cm [facility] Body weight 2023-03-28 16:14:00 128.822 kg [facility] BMI 2023-03-28 16:14:00 36.46 kg/m2 [facility] Systolic blood pressure 2022-10-31 12:33:00 135 mm[Hg] [facility] Diastolic blood pressure 2022-10-31 12:33:00 90 mm[Hg] [facility] Heart rate 2022-10-31 12:33:00 112 /min [facility] Body temperature 2022-10-31 12:33:00 37.06 [place] [facility] Respiratory rate 2022-10-31 12:33:00 18 /min [facility] Body height 2022-10-31 12:33:00 188 cm [facility] Body weight 2022-10-31 12:33:00 121.609 kg [facility] BMI 2022-10-31 12:33:00 34.42 kg/m2 [facility] Oxygen saturation in Arterial blood by Pulse oximetry 2022-10-31 12:33:00 98 /min [facility] Systolic blood pressure 2022-09-24 15:04:00 130 mm[Hg] [facility] Diastolic blood pressure 2022-09-24 15:04:00 88 mm[Hg] [facility] Heart rate 2022-09-24 15:04:00 114 /min [facility] Respiratory rate 2022-09-24 15:04:00 20 /min [facility] Body height 2022-09-24 15:04:00 188 cm [facility] Body weight 2022-09-24 15:04:00 119.296 kg [facility] BMI 2022-09-24 15:04:00 33.77 kg/m2 [facility] Systolic blood pressure 2022-04-23 14:15:00 140 mm[Hg] [facility] Diastolic blood pressure 2022-04-23 14:15:00 99 mm[Hg] [facility] Heart rate 2022-04-23 14:15:00 89 /min [facility] Respiratory rate 2022-04-23 14:15:00 18 /min [facility] Oxygen saturation in Arterial blood by Pulse oximetry 2022-04-23 14:15:00 96 /min [facility] Body temperature 2022-04-23 14:13:00 36.61 [place] [facility] Body height 2022-04-23 14:13:00 188 cm [facility] Body weight 2022-04-23 14:13:00 128.413 kg [facility] BMI 2022-04-23 14:13:00 36.35 kg/m2 [facility] Systolic blood pressure 2022-03-08 21:05:00 138 mm[Hg] [facility] Diastolic blood pressure 2022-03-08 21:05:00 89 mm[Hg] [facility] Heart rate 2022-03-08 21:05:00 115 /min [facility] Body weight 2022-03-08 21:05:00 121.428 kg [facility] BMI 2022-03-08 21:05:00 34.37 kg/m2 [facility] Oxygen saturation in Arterial blood by Pulse oximetry 2022-03-08 21:05:00 95 /min [facility] Body weight 2021-05-17 17:31:00 [facility] BMI 2021-05-17 17:31:00 29.79 [facility]m2 [facility] Body height 2021-05-17 17:31:00 188 cm [facility] Systolic blood pressure 2021-05-01 14:03:00 101 mm[Hg] [facility] Diastolic blood pressure 2021-05-01 14:03:00 64 mm[Hg] [...] weight 2021-03-15 18:27:00 [facility] BMI 2021-03-15 18:27:00 29.79 kg[facility]m2 [facility] Body height 2021-03-15 18:27:00 188 cm [facility] Body weight 2021-03-15 18:27:00 105[facility]235 [facility] BMI 2021-03-15 18:27:00 29.79 kg[facility]m2 [facility] Procedures Procedure Date / Time Performed Performing Clinician Source POCT GLUCOSE (AUTOMATED) 2023-10-18 12:56[facility]23-10-18 08:11:00 Kelly Sanchez [facility] MAGNESIUM 2023-10-18 08:11:00 Gal Clark [facility] BASIC METABOLIC PANEL (NA, K, CL, CO2, GLUCOSE, BUN, CREATININE, CA) 2023-10-18 08:11:00 Gal Clark [facility] CBC WITHOUT DIFF 2023-10-18 08:11:00 Gal Clark [facility] POCT GLUCOSE (AUTOMATED) 2023-10-18 01:08[facility]00 [facility] ([facility]) 2023-10-17 21:41:00 Fr neftaly Laws [facility] POCT GLUCOSE (AUTOMATED) 2023-10-17 17:07:00 [facility] THORACIC SPINE WO CONTRAST 2023-10-17 15:41:08 Edwina Albarado [facility] MR LUMBAR SPINE WO CONTRAST 2023-10-17 15:39:46 Verena [facility] POCT GLUCOSE (AUTOMATED) 2023-10-17 13:22:00 Fr neftaly Laws [facility] XR ELBOW <3 VW RIGHT 2023-10-17 11:45:54 Olga Childress [facility] PHOSPHORUS 2023-10-17 08:33:00 [facility] MAGNESIUM 2023-10-17 08:33:00 Kelly [facility] BASIC METABOLIC PANEL (NA, K, CL, CO2, GLUCOSE, BUN, CREATININE, CA) 2023-10-17 08:33:00 Kelly Sanchez [facility] CBC WITH DIFF 2023-10-17 08:33:00 [facility] ([facility]ATED) 2023-10-17 02:00:00 Fr neftaly Laws [facility] POCT GLUCOSE (AUTOMATED) 2023-10-16 23:20:00 Fr neftaly Laws [facility] LIPASE 2023-10-16 21:32:00 Ramu Blackwell [facility] COMP. METABOLIC PANEL ([id number]) 2023-10-16 21:32:00 Ramu Blackwell [facility] ETHANOL 2023-10-16 21:32:00 Ramu Blackwell [facility] CBC WITHOUT DIFF 2023-10-16 21:32:00 Rishi [facility] PROTHROMBIN TIME / INR 2023-10-16 21:32:00 Braden Blackwell [facility] ACTIVATED PARTIAL THRMPLAS GA 2023-10-16 21:32:00 Rishi [facility] HB ABO GROUPING 2023-10-16 21:32:00 Rishi [facility] URINALYSIS 2023-10-16 19:26:00 Clayton Jay [facility] URINE DRUG (IMMUNOASSAY) - COMPREHENSIVE DRUG SCREEN W/O REFLEX 2023-10-16 19:26:00 Clayton Jay [facility] CT ABDOMEN PELVIS W CONTRAST 2023-10-16 18:13:25 Clayton Jay [facility] CT LUMBAR SPINE WO CONTRAST 2023-10-16 18:13:25 Clayton Jay [facility] CT THORACIC SPINE WO CONTRAST 2023-10-16 18:13:25 Clayton Jay [facility] CT THORAX W CONTRAST 2023-10-16 18:13:25 Pili Jay [facility] CT CERVICAL SPINE WO CONTRAST 2023-10-16 18:10:33 Clayton Jay [facility] CT HEAD WO CONTRAST 2023-10-16 18:10:33 Tory Jay [facility] CREATINE KINASE 2023-10-16 18:06:00 Clayton Jay [facility] MAGNESIUM 2023-10-16 18:06:[address] [facility] TROPONIN I 2023-10-16 18:06:[address] [facility] COMP. METABOLIC PANEL ([id number]) 2023-10-16 18:06:00 Clayton Jay [facility] ETHANOL 2023-10-16 18:06:[address] [facility] CBC WITH DIFF 2023-10-16 18:06:00 Clayton Jay [facility] N-TERMINAL PRO-BNP 2023-10-16 18:06:00 Clayton Jay [facility] POCT HEMOGLOBIN A1C TEST 2023-10-01 13:30:00 Angelic Anne [facility] XR CHEST 1 VW 2023-07-19 21:06:41 [facility] 2023-07-19 20:06:06 Saúl Jamil [facility] CT HEAD WO CONTRAST 2023-07-19 20:05:38 Alec Jamil [facility] COMP. METABOLIC PANEL ([id number]) 2023-07-19 18:43:00 Saúl Jamil [facility] CBC WITH DIFF 2023-07-19 18:43:00 [facility] RAPID INFLUENZA A/B 2023-07-19 18:43:00 Alec Jamil [facility] COVID-19 (ID NOW RAPID TESTING) 2023-07-19 18:43:00 Saúl Jamil [facility] CONSENT/REFUSAL FOR DIAGNOSIS AND TREATMENT 2023-07-19 18:09:38 Doctor Unassigned, [employer] [facility] CONSENT/REFUSAL FOR DIAGNOSIS AND TREATMENT 2023-06-17 18:32:19 Doctor Unassigned, [employer] [facility] [place] US ABDOMEN LIMITED 2022-09-27 18:53:10 Emily Lowery [facility] CONSENT/REFUSAL FOR DIAGNOSIS AND TREATMENT 2022-09-27 18:23:39 Doctor Unassigned, [employer] [facility] ASSIGNMENT OF BENEFITS 2022-09-27 18:23:22 Docto r Unassigned, [employer] [facility] AMYLASE 2022-09-24 16:11:00 Emily Lowery [facility] LIPASE 2022-09-24 16:11:00 Emily Lowery [facility] PROSTATIC SPECIFIC ANTIGEN SCREEN 2022-09-24 16:11:00 Emily Lowery [facility] THYROID STIMULATING HORMONE 2022-09-24 16:11:00 Emily Lowery [facility] COMP. METABOLIC PANEL (70290) 2022-09-24 16:11:00 Emily Lowery [facility] CBC WITHOUT DIFF 2022-09-24 16:11:00 Emily Lowery [facility] GLYCOSYLATED HEMOGLOBIN (A1C) 2022-09-24 16:11:00 Emily Lowery [facility] PATIENT FINANCIAL POLICY 2022-09-24 15:00:46 Doctor Unassigned, [employer] [facility] POCT URINALYSIS 2022-09-24 00:00:00 Emily Lowery [facility] SLEEP STUDY DATA REPORT 2022-05-02 05:01:00 Doct or Unassigned, [employer] [facility] Encounters Start Date/Time End Date/Time Encounter Type Admission Type Attending [facility] Facility Care Department Encounter ID Source 2021-08-17 14:18:21 Outpatient [facility] [id number] [facility] 2021-06-19 01:04:40 Outpatient HAMZAH ANTON [facility] [id number] [facility] 2021-06-17 01:01:35 Outpatient SYDNI BARTLETT [facility] [id number] [facility] 2021-05-25 01:03:24 Outpatient HAMZAH ANTON [facility] [id number] [facility] 2021-05-23 01:03:56 Outpatient HAMZAH ANTON [facility] [id number] [facility] 2021-05-17 11:53:10 Outpatient HAMZAH ANTON [facility] [id number] [facility] 2021-05-07 15:35:04 Emergency [facility] [id number] [facility] 2021-04-05 12:53:47 Outpatient [facility] [id number] [facility] 2021-03-29 11:06:42 Outpatient MICHI KAN [facility] [id number] [facility] 2021-03-16 09:57:02 Outpatient MICHI KAN [facility] [id number] [facility] 2021-03-15 13:48:38 Outpatient HAMZAH ANTON [facility] [id number] [facility] 2024-02-10 00:00:00 2024-03-13 18:20:45 Patient Secure Msg Doctor Unassigned, [employer] Doctor Unassigned, [employer] [facility] 1..840.114 350.1.13.10 4.2.7.2.686 [id number] [facility] 2024-02-04 00:00:00 2024-02-04 15:51:30 Telephone Emily Lowery [facility] 1..840.114 350.1.13.10 4.2.7.2.686 [id number] [facility] 2024-02-04 00:00:00 2024-02-04 11:47:25 Letter (Out) [facility] 1.2840.114 350.1.13.10 4.2.7.2.686 [id number] [facility] 2024-02-03 11:00:00 2024-02-03 11:16:52 Outpatient R EMILY LOWERY [facility] [id number] [facility] 2024-02-03 11:00:00 2024-02-03 11:16:52 Office Visit Emily Lowery [facility] 1.840.114 350.1.13.10 4.2.7.2.686 [id number] [facility] 2024-01-25 00:00:00 2024-01-27 14:20:26 Refill Chavez Neena [facility] 1.840.114 350.1.13.10 4.2.7.2.686 [id number] [facility] 2024-01-05 16:00:00 2024-01-05 16:00:00 Outpatient R JASPREET VILLA [facility] [id number] [facility] 2023-12-23 00:00:00 2023-12-23 09:56:55 Refana luisa Byrne Neena [facility] 1.0.114 350.1.13.10 4.2.7.2.686 [id number] [facility] 2023-12-10 00:00:00 2023-12-16 13:40:20 Refill Chavez Neena [facility] 1.840.114 350.1.13.10 4.2.7.2.686 [id number] [facility] 2023-10-20 00:00:00 2023-11-22 18:08:14 Patient Secure Msg Doctor Unassigned, [employer] [facility] 1.2.840.114 350.1.13.10 4.2.7.2.686 [id number] [facility] 2023-11-21 10:45:00 2023-11-21 10:45:00 Outpatient LUCAS RIVERS [facility] [id number] [facility] 2023-10-22 16:00:00 2023-10-22 16:00:00 Outpatient EMILY HARRISON [facility] [id number] [facility] 2023-10-21 00:00:00 2023-10-21 00:00:00 Transition of Care Myrtle Peterson [facility] 1.2.840.114 350.1.13.10 4.2.7.2.686 [id number] [facility] 2023-10-16 16:22:00 2023-10-18 17:37:00 Inpatient KENDRICK FRANK [facility] STR [id number] [facility] 2023-10-16 16:22:00 2023-10-18 17:37:00 Hospital Encounter Kendrick Laws [facility] 1.2840.114 350.1.13.10 4.2.7.2.686 [id number] [facility] 2023-10-16 12:49:00 2023-10-16 15:37:00 Emergency X CLAYTON JAY [facility] ERT [id number] [facility] 2023-10-16 12:49:00 2023-10-16 15:37:00 Emergency Clayton Jay [facility] 1..840.114 350.1.13.10 4.2.7.2.686 [id number] [facility] 2023-10-01 08:20:00 2023-10-01 09:55:21 Outpatient TONE DOMINGO [facility] [id number] [facility] 2023-10-01 08:20:00 2023-10-01 08:40:00 Office Visit Tone Anne [facility] 1.2.840.114 350.1.13.10 4.2.7.2.686 [id number] [facility] 2023-09-25 08:00:00 2023-09-25 08:00:00 Outpatient TONE DOMINGO [facility] [id number] [facility] 2023-09-15 00:00:00 2023-09-15 00:00:00 Leah Strong [facility] 1.2.840.114 350.1.13.10 4.2.7.2.686 [id number] [facility] 2023-08-21 00:00:00 2023-08-21 00:00:00 Emily Warren [facility] 1.2840.114 350.1.13.10 4.2.7.2.686 [id number] [facility] 2023-07-29 09:00:00 2023-07-29 09:00:00 Outpatient DARRYL CARTY [facility] [id number] [facility] 2023-07-23 00:00:00 2023-07-23 00:00:00 Emily Warren [facility] 1.2840.114 350.1.13.10 4.2.7.2.686 [id number] [facility] 2023-07-19 12:16:00 2023-07-19 15:56:00 Emergency X SAÚL JAMIL [facility] ERT [id number] [facility] 2023-07-19 12:16:00 2023-07-19 15:56:00 Emergency Saúl Jamil [facility] 1.2840.114 350.1.13.10 4.2.7.2.686 [id number] [facility] 2023-07-16 00:00:00 2023-07-16 00:00:00 Emily Warren [facility] 1.2840.114 350.1.13.10 4.2.7.2.686 [id number] [facility] 2023-06-26 13:30:00 2023-06-26 13:30:00 Outpatient R [facility] [id number] [facility] 2023-06-24 13:30:00 2023-06-24 13:30:00 Outpatient R SANGEETA KNIGHT [facility] [id number] [facility] 2023-06-19 00:00:00 2023-06-19 00:00:00 Patient Secure Msg Doctor Unassigned, [employer] [facility] 1.2840.114 350.1.13.10 4.2.7.2.686 [id number] [facility] 2023-06-19 00:00:00 2023-06-19 00:00:00 Patient Secure Msg Doctor Unassigned, [employer] [facility] 1.2840.114 350.1.13.10 4.2.7.2.686 [id number] [facility] 2023-06-17 13:00:00 2023-06-17 14:32:46 Outpatient R EMILY OLWERY [facility] [id number] [facility] 2023-06-17 13:00:00 2023-06-17 14:32:46 Office Visit Emily Lowery [facility] 1.2840.114 350.1.13.10 4.2.7.2.686 [id number] [facility] 2023-06-17 00:00:00 2023-06-17 00:00:00 Orders Only Doctor Unassigned, [employer] [facility] 1.2.840.114 350.1.13.10 4.2.7.2.686 [id number] [facility] 2023-06-17 00:00:00 2023-06-17 00:00:00 Emily Warren [facility] 1.2.840.114 350.1.13.10 4.2.7.2.686 [id number] [facility] 2023-05-11 00:00:00 2023-05-11 00:00:00 Emily Warren [facility] 1.2.840.114 350.1.13.10 4.2.7.2.686 [id number] [facility] 2023-04-27 00:00:00 2023-04-27 00:00:00 Emily Warren [facility] 1.2.840.114 350.1.13.10 4.2.7.2.686 [id number] [facility] 2023-04-23 00:00:00 2023-04-23 00:00:00 Emily Warren [facility] 1.2.840.114 350.1.13.10 4.2.7.2.686 [id number] [facility] 2023-04-11 00:00:00 2023-04-11 00:00:00 Emily Warren [facility] 1.2.840.114 350.1.13.10 4.2.7.2.686 [id number] [facility] 2023-04-03 00:00:00 2023-04-03 00:00:00 Refill Emily Lowery [facility] 1.0.114 350.1.13.10 4.2.7.2.686 [id number] [facility] 2023-03-28 11:30:00 2023-03-28 16:22:07 Outpatient R EMILY LOWERY [facility] [id number] [facility] 2023-03-28 11:30:00 2023-03-28 12:00:00 Office Visit Emily Lowery [facility] 1.0.114 350.1.13.10 4.2.7.2.686 [id number] [facility] 2023-03-28 00:00:00 2023-03-28 00:00:00 Letter (Out) Doctor Unassigned, [employer] [facility] 1.840.114 350.1.13.10 4.2.7.2.686 [id number] [facility] 2023-03-26 00:00:00 2023-03-26 00:00:00 Refill Emily Lowery [facility] 1.0.114 350.1.13.10 4.2.7.2.686 [id number] [facility] 2023-03-24 09:30:00 2023-03-24 09:30:00 Outpatient R EMILY LOWERY [facility] [id number] [facility] 2023-02-04 00:00:00 2023-02-04 00:00:00 Telephone Emily Lowery [facility] 1..114 350.1.13.10 4.2.7.2.686 [id number] [facility] 2023-02-03 00:00:00 2023-02-03 00:00:00 RefEmily Mcdonald [facility] 1.114 350.1.13.10 4.2.7.2.686 [id number] [facility] 2022-11-27 13:00:00 2022-11-27 13:00:00 Outpatient R NETTIE ALEXANDRA STRAHIL [facility] [id number] [facility] 2022-11-01 10:30:00 2022-11-01 10:30:00 Outpatient DONALD HU [facility] [id number] [facility] 2022-10-31 08:30:00 2022-10-31 08:45:00 Milieu Counselor Visit [facility] Priest [facility] 1.114 350.1.13.10 4.2.7.2.686 [id number] [facility] 2022-10-31 08:30:00 2022-10-31 08:30:00 Outpatient BENNIE CANTRELL [facility] [id number] [facility] 2022-10-31 07:30:00 2022-10-31 08:00:00 Office Visit Roberto Lovell [facility] 1.114 350.1.13.10 4.2.7.2.686 [id number] [facility] 2022-10-25 00:00:00 2022-10-25 00:00:00 Emily Warren [facility] 1.114 350.1.13.10 4.2.7.2.686 [id number] [facility] 2022-10-01 00:00:00 2022-10-01 00:00:00 Telephone Emily Lowery [facility] 1.2.840.114 350.1.13.10 4.2.7.2.686 [id number] [facility] 2022-09-27 13:26:02 2022-09-27 23:59:00 Outpatient R EMILY LOWERY [facility] [id number] [facility] 2022-09-27 13:26:02 2022-09-27 23:59:00 Hospital Encounter Emily Lowery [facility] 1.2.840.114 350.1.13.10 4.2.7.2.686 [id number] [facility] 2022-09-27 00:00:00 2022-09-27 00:00:00 Refill Emily Lowery [facility] 1.2.840.114 350.1.13.10 4.2.7.2.686 [id number] [facility] 2022-09-25 00:00:00 2022-09-25 00:00:00 Telephone Emily Lowery [facility] 1.2.840.114 350.1.13.10 4.2.7.2.686 [id number] [facility] 2022-09-25 00:00:00 2022-09-25 00:00:00 Telephone Emily Lowery [facility] 1.2.840.114 350.1.13.10 4.2.7.2.686 [id number] [facility] 2022-09-24 10:30:00 2022-09-24 10:54:59 Outpatient R EMILY LOWERY [facility] [id number] [facility] 2022-09-24 10:30:00 2022-09-24 10:54:59 Office Visit Emily Lowery [facility] 1.840.114 350.1.13.10 4.2.7.2.686 [id number] [facility] 2022-09-24 00:00:00 2022-09-24 00:00:00 Orders Only Doctor Unassigned, [employer] [facility] 1.840.114 350.1.13.10 4.2.7.2.686 [id number] [facility] 2022-09-24 00:00:00 2022-09-24 00:00:00 Telephone Julieta Desir [facility] 1..114 350.1.13.10 4.2.7.2.686 [id number] [facility] 2022-09-23 07:30:00 2022-09-23 07:30:00 Outpatient EMILY HARRISON [facility] [id number] [facility] 2022-09-17 08:30:00 2022-09-17 08:30:00 Outpatient EMILY HARRISON [facility] [id number] [facility] 2022-09-11 00:00:00 2022-09-11 00:00:00 Emily Warren [facility] 1.0.114 350.1.13.10 4.2.7.2.686 [id number] [facility] 2022-09-05 00:00:00 2022-09-05 00:00:00 Emily Warren [facility] 1.0.114 350.1.13.10 4.2.7.2.686 [id number] [facility] 2022-07-25 00:00:00 2022-07-25 00:00:00 Emily Warren [facility] 1.2.840.114 350.1.13.10 4.2.7.2.686 [id number] [facility] 2022-07-16 00:00:00 2022-07-16 00:00:00 Emily Warren [facility] 1.840.114 350.1.13.10 4.2.7.2.686 [id number] [facility] 2022-06-19 10:30:00 2022-06-19 10:30:00 Outpatient R NETTIE ALEXANDRA STRAHIL [facility] [id number] [facility] 2022-06-01 00:00:00 2022-06-01 00:00:00 Emily Warren [facility] 1.840.114 350.1.13.10 4.2.7.2.686 [id number] [facility] 2022-05-13 00:00:00 2022-05-13 00:00:00 Emily Warren [facility] 1.840.114 350.1.13.10 4.2.7.2.686 [id number] [facility] 2022-05-10 00:00:00 2022-05-10 00:00:00 Letter (Out) Clinic, [facility] Sleep [facility] 1.2840.114 350.1.13.10 4.2.7.2.686 [id number] [facility] 2022-05-10 00:00:00 2022-05-10 00:00:00 [facility] 1.840.114 350.1.13.10 4.2.7.2.686 [id number] [facility] 2022-05-02 14:00:00 2022-05-02 14:15:00 Milieu Counselor Visit [facility] Nettie Alexandra [facility] 1.2840.114 350.1.13.10 4.2.7.2.686 [id number] [facility] 2022-05-02 14:00:00 2022-05-02 14:00:00 Outpatient NETTIE OG STRAMOBhargav [facility] [id number] [facility] 2022-05-02 00:00:00 2022-05-02 00:00:00 Letter (Out) Doctor Unassigned, [employer] [facility] 1.2840.114 350.1.13.10 4.2.7.2.686 [id number] [facility] 2022-05-02 00:00:00 2022-05-02 00:00:00 Orders Only Doctor Unassigned, [employer] [facility] 1.840.114 350.1.13.10 4.2.7.2.686 [id number] [facility] 2022 00:00:00 2022 00:00:00 Case Management Emily Lowery [facility] 1.0.114 350.1.13.10 4.2.7.2.686 [id number] [facility] 2022-04-26 00:00:00 2022-04-26 00:00:00 Refill Emily Lowery [facility] 1.840.114 350.1.13.10 4.2.7.2.686 [id number] [facility] 2022-04-23 09:20:00 2022-04-23 16:25:19 [facility] [id number] [facility] 2022-04-23 09:20:00 2022-04-23 16:25:19 [facility] 1.84.114 350.1.13.10 4.2.7.2.686 [id number] [facility] 2022-04-22 12:30:00 2022-04-22 12:30:00 Outpatient R LOLIS HAYDEN [facility] [id number] [facility] 2022-04-11 00:00:00 2022-04-11 00:00:00 RefEmily Mcdonald [facility] 1..114 350.1.13.10 4.2.7.2.686 [id number] [facility] 2022-03-28 00:00:00 2022-03-28 00:00:00 RefLeah Lutz [facility] 1.114 350.1.13.10 4.2.7.2.686 [id number] [facility] 2022-03-20 00:00:00 2022-03-20 00:00:00 Telephone Emily Lowery [facility] 1..114 350.1.13.10 4.2.7.2.686 [id number] [facility] 2022-03-20 00:00:00 2022-03-20 00:00:00 Letter (Out) Guillermo Cardiology - [facility] 1.84.114 350.1.13.10 4.2.7.2.686 [id number] [facility] 2022-03-15 00:00:00 2022-03-15 00:00:00 Telephone Emily Lowery [facility] 1..114 350.1.13.10 4.2.7.2.686 [id number] [facility] 2022-03-14 00:00:00 2022-03-14 00:00:00 Telephone Emily Lowery [facility] 1.0.114 350.1.13.10 4.2.7.2.686 [id number] [facility] 2022-03-13 00:00:00 2022-03-13 00:00:00 Telephone Emily Lowery [facility] 1.114 350.1.13.10 4.2.7.2.686 [id number] [facility] 2022-03-08 16:00:00 2022-03-08 17:09:55 Outpatient R DONALD ARNOLD [facility] [id number] [facility] 2022-03-08 16:00:00 2022-03-08 17:09:55 Outpatient R DONALD ARNOLD [facility] [id number] [facility] 2022-03-08 16:00:00 2022-03-08 17:09:55 Office Visit Donald Arnold [facility] 1.840.114 350.1.13.10 4.2.7.2.686 [id number] [facility] 2022-03-08 00:00:00 2022-03-08 00:00:00 Donald Jackson [facility] 1.840.114 350.1.13.10 4.2.7.2.686 [id number] [facility] 2022-03-06 09:27:51 2022-03-06 23:59:00 Outpatient R EMILY LOWERY [facility] [id number] [facility] 2022-03-06 09:27:51 2022-03-06 23:59:00 Hospital Encounter Emily Lowery [facility] 1.2.840.114 350.1.13.10 4.2.7.2.686 [id number] [facility] 2022-03-01 00:00:00 2022-03-01 00:00:00 Outpatient R EMILY LOWERY [facility] [id number] [facility] 2022-03-01 00:00:00 2022-03-01 00:00:00 Outpatient R EMILY LOWERY [facility] [id number] [facility] 2022-02-26 09:45:00 2022-02-26 23:59:00 Hospital Encounter Emily Lowery [facility] 1.2.840.114 350.1.13.10 4.2.7.2.686 [id number] [facility] 2022-02-26 09:30:00 2022-02-26 11:26:22 Office Visit Emily Lowery [facility] 1.2.840.114 350.1.13.10 4.2.7.2.686 [id number] [facility] 2022-02-26 09:30:00 2022-02-26 11:26:22 Outpatient R EMILY LOWERY [facility] [id number] [facility] 2022-02-26 09:30:00 2022-02-26 11:26:22 Outpatient R EMILY LOWERY [facility] [id number] [facility] 2022-02-26 09:30:00 2022-02-26 11:26:22 Outpatient R EMILY LOWERY [facility] [id number] [facility] 2022-02-26 09:30:00 2022-02-26 11:26:22 Office Visit Emily Lowery [facility] 1.2.840.114 350.1.13.10 4.2.7.2.686 [id number] [facility] 2022-02-26 09:30:00 2022-02-26 11:26:22 Outpatient R EMILY LOWERY [facility] [id number] [facility] 2022-02-26 09:45:00 2022-02-26 09:45:00 Outpatient R EMILY LOWERY [facility] [id number] [facility] 2022-02-26 00:00:00 2022-02-26 00:00:00 Telephone Flaco Weems [facility] 1.2.840.114 350.1.13.10 4.2.7.2.686 [id number] [facility] 2022-02-26 00:00:00 2022-02-26 00:00:00 Telephone Flaco Weems [facility] 1.2.840.114 350.1.13.10 4.2.7.2.686 [id number] [facility] 2022-02-20 00:00:00 2022-02-20 00:00:00 Refill Emily Lowery [facility] 1.2.840.114 350.1.13.10 4.2.7.2.686 [id number] [facility] 2022-02-15 00:00:00 2022-02-15 00:00:00 Emily Warren [facility] 1.2.840.114 350.1.13.10 4.2.7.2.686 [id number] [facility] 2022-01-29 00:00:00 2022-01-29 00:00:00 Refill Emily Lowery [facility] 1.840.114 350.1.13.10 4.2.7.2.686 [id number] [facility] 2022-01-16 00:00:00 2022-01-16 00:00:00 Refill Emily Lowery [facility] 1.2840.114 350.1.13.10 4.2.7.2.686 [id number] [facility] 2022-01-15 12:30:00 2022-01-15 12:30:00 Outpatient Chelsy BENTLEY, ANIVAL LYON [facility] [id number] [facility] 2022-01-14 00:00:00 2022-01-14 00:00:00 Refill Emily Lowery [facility] 1..114 350.1.13.10 4.2.7.2.686 [id number] [facility] 2022-01-14 00:00:00 2022-01-14 00:00:00 Telephone Emily Lowery [facility] 1..114 350.1.13.10 4.2.7.2.686 [id number] [facility] 2022-01-14 00:00:00 2022-01-14 00:00:00 Telephone Emily Lowery [facility] 1.20.114 350.1.13.10 4.2.7.2.686 [id number] [facility] 2022-01-01 00:00:00 2022-01-01 00:00:00 Case Management Emily Lowery [facility] 1.2.840.114 350.1.13.10 4.2.7.2.686 [id number] [facility] 2021-12-31 00:00:00 2021-12-31 00:00:00 Telephone Team, [facility] 1.2.840.114 350.1.13.10 4.2.7.2.686 [id number] [facility] 2021-12-27 09:30:00 2021-12-27 09:45:00 Milieu Counselor Visit Pob, [facility] Main [facility] 1.840.114 350.1.13.10 4.2.7.2.686 [id number] [facility] 2021-12-27 09:30:00 2021-12-27 09:30:00 Outpatient R EMILY LOWERY [facility] [id number] [facility] 2021-12-26 00:00:00 2021-12-26 00:00:00 Telephone Emily Lowery [facility] 1.840.114 350.1.13.10 4.2.7.2.686 [id number] [facility] 2021-12-26 00:00:00 2021-12-26 00:00:00 Telephone Emily Lowery [facility] 1.2840.114 350.1.13.10 4.2.7.2.686 [id number] [facility] 2021-12-25 09:30:00 2021-12-25 23:59:00 Hospital Encounter Emily Lowery [facility] 1.2840.114 350.1.13.10 4.2.7.2.686 [id number] [facility] 2021-12-25 09:00:00 2021-12-25 12:45:28 Office Visit Emily Lowery [facility] 1.0.114 350.1.13.10 4.2.7.2.686 [id number] [facility] 2021-12-25 09:00:00 2021-12-25 12:45:28 Outpatient R EMILY LOWERY [facility] [id number] [facility] 2021-12-25 09:00:00 2021-12-25 12:45:28 Outpatient R EMILY LOWERY [facility] [id number] [facility] 2021-12-25 09:30:00 2021-12-25 09:30:00 Outpatient R EMILY LOWERY [facility] [id number] [facility] 2021-12-25 09:00:00 2021-12-25 09:00:00 Outpatient R EMILY LOWERY [facility] [id number] [facility] 2021-12-25 09:00:00 2021-12-25 09:00:00 Outpatient R EMILY LOWERY [facility] [id number] [facility] 2021-12-12 14:00:00 2021-12-12 14:00:00 Outpatient R ERICA PRABHAKAR [facility] [id number] [facility] 2021-12-10 00:00:00 2021-12-10 00:00:00 Orders Only Doctor Unassigned, [employer] [facility] 1.0.114 350.1.13.10 4.2.7.2.686 [id number] [facility] 2021-12-10 00:00:00 2021-12-10 00:00:00 Telephone Emily Lowery [facility] 1..114 350.1.13.10 4.2.7.2.686 [id number] [facility] 2021-11-27 00:00:00 2021-11-27 00:00:00 Refill Emily Lowery [facility] 1.2.840.114 350.1.13.10 4.2.7.2.686 [id number] [facility] 2021-09-26 11:00:00 2021-09-26 11:30:00 Office Visit Emily Lowery [facility] 1.2840.114 350.1.13.10 4.2.7.2.686 [id number] [facility] 2021-09-26 11:00:00 2021-09-26 11:00:00 Outpatient R EMILY LOWERY [facility] [id number] [facility] 2021-09-26 00:00:00 2021-09-26 00:00:00 Telephone Emily Lowery [facility] 1.840.114 350.1.13.10 4.2.7.2.686 [id number] [facility] 2021-09-26 00:00:00 2021-09-26 00:00:00 Orders Only Doctor Unassigned, [employer] [facility] 1.2.840.114 350.1.13.10 4.2.7.2.686 [id number] [facility] 2021-09-12 14:00:00 2021-09-12 14:31:58 Outpatient R AKI [facility] [id number] [facility] 2021-09-12 14:00:00 2021-09-12 14:31:58 Office Visit Aki [facility] 1.2.840.114 350.1.13.10 4.2.7.2.686 [id number] [facility] 2021-09-12 14:00:00 2021-09-12 14:00:00 Outpatient R AKI ERICA [facility] [id number] [facility] 2021-09-12 00:00:00 2021-09-12 00:00:00 Orders Only Doctor Unassigned, [employer] [facility] 1.840.114 350.1.13.10 4.2.7.2.686 [id number] [id number] [facility] 2021-09-11 00:00:00 2021-09-11 00:00:00 Telephone Emily Lowery [facility] 1.0.114 350.1.13.10 4.2.7.2.686 [id number] [facility] 2021-09-11 00:00:00 2021-09-11 00:00:00 Telephone Emily Lowery [facility] 1.0.114 350.1.13.10 4.2.7.2.686 [id number] [facility] 2021-09-10 00:00:00 2021-09-10 00:00:00 Telephone Emily Lowery [facility] 1.840.114 350.1.13.10 4.2.7.2.686 [id number] [facility] 2021-08-23 13:30:00 2021-08-23 15:37:18 Office Visit Kendra Gray [facility] [address] 1.2840.114 350.1.13.58 9.2.7.2.686 [id number] [facility] 2021-08-22 00:00:00 2021-08-22 00:00:00 Telephone Emily Lowery [facility] 1.840.114 350.1.13.10 4.2.7.2.686 [id number] [facility] 2021-08-21 00:00:00 2021-08-21 00:00:00 Orders Only Doctor Unassigned, [employer] [facility] 1.840.114 350.1.13.10 4.2.7.2.686 [id number] [facility] 2021-08-17 00:00:00 2021-08-17 00:00:00 Case Management Emily Lowery [facility] 1.114 350.1.13.10 4.2.7.2.686 [id number] [facility] 2021-08-08 14:00:00 2021-08-08 15:14:34 Outpatient R AKI [facility] [id number] [facility] 2021-08-08 14:00:00 2021-08-08 15:14:34 Office Visit Prabhakar, [facility] 1..114 350.1.13.10 4.2.7.2.686 [id number] [facility] 2021-08-08 14:00:00 2021-08-08 15:14:34 Outpatient R AKI [facility] [id number] [facility] 2021-08-08 14:00:00 2021-08-08 14:00:00 Outpatient R AKI [facility] [id number] [facility] 2021-08-08 00:00:00 2021-08-08 00:00:00 Orders Only Doctor Unassigned, [employer] [facility] 1.0.114 350.1.13.10 4.2.7.2.686 [id number] [facility] 2021-08-07 10:30:00 2021-08-07 12:34:07 Outpatient R EMILY LOWERY [facility] [id number] [facility] 2021-08-07 10:30:00 2021-08-07 11:00:00 Office Visit Emily Lowery [facility] 1.0.114 350.1.13.10 4.2.7.2.686 [id number] [facility] 2021-08-07 10:30:00 2021-08-07 10:30:00 Outpatient R EMILY LOWERY [facility] [id number] [facility] 2021-07-25 14:40:00 2021-07-26 18:55:00 Outpatient X LEIGHANN [facility] [id number] [facility] 2021-07-25 14:40:00 2021-07-26 18:55:00 Emergency James Masters [facility] 1..114 350.1.13.10 4.2.7.2.686 [id number] [facility] 2021-07-18 19:45:00 2021-07-18 19:45:00 Outpatient R DEANA GRANGER [facility] [id number] [facility] 2021-07-18 00:00:00 2021-07-18 00:00:00 Emily Warren [facility] 1..114 350.1.13.10 4.2.7.2.686 [id number] [facility] 2021-07-12 12:45:00 2021-07-12 13:54:23 Office Visit Kendra Gray [facility] [address] 1.0.114 350.1.13.58 9.2.7.2.686 [id number] [facility] 2021-07-11 09:00:00 2021-07-11 09:00:00 Outpatient R EMILY LOWERY [facility] [id number] [facility] 2021-06-19 09:00:00 2021-06-19 10:08:45 Outpatient R EMILY LOWERY [facility] [id number] [facility] 2021-06-19 09:00:00 2021-06-19 10:08:45 Outpatient R EMILY LOWERY [facility] [id number] [facility] 2021-06-19 08:59:26 2021-06-19 10:08:45 Office Visit Emily Lowery [facility] 1.840.114 350.1.13.10 4.2.7.2.686 [id number] [facility] 2021-06-19 00:00:00 2021-06-19 00:00:00 Orders Only Doctor Unassigned, [employer] [facility] 1.2840.114 350.1.13.10 4.2.7.2.686 [id number] 009 [id number] [facility] 2021-06-16 00:00:00 2021-06-16 00:00:00 Refill Emily Lowery [facility] 1.840.114 350.1.13.10 4.2.7.2.686 [id number] [facility] 2021-06-13 00:00:00 2021-06-13 00:00:00 Refill Emily Lowery [facility] 1.840.114 350.1.13.10 4.2.7.2.686 [id number] [facility] 2021-05-30 00:00:00 2021-05-30 00:00:00 Case Management Emily Lowery [facility] 1.840.114 350.1.13.10 4.2.7.2.686 [id number] [facility] 2021-05-29 00:00:00 2021-05-29 00:00:00 Telephone Emily Lowery [facility] 1.2.840.114 350.1.13.10 4.2.7.2.686 [id number] [facility] 2021-05-22 10:00:58 2021-05-22 10:31:08 Office Visit Emily Lowery [facility] 1.2.840.114 350.1.13.10 4.2.7.2.686 [id number] [facility] 2021-05-22 10:00:00 2021-05-22 10:31:08 Outpatient EMILY HARRISON [facility] [id number] [facility] 2021-05-17 10:55:20 2021-05-17 11:52:11 Office Visit Hamzah Anton [facility] 1.2.840.114 350.1.13.58 9.2.7.2.686 [id number] [facility] 2021-05-09 09:13:18 2021-05-09 09:43:18 Office Visit Emily Lowery [facility] 1.2.840.114 350.1.13.10 4.2.7.2.686 [id number] [facility] 2021-05-09 09:30:00 2021-05-09 09:30:00 Outpatient EMILY HARRISON [facility] [id number] [facility] 2021-05-09 09:30:00 2021-05-09 09:30:00 Outpatient EMILY HARRISON [facility] [id number] [facility] 2021-05-09 09:30:00 2021-05-09 09:30:00 Outpatient R EMILY LOWERY [facility] [id number] [facility] 2021-05-01 08:46:04 2021-05-01 09:16:04 Office Visit MARCELLOMICHI TRAN [facility] [address] 1.2.840.114 350.1.13.58 9.2.7.2.686 [id number] [facility] 2021-05-01 00:00:00 2021-05-01 00:00:00 Telephone Emily Lowery [facility] 1.2.840.114 350.1.13.10 4.2.7.2.686 [id number] [facility] 2021 00:00:00 2021 00:00:00 Telephone Azra Harley Elena [facility] [address] 1.2.840.114 350.1.13.58 9.2.7.2.686 [id number] [facility] 2021-04-26 00:00:00 2021-04-26 00:00:00 Refill Emily Lowery [facility] 1.2.840.114 350.1.13.10 4.2.7.2.686 [id number] [facility] 2021-04-25 00:00:00 2021-04-25 00:00:00 Refill Hamzah Anton [facility] 1.2.840.114 350.1.13.58 9.2.7.2.686 [id number] [facility] 2021-04-25 00:00:00 2021-04-25 00:00:00 Refill Emily Lowery [facility] 1.2.840.114 350.1.13.10 4.2.7.2.686 [id number] [facility] 2021-04-18 00:00:00 2021-04-18 00:00:00 Case Management Emily Lowery [facility] 1.2.840.114 350.1.13.10 4.2.7.2.686 [id number] 314 [id number] [facility] 2021-04-16 00:00:00 2021-04-16 00:00:00 Refill Hamzah [facility] 1.2.840.114 350.1.13.58 9.2.7.2.686 [id number] [facility] 2021-04-06 09:46:34 2021-04-06 10:36:12 Office Visit Emily Lowery [facility] 1.2.840.114 350.1.13.10 4.2.7.2.686 [id number] [facility] 2021-04-06 09:30:00 2021-04-06 09:30:00 Outpatient R EMILY LOWERY [facility] [id number] [facility] 2021-04-06 00:00:00 2021-04-06 00:00:00 Refill Emily Lowery [facility] 1.2.840.114 350.1.13.10 4.2.7.2.686 [id number] [facility] 2021-04-05 13:59:26 2021-04-05 14:51:50 Office Visit Hamzah [facility] 1.2.840.114 350.1.13.58 9.2.7.2.686 [id number] 1 [id number] 2021-04-05 13:59:26 2021-04-05 14:51:50 Office Visit Hamzah [facility] 1.2.840.114 350.1.13.58 9.2.7.2.686 [id number] 1 [id number] [facility] 2021-04-05 00:00:00 2021-04-05 00:00:00 Telephone Emily Lowery [facility] 1.2.840.114 350.1.13.10 4.2.7.2.686 [id number] [facility] 2021-04-03 00:00:00 2021-04-03 00:00:00 Orders Only Doctor Unassigned, [employer] [facility] 1.2.840.114 350.1.13.10 4.2.7.2.686 [id number] [id number] [facility] 2021-04-03 00:00:00 2021-04-03 00:00:00 Refill Solorzano, Aura Solorzano, [facility] 1.2.840.114 350.1.13.58 9.2.7.2.686 [id number] [facility] 2021-04-03 00:00:00 2021-04-03 00:00:00 Refill Solorzano, Aura Solorzano, [facility] 1.2.840.114 350.1.13.58 9.2.7.2.686 [id number] [facility] 2021-03-29 00:00:00 2021-03-29 00:00:00 Refill Solorzano, Aura Solorzano, [facility] 1.2.840.114 350.1.13.58 9.2.7.2.686 [id number] [facility] 2021-03-29 00:00:00 2021-03-29 00:00:00 Refill Solorzano, Aura Solorzano, [facility] 1.2.840.114 350.1.13.58 9.2.7.2.686 [id number] [facility] 2021-03-23 09:30:00 2021-03-23 09:30:00 Outpatient EMILY HARRISON [facility] [id number] [facility] 2021-03-23 00:00:00 2021-03-23 00:00:00 Case Management Emily Lowery [facility] 1.2.840.114 350.1.13.10 4.2.7.2.686 [id number] [facility] 2021-03-23 00:00:00 2021-03-23 00:00:00 Orders Only Doctor Unassigned, [employer] [facility] 1.2.840.114 350.1.13.10 4.2.7.2.686 [id number] [id number] [facility] 2021-03-23 00:00:00 2021-03-23 00:00:00 Case Management Emily Lowery [facility] 1.2.840.114 350.1.13.10 4.2.7.2.686 [id number] [facility] 2021-03-21 00:00:00 2021-03-21 00:00:00 Telephone Emily Lowery [facility] 1.2.840.114 350.1.13.10 4.2.7.2.686 [id number] [facility] 2021-03-16 00:00:00 2021-03-16 00:00:00 Orders Only Azra Harley Elena [facility] [address] 1.2.840.114 350.1.13.58 9.2.7.2.686 [id number] [facility] 2021-03-16 00:00:00 2021-03-16 00:00:00 Orders Only Azra Harley Elena [facility] [address] 1.2.840.114 350.1.13.58 9.2.7.2.686 [id number] [facility] 2021-03-15 12:41:34 2021-03-15 13:47:49 Office Visit Hamzah Anton [facility] 1.2.840.114 350.1.13.58 9.2.7.2.686 [id number] 1 [id number] [facility] 2021-03-15 12:41:34 2021-03-15 13:47:49 Office Visit Hamzah Anton [facility] 1.2.840.114 350.1.13.58 9.2.7.2.686 [id number] 1 [id number] [facility] 2021-03-14 08:10:52 2021-03-14 09:26:01 Office Visit Emily Lowery [facility] 1.2840.114 350.1.13.10 4.2.7.2.686 [id number] [facility] 2021-03-14 08:00:00 2021-03-14 08:00:00 Outpatient R EMILY LOWERY [facility] [id number] [facility] 2021-03-14 00:00:00 2021-03-14 00:00:00 Telephone Emily Lowery [facility] Maribel Waite?Na[facility] 1.2840.114 350.1.13.10 4.2.7.2.686 [id number] [facility] 2021-03-14 00:00:00 2021-03-14 00:00:00 Telephone Azra Harley [facility] [address] 1.2.840.114 350.1.13.58 9.2.7.2.686 [id number] [facility] 2021-03-14 00:00:00 2021-03-14 00:00:00 Telephone Azra Harley [facility] [address] 1.2.840.114 350.1.13.58 9.2.7.2.686 [id number] [facility] 2021-03-09 00:00:00 2021-03-09 00:00:00 Refill Kitty Solorzanoa, [facility] 1.2.840.114 350.1.13.58 9.2.7.2.686 [id number] 1 [id number] [facility] 2021-03-09 00:00:00 2021-03-09 00:00:00 Refill SolorzanoKittya, [facility] 1.2.840.114 350.1.13.58 9.2.7.2.686 [id number] [facility] 2021-03-07 13:40:00 2021-03-07 13:40:00 Outpatient TONE DOMINGO [facility] [id number] [facility] 2021-03-06 13:40:00 2021-03-06 13:40:00 Outpatient TONE DOMINGO [facility] [id number] [facility] 2021-03-05 00:00:00 2021-03-05 00:00:00 Refill Kitty Solorzanoa, Diogoa [facility] 1.2.840.114 350.1.13.58 9.2.7.2.686 [id number] [facility] 2021-03-05 00:00:00 2021-03-05 00:00:00 Refill Kitty Solorzanoa, [facility] 1.2.840.114 350.1.13.58 9.2.7.2.686 [id number] [facility] 2021-03-02 00:00:00 2021-03-02 00:00:00 Telephone Emily Lowery [facility] 1.2.840.114 350.1.13.10 4.2.7.2.686 [id number] [facility] 2021-03-02 00:00:00 2021-03-02 00:00:00 Telephone Emily Lowery [facility] 1.2.840.114 350.1.13.10 4.2.7.2.686 [id number] [facility] 2021-02-27 00:00:00 2021-02-27 00:00:00 Telephone Emily Lowery [facility] 1.2.840.114 350.1.13.10 4.2.7.2.686 [id number] [facility] 2021-02-27 00:00:00 2021-02-27 00:00:00 Telephone Emily Lowery [facility] 1.2.840.114 350.1.13.10 4.2.7.2.686 [id number] [facility] 2021-02-19 08:30:00 2021-02-19 08:30:00 Outpatient EMILY HARRISON [facility] [id number] [facility] 2021-02-19 00:00:00 2021-02-19 00:00:00 Telephone Emily Lowery [facility] 1.2.840.114 350.1.13.10 4.2.7.2.686 [id number] [facility] 2021-02-19 00:00:00 2021-02-19 00:00:00 Telephone Emily Lowery [facility] 1.2.840.114 350.1.13.10 4.2.7.2.686 [id number] [facility] 2021-02-18 15:01:00 2021-02-18 18:16:00 Emergency Daniel Art [facility] [id number] 22 [facility] 2021-02-17 23:15:00 2021-02-18 02:09:00 Emergency Cam Stevens [facility] 1.2.840.114 350.1.13.10 4.2.7.2.686 [id number] [facility] 2021-02-06 13:12:38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 SHARON MCKINNON UNIT #: [id number] ROOM/BED: : 66 AGE: 55 SEX: M PCP PHYS: DOES_NOT KNOW SERVICE AUTHOR: Vane Cornejo BEVERAGE MANAGER * ALL edits or amendments must be made on the electronic/computer document * Vane Cornejo 02/18/21 1553: HPI-Knee Prob/Inj Free Text HPI [...] Room air 02/18 1557 Temp 98.0 02/18 155 Pulse 111 02/18 1557 Resp 18 02/18 1557 Last Documented: Result Date Time Pulse Ox 97 02/18 1557 B/P 130/88 02/18 1557 B/P Mean 102 02/18 1557 O2 Delivery Room air 02/18 1557 Temp 98.0 02/18 155 Pulse 111 02/18 [...] Saw Pt Alone I have reviewed the PA/BEVERAGE MANAGER's note and plan of care. I was available for consultation as needed at all times during the patient's visit in the emergency department. I agree with the clinical impression, plan and disposition. at 1743 at 5239 RPT #: [id number] END OF REPORT [facility]
[2025-02-21] MEDS ORDERED: HYDROCODONE/APAP 5/325 MG TAB ONE (11:26)
[2025-02-21] MEDS ORDERED: KETOROLAC 30 MG/ML INJ ONE (11:26)
[2025-02-21 11:47] LABS: Absolute Lymphocytes (CBC) 1.4 K/uL (0.7-4.9); Hematocrit 50.4 % (39.6-49.0); Hemoglobin 16.7 g/dL (13.6-17.9); MCH 29.0 pg (27.0-35.0); MCHC 33.1 g/dL (32.0-36.0); MCV 87.5 fL (80-100); MPV 7.5 fL (7.6-11.3); Nucleated RBC Absolute Count 0.0 (0-0); Nucleated Red Blood Cells % 0.0 % (0-0); RBC Red Blood Cell Count 5.76 M/uL (4.33-5.43); White Blood Count 7.60 thou/uL (4.3-10.9)
--- NOTE | 2025-02-21 12:01 | RAD REPORT ---
EXAMINATION: Head C Spine Mpr Wo Con CLINICAL INDICATION: Male, 59 years old. PAIN TECHNIQUE: Axial CT images from the skull base to the vertex without intravenous contrast. Axial CT i mages through the cervical spine were obtained without intravenous contrast. Sagittal and coronal reformatted images were created from the data set. Coronal and sagittal reformatted images were creat ed from the data set. One or more of the following dose reduction techniques were used: Automated exposure control, adjustment of the mA and/or kV according to patient size, and/or iterative reconstr uction. Unless otherwise specified, incidental findings do not require dedicated imaging follow-up. [id number]. COMPARISON: No prior exams FINDINGS: Head: INTRACRANIAL: No acute intracranial hemorrhage. No acute large vascular territory infarct. No hydroce phalus. No mass effect or midline shift. No significant white matter disease.Small right posterior fossa arachnoid cyst versus megacisterna magna. VASCULATURE: No visualized abnormalities in the arteries or dural venous sinuses. SCALP/SKULL: No calvarial fracture identified. No acute soft tissue abnormality. SINUSES: The visualized paranasal sinuses are mostly clear. No significant mastoid fluid. Cervical spine: ALIGNMENT: The cervical spine has normal alignment without scoliosis or spondylolisthesis. BONE: Vertebral body heights are maintained. No aggressive osseous lesions. DEGENERATIVE: Multilevel cervical spondylosis with evidence of bilateral neural foraminal narrowing. No high grade central spinal stenosis. Neural foraminal narrowing is most notable at C4-5 and C5-6. SOFT TISSUE: No significant abnormalities in the soft tissue of the neck. The visualized lung apices are clear. IMPRESSION: No acute intracranial abnormality. No acute fracture or traumatic malalignment of the cervical spine.
[2025-02-21 12:03] LABS: ALT/SGPT 23 U/L (16-61); Albumin 3.5 g/dL (3.4-5.0); Alkaline Phosphatase 78 U/L (45-117); Anion Gap 9.0 mEq/L (5.0-15.0); BUN Blood Urea Nitrogen 17 mg/dL (7-18); Globulin 3.7 g/dL (2.3-3.5); Glucose Level 125 mg/dL (74-106); Potassium 4.0 mEq/L (3.5-5.1)
[2025-02-21 12:04] LABS: AST/SGOT < 10 U/L (15-37); Albumin/Globulin Ratio 0.9 (1.1-1.8)
--- NOTE | 2025-02-21 13:07 | EDPHYS ---
Physician Documentation [facility] Name: Jean Claude Gonzalez Age: 59 yrs Sex: Male : 1965 Arrival Date: 02/21/2025 Time: 11:09 Bed 5 Private MD: ED Physician Ramy De La Cruz HPI: 02/21 11:21 This 59 yrs old Male presents to ER via Ambulatory with complaints of dr5 Shoulder Pain, neck pain. 11:21 Onset: The symptoms/episode began/occurred 10 day(s) ago. Patient is a 59-year-old male dr5 with history of hypertension coming in with continued right shoulder pain despite going on for the past 10 days. Patient reports he been taking tramadol, cyclobenzaprine, ibuprofen with mild relief. Patient reports that he is not able to get in with his primary care doctor and needs a referral to see orthopedics. Patient states that the pain is the same and starting to radiate to his neck. Patient denies fever, decreased range of motion, chest pain, nausea, vomiting, diarrhea. Historical: - Allergies: 11:20 No Known Allergies; iw - PMHx: 11:19 Hypertension; iw - PSHx: 11:20 knee; iw - Immunization history:: Adult Immunizations not up to date. - Infectious Disease History:: Denies. - Social history:: Smoking status: Patient denies any tobacco usage or history of. ROS: 11:21 Constitutional: as per hpi dr5 Exam: 11:21 Constitutional: This is a well developed, well nourished patient who is awake, alert, dr5 and in no acute distress. Head/Face: Normocephalic, atraumatic. Eyes: Pupils equal round and reactive to light, extra-ocular motions intact. Lids and lashes normal. Conjunctiva and sclera are non-icteric and not injected. Cornea within normal limits. Periorbital areas with no swelling, redness, or edema. Neck: Trachea midline, no thyromegaly or masses palpated, and no cervical lymphadenopathy. Supple, full range of motion without nuchal rigidity, or vertebral point tenderness. No Meningismus. Chest/axilla: Normal chest wall appearance and motion. Nontender with no deformity. No lesions are appreciated. Cardiovascular: Regular rate and rhythm with a normal S1 and S2. Normal PMI, no JVD. No pulse deficits. Respiratory: Lungs have equal breath sounds bilaterally, clear to auscultation. No rales, rhonchi or wheezes noted. No increased work of breathing, no retractions or nasal flaring. Back: No spinal tenderness. No costovertebral tenderness. Full range of motion. Skin: Warm, dry with normal turgor. Normal color with no rashes, no lesions, and no evidence of cellulitis. MS/ Extremity: Pulses equal, no cyanosis. Neurovascular intact. Full, normal range of motion. Mild tenderness to palpation over right shoulder. Neuro: Awake and alert, GCS 15, oriented to person, place, time, and situation. Cranial nerves II-XII grossly intact. Motor strength 5/5 in all extremities. Sensory grossly intact. Cerebellar exam normal. Normal gait. Vital Signs: 11:18 BP 125 / 100; Pulse 98; Resp 18; Temp 97.7(O); Pulse Ox 98% on R/A; Weight 109.77 kg; iw Height 6 ft. 2 in. ; Pain 10/10; 12:07 BP 142 / 95; Pulse 89; Resp 17; Pulse Ox 98% ; hb 11:18 Body Mass Index 31.07 (109.77 kg, 187.96 cm) iw 11:18 Pain Scale: Adult iw MDM: 11:18 Medical Screening Exam initiated dr5 16:15 Differential diagnosis: Strain, sprain, fracture. Data reviewed: vital signs, nurses dr5 notes, lab test result(s), CBC, white blood cell count, hemoglobin, hematocrit, platelets, electrolytes, sodium, potassium, chloride, serum bicarbonate, BUN, creatinine, serum glucose, radiologic studies, CT scan. Consideration of Admission/Observation Escalation of care including admission/observation considered. Admission considered patient found to have intracranial hemorrhage. Care significantly affected by the following chronic conditions: Hypertension. Care significantly affected by the following Social Determinants of Health: Poor access to healthcare and/or lack of insurance, Poor access to transportation, Problems related to employment. Counseling: I had a detailed discussion with the patient and/or guardian regarding the historical points, exam findings, and any diagnostic results supporting the discharge/admit diagnosis, the presence of at least one elevated blood pressure reading (>120/80) during this emergency department visit, lab results, radiology results, the need for outpatient follow up, for definitive care, a family practitioner, a orthopedic surgeon, to return to the emergency department if symptoms worsen or persist or if there are any questions or concerns that arise at home. Medication response: Response to treatment: the patient's symptoms have markedly improved after treatment. Special discussion: I have referred the patient to see his PCP for further evaluation of high blood pressure. I discussed with the patient/guardian in detail that at this point there is no indication for admission to the hospital. It is understood, however, that if the symptoms persist or worsen the patient needs to return immediately for re-evaluation. Based on the history and exam findings, there is no indication for further emergent testing or inpatient evaluation. I discussed with the patient/guardian the need to see the orthopedic surgeon for further evaluation of the symptoms. ED course: CT scan did not reveal any new abnormality, labs were also unremarkable. Printed everything out and given to patient to take with her primary care doctor and/or orthopedics. All questions are. Strict ER precautions given.. 02/21 11:23 Order name: CBC with Diff; Complete Time: 11:51 dr5 02/21 11:23 Order name: CMP; Complete Time: 12:07 dr5 02/21 11:21 Order name: CT Head C Spine; Complete Time: 12:04 dr5 Administered Medications: 11:34 Drug: Ketorolac IVP 15 mg IVP once Route: IVP; Site: right forearm; bp 11:35 Drug: HYDROcodone-acetaminophen PO 5 mg-325 mg 2 tabs PO once Route: PO; bp Disposition: 20:00 I was immediately available on-site in the Emergency Department for consultation in the ms3 care of the patient. Disposition Summary: 02/21/25 13:06 Discharge Ordered Notes: Location: Home dr5 Condition: Stable dr5 Diagnosis - Pain in right shoulder dr5 - Osteoarthritis, unspecified site dr5 Followup: dr5 - With: Emergency Department - When: As needed - Reason: Worsening of condition Followup: dr5 - With: Private Physician - When: 1 - 2 days - Reason: Recheck today's complaints, Continuance of care, Re-evaluation by your physician Discharge Instructions: - Discharge Summary Sheet dr5 - Arthritis dr5 - Shoulder Pain dr5 Forms: - Medication Reconciliation Form dr5 - Patient Portal Instructions dr5 - Leadership Thank You Letter dr5 Prescriptions: - Ibuprofen 800 mg Oral Tablet - take 1 tablet ORAL route every 12 hours As needed take with food; 20 tablet; dr5 Refills: 0, Product Selection Permitted - Cyclobenzaprine 10 mg Oral Tablet - take 1 tablet ORAL route every 8 hours As needed; 30 tablet; Refills: 0, dr5 Product Selection Permitted - Tramadol 50 mg Oral Tablet - take 1 tablet ORAL route every 8 hours as needed; 12 tablet; Refills: 0, dr5 Product Selection Permitted Signatures: Dispatcher [employer] Diana Luo RN RN iw Peltier, Brian, RN RN bp Sims, Marcus, DO DO ms3 Sherman Kang, HAMMAD-C POLYSOMNOGRAPHY TECHNOLOGIST-Cdr5
--- NOTE | 2025-02-21 13:07 | ER ---
Nurse's Notes [facility] Name: Jean Claude Gonzalez Age: 59 yrs Sex: Male : 1965 Arrival Date: 02/21/2025 Time: 11:09 Bed 5 Private MD: Diagnosis: Pain in right shoulder;Osteoarthritis, unspecified site Presentation: 02/21 11:18 Chief complaint: Patient states: has pain in right shoulder into his neck, it's 04/15, iw was seen her last Friday , was given muscle relaxer and steroids. Coronavirus screen: At this time, the client does not indicate any symptoms associated with coronavirus-19. Ebola Screen: No symptoms or risks identified at this time. Initial Sepsis Screen: Does the patient meet any 2 criteria? No. Patient's initial sepsis screen is negative. Does the patient have a suspected source of infection? No. Patient's initial sepsis screen is negative. Risk Assessment: Do you want to hurt yourself or someone else? Patient reports no desire to harm self or others. Onset of symptoms was February 11, 2025. 11:18 Method Of Arrival: Ambulatory 11:18 Acuity: TAMARA 3 iw Historical: - Allergies: 11:20 No Known Allergies; iw - PMHx: 11:19 Hypertension; iw - PSHx: 11:20 knee; iw - Immunization history:: Adult Immunizations not up to date. - Infectious Disease History:: Denies. - Social history:: Smoking status: Patient denies any tobacco usage or history of. Screenin:22 [facility] ED Fall Risk Assessment (Adult) History of falling in the last 3 months, hb including since admission No falls in past 3 months (0 pts) Confusion or Disorientation No (0 pts) Intoxicated or Sedated No (0 pts) Impaired Gait No (0 pts) Mobility Assist Device Used No (0 pt) Altered Elimination No (0 pt) Score/Fall Risk Level 0 - 2 = Low Risk Oriented to surroundings, Maintained a safe environment, Educated pt \T\ family on fall prevention, incl call for assistance when getting out of bed. Abuse screen: Denies threats or abuse. Denies injuries from another. Nutritional screening: No deficits noted. Tuberculosis screening: No symptoms or risk factors identified. Assessment: 12:07 Reassessment: Patient appears in no apparent distress at this time. Patient and/or hb family updated on plan of care and expected duration. Pain level reassessed. Patient is alert, oriented x 3, equal unlabored respirations, skin warm/dry/pink. Vital Signs: 11:18 BP 125 / 100; Pulse 98; Resp 18; Temp 97.7(O); Pulse Ox 98% on R/A; Weight 109.77 kg; iw Height 6 ft. 2 in. ; Pain 10/10; 12:07 BP 142 / 95; Pulse 89; Resp 17; Pulse Ox 98% ; hb 11:18 Body Mass Index 31.07 (109.77 kg, 187.96 cm) iw 11:18 Pain Scale: Adult iw ED Course: 11:11 Patient arrived in ED. mr 11:18 Sherman Kang, [facility] 11:18 Ramy De La Cruz DO is Attending Physician. dr5 11:19 Triage completed. iw 11:19 Arm band placed on. iw 11:22 Boone Gates, RN is Primary Nurse. bp 11:35 Initial lab(s) drawn, by pr, sent to lab. Inserted saline lock: 20 gauge in right bp forearm, using aseptic technique. Blood collected. Flushed with 10 mL NS. 11:45 Patient has correct armband on for positive identification. Bed in low position. Call hb light in reach. Provided Education on: CALL LIGHT. 11:49 CT Head C Spine In Process Unspecified. EDMS 13:31 No provider procedures requiring assistance completed. IV discontinued, intact, hb bleeding controlled, No redness/swelling at site. Pressure dressing applied. Administered Medications: 11:34 Drug: Ketorolac IVP 15 mg IVP once Route: IVP; Site: right forearm; bp 11:35 Drug: HYDROcodone-acetaminophen PO 5 mg-325 mg 2 tabs PO once Route: PO; bp Medication: 13:31 VIS not applicable for this client. hb Outcome: 13:06 Discharge ordered by . dr5 13:31 Discharged to home ambulatory, hb 13:31 Condition: stable 13:31 Discharge instructions given to patient, Instructed on discharge instructions, follow up and referral plans. medication usage, Demonstrated understanding of instructions, follow-up care, medications, Prescriptions given X 3, 13:32 Patient left the ED. hb Signatures: Dispatcher [employer] EDMS Kathya Peterson, Reg Reg Diana Mott, RN RN iw Kendra Sarmiento RN RN hb Boone Gates, JOEL MALDONADO bp Sherman Kang, STONEMASON APPRENTICE-C STONEMASON APPRENTICE-Cdr5 Corrections: (The following items were deleted from the chart) 11:20 11:18 Resp 18bpm; Pulse Ox 98% RA; Temp 97.7F Oral; 12:07 12:07 BP 142 / 95; Pulse 89bpm; Resp 15bpm; Pulse Ox 98%; hb hb
[2025-02-21 17:24] VITALS: TEMP 97.7; O2SAT 98
[2025-02-21 17:32] VITALS: BP 142/95
== END 2025-02-21 13:32 | disposition home or self-care (01) ==
LOC: ER 11:09
DX: M19.011 Primary osteoarthritis, right shoulder (principal); M54.2 Cervicalgia
CPT/HCPCS: 36415; 70450; 72125; 80053; 85025; 96374; 99284